=== PATIENT | female | born 1940 | race Caucasian/White ===

== ENCOUNTER 2020-09-24 17:15 | Inpatient (IN) | payer MEDICARE, SELFPAY ==
[2020-09-24] VITALS (13 sets, daily range): BP systolic 106–156; BP diastolic 63–93; PULSE 88–173; RESP 12–25; TEMP 37.2–37.4; O2SAT 94–97; BMI 24.7
--- NOTE | 2020-09-24 | ECG_ITS ---
Test Reason : TACHYCARDIA Blood Pressure : / mmHG Vent. Rate : 161 BPM Atrial Rate : 129 BPM P-R Int : 000 ms QRS Dur : 078 ms QT Int : 292 ms P-R-T Axes : 000 022 -77 degrees QTc Int : 477 ms Atrial fibrillation with rapid ventricular response Marked ST abnormality, possible inferior subendocardial injury Abnormal ECG When compared to the previous EKG of Afib is present Referred By: Leno Mejias Electronically Signed By:Asim Ray
--- NOTE | ~2020-09-24 | CT_ITS ---
EXAMINATION: CT ANGIOGRAM OF THE CHEST WITH AND WITHOUT CONTRAST (CT PULMONARY ANGIOGRAM FOR PE) CLINICAL INFORMATION: Reason for Exam SOB COMPARISON: Chest x-ray 09/30/2020 TECHNIQUE: Prior to contrast administration, noncontrast localization images were obtained. Subsequently, multidetector volumetric imaging was performed from the thoracic inlet to below the diaphragms following the administration of 61 mL Omnipaque 350 intravenous contrast. No contrast reaction reported Sagittal, coronal, and MIP oblique sagittal reformatted images were obtained on the CT workstation, uploaded to PACS, and reviewed. This CT examination was performed using dose optimization techniques as appropriate, variously including the following: *Automated exposure control *Adjustment of mA and/or kV according to patient size (this includes techniques or standardized protocols for targeted exams where dose is matched to indication/reason for exam; i.e. extremities or head) *Use of iterative reconstruction technique Total exam dose-length product 482 mGy-cm FINDINGS: QUALITY OF STUDY/CONTRAST BOLUS: Satisfactory. PULMONARY ARTERIES: There are multiple bilateral pulmonary arteries emboli involving segmental and subsegmental arteries involving all lobes. Most significant emboli in the right lower lobe and left lower lobe. THORACIC AORTA: No aneurysm or dissection. LUNG: No focal consolidation. There are areas of linear scarring at lung bases and posterior left upper lobe. Lung nodules: Right lun. Right upper lobe anterior lung 5 mm smooth bordered nodule axial image 223/516 2. Right lower lobe posterior lateral subpleural lung 4 mm nodule axial image [id number] Left lun. Calcified 2 mm nodule left upper lobe axial image 96/516 PLEURA: No pleural effusion or pneumothorax. MEDIASTINUM: There is straightening of the intraventricular septum . Right ventricle is larger than the left ventricle. Minimal reflux of contrast into the IVC. These changes are consistent with right ventricular heart strain. Heart size is normal. Moderate volume of coronary calcified calcifications. No pericardial effusion. No mediastinal mass or lymphadenopathy. CHEST WALL/AXILLA: No axillary or internal mammary lymphadenopathy. OSSEOUS STRUCTURES: Multilevel degenerative spondylosis of the spine. UPPER ABDOMEN: Unremarkable. No reflux of contrast into the hepatic veins to suggest elevated right heart pressures. CT/CT angio chest PE protocol IMPRESSION: 1. Multiple bilateral pulmonary emboli. Evidence of right ventricular heart strain. 2. There are 2 noncalcified nodules in the right lung measuring 5 mm and 4 mm. Various management parameters for solitary pulmonary nodules are in the literature. According to the UPDATED 2017 Fleischner Society recommendations, the advised follow-up imaging for solid nodules < 6 mm is: LOW RISK PATIENT: No routine follow-up. HIGH RISK PATIENT: Optional CT at 12 months. If stable at 12 months no further follow-up recommended. Reference: Guidelines for Management of Incidental Pulmonary Nodules Detected on CT Images: From the Fleischner Society 2017. VTE: negative This critical result was discussed with Georgia Harley on 09/30/2020, 9:22 PM and it was ascertained that the content and urgency of the report was understood at the time of direct communication.
--- NOTE | ~2020-09-24 | XR_ITS ---
EXAMINATION: XR CHEST CLINICAL INFORMATION: Triple-lumen catheter placement COMPARISON: 09/30/2020 TECHNIQUE: Frontal view of the chest was obtained. FINDINGS: Right internal jugular central venous catheter terminates near the cavoatrial junction. Cardiac leads overlie the chest. The lungs are well expanded. There is no focal consolidation, edema, or effusion. No pneumothorax. The cardiomediastinal silhouette is within normal limits. No acute osseous abnormality. XR/XR chest 1V IMPRESSION: Right internal jugular central venous catheter terminates near the cavoatrial junction. No pneumothorax.
--- NOTE | ~2020-09-24 | US_ITS ---
EXAMINATION: US VENOUS ULTRASOUND WITH DOPPLER LOWER EXTREMITY, BILATERAL CLINICAL INFORMATION: Swelling legs. PE COMPARISON: None TECHNIQUE: Ultrasound of the deep veins is performed from the hip to the calf with compression sonography and color and pulse Doppler assessment. Spectral analysis with color-flow imaging is performed. FINDINGS: RIGHT: There is normal venous compression and respiratory variation and augmented flow. The visualized common femoral vein, superficial femoral vein, profunda femoral vein, popliteal vein, and the trifurcation region shows no evidence of deep venous thrombosis. There is no significant popliteal fossa cyst. LEFT: There is acute appearing thrombus in the left common femoral vein extending into the greater saphenous vein. The thrombus is nonocclusive in the common femoral vein and appears to be occlusive in the greater saphenous vein, which is expanded. No thrombus seen within the left superficial femoral, profunda femoral, or popliteal veins, nor is there thrombus seen in the veins of the calf. No left popliteal fossa cyst. US/US venous duplex LE BI IMPRESSION: No DVT demonstrated in the right lower extremity. There is acute appearing thrombus in the left common femoral vein extending into the greater saphenous vein. This critical result was discussed with Veda AGUILAR by telephone at 10/02/2020 8:31 PM and it was ascertained that the content and urgency of the report was understood at the time of direct communication.
--- NOTE | ~2020-09-24 | XR_ITS ---
EXAMINATION: PORTABLE CHEST 1 VIEW CLINICAL INFORMATION: Shortness of breath . COMPARISON: 06/09/2009. TECHNIQUE: Portable frontal view of the chest was obtained. FINDINGS: The lungs are well expanded. No focal infiltrate, effusion, edema, or pneumothorax. Cardiac and mediastinal silhouettes are within normal limits for technique. No acute bony abnormality seen. XR/XR chest 1V IMPRESSION: No evidence of acute disease.
[2020-09-24 19:51] LABS: Hematocrit 44.5 % (37-47); Hemoglobin 14.7 g/dl (12.0-16.0); Mean Corpuscular Hemoglobin 28.7 pg (27.0-33.0); Mean Corpuscular Volume 86.9 fL (80-98); Mean Platelet Volume 8.9 fL (9.4-12.3); NRBC Pct Auto 0.2 /100WBC (0.0-0.2); Platelet Count 327 X10*3/uL (160-400); Red Blood Count 5.12 X10*6/uL (4.20-5.50); Red Cell Distribution Width 12.3 % (11.0-16.0); White Blood Count 8.6 X10*3/uL (4.8-10.8)
--- NOTE | 2020-09-24 20:04 | ED.GIBLEED ---
HPI - GI Bleed General Chief complaint: GI Bleed Stated complaint: rectal bleed Time Seen by Provider: 09/24/20 20:02 Source: patient Mode of arrival: ambulatory Limitations: no limitations History of Present Illness HPI Narrative: Patient complaining of vaginal bleeding couple of weeks ago which has happened before in the past has followed with associate application developer lately she noticed bleeding per rectally which started 1 week ago according to her when she wipes she noticed bright red blood and some time and she has diarrhea has blood mixed with the stool not melena patient denies dizziness or shortness of breath no palpitation no chest pain when patient arrived to the bed cardiac nurse specialist showed tachycardia with heart rate of 180. Patient unaware of palpitation no chest pain no shortness of breath feels weak for last few days. Patient colonoscopy in the past without any significant lesion Related Data Home Medications Medication Instructions Recorded Confirmed aspirin 81 mg tablet,delayed 81 mg PO DAILY 05/26/20 09/24/20 release Previous Rx's Medication Instructions Recorded bisoprolol 5 1 tab PO DAILY #90 tab 08/14/20 mg-hydrochlorothiazide 6.25 mg tablet Allergies Allergy/AdvReac Type Severity Reaction Status Date / Time No Known Allergies Allergy Verified 09/24/20 22:17 Review of Systems Review of Systems: Constitutional : No Weight loss, No Fever, No Chills ENT/Mouth : No sore throat, No Rhinorrhea Eyes: No Eye Pain, No Swelling Cardiovascular : No Chest Pain, no palpitations Respiratory : No Cough, No Sputum, no shortness of breath Gastrointestinal : no Nausea, No Vomiting, No Diarrhea, No abdominal Pain, no black stools Genitourinary : No Dysuria, No Urinary Frequency Musculoskeletal : No joint pain, No Myalgias, No Joint Swelling Skin : No Skin Lesions, No rash Neuro : No Weakness, No Numbness, No Dizziness, No Headache Psych : No Anxiety/Panic, No Depression Heme/Lymph: No Bruising, No Lymphadenopathy Endocrine : No Polyuria, No Polydipsia All other systems reviewed and are negative [facility] Past Medical History Medical History Hypertension Surgical History History of section History of left knee replacement Family History Family History Father Hypertension Mother No problems noted. Son No problems noted. Son No problems noted. Daughter No problems noted. Social History Social History Alcohol intake: current Alcohol intake frequency: holidays/special occasions only Smoking Status: Never smoker Advance Directives: No Advance Directives Information Provided: No Physical Exam Vital Signs: Vital Signs: Last Vital Signs Temp 99.3 F 09/24/20 20:22 Pulse 130 H 09/25/20 00:41 Resp 24 H 09/25/20 00:41 BP 140/88 H 09/25/20 00:41 Pulse Ox 95 09/25/20 00:41 Body Mass Index 24.7 Appearance: Alert. Oriented X3. No acute distress. Eyes: Pupils equal, round and reactive to light. ENT: Pharynx normal. Neck: Normal inspection. Neck supple. CVS: Tachycardia with heart rate of 180 beats per minute no murmur or gallop Pulses normal. Respiratory: No respiratory distress. Breath sounds normal. Abdomen: Soft and nontender. Bowel sounds are present, no mass palpable, no CVA tenderness rectal exam: Brown stool guaiac positive Skin: Skin warm and dry. Normal skin color. Normal skin turgor. Extremities: No lower extremity edema. No calf tenderness Neuro: Oriented X 3. No motor deficit. No sensory deficit. MDM - GI Bleed MDM Narrative Medical decision making narrative: Patient with minor rectal bleed with stable H&H came to the ER and noticed to have tachycardia EKG showed atrial fibrillation with heart rate of 170s responded to IV Cardizem patient unaware of palpitations. Heart rate improved after Cardizem now around 100 still AFib. With Daryl score of 4 will start on aspirin for now as patient has rectal bleed likely hemorrhoidal H&H is stable Medical Records Attestation: I reviewed the patient's medical records. Lab Data Attestation: I reviewed the patient's lab results. Result diagrams: 09/24/20 19:43 09/24/20 19:43 Labs: Lab Results 09/24/20 09/24/20 09/24/20 Range/Units 19:43 19:43 20:32 WBC 8.6 (4.8-10.8) X10*3/uL RBC 5.12 (4.20-5.50) X10*6/uL Hgb 14.7 (12.0-16.0) g/dl Hct 44.5 (37-47) % MCV 86.9 (80-98) fL MCH 28.7 (27.0-33.0) pg MCHC 33.0 (31.0-35.0) g/dl RDW 12.3 (11.0-16.0) % Plt Count 327 (160-400) X10*3/uL MPV 8.9 L (9.4-12.3) fL Absolute Nucleated RBC 0.020 H (0.0-0.012) X10*3/uL Nucleated RBC % (auto) 0.2 (0.0-0.2) /100WBC PT 14.7 H (10.8-13.0) SEC INR 1.2 H (0.9-1.1) APTT 28.6 (24.1-38.0) SEC Sodium 142 (135-145) mmol/L Potassium 3.2 L (3.3-5.1) mmol/L Chloride 103 (96-108) mmol/L Carbon Dioxide 26 (22-29) mmol/L Anion Gap 16 (12-20) BUN 15 (9-16) mg/dL Creatinine 0.72 (0.5-1.4) mg/dL Estim Creat Clear Calc 59.6 Estimated GFR > 60 Random Glucose 118 H (60-115) mg/dL Calcium 9.0 (8.4-10.2) mg/dL Total Bilirubin 1.0 (0.0-1.0) mg/dL Direct Bilirubin 0.5 (0.0-0.5) mg/dL AST 15 (5-31) U/L ALT 16 (0-31) U/L Alkaline Phosphatase 138 H (39-117) U/L Troponin I High Sens (<3.5-17.0) ng/L Total Protein 7.0 (6.5-8.0) g/dL Albumin 4.0 (3.5-5.0) g/dL Lipase 30 (8-78) U/L Stool Occult Blood (NEGATIVE) COVID-19 (JASON) (Negative) COVID-19 Clin Com 04/15/21 04/15/21 04/15/21 Range/Units 20:32 20:32 21:23 WBC (4.8-10.8) X10*3/uL RBC (4.20-5.50) X10*6/uL Hgb (12.0-16.0) g/dl Hct (37-47) % MCV (80-98) fL MCH (27.0-33.0) pg MCHC (31.0-35.0) g/dl RDW (11.0-16.0) % Plt Count (160-400) X10*3/uL MPV (9.4-12.3) fL Absolute Nucleated RBC (0.0-0.012) X10*3/uL Nucleated RBC % (auto) (0.0-0.2) /100WBC PT (10.8-13.0) SEC INR (0.9-1.1) APTT (24.1-38.0) SEC Sodium (135-145) mmol/L Potassium (3.3-5.1) mmol/L Chloride (96-108) mmol/L Carbon Dioxide (22-29) mmol/L Anion Gap (12-20) BUN (9-16) mg/dL Creatinine (0.5-1.4) mg/dL Estim Creat Clear Calc Estimated GFR Random Glucose (60-115) mg/dL Calcium (8.4-10.2) mg/dL Total Bilirubin (0.0-1.0) mg/dL Direct Bilirubin (0.0-0.5) mg/dL AST (5-31) U/L ALT (0-31) U/L Alkaline Phosphatase (39-117) U/L Troponin I High Sens 8.7 (<3.5-17.0) ng/L Total Protein (6.5-8.0) g/dL Albumin (3.5-5.0) g/dL Lipase (8-78) U/L Stool Occult Blood POSITIVE (NEGATIVE) COVID-19 (JASON) Negative (Negative) COVID-19 Clin Com See Note ECG Data Attestation: I personally reviewed and interpreted this ECG as follows: Interpretation: Atrial fibrillation with heart rate of 161 beats per minute nonspecific ST T wave changes no acute ischemia Discharge Plan Discharge Clinical Impression: Atrial fibrillation with RVR, Bright red rectal bleeding Patient Disposition: Admitted As Inpatient
[2020-09-24 20:21] LABS: Alanine Aminotransferase 16 U/L (0-31); Alkaline Phosphatase 138 U/L (39-117); Anion Gap 16 (12-20); Aspartate Amino Transferase 15 U/L (5-31); Bilirubin Direct 0.5 mg/dL (0.0-0.5); Blood Urea Nitrogen 15 mg/dL (9-16); Carbon Dioxide 26 mmol/L (22-29); Chloride 103 mmol/L (96-108); Creatinine Clr Calc Pharmacy 59.6; Estimated Glomerular Filt Rate > 60; Glucose Random 118 mg/dL (60-115); Lipase 30 U/L (8-78); Potassium 3.2 mmol/L (3.3-5.1); Sodium 142 mmol/L (135-145)
[2020-09-24] MEDS: dilTIAZem HCL 50 MG/10 ML VIAL 20 MG IVPUSH (20:25)
[2020-09-24] MEDS: 0.9 % Sodium Chloride 1,000 ML 999 ML IVCONT (20:26)
[2020-09-24 20:41] LABS: OBS Int Ctl Valid YES; OBS1 POSITIVE (NEGATIVE)
[2020-09-24] MEDS: Metoprolol Tartrate 5 MG/5 ML VIAL IVPUSH (20:42)
[2020-09-24 20:46] LABS: INTERNATIONAL NORM RATIO 1.2 (0.9-1.1); Prothrombin Time 14.7 SEC (10.8-13.0)
[2020-09-24 20:49] LABS: Partial Thromboplastin Time 28.6 SEC (24.1-38.0)
--- NOTE | 2020-09-24 20:49 | PC.NURSE ---
At about 2014 pt placed on cardiac cath rn, found to be tachycardiac around 180bpm. This RN notified Randell Villela to bedside. This RN obtained EKG which showed afib with RVR. Pt aaox1, intermittently disoriented to place and situation, completely disoriented to time. Pt medicated with cardizem per AUG with some effectiveness, remained tachy between 120-160. Randell made aware, ordered 5mg metoprolol. Pt medicated per AUG, tolerating meds. Pt HR now irregular between 70s-90s. Pt maintaining baseline mentation, denies CP/palpitations/SOB/dizziness. Pt remains on cardiac cath rn. VSS
[2020-09-24 21:18] LABS: Troponin-I High Sensitivity 8.7 ng/L (<3.5-17.0)
[2020-09-24] MEDS: dilTIAZem HCL CD 120 MG CAP.ER.DEG PO (21:27)
--- NOTE | 2020-09-24 21:56 | PM.IMHP ---
History of Present Illness Date of Service: 09/24/20 Chief Complaint: Diarrhea 80-year-old female with a past medical history of hypertension presented to the hospital with a chief complaint of diarrhea. Patient mentioned that over the past few days he has been having intermittent episodes of loose stools. Of water in nature. Denies being on any antibiotics her eating outside. Denies any nausea vomiting. Denies any abdominal discomfort. Patient is any chest pain palpitations lightheadedness or dizziness. Today patient noted streaks of blood in the stool/dark stool. Hence decided to come to the ER for further evaluation. Review of all other systems is negative except mentioned above ER course: Per ER team patient rectal exam noted guaiac positive stool. Itchiness stable. But subsequently patient noted to be in new onset AFib with rapid ventricular response. Patient was given oral diltiazem. Admitted to the hospital for further management. [facility] Medical History Hypertension Family History Father Hypertension Mother No problems noted. Son No problems noted. Son No problems noted. Daughter No problems noted. Surgical History History of section History of left knee replacement Social History Household Members: Unknown / Unable to assess Housing: House Alcohol intake: current Alcohol intake frequency: holidays/special occasions only Smoking Status: Never smoker service: No Current occupational status: retired Meds Allergies Allergy/AdvReac Type Severity Reaction Status Date / Time No Known Allergies Allergy Verified 09/24/20 22:17 Active Medications: Current Medications Generic Name Dose Route Start Last Admin Trade Name Freq PRN Reason Stop Dose Admin Acetaminophen 650 mg 09/24/20 21:52 Acetaminophen 325 Mg Tablet PO Q6H PRN Pain, Mild (Pain Scale 1-3) Aspirin 81 mg 09/25/20 09:00 Aspirin 81 Mg Tab.Chew PO DAILY [facility] Diltiazem HCl 60 mg 09/25/20 09:00 Diltiazem Hcl Sr 60 Mg Cap.Er.12h PO BID [facility] Protocol Enoxaparin Sodium 40 mg 09/24/20 22:00 Enoxaparin Sodium 40 Mg/0.4 Ml Syringe SUBCUT Q24H [facility] Dextrose/Sodium Chloride 1,000 mls @ 100 mls/hr 09/24/20 22:00 D51/2ns IVCONT .Q10H NESTOR Sodium Chloride 3 ml 09/25/20 00:00 0.9 % Sodium Chloride Flush 3 Ml Syringe IVFLUSH QSHIFT NESTOR Physical Exam Vital Signs and Narrative: Vital Signs: Last Vital Signs Temp 99.3 F 09/24/20 20:22 Pulse 135 H 09/24/20 21:27 Resp 15 09/24/20 21:26 BP 135/70 09/24/20 21:27 Pulse Ox 96 09/24/20 21:26 Body Mass Index 24.7 Gen: Appears be in no acute distress HEENT: NCAT, Moist mucosa. Pulmonary: Vesicular breath sounds, fair air entry CVS: Normal S1-S2 Abdomen: BS+, Soft, Nontender Extremities: Warm well perfused Neuro: Alert and awake. Results Labs CBC and Chem 7: 10/03/20 05:46 10/03/20 05:46 Labs: Laboratory Results - last 24 hr 09/24/20 09/24/20 09/24/20 19:43 19:43 20:32 MCV 86.9 MCH 28.7 MCHC 33.0 RDW 12.3 Plt Count 327 MPV 8.9 L Absolute Nucleated RBC 0.020 H Nucleated RBC % (auto) 0.2 PT 14.7 H INR 1.2 H APTT 28.6 Anion Gap 16 Estim Creat Clear Calc 59.6 Estimated GFR > 60 Random Glucose 118 H Calcium 9.0 Total Bilirubin 1.0 Direct Bilirubin 0.5 AST 15 ALT 16 Alkaline Phosphatase 138 H Troponin I High Sens Total Protein 7.0 Albumin 4.0 Lipase 30 Stool Occult Blood 09/24/20 09/24/20 20:32 20:32 MCV MCH MCHC RDW Plt Count MPV Absolute Nucleated RBC Nucleated RBC % (auto) PT INR APTT Anion Gap Estim Creat Clear Calc Estimated GFR Random Glucose Calcium Total Bilirubin Direct Bilirubin AST ALT Alkaline Phosphatase Troponin I High Sens 8.7 Total Protein Albumin Lipase Stool Occult Blood POSITIVE Assessment and Plan (1) Rectal bleed: Status: Acute 80-year-old female with a past medical history of hypertension presented to the hospital with a chief complaint of diarrhea/bright red blood per rectum. Exam was benign. Noted to be new onset AFib. Admitted for further management. Bright red blood per rectum: Guaiac-positive stool. H&H stable. Vitals stable. IV ppi. Gastroenterology consult. Gentle IV fluids. Diarrhea: Likely gastroenteritis. Abdominal exam benign. Will obtain stool studies. Supportive care. New onset AFib with RVR: On Diltizem Drip Patient denies any palpitations. Will obtain TSH and echocardiogram. Cardiology consult. Will defer to Cardiology in regards anticoagulation once cleared by Gastroenterology. History of hypertension: Hold home aspirin. Will also hold home bisoprolol/hydrochlorothiazide. DVT prophylaxis: SCD boots Code status: Full code
[2020-09-24 22:09] LABS: COVID-19 Test Negative (Negative)
--- NOTE | 2020-09-24 22:12 | PC.NURSE ---
Hospitalist TT regarding pt's VS. Awaiting reply
[2020-09-24] MEDS: Dextrose 5 % and 0.45 % NaCl 1,000 ML 100 ML IVCONT (22:13)
[2020-09-24] MEDS: dilTIAZem HCL 50 MG/10 ML VIAL 10 MG IVPUSH (22:26)
[2020-09-25] VITALS (14 sets, daily range): BP systolic 79–146; BP diastolic 51–90; PULSE 84–156; RESP 16–24; TEMP 36.2–37.2; O2SAT 94–97
[2020-09-25] MEDS: dilTIAZem HCL 125 MG in 0.9 % Sodium Chloride 100 ML 10 MG IVCONT (00:12)
[2020-09-25] MEDS: 0.9 % Sodium Chloride Flush 3 ML SYRINGE IVFLUSH ×3 (00:19→16:33)
[2020-09-25 00:31] LABS: Troponin-I High Sensitivity 10.3 ng/L (<3.5-17.0)
--- NOTE | 2020-09-25 00:42 | PC.NURSE ---
Pt incontinent of BM, inc care provided.
--- NOTE | 2020-09-25 01:54 | PC.NURSE ---
Pt was maintaining HR between 90-125 at 12.5mg/h then began increasing HR to 130-140. This RN increased dose to 13mg/h, now HR 90-120.
--- NOTE | 2020-09-25 02:30 | PC.NURSE ---
Pt properly rate controlled at 13mg/h however BP dropped as low as 74/48, now 79/51. Pt titrated down to 10mg/h, HR controlled at this time. Provider to order bolus for BP.
[2020-09-25] MEDS: 0.9 % Sodium Chloride 500 ML IV (02:42)
[2020-09-25] MEDS: Pantoprazole Sodium 40 MG/10 ML VIAL IVPUSH (06:03)
[2020-09-25 08:17] LABS: MANUAL DIFF FLAG NO
--- NOTE | 2020-09-25 08:30 | CA_ITS ---
Transthoracic Echocardiogram Patient (Last, First, Middle): Enma Holden A Gender: Female Date of : 1940 Age: 80 Procedure Date: 09/25/2020 Procedure Type: Transthoracic Echocardiogram Location: [facility] [place] Height: 170.18 cm Weight: 80.74 kg BSA: 1.92 m2 Heart Rate: bpm BP: 93 / 60 mmHg Watch Assembly Instructor: Referring MD: Reji Mccord MD Symptoms: afib Study Quality: Fair ECG Rhythm: Atrial Fibrillation Conclusions: - Normal left ventricular size and systolic function. - There is moderately increased left ventricular wall thickness. - The left atrium is severely dilated. Findings Left Ventricle Normal left ventricular size and systolic function. There is moderately increased left ventricular wall thickness. The visually estimated ejection fraction is between 55-60%. There is no evidence of regional wall motion abnormalities. Diastolic function is indeterminate on the basis of available data. Right Ventricle Normal right ventricular cavity size and systolic function. Atria The left atrium is severely dilated. There is no evidence of interatrial shunt by color Doppler. Aortic Valve Normal aortic valve structure and function. There is no aortic valve stenosis. There is no aortic valve regurgitation. Mitral Valve Normal mitral valve structure and function. There is no mitral valve regurgitation. There is no mitral valve stenosis. Pulmonic Valve The pulmonic valve is likely normal. Tricuspid Valve Normal tricuspid valve structure. There is mild to moderate tricuspid valve regurgitation. Normal right atrial pressure. There is no evidence of pulmonary hypertension. Great Vessels The pulmonary artery was not well visualized. There is mild dilatation of the ascending aorta. Venous The inferior vena cava is normal in size and collapses greater than 50% with inspiration. Pericardium/Pleural There is no evidence of pericardial effusion. Prior Study Comparison No prior study available for comparison. Measurements 2D Linear Measurements IVSd: 1.24 0.6-0.9/0.6-1.0 cm LVIDd: 3.63 3.9-5.3/4.2-5.9 cm LVIDd Index: 1.89 2.4-3.2/2.2-3.1 cm/m2 LVIDs: 2.47 2.0-3.6 cm LVPWd: 1.22 0.7-1.1 cm Ao Root: 2.90 2.1-3.5 cm LA Diam: 3.10 2.7-3.8/3.0-4.0 cm LAIDs Index: 1.61 1.5-2.3 cm/m2 LV Mass: 185.16 67-162/88-224 g LV Mass Index: 96.44 43-95/49-115 g/m2 LVOT Diam: 1.90 3.0+(-)1.3 cm 2D Systolic Function EF 4C: 53.20 >55% EF 2C: 56.00 >55% Mitral Valve MV Pk E: 0.83 MV Decel Time: 158.00 E'Lateral: 13.40 E'Medial: 9.57 E/E' Med: 8.60 E/E' Lat: 6.20 PHT: 46.00 MVA PHT: 4.78 Decel Glenn: 5.20 Aortic Valve AoV Pk Esteban: 1.52 AoV Mn Esteban: 0.93 AoV VTI: 0.30 AoV Pk Grad: 9.00 Aov Mn Grad: 4.00 SARAY Cont.VTI: 1.92 LVOT LVOT Pk Esteban: 1.23 LVOT Mn Esteban: 0.75 LVOT VTI: 0.21 LVOT Pk Grad: 6.00 LVOT Mn Grad: 3.00 LVOT Diam: 1.90 LVOT Area: 2.84 Diastolic Function MV Pk E: 0.83 E'Medial: 9.57 E/E' Med: 8.60 E' Laterial: 13.40 E/E' Lat: 6.20 Tricuspid Valve TR Pk Esteban: 2.24 TR Pk Grad: 20.00 RA Press: 3.00 RVSP: 23.00 Great Vessels Aorta Ao Root-2D: 2.90 2.0-3.7 cm Ao Asc: 3.30 2.1-3.4 cm Pulmonary Valve PV Pk Esteban: 1.00 Peak PV Grad: 4.00 Updated in Other Vendor System with Status of Final Asim Ray MD electronically signed on 09/25/2020 6:53:43 PM with status of Final
[2020-09-25 08:42] LABS: Basophils Absolute Auto 0.1 X10*3/uL (0.0-0.2); Eosinophils Absolute Auto 0.3 X10*3/uL (0.0-0.4); Eosinophils Percent Auto 5.3 % (0-4); Hematocrit 40.4 % (37-47); Hemoglobin 13.4 g/dl (12.0-16.0); Imm Gran Abs Auto 0.02 X10*3/uL (0.00-0.03); Imm Gran Pct Auto 0.3 % (0.0-0.4); Lymphocytes Absolute Auto 1.7 X10*3/uL (1.2-4.9); Lymphocytes Percent Auto 28.3 % (20-40); Mean Corpuscular HGB Conc 33.2 g/dl (31.0-35.0); Mean Corpuscular Hemoglobin 28.9 pg (27.0-33.0); Mean Corpuscular Volume 87.1 fL (80-98); Mean Platelet Volume 9.1 fL (9.4-12.3); Monocytes Percent Auto 16.9 % (2-11); Neutrophils Absolute Auto 2.9 X10*3/uL (2.0-8.3); Neutrophils Percent Auto 48.2 % (45-73); Platelet Count 302 X10*3/uL (160-400); Red Blood Count 4.64 X10*6/uL (4.20-5.50); Red Cell Distribution Width 12.3 % (11.0-16.0); White Blood Count 6.1 X10*3/uL (4.8-10.8)
[2020-09-25] MEDS: Dextrose 5 % and 0.45 % NaCl 1,000 ML 100 ML IVCONT ×2 (08:44→18:11)
[2020-09-25] MEDS: dilTIAZem HCL SR 60 MG CAP.ER.12H PO (08:44)
[2020-09-25 08:56] LABS: Blood Urea Nitrogen 8 mg/dL (9-16); Carbon Dioxide 26 mmol/L (22-29); Chloride 107 mmol/L (96-108); Estimated Glomerular Filt Rate > 60; Glucose Random 110 mg/dL (60-115); Sodium 143 mmol/L (135-145)
[2020-09-25 09:02] LABS: Anion Gap 13 (12-20); Potassium 2.8 mmol/L (3.3-5.1)
[2020-09-25 09:16] LABS: Thyroid Stimulating Hormone 1.29 uIU/mL (0.32-4.0)
--- NOTE | 2020-09-25 10:19 | P.PNIM_ITS ---
Subjective Subjective Date of Service: 09/25/20 Interval History: seen and examined this AM pleasantly confused knows shes in the hospital but otherwise disoriented to person and time. is aw are that she is having memory troubles ROS unreliable due to baseline dementia Physical Exam Vital Signs: Vital Signs: Last Vital Signs Temp 98.0 F 09/25/20 08:00 Pulse 98 09/25/20 08:44 Resp 20 09/25/20 08:00 BP 136/81 09/25/20 08:44 Pulse Ox 95 09/25/20 08:00 Body Mass Index 24.7 Const: Other: General - no acute distress, appears comfortable Cardiovascular - IRR Lungs - normal respiratory effort, clear to auscultation bilaterally, no wheezing Abdomen - soft, non-tender, no rebound or guarding Extremities - no edema bilaterally Neuro - awake and alert, no focal deficits; disoriented to person and time Objective Data Current Medications Generic Name Dose Route Start Last Admin Trade Name Freq PRN Reason Stop Dose Admin Acetaminophen 650 mg 09/24/20 21:52 Acetaminophen 325 Mg Tablet PO Q6H PRN Pain, Mild (Pain Scale 1-3) Diltiazem HCl 60 mg 09/25/20 09:00 09/25/20 08:44 Diltiazem Hcl Sr 60 Mg Cap.Er.12h PO 60 mg BID NESTOR Administration Protocol Diltiazem HCl 10 mg 09/24/20 22:18 09/24/20 22:26 Diltiazem Hcl 50 Mg/10 Ml Vial IVPUSH 10 mg Q4H PRN Administration HR>125 Dextrose/Sodium Chloride 1,000 mls @ 100 mls/hr 09/24/20 22:00 09/25/20 08:44 D51/2ns IVCONT 100 mls/hr .Q10H NESTOR Administration Diltiazem HCl 125 mg/ Sodium 125 mls @ 0 mls/hr 09/24/20 23:45 09/25/20 09:07 Chloride IVCONT 5 mg/hr .Q0M NESTOR 5 mls/hr Titration Protocol Per Protocol Pantoprazole Sodium 40 mg 09/25/20 06:30 09/25/20 06:03 Pantoprazole Sodium 40 Mg/10 Ml Vial IVPUSH 40 mg DAILY@0630 [facility] Administration Pharmacy Consult 1 each 09/25/20 08:34 Consult Rx Perform Med Rec MISCELLANE ONCE PRN Consult order Sodium Chloride 3 ml 09/25/20 00:00 09/25/20 08:44 0.9 % Sodium Chloride Flush 3 Ml Syringe IVFLUSH 3 ml QSHIFT NESTOR Administration Labs CBC & Chem 7: 09/25/20 07:40 09/25/20 07:40 Assessment and Plan (1) Rectal bleed: Status: Acute (2) Dementia: Status: Acute Assessment and Plan: This is a 80-year-old female with a past medical history of progressive dementia who presents to the hospital with complaints of self-limited rectal bleeding. Upon arrival to the emergency room she was noted to be in new onset AFib with RVR which did not improve with multiple doses of IV metoprolo/cardizem nor oral cardizem. She was subsequently started on cardizem gtt and admission was requested. 1. New onset A. Fib with RVR On cardizem gtt, rates rebounded as drip was titrated off Testarted on cardizem gtt, placed on oral -- will keep the same for now until evaluated by cardiologyT May need OAC given CHADSVASC of at least 4, but given bleeding history -- to discuss with family (given patients bleeding) 2. GI bleed likely lower and self limited h/h slight drop, but still wnl monitor for now 3. History of HTN on bisoprolol/hctz at home, held to make room for cardizem 4. 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
[2020-09-25] MEDS: Potassium Chloride Packet 20 MEQ PACKET 60 MEQ PO (11:35)
--- NOTE | 2020-09-25 13:13 | PM.CNCAR ---
History of Present Illness History of Present Illness Date of Service: 09/25/20 Requesting physician: Reji Mccord Consult reason: atrial fibrillation Chief complaint: New onset afib Narrative: Enma is an 80 yo female with PMH of HTN who presented with report of loose stool, blood in stool. Had been taking daily aspirin at home which was stopped. Stool Occult blood positive. Hgb 13.4. GI consulted. EKG was done showing atrial fibrillation which is new finding for her. Treated with Diltiazem for heart rate control. Not started on anticoagulation. Today she is observed resting in bed in no acute distress. She reports feeling well without any concerning symptoms. She has no chest pains at rest or activity, no sob, palpitation, PND, orthopnea or edema. No dizziness, presyncope, syncope. Denies any known cardiac history. 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 present. Review of Systems Review of Systems: as above Yes all other systems are reviewed and are negative PMFSH Past Medical History Medical History Hypertension Family History Family History Father Hypertension Mother No problems noted. Son No problems noted. Son No problems noted. Daughter No problems noted. Surgical History Surgical History History of section History of left knee replacement Social History Social History Household Members: Unknown / Unable to assess Housing: House Do you presently have visiting nurse or other home services: No Alcohol intake: current Alcohol intake frequency: holidays/special occasions only Smoking Status: Never smoker Smoked in Last 30 Days: No Use of substances other than those prescribed or required for medical reasons: No Currently Displaying Signs/Symptoms of Drug Intoxication Withdrawal: No Have you been hit, kicked, punched, or otherwise hurt by someone within the past year? If so, by whom?: No Do you feel safe in your current relationship?: No Is there a partner from a previous relationship who is making you feel unsafe now?: No Are you made to feel afraid or neglected: No Advance Directives: No Advance Directives Information Provided: No Do you have thoughts of harming others: None Do you have a plan to hurt others: No Plan service: No Current occupational status: retired Meds Allergies Allergy/AdvReac Type Severity Reaction Status Date / Time No Known Allergies Allergy Verified 09/24/20 22:17 Active Medications: Current Medications Generic Name Dose Route Start Last Admin Trade Name Freq PRN Reason Stop Dose Admin Acetaminophen 650 mg 09/24/20 21:52 Acetaminophen 325 Mg Tablet PO Q6H PRN Pain, Mild (Pain Scale 1-3) Diltiazem HCl 60 mg 09/25/20 09:00 09/25/20 08:44 Diltiazem Hcl Sr 60 Mg Cap.Er.12h PO 60 mg BID NESTOR Administration Protocol Dextrose/Sodium Chloride 1,000 mls @ 100 mls/hr 09/24/20 22:00 09/25/20 08:44 D51/2ns IVCONT 100 mls/hr .Q10H NESTOR Administration Diltiazem HCl 125 mg/ Sodium 125 mls @ 0 mls/hr 09/24/20 23:45 09/25/20 09:07 Chloride IVCONT 5 mg/hr .Q0M NESTOR 5 mls/hr Titration Protocol Per Protocol Pantoprazole Sodium 40 mg 09/25/20 06:30 09/25/20 06:03 Pantoprazole Sodium 40 Mg/10 Ml Vial IVPUSH 40 mg DAILY@0630 [facility] Administration Pharmacy Consult 1 each 09/25/20 08:34 Consult Rx Perform Med Rec MISCELLANE ONCE PRN Consult order Sodium Chloride 3 ml 09/25/20 00:00 09/25/20 08:44 0.9 % Sodium Chloride Flush 3 Ml Syringe IVFLUSH 3 ml QSHIFT NESTOR Administration Home Medications Medication Instructions Recorded Confirmed Last Taken Type aspirin 81 mg tablet,delayed 81 mg PO DAILY 05/26/20 09/24/20 Unknown History release Physical Exam Vital Signs: Vital Signs: Last Vital Signs Temp 97.3 F 09/25/20 12:00 Pulse 84 09/25/20 12:00 Resp 20 09/25/20 12:00 BP 123/86 09/25/20 12:00 Pulse Ox 96 09/25/20 12:00 Body Mass Index 24.7 Const: General: cooperative, no acute distress, alert and awake Orientation/consciousness: patient oriented x3 Neck: Neck: Yes normal visual inspection and Yes no JVD Resp: Effort & Inspection: normal respiratory effort, able to speak in complete sentences and not labored Auscultation: clear to auscultation bilaterally, no crackles, no rales, no rhonchi and no wheezes Cardio: Palpation: normal PMI Rate: regular rate Rhythm: abnormal rhythm (irregularly irregular) Heart sounds: S1 normal heart sound present and S2 normal heart sound present Peripheral pulses: Peripheral pulses 2+ throughout GI: Inspection: Yes normal to inspection Neuro: General: patient oriented x3 Extrem: General: Yes normal to inspection and No edema Results Labs and Meds Result diagrams: 09/25/20 07:40 09/25/20 07:40 Lab results: Laboratory Results - last 24 hr 09/24/20 09/24/20 09/24/20 19:43 19:43 20:32 WBC 8.6 RBC 5.12 Hgb 14.7 Hct 44.5 MCV 86.9 MCH 28.7 MCHC 33.0 RDW 12.3 Plt Count 327 MPV 8.9 L Immature Gran % (Auto) Neut % (Auto) Lymph % (Auto) Imperial % (Auto) Eos % (Auto) Baso % (Auto) Lymph # (Auto) Imperial # (Auto) Eos # (Auto) Baso # (Auto) Abs Immat Gran (auto) Absolute Neuts (auto) Absolute Nucleated RBC 0.020 H Nucleated RBC % (auto) 0.2 PT 14.7 H INR 1.2 H APTT 28.6 Sodium 142 Potassium 3.2 L Chloride 103 Carbon Dioxide 26 Anion Gap 16 BUN 15 Creatinine 0.72 Estim Creat Clear Calc 59.6 Estimated GFR > 60 Random Glucose 118 H Calcium 9.0 Total Bilirubin 1.0 Direct Bilirubin 0.5 AST 15 ALT 16 Alkaline Phosphatase 138 H Troponin I High Sens Total Protein 7.0 Albumin 4.0 Lipase 30 TSH Stool Occult Blood COVID-19 (JSAON) COVID-19 Clin Com 09/24/20 09/24/20 09/24/20 20:32 20:32 21:23 WBC RBC Hgb Hct MCV MCH MCHC RDW Plt Count MPV Immature Gran % (Auto) Neut % (Auto) Lymph % (Auto) Imperial % (Auto) Eos % (Auto) Baso % (Auto) Lymph # (Auto) Imperial # (Auto) Eos # (Auto) Baso # (Auto) Abs Immat Gran (auto) Absolute Neuts (auto) Absolute Nucleated RBC Nucleated RBC % (auto) PT INR APTT Sodium Potassium Chloride Carbon Dioxide Anion Gap BUN Creatinine Estim Creat Clear Calc Estimated GFR Random Glucose Calcium Total Bilirubin Direct Bilirubin AST ALT Alkaline Phosphatase Troponin I High Sens 8.7 Total Protein Albumin Lipase TSH Stool Occult Blood POSITIVE COVID-19 (JASON) Negative COVID-19 Clin Com See Note 09/24/20 09/25/20 09/25/20 23:51 07:40 07:40 WBC 6.1 RBC 4.64 Hgb 13.4 Hct 40.4 MCV 87.1 MCH 28.9 MCHC 33.2 RDW 12.3 Plt Count 302 MPV 9.1 L Immature Gran % (Auto) 0.3 Neut % (Auto) 48.2 Lymph % (Auto) 28.3 Imperial % (Auto) 16.9 H Eos % (Auto) 5.3 H Baso % (Auto) 1.0 Lymph # (Auto) 1.7 Imperial # (Auto) 1.0 Eos # (Auto) 0.3 Baso # (Auto) 0.1 Abs Immat Gran (auto) 0.02 Absolute Neuts (auto) 2.9 Absolute Nucleated RBC 0.000 Nucleated RBC % (auto) 0.0 PT INR APTT Sodium 143 Potassium 2.8 L Chloride 107 Carbon Dioxide 26 Anion Gap 13 BUN 8 L Creatinine 0.58 Estim Creat Clear Calc 74.0 Estimated GFR > 60 Random Glucose 110 Calcium 8.0 L D Total Bilirubin Direct Bilirubin AST ALT Alkaline Phosphatase Troponin I High Sens 10.3 Total Protein Albumin Lipase TSH Stool Occult Blood COVID-19 (JASON) COVID-19 Clin Com 09/25/20 07:40 WBC RBC Hgb Hct MCV MCH MCHC RDW Plt Count MPV Immature Gran % (Auto) Neut % (Auto) Lymph % (Auto) Imperial % (Auto) Eos % (Auto) Baso % (Auto) Lymph # (Auto) Imperial # (Auto) Eos # (Auto) Baso # (Auto) Abs Immat Gran (auto) Absolute Neuts (auto) Absolute Nucleated RBC Nucleated RBC % (auto) PT INR APTT Sodium Potassium Chloride Carbon Dioxide Anion Gap BUN Creatinine Estim Creat Clear Calc Estimated GFR Random Glucose Calcium Total Bilirubin Direct Bilirubin AST ALT Alkaline Phosphatase Troponin I High Sens Total Protein Albumin Lipase TSH 1.29 Stool Occult Blood COVID-19 (JASON) COVID-19 Clin Com Assessment and Plan (1) Atrial fibrillation: Status: Acute New finding of atrial fibrillation this admit. Tolerates well without reported symptoms. Unknown how long she has been in afib. Rates initially elevated with EKG in ED showing afib RVR, 161. She has been treated with Diltiazem drip for rate control. Tele shows afib 80-110. Noted to have rate elevation with ambulation. Will Start Diltiazem CD 120mg daily. can give additional dose of Diltiazem 30mg po q 6 hr if needed for heart rates running > 100. Then ambulate to assess heart rate control. Echocardiogram is pending. If EF is low, will need to stop diltiazem and change to BB. CHADSVAsc score of 4 ( HTN, age, female). Anticoagulation indicated however not started yet due to GIB on admit. GI consult is pending. Plan will be to start on NOAC when clear by GI to do so. We will follow and plan to see as outpt after discharge. (2) Rectal bleed: Status: Acute Report of blood in stool prompting ED eval. H/H good. GI to evaluate (3) Hypertension: Status: Acute Hx HTN. On Bisoprolol/ HCTZ at home. This was stopped on admit and she was started on Diltiazem as above. BP continues to stay well controlled at present.
--- NOTE | 2020-09-25 13:56 | MHC.CM.PN ---
Addendum entered by Bertha Davidson 09/25/20 13:58: 09/25/20 IMM provided verbally to the Pt and her spouse. Understanding of medicare rights was verbalized. Original Note: Female 80 dx AFIB. She lives with her . She is independent with ADLs and ambulation. She is forgetful, pleasantly confused. DP is to home no services Family transport. CM will follow.
--- NOTE | 2020-09-25 14:31 | PC.NURSE ---
Pt first contact in chart daughter Judy also involved and pt gave permission to share info her # is [phone]
--- NOTE | 2020-09-25 14:42 | PC.NURSE ---
per cardio cardizem drip off at 1440. will closely monitor HR and assess pt for any cardiac symptoms
[2020-09-25] MEDS: dilTIAZem HCL CD 120 MG CAP.ER.DEG PO (16:31)
--- NOTE | 2020-09-25 19:14 | PM.EVENT ---
Event Note Date of Service: 09/25/20 Event Note: GI Consult-Full note dictated--Hx via patient's , RN , and the EMR. Imp: Self-limited lower GI bleed in relation to some diarrhea over the past few days. Presently stable with a benign abdominal exam. She had a negative colonoscopy in 2009. She has also been found to have Afib. Diff dx: Gastroenteritis with bleeding from a perianal source; other sources of bleeding could be ischemic colitis, colon polyp/neoplasm, or diverticulosis. Rec: Given possible need for anticoagulation in regard to her new atrial fibrillation, I would recommend a colonoscopy with MAC on Monday, 09/29(Monday, 09/28, is a holiday) with me or Dr. Smith. Full consent has been obtained from her for this, including risks of bleeding and perforation. F/U Hgb. Full liquids for now and I will put in orders for diet change and colon prep later over the weekend. Send stool for Cdiff and culture if she has more diarrhea. If she has significant active lower GI bleeding I would recommend a STAT nuclear medicine bleeding scan. D/W patient's in detail and he is comfortable with this plan. Thanks
[2020-09-25] MEDS: dilTIAZem HCL 30 MG TABLET PO (20:04)
[2020-09-26] VITALS (9 sets, daily range): BP systolic 96–147; BP diastolic 60–78; PULSE 78–119; RESP 18–20; TEMP 36.3–36.8; O2SAT 93–96
[2020-09-26] MEDS: dilTIAZem HCL 30 MG TABLET PO (02:19)
[2020-09-26] MEDS: Dextrose 5 % and 0.45 % NaCl 1,000 ML 100 ML IVCONT (03:24)
--- NOTE | 2020-09-26 04:11 | PC.NURSE ---
Patient here with new onset afib. Was on Cardizem drip, paused since 1400 yesterday. Cardiology started patient on Cardizem CD 120mg daily, and PRN Cardizem 30mg QID for a HR>100. Gave PRN Cardizem at 2003 yesterday and 218 today. Patient still in afib, heart rate between 100-130s at rest, increases to 160s with ambulation. Patient is asymptomatic, denies any chest pain, dizziness or SOB. All other vitals are stable. Dr Mccord made aware, no new orders at this time.
[2020-09-26 06:34] LABS: CDIFF Ag Negative (Negative); CDIFF Internal ctrl Dots and bkg OK (V); CDiff Toxin Negative (Negative)
[2020-09-26 07:13] LABS: Hematocrit 41.9 % (37-47); Hemoglobin 13.8 g/dl (12.0-16.0); Mean Corpuscular HGB Conc 32.9 g/dl (31.0-35.0); Mean Corpuscular Hemoglobin 28.7 pg (27.0-33.0); Mean Corpuscular Volume 87.1 fL (80-98); Platelet Count 309 X10*3/uL (160-400); Red Blood Count 4.81 X10*6/uL (4.20-5.50); Red Cell Distribution Width 12.3 % (11.0-16.0); White Blood Count 7.7 X10*3/uL (4.8-10.8)
[2020-09-26 07:38] LABS: Anion Gap 14 (12-20); Blood Urea Nitrogen 6 mg/dL (9-16); Calcium 8.2 mg/dL (8.4-10.2); Carbon Dioxide 24 mmol/L (22-29); Chloride 107 mmol/L (96-108); Estimated Glomerular Filt Rate > 60; Glucose Random 119 mg/dL (60-115); Potassium 3.3 mmol/L (3.3-5.1); Sodium 142 mmol/L (135-145)
[2020-09-26] MEDS: dilTIAZem HCL CD 120 MG CAP.ER.DEG PO (08:08)
--- NOTE | 2020-09-26 09:47 | PM.PNCARD ---
Subjective Subjective Date of Service: 09/26/20 Interval history: Continues to have AFib with RVR. Asymptomatic. Still having some blood in stool. Physical Exam Vital Signs: Last Vital Signs Temp 97.3 F 09/26/20 07:31 Pulse 110 H 09/26/20 07:31 Resp 20 09/26/20 07:31 BP 142/78 H 09/26/20 07:31 Pulse Ox 94 09/26/20 07:31 Body Mass Index 24.7 GENERAL APPEARANCE: in no acute distress, well developed, well nourished. HEENT: unremarkable. HEAD: normocephalic, atraumatic. NECK/THYROID: no carotid bruit, no jugular venous distention. SKIN: no suspicious lesions, warm and dry. HEART: no murmurs, irregular rate and rhythm, tachycardic. LUNGS: clear to auscultation bilaterally. ABDOMEN: normal, bowel sounds present, soft, nontender, nondistended. EXTREMITIES: no clubbing, cyanosis, or edema. PERIPHERAL PULSES: equal. Results Labs and Meds Result diagrams: 09/26/20 06:28 09/26/20 06:28 Lab results: Laboratory Results - last 24 hr 09/26/20 09/26/20 09/26/20 03:34 06:28 06:28 WBC 7.7 RBC 4.81 Hgb 13.8 Hct 41.9 MCV 87.1 MCH 28.7 MCHC 32.9 RDW 12.3 Plt Count 309 MPV 9.0 L Absolute Nucleated RBC 0.000 Nucleated RBC % (auto) 0.0 Sodium 142 Potassium 3.3 Chloride 107 Carbon Dioxide 24 Anion Gap 14 BUN 6 L Creatinine 0.64 Estim Creat Clear Calc 67.0 Estimated GFR > 60 Random Glucose 119 H Calcium 8.2 L C. difficile Toxin A&B Negative C. difficile Antigen Negative C. difficile Interpret SEE NOTE Progress Note: A&P Assessment and plan (1) Atrial fibrillation: Status: Acute Assessment and Plan: 80-year-old female with new onset atrial fibrillation rapid ventricular response. Blood pressure control is somewhat better. Heart rate control is still suboptimal. She was started on Cardizem CD 120 mg. Stopping the p.r.n. Cardizem. She was on bisoprolol at home and I think there is some beta-francesco withdrawal 2. I think we should give her metoprolol 25 mg twice a day in addition to the Cardizem. Will see how she responds to this. Depending on how much p.r.n. doses she requires we will increase her long-acting dose. She is asymptomatic and not in heart failure. Anticoagulation will be decided based on GI evaluation. Thank you for allowing me to participate in the care of your patient. Please feel free to contact me if you have any questions. Fall Risk Details Current Medications: Current Medications Generic Name Dose Route Start Last Admin Trade Name Freq PRN Reason Stop Dose Admin Acetaminophen 650 mg 09/24/20 21:52 Acetaminophen 325 Mg Tablet PO Q6H PRN Pain, Mild (Pain Scale 1-3) Diltiazem HCl 120 mg 09/25/20 15:00 09/26/20 08:08 Diltiazem Hcl Cd 120 Mg Cap.Er.Deg PO 120 mg DAILY NESTOR Administration Protocol Diltiazem HCl 30 mg 09/25/20 14:48 09/26/20 02:19 Diltiazem Hcl 30 Mg Tablet PO 30 mg QID PRN Administration Heart rates > 100 Protocol Dextrose/Sodium Chloride 1,000 mls @ 100 mls/hr 09/24/20 22:00 09/26/20 03:24 D51/2ns IVCONT 100 mls/hr .Q10H NESTOR Administration Diltiazem HCl 125 mg/ Sodium 125 mls @ 0 mls/hr 09/24/20 23:45 09/25/20 14:50 Chloride IVCONT 0 mg/hr .Q0M NESTOR 0 mls/hr Titration Protocol Per Protocol Pharmacy Consult 1 each 09/25/20 08:34 Consult Rx Perform Med Rec MISCELLANE ONCE PRN Consult order Sodium Chloride 3 ml 09/25/20 00:00 09/26/20 08:08 0.9 % Sodium Chloride Flush 3 Ml Syringe IVFLUSH Not Given QSHIFT NESTOR Time Spent With Patient Time: Total time spent is greater than 50% in coordination of care (as documented) at patient's floor/unit and/or counseling patient: Time with patient: less than 15 minutes
[2020-09-26] MEDS: Metoprolol Tartrate 25 MG TABLET PO ×2 (10:14→21:39)
--- NOTE | 2020-09-26 11:17 | HO.PM.IMPN ---
Subjective Subjective Date of Service: 09/26/20 Interval History: Patient remains pleasantly confused offers no acute complaints of chest pain, denies palpitation. ROS Unable to obtain review of system due to baseline dementia. Physical Exam Vital Signs: Vital Signs: Last Vital Signs Temp 97.6 F 09/26/20 11:04 Pulse 79 09/26/20 11:04 Resp 20 09/26/20 11:04 BP 96/61 09/26/20 11:04 Pulse Ox 94 09/26/20 11:04 Body Mass Index 24.7 General no acute distress. Neck supple no JVD. CVS irregular rate rhythm, Respiratory lungs clear to auscultation, no respiratory distress Gastrointestinal abdomen soft, nontender, bowel sounds audible, no guarding , no rigidity. Extremities no edema. Neuro speech clear, no focal deficit, disoriented to time and person. Skin no rash Objective Data Current Medications Generic Name Dose Route Start Last Admin Trade Name Freq PRN Reason Stop Dose Admin Acetaminophen 650 mg 09/24/20 21:52 Acetaminophen 325 Mg Tablet PO Q6H PRN Pain, Mild (Pain Scale 1-3) Diltiazem HCl 120 mg 09/25/20 15:00 09/26/20 08:08 Diltiazem Hcl Cd 120 Mg Cap.Er.Deg PO 120 mg DAILY NESTOR Administration Protocol Dextrose/Sodium Chloride 1,000 mls @ 100 mls/hr 09/24/20 22:00 09/26/20 03:24 D51/2ns IVCONT 100 mls/hr .Q10H NESTOR Administration Metoprolol Tartrate 25 mg 09/26/20 10:00 09/26/20 10:14 Metoprolol Tartrate 25 Mg Tablet PO 25 mg BID NESTOR Administration Protocol Pharmacy Consult 1 each 09/25/20 08:34 Consult Rx Perform Med Rec MISCELLANE ONCE PRN Consult order Sodium Chloride 3 ml 09/25/20 00:00 09/26/20 08:08 0.9 % Sodium Chloride Flush 3 Ml Syringe IVFLUSH Not Given QSHIFT [facility] Labs CBC & Chem 7: 09/26/20 06:28 09/26/20 06:28 Assessment and Plan (1) Atrial fibrillation: Status: Acute (2) Rectal bleed: Status: Acute (3) Hypertension: Status: Acute (4) Dementia: Status: Acute Assessment and Plan: 80-year-old female with a past medical history of progressive dementia who presents to the hospital with complaints of self-limited rectal bleeding. Upon arrival to the emergency room she was noted to be in new onset AFib with RVR which did not improve with multiple doses of IV metoprolo/cardizem nor oral cardizem. She was subsequently started on cardizem gtt and admission was requested. 1. New onset A. Fib with RVR Patient remains in AFib ventricular rate better controlled on by mouth Cardizem and Lopressor May need OAC given CHADSVASC of at least 4, but given bleeding history will hold for now, will DC IV fluid, TSH stable, potassium improved but remains low normal will give potassium with goal above 4. 2. GI bleed likely lower and self limited, no further bout of active bleeding, patient seen by Dr. Marion he recommend colonoscopy on Monday since patient will need anticoagulation, stool for C diff negative Will add Imodium for diarrhea, likely had gastroenteritis, h/h dropped slightly but repeat hematocrit remains stable, follow clinical course 3. History of HTN Home medication bisoprolol/hctz held since patient placed on Cardizem and metoprolol , BP stable 4. 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
[2020-09-26] MEDS: Potassium Chloride ER 20 MEQ TAB.ER.PRT 40 MEQ PO (11:36)
[2020-09-26] MEDS: Loperamide HCl 2 MG CAPSULE PO ×2 (11:36→21:40)
[2020-09-26] MEDS: 0.9 % Sodium Chloride Flush 3 ML SYRINGE IVFLUSH (17:57)
[2020-09-26] MEDS: Acetaminophen 325 MG TABLET 650 MG PO (21:39)
[2020-09-27] VITALS (9 sets, daily range): BP systolic 111–145; BP diastolic 69–91; PULSE 96–125; RESP 17–20; TEMP 36.6–36.8; O2SAT 92–97
[2020-09-27] MEDS: 0.9 % Sodium Chloride Flush 3 ML SYRINGE IVFLUSH ×4 (00:30→20:07)
[2020-09-27] MEDS: dilTIAZem HCL CD 180 MG CAP.ER.24H PO (08:17)
[2020-09-27] MEDS: Metoprolol Tartrate 25 MG TABLET PO (08:17)
[2020-09-27] MEDS: Loperamide HCl 2 MG CAPSULE PO ×2 (10:29→16:02)
--- NOTE | 2020-09-27 10:31 | PC.NURSE ---
pt has made numerous attempts to exit the bed without assistance, she is impulsive and does not call for help. Alarm has alerted staff and she has been ambulated to bathroom for several episodes of loose stool. Pt given PRN med as ordered for loose stools. Pt ambulates with very steady gait.
--- NOTE | 2020-09-27 10:39 | PC.NURSE ---
pt ambulatory to bathroom with steady gait.
--- NOTE | 2020-09-27 12:42 | P.PNIM_ITS ---
Subjective Subjective Date of Service: 09/27/20 Interval History: Patient remains pleasantly confused noted to walk to the bathroom several times this morning but did not have bowel movements, tele monitor shows AFib with RVR heart rate in 120-130 range worse with activity. Unable to obtain review of system due to baseline dementia. Physical Exam Vital Signs: Vital Signs: Last Vital Signs Temp 98.2 F 09/27/20 11:07 Pulse 96 09/27/20 11:07 Resp 18 09/27/20 11:07 BP 140/69 H 09/27/20 11:07 Pulse Ox 93 09/27/20 11:07 Body Mass Index 24.7 General no acute distress. Neck supple no JVD. CVS irregular rate rhythm, Respiratory lungs clear to auscultation, no respiratory distress Gastrointestinal abdomen soft, nontender, bowel sounds audible, no guarding , no rigidity. Extremities no edema. Neuro speech clear, no focal deficit, disoriented to time and person. Skin no rash Objective Data Current Medications Generic Name Dose Route Start Last Admin Trade Name [place]q PRN Reason Stop Dose Admin Acetaminophen 650 mg 09/24/20 21:52 09/26/20 21:39 Acetaminophen 325 Mg Tablet PO 650 mg Q6H PRN Administration Pain, Mild (Pain Scale 1-3) Diltiazem HCl 180 mg 09/27/20 09:00 09/27/20 08:17 Diltiazem Hcl Cd 180 Mg Cap.Er.24h PO 180 mg DAILY [facility] Administration Protocol Loperamide HCl 2 mg 09/26/20 11:18 09/27/20 10:29 Loperamide Hcl 2 Mg Capsule PO 2 mg Q6H PRN Administration diarrhea Metoprolol Tartrate 25 mg 09/26/20 10:00 09/27/20 08:17 Metoprolol Tartrate 25 Mg Tablet PO 25 mg BID [facility] Administration Protocol Pharmacy Consult 1 each 09/25/20 08:34 Consult Rx Perform Med Rec MISCELLANE ONCE PRN Consult order Sodium Chloride 3 ml 09/25/20 00:00 09/27/20 08:16 0.9 % Sodium Chloride Flush 3 Ml Syringe IVFLUSH 3 ml QSHIFT [facility] Administration Labs CBC & Chem 7: 09/26/20 06:28 09/26/20 06:28 Microbiology Microbiology Results: Microbiology 09/26/20 03:34 Stool Stool Culture - Preliminary Normal so far. Assessment and Plan (1) Atrial fibrillation: Status: Acute (2) Rectal bleed: Status: Acute (3) Hypertension: Status: Acute (4) Dementia: Status: Acute Assessment and Plan: 80-year-old female with a past medical history of progressive dementia who presents to the hospital with complaints of self-limited rectal bleeding. Upon arrival to the emergency room she was noted to be in new onset AFib with RVR which did not improve with multiple doses of IV metoprolo/cardizem nor oral cardizem. She was subsequently started on cardizem gtt and admission was requested. 1. New onset A. Fib with RVR Patient remains in AFib ventricular rate fluctuating worse with activity on by mouth Cardizem 120 mg and Lopressor 25 mg b.i.d. will increase dose of Cardizem to 180 and Lopressor to 50 b.i.d. May need OAC given CHADSVASC of at least 4, but given bleeding history will hold for now, TSH stable 2. GI bleed likely lower and self limited, no further bout of active bleeding, patient seen by Dr. Marion he recommend colonoscopy on Monday since patient will need anticoagulation, stool for C diff negative, patient having frequent urge to move bowels but not having diarrhea, continue as needed Imodium h/h dropped slightly but repeat hematocrit remains stable, follow clinical course. Will consider CT abdomen if develops abdominal discomfort or with persistent urge to move bowel. 3. History of HTN Home medication bisoprolol/hctz held since patient placed on Cardizem and metoprolol , BP stable 4. Demetnia without behavioral disturbances Full Code DVT pptx, mechanical due to bleed.
[2020-09-27] MEDS: Acetaminophen 325 MG TABLET 650 MG PO (16:02)
--- NOTE | 2020-09-27 16:04 | PC.NURSE ---
pt tearful and angry intermittently with laughing. She has been ambulatory to bathroom with staff contact guard, medicated with tylenol for pain. Will continue to monitor
--- NOTE | 2020-09-27 18:18 | PC.NURSE ---
pt had episode of afib RVR rate 162 lasting 5 minutes. MD aware. No new orders. Will continue to monitor
[2020-09-27] MEDS: Metoprolol Tartrate 25 MG TABLET 50 MG PO (20:07)
[2020-09-28] VITALS (10 sets, daily range): BP systolic 103–145; BP diastolic 64–96; PULSE 93–155; RESP 18–20; TEMP 36.5–37.1; O2SAT 94–95
[2020-09-28 04:34] LABS: MANUAL DIFF FLAG NO
[2020-09-28 04:44] LABS: Basophils Absolute Auto 0.1 X10*3/uL (0.0-0.2); Basophils Percent Auto 0.8 % (0-2); Eosinophils Absolute Auto 0.3 X10*3/uL (0.0-0.4); Eosinophils Percent Auto 4.2 % (0-4); Hematocrit 38.8 % (37-47); Hemoglobin 12.9 g/dl (12.0-16.0); Imm Gran Abs Auto 0.03 X10*3/uL (0.00-0.03); Imm Gran Pct Auto 0.5 % (0.0-0.4); Lymphocytes Absolute Auto 1.1 X10*3/uL (1.2-4.9); Lymphocytes Percent Auto 19.1 % (20-40); Mean Corpuscular HGB Conc 33.2 g/dl (31.0-35.0); Mean Corpuscular Volume 87.2 fL (80-98); Mean Platelet Volume 8.8 fL (9.4-12.3); Monocytes Absolute Auto 1.1 X10*3/uL (0.1-1.2); Monocytes Percent Auto 17.8 % (2-11); Neutrophils Absolute Auto 3.4 X10*3/uL (2.0-8.3); Neutrophils Percent Auto 57.6 % (45-73); Platelet Count 239 X10*3/uL (160-400); Red Blood Count 4.45 X10*6/uL (4.20-5.50); Red Cell Distribution Width 12.3 % (11.0-16.0); White Blood Count 5.9 X10*3/uL (4.8-10.8)
[2020-09-28 05:12] LABS: Anion Gap 11 (12-20); Blood Urea Nitrogen 11 mg/dL (9-16); Calcium 7.9 mg/dL (8.4-10.2); Carbon Dioxide 27 mmol/L (22-29); Chloride 105 mmol/L (96-108); Creatinine Clr Calc Pharmacy 71.5; Estimated Glomerular Filt Rate > 60; Glucose Random 101 mg/dL (60-115); Potassium 3.3 mmol/L (3.3-5.1); Sodium 140 mmol/L (135-145)
[2020-09-28] MEDS: dilTIAZem HCL CD 180 MG CAP.ER.24H PO (07:58)
[2020-09-28] MEDS: Metoprolol Tartrate 25 MG TABLET 50 MG PO ×2 (07:59→23:20)
[2020-09-28] MEDS: 0.9 % Sodium Chloride Flush 3 ML SYRINGE IVFLUSH ×2 (08:00→15:37)
--- NOTE | 2020-09-28 08:04 | PC.NURSE ---
HR 150's-160's with ambulation to Br and sitting up ion chair. C/o mild nausea. Assisted BTB. Po meds given. will moniotr
--- NOTE | 2020-09-28 10:42 | P.PNIM_ITS ---
Subjective Subjective Date of Service: 09/28/20 Interval History: Patient resting in bed comfortably remains pleasantly confused, unable to express her needs tele monitor showed atrial fib with ventricular rate in 150s Unable to obtain review of system due to dementia. Physical Exam Vital Signs: Vital Signs: Last Vital Signs Temp 98.2 F 09/28/20 07:23 Pulse 155 H 09/28/20 07:59 Resp 20 09/28/20 07:23 BP 107/75 09/28/20 07:59 Pulse Ox 94 09/28/20 07:23 Body Mass Index 24.7 General lying in bed, no acute distress. Neck supple no JVD. CVS irregular rate rhythm, Respiratory lungs clear to auscultation, no respiratory distress Gastrointestinal abdomen soft, obese, nontender, bowel sounds audible, no guarding , no rigidity. Extremities no edema. Neuro speech clear, no focal deficit, disoriented to time and person. Skin no rash Objective Data Current Medications Generic Name Dose Route Start Last Admin Trade Name Freq PRN Reason Stop Dose Admin Acetaminophen 650 mg 09/24/20 21:52 09/27/20 16:02 Acetaminophen 325 Mg Tablet PO 650 mg Q6H PRN Administration Pain, Mild (Pain Scale 1-3) Bisacodyl 10 mg 09/28/20 18:58 Bisacodyl 5 Mg Tablet.Dr PO 09/28/20 18:59 ONCE ONE Digoxin 0.25 mg 09/28/20 10:45 Digoxin 0.5 Mg/2 Ml Ampul IVPUSH 09/28/20 16:46 Q6H [facility] Diltiazem HCl 180 mg 09/27/20 09:00 09/28/20 07:58 Diltiazem Hcl Cd 180 Mg Cap.Er.24h PO 180 mg DAILY [facility] Administration Protocol Loperamide HCl 2 mg 09/26/20 11:18 09/27/20 16:02 Loperamide Hcl 2 Mg Capsule PO 2 mg Q6H PRN Administration diarrhea Metoprolol Tartrate 50 mg 09/27/20 21:00 09/28/20 07:59 Metoprolol Tartrate 25 Mg Tablet PO 50 mg BID [facility] Administration Protocol Pharmacy Consult 1 each 09/25/20 08:34 Consult Rx Perform Med Rec MISCELLANE ONCE PRN Consult order Polyethylene Glycol/Electrolytes 4,000 ml 09/28/20 15:00 Peg 3350/Na Sulf,Bicarb,Cl/Kcl 4,000 Ml Soln.Recon PO 09/28/20 15:01 ONCE ONE Sodium Chloride 3 ml 09/25/20 00:00 09/28/20 08:00 0.9 % Sodium Chloride Flush 3 Ml Syringe IVFLUSH 3 ml QSHIFT [facility] Administration Labs CBC & Chem 7: 09/28/20 04:22 09/28/20 04:22 Microbiology Microbiology Results: Microbiology 09/26/20 03:34 Stool Stool Culture - Preliminary Normal so far. Assessment and Plan (1) Atrial fibrillation: Status: Acute (2) Rectal bleed: Status: Acute (3) Hypertension: Status: Acute (4) Dementia: Status: Acute Assessment and Plan: 80-year-old female with a past medical history of progressive dementia who presents to the hospital with complaints of self-limited rectal bleeding. Upon arrival to the emergency room she was noted to be in new onset AFib with RVR which did not improve with multiple doses of IV metoprolo/cardizem nor oral cardizem. She was subsequently started on cardizem gtt and admission was requested. 1. New onset A. Fib with RVR Patient remains in AFib with rvr , ventricular rate in 150s on by mouth Cardizem 180 mg and Lopressor 50 mg b.i.d. Will give digoxin 0.25 mg x2 due to soft blood pressure, case discussed with Dr. Ray, continue tele monitoring. May need OAC given CHADSVASC of at least 4, but given bleeding history will hold for now, TSH stable 2. GI bleed likely lower and self limited, no further bout of active bleeding, patient seen by Dr. Marion he recommend colonoscopy on Monday, since patient will need anticoagulation, stool for C diff negative, patient having frequent urge to move bowels but not having diarrhea, continue as needed Imodium h/h dropped slightly but repeat hematocrit remains stable, follow clinical cours e. Will consider CT abdomen if develops abdominal discomfort or with persistent urge to move bowel. 3. History of HTN Home medication bisoprolol/hctz held since patient placed on Cardizem and metopr olol , BP soft 4. Hypokalemia due to GI loss remains borderline low will replace and follow labs 5. Demetnia without behavioral disturbances Full Code DVT pptx, mechanical due to bleed.
[2020-09-28] MEDS: Potassium Chloride ER 20 MEQ TAB.ER.PRT 40 MEQ PO (11:28)
[2020-09-28] MEDS: Digoxin 0.5 MG/2 ML AMPUL 0.25 MG IVPUSH ×2 (11:32→17:10)
--- NOTE | 2020-09-28 12:27 | P.PNCA_ITS ---
Subjective Subjective Date of Service: 09/28/20 Interval history: Continues to have runs of AFib with RVR. Review of Systems Review of Systems Blood in stool Yes all other systems are reviewed and are negative Physical Exam Vital Signs: Last Vital Signs Temp 98.2 F 09/28/20 07:23 Pulse 94 09/28/20 11:32 Resp 20 09/28/20 07:23 BP 107/75 09/28/20 07:59 Pulse Ox 94 09/28/20 07:23 Body Mass Index 24.7 GENERAL APPEARANCE: in no acute distress, well developed, well nourished. HEENT: unremarkable. HEAD: normocephalic, atraumatic. NECK/THYROID: no carotid bruit, no jugular venous distention. SKIN: no suspicious lesions, warm and dry. HEART: no murmurs, irregular rate and rhythm, tachycardic. LUNGS: clear to auscultation bilaterally. ABDOMEN: normal, bowel sounds present, soft, nontender, nondistended. EXTREMITIES: no clubbing, cyanosis, or edema. PERIPHERAL PULSES: equal. Results Labs and Meds Result diagrams: 09/28/20 04:22 09/28/20 04:22 Lab results: Laboratory Results - last 24 hr 09/28/20 09/28/20 04:22 04:22 WBC 5.9 RBC 4.45 Hgb 12.9 Hct 38.8 MCV 87.2 MCH 29.0 MCHC 33.2 RDW 12.3 Plt Count 239 MPV 8.8 L Immature Gran % (Auto) 0.5 H Neut % (Auto) 57.6 Lymph % (Auto) 19.1 L [place] % (Auto) 17.8 H Eos % (Auto) 4.2 H Baso % (Auto) 0.8 Lymph # (Auto) 1.1 L [place] # (Auto) 1.1 Eos # (Auto) 0.3 Baso # (Auto) 0.1 Abs Immat Gran (auto) 0.03 Absolute Neuts (auto) 3.4 Absolute Nucleated RBC 0.000 Nucleated RBC % (auto) 0.0 Sodium 140 Potassium 3.3 Chloride 105 Carbon Dioxide 27 Anion Gap 11 L BUN 11 D Creatinine 0.60 Estim Creat Clear Calc 71.5 Estimated GFR > 60 Random Glucose 101 Calcium 7.9 L Progress Note: A&P Assessment and plan (1) Atrial fibrillation: Status: Acute (2) Rectal bleed: Status: Acute Assessment and Plan: 80-year-old female with AFib with RVR. She is on Cardizem and metoprolol. She still has runs of atrial fibrillation. I think she should be loaded with digoxin. Please give her 250 mcg IV x2. No maintenance dose currently. She is due to get endoscopy tomorrow. Based on that we can decide whether anticoagulation can be started. Thank you for allowing me to participate in the care of your patient. Please feel free to contact me if you have any questions. Fall Risk Details Current Medications: Current Medications Generic Name Dose Route Start Last Admin Trade Name Freq PRN Reason Stop Dose Admin Acetaminophen 650 mg 09/24/20 21:52 09/27/20 16:02 Acetaminophen 325 Mg Tablet PO 650 mg Q6H PRN Administration Pain, Mild (Pain Scale 1-3) Bisacodyl 10 mg 09/28/20 18:58 Bisacodyl 5 Mg Tablet. PO 09/28/20 18:59 ONCE ONE Digoxin 0.25 mg 09/28/20 10:45 09/28/20 11:32 Digoxin 0.5 Mg/2 Ml Ampul IVPUSH 09/28/20 16:46 0.25 mg Q6H [facility] Administration Diltiazem HCl 180 mg 09/27/20 09:00 09/28/20 07:58 Diltiazem Hcl Cd 180 Mg Cap.Er.24h PO 180 mg DAILY [facility] Administration Protocol Loperamide HCl 2 mg 09/26/20 11:18 09/27/20 16:02 Loperamide Hcl 2 Mg Capsule PO 2 mg Q6H PRN Administration diarrhea Metoprolol Tartrate 50 mg 09/27/20 21:00 09/28/20 07:59 Metoprolol Tartrate 25 Mg Tablet PO 50 mg BID [facility] Administration Protocol Pharmacy Consult 1 each 09/25/20 08:34 Consult Rx Perform Med Rec MISCELLANE ONCE PRN Consult order Polyethylene Glycol/Electrolytes 4,000 ml 09/28/20 15:00 Peg 3350/Na Sulf,Bicarb,Cl/Kcl 4,000 Ml Soln.Recon PO 09/28/20 15:01 ONCE ONE Sodium Chloride 3 ml 09/25/20 00:00 09/28/20 08:00 0.9 % Sodium Chloride Flush 3 Ml Syringe IVFLUSH 3 ml QSHIFT [facility] Administration Time Spent With Patient Time: Total time spent is greater than 50% in coordination of care (as documented) at patient's floor/unit and/or counseling patient: Time with patient: 15 - 24 minutes
[2020-09-28] MEDS: PEG 3350/Na Sulf,Bicarb,Cl/KCL 4,000 ML SOLN.RECON 4000 ML PO (15:35)
[2020-09-28] MEDS: bisacodyL 5 MG TABLET.DR 10 MG PO (18:26)
--- NOTE | 2020-09-28 19:35 | PC.NURSE ---
Pt tolerated 6 cups of golytley so far. Has had 4-5 scant bm on commode. [place] noted on toilet paper, no kriss red blood noted. Denies pain. Pleasantly confused
--- NOTE | 2020-09-28 23:12 | CONS_ITS ---
DATE OF SERVICE: 09/25/2020 REASON FOR CONSULTATION: Lower GI bleeding. HISTORY OF PRESENT ILLNESS: This has been obtained from the patient who is not a very good historian, as well as from her , her nurse, and the medical record. The patient is an 80-year-old female with some underlying dementia who presents with some diarrhea for the past few days with some hematochezia that is described as bright red blood. She had a negative colonoscopy with ar in 2009. However, she was noted to have some diverticulosis. From a GI standpoint, the patient had been doing well at home. She was not having any difficulties with eating, swallowing, nausea, nor vomiting. There is no report of abdominal pain, jaundice, nor weight loss. Prior to the past few days, her bowel movements had been regular and without any hematochezia nor melena. There has been no reported recent antibiotic use, NSAIDs, tobacco, nor alcohol. There is no known family history of colorectal cancer. Since admission here she has had a tiny bit of bright red blood per rectum, but nothing significant. She has been hemodynamically stable. She was found to have atrial fibrillation which was new at the time of her admission as well. MEDICATIONS: At home included aspirin 81 mg, bisoprolol with hydrochlorothiazide. PAST MEDICAL HISTORY: Hypertension. Dementia. Negative colonoscopy in 2009. C-sections. There is no reported history of CA, diabetes, nor stroke. She does have new onset atrial fibrillation. Knee replacement in 2002. SOCIAL HISTORY: She is . She does not smoke or use any significant amounts of alcohol. FAMILY HISTORY: Noncontributory. REVIEW OF SYSTEMS: As per the , she was doing well at home up until the past few days. SKIN: No reported rash. CARDIAC: No reported chest pain. PULMONARY: No reported coughing or hemoptysis. GI: As above. PHYSICAL EXAMINATION: GENERAL: The patient is a pleasant alert female. She answers questions, but not very accurately. SKIN: Warm and dry. Nonjaundiced. HEENT: Anicteric sclerae. NECK: Supple. CHEST: Clear. CARDIAC: Normal S1 and S2. ABDOMEN: Soft, nondistended, nontender. LABORATORY DATA: White blood cell count 8.6, hemoglobin 14.7 with a repeat of 13.4, platelets 248,000. PT 14.7 with INR 1.2. Sodium 142, potassium 3.2, chloride 103, CO2 of 26, BUN 15, creatinine 0.7. Normal LFTs except for an alkaline phosphatase of 138, lipase 30. IMPRESSION: Given the patient's clinical history, I suspect she most likely had a self-limited gastroenteritis with associated diarrhea and some bleeding probably from a perianal source. However, given her age, 10 years since her last colonoscopy, and the potential need to go on anticoagulation in regard to the recent onset of atrial fibrillation, I would recommend a colonoscopy for definitive evaluation to rule out any significant source of gastrointestinal bleeding prior to the initiation of anticoagulation. Other possibilities in regard to the cause of the bleeding could be ischemic colitis, colon polyp or neoplasm, or diverticulosis. The procedure will be done with monitored anesthesia care by myself or Dr. Smith. Full consent obtained has been obtained from the patient's for this, including risks of bleeding and perforation. I would order stool specimens for C diff and culture if her diarrhea persists. If she has significant active lower GI bleeding, I would recommend a stat nuclear medicine bleeding scan for further evaluation as well. This has been discussed with the patient's in detail, and he is comfortable with this plan. Thank you for this consultation. MD MARILIN Partida/EDUARDO / [id number] MTDD
[2020-09-29] VITALS (9 sets, daily range): BP systolic 108–137; BP diastolic 61–77; PULSE 78–115; RESP 16–18; TEMP 36–36.6; O2SAT 95–99
[2020-09-29] MEDS: 0.9 % Sodium Chloride Flush 3 ML SYRINGE IVFLUSH ×4 (00:31→21:03)
--- NOTE | 2020-09-29 06:08 | PC.NURSE ---
Patient requiring frequent re-direction regarding her colonoscopy prep and often needing encouragement to drink. Patient did have several BM for this RN overnight but it does not appear clear but rather loose like/diarrhea. SSS RN Nancy informed of the situation and Dr. Mccollum informed as well- tentative plan to resume bowel prep and reschedule colonoscopy. Per Dr. Mccollum- day team will decide best route.
[2020-09-29 06:10] LABS: MANUAL DIFF FLAG NO
[2020-09-29 06:21] LABS: Basophils Percent Auto 0.5 % (0-2); Eosinophils Absolute Auto 0.2 X10*3/uL (0.0-0.4); Eosinophils Percent Auto 2.7 % (0-4); Hematocrit 39.8 % (37-47); Hemoglobin 13.1 g/dl (12.0-16.0); Imm Gran Abs Auto 0.03 X10*3/uL (0.00-0.03); Imm Gran Pct Auto 0.5 % (0.0-0.4); Lymphocytes Absolute Auto 1.4 X10*3/uL (1.2-4.9); Lymphocytes Percent Auto 22.3 % (20-40); Mean Corpuscular HGB Conc 32.9 g/dl (31.0-35.0); Mean Corpuscular Hemoglobin 28.5 pg (27.0-33.0); Mean Corpuscular Volume 86.5 fL (80-98); Mean Platelet Volume 9.2 fL (9.4-12.3); Monocytes Absolute Auto 1.2 X10*3/uL (0.1-1.2); Monocytes Percent Auto 19.2 % (2-11); Neutrophils Absolute Auto 3.4 X10*3/uL (2.0-8.3); Neutrophils Percent Auto 54.8 % (45-73); Platelet Count 263 X10*3/uL (160-400); Red Cell Distribution Width 12.4 % (11.0-16.0); White Blood Count 6.2 X10*3/uL (4.8-10.8)
[2020-09-29 06:40] LABS: Anion Gap 15 (12-20); Blood Urea Nitrogen 15 mg/dL (9-16); Calcium 7.8 mg/dL (8.4-10.2); Carbon Dioxide 26 mmol/L (22-29); Chloride 105 mmol/L (96-108); Creatinine Clr Calc Pharmacy 68.1; Estimated Glomerular Filt Rate > 60; Glucose Fasting 103 mg/dL (60-99); Potassium 3.6 mmol/L (3.3-5.1); Sodium 142 mmol/L (135-145)
[2020-09-29] MEDS: dilTIAZem HCL CD 180 MG CAP.ER.24H PO (07:56)
[2020-09-29] MEDS: Metoprolol Tartrate 25 MG TABLET 50 MG PO ×3 (07:56→21:02)
--- NOTE | 2020-09-29 08:26 | MHC.CM.PN ---
dc plan is home no svcs at this time. cm to cont. to follow.
[2020-09-29 12:34] LABS: Leukocytes Stool Qualitative MOD: 3-9/OIF (NEGATIVE)
--- NOTE | 2020-09-29 12:46 | P.PNCA_ITS ---
Subjective Subjective Date of Service: 09/29/20 Interval history: No symptoms. For potential endoscopy tomorrow. Review of Systems Review of Systems asymptomatic Yes all other systems are reviewed and are negative Physical Exam Vital Signs: Last Vital Signs Temp 97.2 F 09/29/20 11:16 Pulse 89 09/29/20 11:16 Resp 18 09/29/20 11:16 BP 110/66 09/29/20 11:16 Pulse Ox 95 09/29/20 11:16 Body Mass Index 24.7 GENERAL APPEARANCE: in no acute distress, well developed, well nourished. HEENT: unremarkable. HEAD: normocephalic, atraumatic. NECK/THYROID: no carotid bruit, no jugular venous distention. SKIN: no suspicious lesions, warm and dry. HEART: no murmurs, irregular rate and rhythm, tachycardic. LUNGS: clear to auscultation bilaterally. ABDOMEN: normal, bowel sounds present, soft, nontender, nondistended. EXTREMITIES: no clubbing, cyanosis, or edema. PERIPHERAL PULSES: equal. Results Labs and Meds Result diagrams: 09/29/20 05:25 09/29/20 05:25 Lab results: Laboratory Results - last 24 hr 09/29/20 09/29/20 09/29/20 05:25 05:25 10:58 WBC 6.2 RBC 4.60 Hgb 13.1 Hct 39.8 MCV 86.5 MCH 28.5 MCHC 32.9 RDW 12.4 Plt Count 263 MPV 9.2 L Immature Gran % (Auto) 0.5 H Neut % (Auto) 54.8 Lymph % (Auto) 22.3 [place] % (Auto) 19.2 H Eos % (Auto) 2.7 Baso % (Auto) 0.5 Lymph # (Auto) 1.4 [place] # (Auto) 1.2 Eos # (Auto) 0.2 Baso # (Auto) 0.0 Abs Immat Gran (auto) 0.03 Absolute Neuts (auto) 3.4 Absolute Nucleated RBC 0.000 Nucleated RBC % (auto) 0.0 Sodium 142 Potassium 3.6 Chloride 105 Carbon Dioxide 26 Anion Gap 15 BUN 15 Creatinine 0.63 Estim Creat Clear Calc 68.1 Estimated GFR > 60 Fasting Glucose 103 H Calcium 7.8 L Stool Leukocytes, Qual MOD: 3-9/OIF Progress Note: A&P Assessment and plan (1) Atrial fibrillation: Status: Acute (2) Hypertension: Status: Acute Assessment and Plan: 80-year-old female with AFib with RVR. She is on Cardizem and metoprolol. She was given her digoxin load of 250 micro g IV x2 yesterday. Her heart rate is at most time well controlled. She is due to get endoscopy tomorrow. Based on that we can decide whether anticoagulation can be started. Increasing the metoprolol to 50 mg 3 times a day. Continue Cardizem at 180 mg daily. Thank you for allowing me to participate in the care of your patient. Please feel free to contact me if you have any questions. Fall Risk Details Current Medications: Current Medications Generic Name Dose Route Start Last Admin Trade Name Freq PRN Reason Stop Dose Admin Acetaminophen 650 mg 09/24/20 21:52 09/27/20 16:02 Acetaminophen 325 Mg Tablet PO 650 mg Q6H PRN Administration Pain, Mild (Pain Scale 1-3) Diltiazem HCl 180 mg 09/27/20 09:00 09/29/20 07:56 Diltiazem Hcl Cd 180 Mg Cap.Er.24h PO 180 mg DAILY [facility] Administration Protocol Loperamide HCl 2 mg 09/26/20 11:18 09/27/20 16:02 Loperamide Hcl 2 Mg Capsule PO 2 mg Q6H PRN Administration diarrhea Metoprolol Tartrate 50 mg 09/27/20 21:00 09/29/20 07:56 Metoprolol Tartrate 25 Mg Tablet PO 50 mg BID [facility] Administration Protocol Pharmacy Consult 1 each 09/25/20 08:34 Consult Rx Perform Med Rec MISCELLANE ONCE PRN Consult order Sodium Chloride 3 ml 09/25/20 00:00 09/29/20 07:57 0.9 % Sodium Chloride Flush 3 Ml Syringe IVFLUSH 3 ml QSHIFT [facility] Administration Time Spent With Patient Time: Total time spent is greater than 50% in coordination of care (as trudy santiago) at patient's floor/unit and/or counseling patient: Time with patient: 15 - 24 minutes
--- NOTE | 2020-09-29 12:55 | HO.CARDIVERS ---
Cardioversion Procedure Note Cardioversion Date of Procedure: 09/29/20 Ordering Provider: Asim Ray MD Performing Provider: Asim Ray MD Indication for Procedure: Afib with RVR Pre-Op Diagnosis: Afib with RVR Post-Op Diagnosis: Afib with RVR Performed with Transesophageal Echo: No History: 80 year-old fe Consent: Verbal and Written consent was obtained from the patient before starting. The patient was made aware of the risk of [] Procedure: After consent obtained, defib pads were attached and the patient was sedated by the anesthesia team. Once adequate sedation achieved, []
--- NOTE | 2020-09-29 16:32 | P.PNIM_ITS ---
Subjective Subjective Date of Service: 09/29/20 Interval History: f/u afib, gib, HR better. Colonoscopy postpone until tomorrow d/t suboptimal prep Unable to obtain review of system due to dementia. Physical Exam Vital Signs: Vital Signs: Last Vital Signs Temp 97.9 F 09/29/20 15:47 Pulse 115 H 09/29/20 15:47 Resp 18 09/29/20 15:47 BP 108/77 09/29/20 15:47 Pulse Ox 99 09/29/20 15:47 Body Mass Index 24.7 Const: Other: General - no acute distress, appears comfortable Cardiovascular - IRRregular Lungs - normal respiratory effort, clear to auscultation bilaterally, no wheezing Abdomen - soft, non-tender, no rebound or guarding Extremities - no edema bilaterally Neuro - awake and alert, no focal deficits; disoriented to person and time Objective Data Current Medications Generic Name Dose Route Start Last Admin Trade Name Freq PRN Reason Stop Dose Admin Acetaminophen 650 mg 09/24/20 21:52 09/27/20 16:02 Acetaminophen 325 Mg Tablet PO 650 mg Q6H PRN Administration Pain, Mild (Pain Scale 1-3) Diltiazem HCl 180 mg 09/27/20 09:00 09/29/20 07:56 Diltiazem Hcl Cd 180 Mg Cap.Er.24h PO 180 mg DAILY [facility] Administration Protocol Loperamide HCl 2 mg 09/26/20 11:18 09/27/20 16:02 Loperamide Hcl 2 Mg Capsule PO 2 mg Q6H PRN Administration diarrhea Metoprolol Tartrate 50 mg 09/29/20 15:00 09/29/20 15:36 Metoprolol Tartrate 25 Mg Tablet PO 50 mg TID [facility] Administration Protocol Pharmacy Consult 1 each 09/25/20 08:34 Consult Rx Perform Med Rec MISCELLANE ONCE PRN Consult order Sodium Chloride 3 ml 09/25/20 00:00 09/29/20 15:43 0.9 % Sodium Chloride Flush 3 Ml Syringe IVFLUSH 3 ml QSHIFT [facility] Administration Labs CBC & Chem 7: 09/29/20 05:25 09/29/20 05:25 Microbiology Microbiology Results: Microbiology 09/26/20 03:34 Stool Stool Culture - Final Assessment and Plan (1) Atrial fibrillation: Status: Acute (2) Rectal bleed: Status: Acute (3) Hypertension: Status: Acute (4) Dementia: Status: Acute Assessment and Plan: 80-year-old female with a past medical history of progressive dementia who presents to the hospital with complaints of self-limited rectal bleeding. Upon arrival to the emergency room she was noted to be in new onset AFib with RVR which did not improve with multiple doses of IV metoprolo/cardizem nor oral cardizem. She was subsequently started on cardizem gtt and admission was requested. 1. New onset A. Fib with RVR--HR mostly controlled, with periods of RVR -dig loaded, Metoprolol increased to 50 tid, cardiazem 180 -CHADSVASC of at least 4, anticoagulation will be based on colonoscopy finding 2. GI bleed likely lower and self limited, no further bout of active bleeding, planned for colonoscopy tomorrow HTN Home medication bisoprolol/hctz held since patient placed on Cardizem and metoprolol , BP soft 4. Hypokalemia due to GI loss remains borderline low will replace and follow labs 5. Demetnia--without behavioral disturbances Full Code DVT pptx, mechanical due to bleed.
--- NOTE | 2020-09-29 18:32 | PC.NURSE ---
Colonoscopy rescheduled for tomorrow. Patient needed much encouragement to drink colonoscopy prep; patient having frequent liquid stools, still brown. Family updated at bedside.
[2020-09-29 19:26] LABS: Hematocrit 41.5 % (37-47); Hemoglobin 13.8 g/dl (12.0-16.0); Mean Corpuscular HGB Conc 33.3 g/dl (31.0-35.0); Mean Corpuscular Volume 87.2 fL (80-98); Platelet Count 309 X10*3/uL (160-400); Red Blood Count 4.76 X10*6/uL (4.20-5.50); Red Cell Distribution Width 12.3 % (11.0-16.0); White Blood Count 6.1 X10*3/uL (4.8-10.8)
[2020-09-30] VITALS (16 sets, daily range): BP systolic 72–142; BP diastolic 35–79; PULSE 66–118; RESP 16–29; TEMP 36.1–37.5; O2SAT 85–97
--- NOTE | 2020-09-30 08:23 | ECG_ITS ---
Test Reason : TROPONIN ELEVATION Blood Pressure : / mmHG Vent. Rate : 120 BPM Atrial Rate : 133 BPM P-R Int : 000 ms QRS Dur : 136 ms QT Int : 348 ms P-R-T Axes : 000 048 -58 degrees QTc Int : 491 ms Atrial fibrillation with rapid ventricular response with premature ventricular or aberrantly conducted complexes Right bundle branch block T wave abnormality, consider inferolateral ischemia Abnormal ECG When compared to the previous EKG of Right bundle branch block Present Referred By: Eric Kaiser Electronically Signed By:Asim Ray
[2020-09-30] MEDS: Metoprolol Tartrate 25 MG TABLET 50 MG PO (08:51)
[2020-09-30] MEDS: dilTIAZem HCL CD 180 MG CAP.ER.24H PO (08:51)
[2020-09-30] MEDS: 0.9 % Sodium Chloride Flush 3 ML SYRINGE IVFLUSH ×3 (08:52→21:19)
--- NOTE | 2020-09-30 09:22 | PM.PNCARD ---
Subjective Subjective Date of Service: 09/30/20 Principal diagnosis: Afib, GIB Interval history: Cardiology follow up for afib. Seen at 0850. Today she reports feeling well. No concerning symptoms. Denies chest pains, sob, palpitation, dizziness, edema. Plan for endoscopy today. Has dementia - accuracy of her responses unclear. She tells me she would like me to call her parents and give them an update on her condition. Review of Systems Review of Systems as above Yes all other systems are reviewed and are negative Physical Exam Vital Signs: Last Vital Signs Temp 97.3 F 09/30/20 07:30 Pulse 83 09/30/20 08:51 Resp 19 09/30/20 07:30 BP 118/60 09/30/20 08:51 Pulse Ox 97 09/30/20 07:30 Body Mass Index 24.7 Const Other: oriented x2. General: cooperative, no acute distress, alert and awake Neck Neck: Yes normal visual inspection and Yes no JVD Carotids: carotid upstroke abnormal Resp Effort & Inspection: normal respiratory effort, able to speak in complete sentences and not labored Auscultation: clear to auscultation bilaterally, no crackles, no rales, no rhonchi and no wheezes Cardio Other: heart tones rapid and irregularly irregular Palpation: normal PMI Heart sounds: S1 normal heart sound present and S2 normal heart sound present Peripheral pulses: Peripheral pulses 2+ throughout GI Inspection: Yes normal to inspection Skin General skin exam: no rashes or lesions noted Extrem General: Yes normal to inspection and No edema Results Labs and Meds Result diagrams: 09/29/20 19:09 09/29/20 05:25 Lab results: Laboratory Results - last 24 hr 09/29/20 09/29/20 10:58 19:09 WBC 6.1 RBC 4.76 Hgb 13.8 Hct 41.5 MCV 87.2 MCH 29.0 MCHC 33.3 RDW 12.3 Plt Count 309 MPV 9.0 L Absolute Nucleated RBC 0.000 Nucleated RBC % (auto) 0.0 Stool Leukocytes, Qual MOD: 3-9/OIF Progress Note: A&P Assessment and plan (1) Atrial fibrillation: Status: Acute Assessment and Plan: New finding of atrial fibrillation this admit. Presented with report of rectal bleeding. Being evaluated by GI. Echo shows EF 55-60%, mod increase in LV wall thickness, LA severely dilated. Has been treated with heart rate control. Now on Metoprolol, Diltiazem, and she did recieve a loading dose of Digoxin. Tele shows controlled heart rates 80-90s when asleep and rates up to 130 when awake and moving. Discussed with Dr Ray. At present will contnue current Metoprolol and Diltiazem without dose changes. No report of CP or palpitations. She is clinically not in heart failure. CHADSVASc of 4. Anticoagulation is indicated however she is being eval for her GIB. Plan for endoscopy today. Plan to start on NOAC when clear by GI to do so. (2) Rectal bleed: Status: Acute Assessment and Plan: H/H stable, HCT today 41.5. GI following (3) Hypertension: Status: Acute Assessment and Plan: Well controlled. Off usual home Bisporolol/ HCTZ and now on Diltiazem and Metoprolol. Fall Risk Details Current Medications: Current Medications Generic Name Dose Route Start Last Admin Trade Name Freq PRN Reason Stop Dose Admin Acetaminophen 650 mg 09/24/20 21:52 09/27/20 16:02 Acetaminophen 325 Mg Tablet PO 650 mg Q6H PRN Administration Pain, Mild (Pain Scale 1-3) Diltiazem HCl 180 mg 09/27/20 09:00 09/30/20 08:51 Diltiazem Hcl Cd 180 Mg Cap.Er.24h PO 180 mg DAILY NESTOR Administration Protocol Loperamide HCl 2 mg 09/26/20 11:18 09/27/20 16:02 Loperamide Hcl 2 Mg Capsule PO 2 mg Q6H PRN Administration diarrhea Metoprolol Tartrate 50 mg 09/29/20 15:00 09/30/20 08:51 Metoprolol Tartrate 25 Mg Tablet PO 50 mg TID NESTOR Administration Protocol Pharmacy Consult 1 each 09/25/20 08:34 Consult Rx Perform Med Rec MISCELLANE ONCE PRN Consult order Sodium Chloride 3 ml 09/25/20 00:00 09/30/20 08:52 0.9 % Sodium Chloride Flush 3 Ml Syringe IVFLUSH 3 ml QSHIFT NESTOR Administration Time Spent With Patient Time: Total time spent is greater than 50% in coordination of care (as documented) at patient's floor/unit and/or counseling patient: 20 Time with patient: 15 - 24 minutes
--- NOTE | 2020-09-30 11:27 | PC.NURSE ---
Patient came down to [facility] from floor with two rings on (one plain gold, one gold with en). Both rings taken off and given to Matthew.
[2020-09-30] MEDS: Lactated Ringers 1,000 ML 20 ML IVCONT (11:35)
--- NOTE | 2020-09-30 11:56 | P.CONAN_ITS ---
[facility] Active Problems Active Problems: All Active Problems (Updated 09/25/20 @ 13:22 by Sridevi gay, [employer]) Atrial fibrillation (Acute) Rectal bleed (Acute) Hypertension (Acute) Dementia (Acute) Past Medical History Medical History Hypertension Family History Family History Father Hypertension Mother No problems noted. Son No problems noted. Son No problems noted. Daughter No problems noted. Family history of problems with anesthesia: No Surgical History Surgical History History of section History of left knee replacement History of Problems with Anesthesia: No Social History Social History Household Members: Unknown / Unable to assess Housing: House Do you presently have visiting nurse or other home services: No Alcohol intake: current Alcohol intake frequency: holidays/special occasions only Smoking Status: Never smoker Smoked in Last 30 Days: No Use of substances other than those prescribed or required for medical reasons: No Currently Displaying Signs/Symptoms of Drug Intoxication Withdrawal: No Have you been hit, kicked, punched, or otherwise hurt by someone within the past year? If so, by whom?: No Do you feel safe in your current relationship?: No Is there a partner from a previous relationship who is making you feel unsafe now?: No Are you made to feel afraid or neglected: No Advance Directives: No Advance Directives Information Provided: No Do you have thoughts of harming others: None Do you have a plan to hurt others: No Plan Recently lost weight without trying: No service: No Current occupational status: retired [employer] Allergies Allergy/AdvReac Type Severity Reaction Status Date / Time No Known Allergies Allergy Verified 09/24/20 22:17 Active Medications: Current Medications Generic Name Dose Route Start Last Admin Trade Name Freq PRN Reason Stop Dose Admin Acetaminophen 650 mg 09/24/20 21:52 09/27/20 16:02 Acetaminophen 325 Mg Tablet PO 650 mg Q6H PRN Administration Pain, Mild (Pain Scale 1-3) Diltiazem HCl 180 mg 09/27/20 09:00 09/30/20 08:51 Diltiazem Hcl Cd 180 Mg Cap.Er.24h PO 180 mg DAILY NESTOR Administration Protocol Loperamide HCl 2 mg 09/26/20 11:18 09/27/20 16:02 Loperamide Hcl 2 Mg Capsule PO 2 mg Q6H PRN Administration diarrhea Metoprolol Tartrate 50 mg 09/29/20 15:00 09/30/20 08:51 Metoprolol Tartrate 25 Mg Tablet PO 50 mg TID [facility] Administration Protocol Pharmacy Consult 1 each 09/25/20 08:34 Consult Rx Perform Med Rec MISCELLANE ONCE PRN Consult order Sodium Chloride 3 ml 09/25/20 00:00 09/30/20 08:52 0.9 % Sodium Chloride Flush 3 Ml Syringe IVFLUSH 3 ml QSHIFT [facility] Administration Home Medications Medication Instructions Recorded Confirmed Last Taken Type aspirin 81 mg tablet,delayed 81 mg PO DAILY 05/26/20 09/24/20 Unknown History release Exam Exam Date and Time: September 30, 2020 1156 Height,Weight and Vital Signs: Height 5 ft 7 in Weight 71.668 kg Last Vital Signs Temp 97.9 F 09/30/20 11:33 Pulse 94 09/30/20 11:33 Resp 16 09/30/20 11:33 BP 114/67 09/30/20 11:33 Pulse Ox 93 09/30/20 11:33 Pertinent Lab Results Pertinent Lab Results: Laboratory Tests 09/24/20 09/24/20 09/24/20 19:43 19:43 20:32 WBC 8.6 RBC 5.12 Hgb 14.7 Hct 44.5 MCV 86.9 MCH 28.7 MCHC 33.0 RDW 12.3 Plt Count 327 MPV 8.9 L Immature Gran % (Auto) Neut % (Auto) Lymph % (Auto) [place] % (Auto) Eos % (Auto) Baso % (Auto) Lymph # (Auto) [place] # (Auto) Eos # (Auto) Baso # (Auto) Abs Immat Gran (auto) Absolute Neuts (auto) Absolute Nucleated RBC 0.020 H Nucleated RBC % (auto) 0.2 PT 14.7 H INR 1.2 H APTT 28.6 Sodium 142 Potassium 3.2 L Chloride 103 Carbon Dioxide 26 Anion Gap 16 BUN 15 Creatinine 0.72 Estim Creat Clear Calc 59.6 Estimated GFR > 60 Random Glucose 118 H Fasting Glucose Calcium 9.0 Total Bilirubin 1.0 Direct Bilirubin 0.5 AST 15 ALT 16 Alkaline Phosphatase 138 H Troponin I High Sens Total Protein 7.0 Albumin 4.0 Lipase 30 TSH Stool Occult Blood Stool Leukocytes, Qual C. difficile Toxin A&B C. difficile Antigen C. difficile Interpret COVID-19 (JASON) COVID-19 Clin Com 09/24/20 09/24/20 09/24/20 20:32 20:32 21:23 WBC RBC Hgb Hct MCV MCH MCHC RDW Plt Count MPV Immature Gran % (Auto) Neut % (Auto) Lymph % (Auto) [place] % (Auto) Eos % (Auto) Baso % (Auto) Lymph # (Auto) [place] # (Auto) Eos # (Auto) Baso # (Auto) Abs Immat Gran (auto) Absolute Neuts (auto) Absolute Nucleated RBC Nucleated RBC % (auto) PT INR APTT Sodium Potassium Chloride Carbon Dioxide Anion Gap BUN Creatinine Estim Creat Clear Calc Estimated GFR Random Glucose Fasting Glucose Calcium Total Bilirubin Direct Bilirubin AST ALT Alkaline Phosphatase Troponin I High Sens 8.7 Total Protein Albumin Lipase TSH Stool Occult Blood POSITIVE Stool Leukocytes, Qual C. difficile Toxin A&B C. difficile Antigen C. difficile Interpret COVID-19 (JASON) Negative COVID-19 Clin Com See Note 09/24/20 09/25/20 09/25/20 23:51 07:40 07:40 WBC 6.1 RBC 4.64 Hgb 13.4 Hct 40.4 MCV 87.1 MCH 28.9 MCHC 33.2 RDW 12.3 Plt Count 302 MPV 9.1 L Immature Gran % (Auto) 0.3 Neut % (Auto) 48.2 Lymph % (Auto) 28.3 [place] % (Auto) 16.9 H Eos % (Auto) 5.3 H Baso % (Auto) 1.0 Lymph # (Auto) 1.7 [place] # (Auto) 1.0 Eos # (Auto) 0.3 Baso # (Auto) 0.1 Abs Immat Gran (auto) 0.02 Absolute Neuts (auto) 2.9 Absolute Nucleated RBC 0.000 Nucleated RBC % (auto) 0.0 PT INR APTT Sodium 143 Potassium 2.8 L Chloride 107 Carbon Dioxide 26 Anion Gap 13 BUN 8 L Creatinine 0.58 Estim Creat Clear Calc 74.0 Estimated GFR > 60 Random Glucose 110 Fasting Glucose Calcium 8.0 L D Total Bilirubin Direct Bilirubin AST ALT Alkaline Phosphatase Troponin I High Sens 10.3 Total Protein Albumin Lipase TSH Stool Occult Blood Stool Leukocytes, Qual C. difficile Toxin A&B C. difficile Antigen C. difficile Interpret COVID-19 (JASON) COVID-19 Clin Com 09/25/20 09/26/20 09/26/20 07:40 03:34 06:28 WBC 7.7 RBC 4.81 Hgb 13.8 Hct 41.9 MCV 87.1 MCH 28.7 MCHC 32.9 RDW 12.3 Plt Count 309 MPV 9.0 L Immature Gran % (Auto) Neut % (Auto) Lymph % (Auto) [place] % (Auto) Eos % (Auto) Baso % (Auto) Lymph # (Auto) [place] # (Auto) Eos # (Auto) Baso # (Auto) Abs Immat Gran (auto) Absolute Neuts (auto) Absolute Nucleated RBC 0.000 Nucleated RBC % (auto) 0.0 PT INR APTT Sodium Potassium Chloride Carbon Dioxide Anion Gap BUN Creatinine Estim Creat Clear Calc Estimated GFR Random Glucose Fasting Glucose Calcium Total Bilirubin Direct Bilirubin AST ALT Alkaline Phosphatase Troponin I High Sens Total Protein Albumin Lipase TSH 1.29 Stool Occult Blood Stool Leukocytes, Qual C. difficile Toxin A&B Negative C. difficile Antigen Negative C. difficile Interpret SEE NOTE COVID-19 (JASON) COVID-19 Clin Com 09/26/20 09/28/20 09/28/20 06:28 04:22 04:22 WBC 5.9 RBC 4.45 Hgb 12.9 Hct 38.8 MCV 87.2 MCH 29.0 MCHC 33.2 RDW 12.3 Plt Count 239 MPV 8.8 L Immature Gran % (Auto) 0.5 H Neut % (Auto) 57.6 Lymph % (Auto) 19.1 L [place] % (Auto) 17.8 H Eos % (Auto) 4.2 H Baso % (Auto) 0.8 Lymph # (Auto) 1.1 L [place] # (Auto) 1.1 Eos # (Auto) 0.3 Baso # (Auto) 0.1 Abs Immat Gran (auto) 0.03 Absolute Neuts (auto) 3.4 Absolute Nucleated RBC 0.000 Nucleated RBC % (auto) 0.0 PT INR APTT Sodium 142 140 Potassium 3.3 3.3 Chloride 107 105 Carbon Dioxide 24 27 Anion Gap 14 11 L BUN 6 L 11 D Creatinine 0.64 0.60 Estim Creat Clear Calc 67.0 71.5 Estimated GFR > 60 > 60 Random Glucose 119 H 101 Fasting Glucose Calcium 8.2 L 7.9 L Total Bilirubin Direct Bilirubin AST ALT Alkaline Phosphatase Troponin I High Sens Total Protein Albumin Lipase TSH Stool Occult Blood Stool Leukocytes, Qual C. difficile Toxin A&B C. difficile Antigen C. difficile Interpret COVID-19 (JASON) COVID-19 Clin Com 09/29/20 09/29/20 09/29/20 05:25 05:25 10:58 WBC 6.2 RBC 4.60 Hgb 13.1 Hct 39.8 MCV 86.5 MCH 28.5 MCHC 32.9 RDW 12.4 Plt Count 263 MPV 9.2 L Immature Gran % (Auto) 0.5 H Neut % (Auto) 54.8 Lymph % (Auto) 22.3 [place] % (Auto) 19.2 H Eos % (Auto) 2.7 Baso % (Auto) 0.5 Lymph # (Auto) 1.4 [place] # (Auto) 1.2 Eos # (Auto) 0.2 Baso # (Auto) 0.0 Abs Immat Gran (auto) 0.03 Absolute Neuts (auto) 3.4 Absolute Nucleated RBC 0.000 Nucleated RBC % (auto) 0.0 PT INR APTT Sodium 142 Potassium 3.6 Chloride 105 Carbon Dioxide 26 Anion Gap 15 BUN 15 Creatinine 0.63 Estim Creat Clear Calc 68.1 Estimated GFR > 60 Random Glucose Fasting Glucose 103 H Calcium 7.8 L Total Bilirubin Direct Bilirubin AST ALT Alkaline Phosphatase Troponin I High Sens Total Protein Albumin Lipase TSH Stool Occult Blood Stool Leukocytes, Qual MOD: 3-9/OIF C. difficile Toxin A&B C. difficile Antigen C. difficile Interpret COVID-19 (JASON) COVID-19 Clin Com 09/29/20 19:09 WBC 6.1 RBC 4.76 Hgb 13.8 Hct 41.5 MCV 87.2 MCH 29.0 MCHC 33.3 RDW 12.3 Plt Count 309 MPV 9.0 L Immature Gran % (Auto) Neut % (Auto) Lymph % (Auto) [place] % (Auto) Eos % (Auto) Baso % (Auto) Lymph # (Auto) [place] # (Auto) Eos # (Auto) Baso # (Auto) Abs Immat Gran (auto) Absolute Neuts (auto) Absolute Nucleated RBC 0.000 Nucleated RBC % (auto) 0.0 PT INR APTT Sodium Potassium Chloride Carbon Dioxide Anion Gap BUN Creatinine Estim Creat Clear Calc Estimated GFR Random Glucose Fasting Glucose Calcium Total Bilirubin Direct Bilirubin AST ALT Alkaline Phosphatase Troponin I High Sens Total Protein Albumin Lipase TSH Stool Occult Blood Stool Leukocytes, Qual C. difficile Toxin A&B C. difficile Antigen C. difficile Interpret COVID-19 (JASON) COVID-19 Clin Com Airway Mallampati Class: I TM Dist: >3cm Neck ROM: Full Partial: Upper Heart: afib Lungs: ok Assessment and Plan Assessment Anesthesia Assessment: Anesthesia Plan Discussed and Chart Reviewed Final Anesthetic Review NPO: Yes ASA Class: IV Final Preanesthetic Review: No Changes in Pt Med Stat, Meds/Allgs Chart Reviewed, Consent Obtained/Reviewed and Anes Risks/Benef Reviewed Patient Risk: Intermediate Procedure Risk: Low Anesthetic Plan Anesthetic Plan: MAC: and Agree w/ Assess. and Plan Disposition: Standard PACU
--- NOTE | 2020-09-30 12:06 | HO.PM.IMPN ---
Subjective Subjective Date of Service: 09/30/20 Interval History: Patient resting in bed, scheduled for colonoscopy at 13:00 complaining of dry mouth otherwise offers no acute complaints tele monitor shows ventricular rate around 100 Review of system due to dementia. Physical Exam Vital Signs: Vital Signs: Last Vital Signs Temp 97.9 F 09/30/20 11:33 Pulse 94 09/30/20 11:33 Resp 16 09/30/20 11:33 BP 114/67 09/30/20 11:33 Pulse Ox 93 09/30/20 11:33 Body Mass Index 24.7 General lying in bed, no acute distress. Neck supple no JVD. CVS irregular rate rhythm, Respiratory lungs clear to auscultation, no respiratory distress Gastrointestinal abdomen soft, obese, non tender, bowel sounds audible, no guarding , no rigidity. Extremities no edema. Neuro speech clear, no focal deficit, disoriented to time and person. Skin no rash Objective Data Current Medications Generic Name Dose Route Start Last Admin Trade Name Freq PRN Reason Stop Dose Admin Acetaminophen 650 mg 09/24/20 21:52 09/27/20 16:02 Acetaminophen 325 Mg Tablet PO 650 mg Q6H PRN Administration Pain, Mild (Pain Scale 1-3) Diltiazem HCl 180 mg 09/27/20 09:00 09/30/20 08:51 Diltiazem Hcl Cd 180 Mg Cap.Er.24h PO 180 mg DAILY NESTOR Administration Protocol Lactated Ringer's 1,000 mls @ 20 mls/hr 09/30/20 13:00 Lr IVCONT .Q24H NESTOR Loperamide HCl 2 mg 09/26/20 11:18 09/27/20 16:02 Loperamide Hcl 2 Mg Capsule PO 2 mg Q6H PRN Administration diarrhea Metoprolol Tartrate 50 mg 09/29/20 15:00 09/30/20 08:51 Metoprolol Tartrate 25 Mg Tablet PO 50 mg TID NESTOR Administration Protocol Ondansetron HCl 4 mg 09/30/20 12:03 Ondansetron Hcl 4 Mg/2 Ml Vial IVPUSH ONCE PRN Nausea and Vomiting Pharmacy Consult 1 each 09/25/20 08:34 Consult Rx Perform Med Rec MISCELLANE ONCE PRN Consult order Sodium Chloride 3 ml 09/25/20 00:00 09/30/20 08:52 0.9 % Sodium Chloride Flush 3 Ml Syringe IVFLUSH 3 ml QSHIFT NESTOR Administration Labs CBC & Chem 7: 09/29/20 19:09 09/29/20 05:25 Microbiology Microbiology Results: Microbiology 09/26/20 03:34 Stool Stool Culture - Final Assessment and Plan (1) Atrial fibrillation: Status: Acute (2) Rectal bleed: Status: Acute (3) Hypertension: Status: Acute (4) Dementia: Status: Acute Assessment and Plan: 80-year-old female with a past medical history of progressive dementia who presents to the hospital with complaints of self-limited rectal bleeding. Upon arrival to the emergency room she was noted to be in new onset AFib with RVR which did not improve with multiple doses of IV metoprolo/cardizem nor oral cardizem. She was subsequently started on cardizem gtt and admission was requested. 1. New onset A. Fib with RVR Patient remains in AFib ventricular rate is improved currently around 100, patient remains asymptomatic Will continue Cardizem 180 mg and Lopressor 50 mg t.i.d.,s/p digoxin 0.25 mg x2 case discussed with Dr. Ray, he recommend to continue current treatment CHADSVASC of at least 4, anticoagulation will be based on colonoscopy finding 2. GI bleed likely lower and self limited, no further bout of active bleeding, colonoscopy planned for today Stool for C diff negative 3. History of HTN Home medication bisoprolol/hctz held since patient placed on Cardizem and metoprolol , BP stable 4. Hypokalemia due to GI loss repleted and improved 5. Dementia without behavioral disturbances Full Code DVT pptx, mechanical due to bleed.
--- NOTE | 2020-09-30 12:29 | MHC.CM.PN ---
Patient will have a colonoscopy today to check for GIB. Also new on eliquis for Afib. Discharge plan is home no services. Dtr will provide transportation on discharge. CM will continue to follow patient for discharge needs.
--- NOTE | 2020-09-30 12:48 | PM.EVENT ---
Event Note Date of Service: 09/30/20 Event Note: GI-Colonoscopy to the cecum and TI with biopsies-Full note dictated Findings: 1. Very active colitis extending from the distal rectum to the transverse colon--biopsies taken in rectum and between 30-40cm. 2. Normal ascending colon colon, cecum, and very distal TI. Imp: Probable ulcerative colitis. Rec; Start mesalamine 1600mg TID, try low residue diet, F/U labs in AM, and observe. If she has increasing diarrhea she will need a trial of steroids-could try prednisone 40mg QD or IV steroids if symptoms are refractory(stool specs have been negative for infection).Check path. D/W . Thanks.
[2020-09-30] MEDS: Mesalamine 400 MG CAP.DRTAB. 1600 MG PO ×2 (15:50→21:19)
[2020-09-30] MEDS: Metoprolol Succinate ER 50 MG TAB.ER.24H 150 MG PO (15:50)
--- NOTE | 2020-09-30 17:15 | CONS_ITS ---
DATE OF SERVICE: 09/25/2020 REASON FOR CONSULTATION: Rectal bleeding. HISTORY OF PRESENT ILLNESS: This has been obtained from the patient's nurse, the medical record, and her due to her dementia. The patient is an 80-year-old female who came to the ER for evaluation of 2 or 3 days of rectal bleeding and some loose bowel movements. In reviewing the record, I did perform a colonoscopy on her in 2009, which was negative. She apparently was in her usual state of health up until 3 days ago when she began having some loose bowel movements with bright red blood mixed with them. Prior to that, her reports that she was doing well from a GI standpoint. She does have some underlying dementia, but is otherwise healthy, according to his report. She typically enjoys good appetite without any significant problems such as nausea, vomiting, nor any apparent dysphagia. Her bowel movements have been regular without any signs of bleeding up until 3 days ago. Since that time, she has had some loose stools, which were brown and mixed with bright red blood. There is no reported abdominal pain, fevers, nor jaundice. She had not been on any recent antibiotics nor NSAIDs. She apparently is on 1 low-dose aspirin daily. MEDICATIONS: At home included bisoprolol with hydrochlorothiazide and aspirin 81 mg. Her medications here in the hospital include Cardizem and Protonix. PAST MEDICAL HISTORY: Dementia. sections. New onset of atrial fibrillation, hypertension. There is no reported history of [place], stroke, diabetes, nor lung disease. She has had no other significant surgeries. SOCIAL HISTORY: She is . She does not smoke nor use any significant amounts of alcohol. FAMILY HISTORY: Noncontributory. REVIEW OF SYSTEMS: CONSTITUTIONAL: She apparently has been doing well at home up until the past few days. SKIN: No reported rash. CARDIAC: No reported chest pain. PULMONARY: No reported hemoptysis. GI: As above. PHYSICAL EXAMINATION: GENERAL: The patient is a pleasant, alert, comfortable-appearing female, in no distress. She is confused, but does speak and answers some questions, although the history is quite poor. CHEST: Clear. CARDIAC: Normal S1 and S2. ABDOMEN: Soft, nondistended, nontender without mass. EXTREMITIES: Without edema. LABORATORY DATA: White blood cell count 8.6, hemoglobin 14.7 yesterday and 13.4 today. Platelets 227,000. PT is 14.7, INR 1.2. Normal chemistries. BUN 15, creatinine 0.7. Normal LFTs except for alkaline phosphatase 138, lipase 30. Rectal exam in the ER revealed brown heme-positive stool. IMPRESSION: Given the patient's clinical history, her bleeding seems to be relatively minimal. She was having some diarrhea, which could imply some gastroenteritis, but I doubt this represents any type of inflammatory bowel disease. Other entities such as neoplasm seem to be less likely given the acute onset and short-lived symptoms as she has not really had any further bleeding here in the hospital. Bleeding most likely was from some perianal disease given the associated diarrhea. At this point, although she appears stable, I would recommend colonoscopy given her last exam being over 10 years ago, her good clinical condition despite her dementia, and the fact that she may very well need anticoagulation in regard to the recent onset of atrial fibrillation. Full consent has been obtained from the patient's for the colonoscopy, including risks of bleeding and perforation. This will be scheduled for September 29, with either myself or Dr. Smith and monitored anesthesia care. The patient's is comfortable with this plan. In the meantime, I think she can be advanced to a full liquid diet, and then we will exchange mechanic to clear liquids and order the preparation for the day before the colonoscopy. Of note, if she begins having more diarrhea in the hospital, we can order stool specimens for C difficile and other pathogens. This has all been discussed with the patient's in detail, and he is comfortable with this plan. Thank you for this consultation. MD MARILIN Partida/EDUARDO / [phone] STEFAN
--- NOTE | 2020-09-30 18:17 | PC.NURSE ---
Patient underwent colonoscopy this afternoon, patient tolerated well per TIE FASTENER. Patient's diet advanced to regular, no issues with new diet.
[2020-09-30] MEDS: Morphine Sulfate 2 MG/ML CARTRIDGE IVPUSH (19:35)
--- NOTE | 2020-09-30 19:45 | PM.OP ---
Brief Operative Note Date of Service: 09/30/20 Pre-op diagnosis: Rectal bleeding, diarrhea Post-op diagnosis: other (Ulcerative colitis) Procedure: Colonoscopy to the cecum and TI with biopsies Surgeon: Stoney Marion Anesthesia: MAC Estimated blood loss (mL): 4.0 Pathology: other (A. Colon 30-40 cm B. Rectum) Condition: stable Disposition: PACU
[2020-09-30 19:56] LABS: MANUAL DIFF FLAG NO
[2020-09-30 19:58] LABS: Basophils Absolute Auto 0.1 X10*3/uL (0.0-0.2); Basophils Percent Auto 0.7 % (0-2); Eosinophils Absolute Auto 0.2 X10*3/uL (0.0-0.4); Eosinophils Percent Auto 2.4 % (0-4); Hematocrit 41.2 % (37-47); Imm Gran Abs Auto 0.08 X10*3/uL (0.00-0.03); Imm Gran Pct Auto 1.1 % (0.0-0.4); Lymphocytes Absolute Auto 1.6 X10*3/uL (1.2-4.9); Lymphocytes Percent Auto 22.5 % (20-40); Mean Corpuscular Hemoglobin 29.3 pg (27.0-33.0); Mean Corpuscular Volume 86.2 fL (80-98); Monocytes Absolute Auto 1.2 X10*3/uL (0.1-1.2); Monocytes Percent Auto 17.5 % (2-11); Neutrophils Absolute Auto 3.9 X10*3/uL (2.0-8.3); Neutrophils Percent Auto 55.8 % (45-73); Platelet Count 227 X10*3/uL (160-400); Red Blood Count 4.78 X10*6/uL (4.20-5.50); Red Cell Distribution Width 12.5 % (11.0-16.0)
[2020-09-30] MEDS: 0.9 % Sodium Chloride 1,000 ML 999 ML IVCONT (20:00)
[2020-09-30 20:05] LABS: ABG Base Excess 3.2 mmol/L; ABG HCO3 26 mmol/L (22-26); ABG pCO2 33 mmHg (32-45); ABG pCO2 TC 33 mmHg (32-45); ABG pH 7.49 (7.35-7.45); ABG pO2 59 mmHg (83-108); ABG pO2 TC 57 (83-108)
[2020-09-30 20:09] LABS: ABG Refer to POC result
[2020-09-30] MEDS: iohexoL 350 MG/ML 100 ML INFUS..BTL IV (20:55)
[2020-09-30 20:57] LABS: B Type Natriuretic Peptide 337 pg/mL (<100); Lactic Acid 2.3 mmol/L (0.5-2.0); Troponin-I High Sensitivity 71.1 ng/L (<3.5-17.0)
[2020-09-30 21:52] LABS: Reflex Lactate? Lactic Acid Added
[2020-09-30 21:58] LABS: COVID-19 Test Negative (Negative)
[2020-09-30] MEDS: Lactated Ringers 500 ML 999 ML IV (21:58)
--- NOTE | 2020-09-30 22:06 | PC.NURSE ---
At 19:44, nurse tech reported to me that patient was saying it was hard to breathe. Vitals were taken BP was 74/40, HR 109, O2 74% RA, Respiratory call in, patient placed on non rebreather O2 came up to 83%, Dr. Mccollum called in to room. Pt was placed on 100% high flow and 15L non-rebreather O2 slowly came up to 93%, labs were drawn and CT angio of chest was ordered. Multiple bilateral PE's were seen on scan, Pt. being transferred to ICU at 22:30. Pt. is stable at this time. A 1L bolus of NS was given at 20:00 and a 1 bolus of LR was started at 22:15.
--- NOTE | 2020-09-30 22:09 | P.EN_ITS ---
Event Note Date of Service: 09/30/20 Event Note: This is an 80-year-old female who is currently being managed for r ectal bleed most likely secondary to ulcerative colitis after undergoing colonoscopy this a.m.. Around 8:00 p.m. patient developed significant dyspnea and found to be hypoxic in the high 70s. She also developed tachycardia in the 30s as well as tachypnea and blood pressure 70s over 30s. She underwent multiple studies including chest x-ray that was negative for any pneumothorax, pneumonia or pulmonary congestion, her labs are significant for an elevated BNP in the 300s, troponin the 70s, lactic acid of 2.2, ABG showed pH of 7.5 with a CO2 of 33 and a PaO2 of 57. CT angiogram done showed multiple bilateral PEs with right heart strain. Spoke to traveling sales representative, recommended transfer to outside hospital for possible catheter directed tPA given her GI bleed, spoke to [facility] traveling sales representative they den y the patient, spoke to [facility]ilda, they also deny the patient given the full capacity. Patient received 2 L of fluid for the hypotension. Received morphine for increased work of breathing Patient was placed on non-rebreather 9 L with improvement in her O2 to the mid 90s Spoke to Dr. Marion who recommended starting patient on hydrocortisone 60 mg q.8 hours as well as IV PPI b.i.d. and starting her on heparin if needed. Patient will be transferred to the ICU started on heparin GGT, steroid as well as PPI. notified.
[2020-09-30 23:02] LABS: ~Lactic Acid-LAB USE ONLY 2.3 mmol/L (0.5-2.0)
--- NOTE | 2020-09-30 23:12 | P.CONCC_ITS ---
History of Present Illness Data of Consult Service Date: 09/30/20 Requesting physician: Georgia Mccollum Primary Care Provider: Salinas Irby MD HPI Reason for consult: Hypoxic/hypotensive This is a 80-year-old female with a past medical history of progressive dementia, and hypertension who was admitted into hospital medicine on 09/24/2020 for rectal bleeding as well as new onset AFib. Earlier today she underwent colonoscopy, found to have active colitis extending from the distal rectum to the transverse colon. At around 8:00 p.m. patient had acute shortness of breath, became hypoxic to high 70s, hypotensive to SBP in the 70s, tachycardic and tachypneic. Bedside chest x-ray, with no acute findings. ABGs 7.5/ 33/ 57/ 26. BNP from 337, troponin 71.[address] angiogram, showing multiple bilateral PEs with right heart strain. Hospitalist attempted to reach [facility] as well of [facility] for transfer for possible catheter directed tPA given her GI bleed, but was declined. She also contacted GI, Dr. Marion who recommended starting patient on hydrocortisone 60 mg q.8 hours as well as IV PPI b.i.d. and starting her on heparin if needed. Patient is being transfer to the ICU, for management of bilateral PEs, and severe hypotension. Review of Systems Constitutional: Constitutional: Reports as per HPI Cardiovascular: Cardiovascular: Denies chest pain, Reports irregular heart rhythm and Reports dyspnea Respiratory: Respiratory: Reports dyspnea Gastrointestinal: Gastrointestinal: Reports diarrhea, Denies nausea and Denies vomiting Musculoskeletal: Musculoskeletal: Denies numbness Neurologic: Denies numbness [facility] Past Medical History Medical History Hypertension Family History Family History Father Hypertension Mother No problems noted. Son No problems noted. Son No problems noted. Daughter No problems noted. Surgical History Surgical History History of section History of left knee replacement Social History Social History Household Members: Unknown / Unable to assess Housing: House Do you presently have visiting nurse or other home services: No Alcohol intake: current Alcohol intake frequency: holidays/special occasions only Smoking Status: Never smoker Smoked in Last 30 Days: No Use of substances other than those prescribed or required for medical reasons: No Currently Displaying Signs/Symptoms of Drug Intoxication Withdrawal: No Have you been hit, kicked, punched, or otherwise hurt by someone within the past year? If so, by whom?: No Do you feel safe in your current relationship?: No Is there a partner from a previous relationship who is making you feel unsafe now?: No Are you made to feel afraid or neglected: No Advance Directives: No Advance Directives Information Provided: No Do you have thoughts of harming others: None Do you have a plan to hurt others: No Plan Recently lost weight without trying: No service: No Current occupational status: retired [employer] Allergies Allergy/AdvReac Type Severity Reaction Status Date / Time No Known Allergies Allergy Verified 09/24/20 22:17 Active Medications: Current Medications Generic Name Dose Route Start Last Admin Trade Name Freq PRN Reason Stop Dose Admin Acetaminophen 650 mg 09/24/20 21:52 09/27/20 16:02 Acetaminophen 325 Mg Tablet PO 650 mg Q6H PRN Administration Pain, Mild (Pain Scale 1-3) Diltiazem HCl 180 mg 09/27/20 09:00 09/30/20 08:51 Diltiazem Hcl Cd 180 Mg Cap.Er.24h PO 180 mg DAILY NESTOR Administration Protocol Heparin Sodium (Porcine) 5,700 unit 09/30/20 23:08 Heparin Sodium,Porcine 5,000 Unit/Ml Vial 80 unit/kg (5700 unit) 09/30/20 23:09 IVPUSH ONCE ONE Heparin Sodium (Porcine) 2,900 unit 09/30/20 23:08 Heparin Sodium,Porcine 5,000 Unit/Ml Vial 40 unit/kg (2900 unit) IVPUSH BOLUS PRN 40 unit/kg - Heparin Protocol Heparin Sodium (Porcine) 5,700 unit 09/30/20 23:08 Heparin Sodium,Porcine 5,000 Unit/Ml Vial 80 unit/kg (5700 unit) IVPUSH BOLUS PRN 80 unit/kg - Heparin Protocol Lactated Ringer's 1,000 mls @ 20 mls/hr 09/30/20 13:00 09/30/20 11:35 Lr IVCONT 20 mls/hr .Q24H NESTOR Administration Hydrocortisone Sodium 50 mls @ 100 mls/hr 09/30/20 22:15 Succinate 60 mg/ Sodium IV Chloride Q8H [facility] Heparin Sodium/Sodium Chloride 25,000 unit in 250 mls @ 0 mls/hr 09/30/20 23:15 IVCONT .Q0M [facility] Protocol Per Protocol Loperamide HCl 2 mg 09/26/20 11:18 09/27/20 16:02 Loperamide Hcl 2 Mg Capsule PO 2 mg Q6H PRN Administration diarrhea Mesalamine 1,600 mg 09/30/20 15:00 09/30/20 21:19 Mesalamine 400 Mg Cap.Drtab. PO 1,600 mg TID [facility] Administration Metoprolol Succinate 150 mg 09/30/20 15:35 09/30/20 15:50 Metoprolol Succinate Er 50 Mg Tab.Er.24h PO 150 mg DAILY [facility] Administration Protocol Ondansetron HCl 4 mg 09/30/20 12:03 Ondansetron Hcl 4 Mg/2 Ml Vial IVPUSH ONCE PRN Nausea and Vomiting Pantoprazole Sodium 40 mg 09/30/20 22:10 Pantoprazole Sodium 40 Mg/10 Ml Vial IVPUSH BID@0630,1630 [facility] Pharmacy Consult 1 each 09/25/20 08:34 Consult Rx Perform Med Rec MISCELLANE ONCE PRN Consult order Sodium Chloride 3 ml 09/25/20 00:00 09/30/20 21:19 0.9 % Sodium Chloride Flush 3 Ml Syringe IVFLUSH 3 ml QSHIFT [facility] Administration Home Medications Medication Instructions Recorded Confirmed Last Taken Type aspirin 81 mg tablet,delayed 81 mg PO DAILY 05/26/20 09/24/20 Unknown History release Physical Exam Vital Signs: Vital Signs: Last Vital Signs Temp 97.9 F 09/30/20 20:00 Pulse 118 H 09/30/20 21:48 Resp 28 H 09/30/20 21:48 BP 84/50 L 09/30/20 21:48 Pulse Ox 94 09/30/20 21:48 Body Mass Index 24.7 General: Alert x self and place. Forgetful. Skin: Warm, dry, pink. Eye: Extraocular movements are intact, normal conjunctiva. Neck: Supple, no JVD. Cardiovascular: AFIB, S1, S2. Normal peripheral perfusion, No edema. Respiratory: Lungs are clear to auscultation, on non-rebreather, adding 88-91%. respirations slightly labored. Gastrointestinal: Soft, Nontender, Non distended, Normal bowel sounds. Back: Nontender, Normal range of motion, Normal alignment. Musculoskeletal: Normal ROM, normal strength, no tenderness, no swelling, no deformity. Neurological: No focal neurological deficit observed. Lymphatics: No lymphadenopathy. Psychiatric: Cooperative, appropriate mood & affect, normal judgment. Results Labs CBC & Chem 7: 09/30/20 19:50 09/29/20 05:25 Labs: Short CBC 09/30/20 Range/Units 19:50 WBC 7.0 (4.8-10.8) X10*3/uL Hgb 14.0 (12.0-16.0) g/dl Hct 41.2 (37-47) % Plt Count 227 D (160-400) X10*3/uL Microbiology Microbiology Results: Microbiology 09/26/20 03:34 Stool Stool Culture - Final Assessment and Plan (1) Pulmonary embolism: Status: Acute Plan: Neuro: No acute issues Cardiac: Hypotension: likely from submassive PE. slightly improving after 2 L bolus. Elevated lactic acid: this is also likely to PE, no evidence of severe sepsis. Pulmonary: Acute hypoxic respiratory distress: in the setting of some sub massive PE. try to titrate off non-rebreather as tolerated. Sub massive PE: CT angio showing multiple bilateral PEs with right heart strain. Unable to be transferred for possible catheter directed tPA given her GI bleed. Dr. Marion okay to start heparin drip. Monitor for acute signs of bleeding Renal: No acute issues Endo: No acute issues GI: Acute colitis: Dr Marion recommends starting hydrocortisone 60 mg q.8 hours as well as IV PPI b.i.d. ID: No acute issues Heme/Onc: No acute issues. Psych: No acute issues. Miscellaneous: No acute issues. Prophylaxis: IV Heparin, PPI CODE: full code Critical care time: X 60 minutes of critical care time (2) Atrial fibrillation: Status: Acute (3) Rectal bleed: Status: Acute (4) Hypertension: Status: Acute
--- NOTE | 2020-09-30 23:26 | OP_ITS ---
SURGEON: Stoney Marion MD INDICATIONS: The patient presents for evaluation of diarrhea and rectal bleeding. Full consent was obtained from the patient's , including risks of bleeding and perforation. PREOPERATIVE DIAGNOSIS: POSTOPERATIVE DIAGNOSIS: PROCEDURE PERFORMED: Colonoscopy to cecum and terminal ileum with biopsies. ESTIMATED BLOOD LOSS: COMPLICATIONS: ANESTHESIA: Monitored anesthesia care. ASSISTANTS: SPECIMENS: PREOPERATIVE DIAGNOSES: 1. Diarrhea. 2. Rectal bleeding. POSTOPERATIVE DIAGNOSES: 1. Diarrhea. 2. Rectal bleeding. 3. Ulcerative colitis. 4. Internal hemorrhoids. DESCRIPTION OF PROCEDURE: The patient was placed in the left lateral decubitus position. The digital rectal exam revealed no abnormalities. The Olympus video pediatric colonoscope was entered into the rectum and advanced easily to the cecum. Once in the cecum, I did identify normal-appearing cecal pouch with appendiceal orifice and a normal-appearing ileocecal valve. The terminal ileum was briefly cannulated and appeared grossly normal, although I could not really get into the terminal ileum for better inspection. Again, the cecal mucosa appeared normal. The scope was then slowly withdrawn assessing all mucosal surfaces carefully. For the most part, preparation was very good, although there was some fair amount of liquid stool, which was suctioned and irrigated away as best as possible. The ascending colon appeared normal. The mid and distal transverse colon, and extending all the way to the rectum, were notable for an active colitis with very significant changes noted more distally. There was a great deal of friability, granularity, edema, and ulceration. There were no skip lesions. There were no polyps nor masses. I did obtain biopsies between 30 and 40 cm and in the rectum. In the rectum, scope was retroflexed, visualizing some internal hemorrhoids. The inflammatory changes extended all the way down to the very distal rectum. The scope was straightened and withdrawn from the patient. She tolerated the procedure well and was returned to the recovery area in stable condition. IMPRESSION: 1. Apparent ulcerative colitis, status post biopsy. 2. Internal hemorrhoids. PLAN: The results of the biopsies will be checked. Given these findings and her previously negative stool specimens, I shall start her on mesalamine 1600 mg t.i.d. to treat presumed underlying ulcerative colitis. At this point, she has had a benign abdomen, and the extent of her diarrhea does not appear to be clear at this time. Therefore, I will hold off on steroids given her age and dementia. I will try her on a low residue diet and follow up laboratories in the morning including a CBC, sedimentation rate, and C-reactive protein. If things are stable and she is tolerating her diet without significant diarrhea, we can simply continue the mesalamine. However, if things deteriorate, I would then recommend a trial of steroids, either oral prednisone or IV hydrocortisone. We will need to determine the safety of anticoagulation in regard to the atrial fibrillation depending upon her clinical course in the near future. This has all been discussed with her today in detail. MD MARILIN Partida/EDUARDO / [id number]
[2020-09-30 23:49] LABS: Hematocrit 38.3 % (37-47); Hemoglobin 12.8 g/dl (12.0-16.0); Red Blood Count 4.41 X10*6/uL (4.20-5.50); White Blood Count 7.5 X10*3/uL (4.8-10.8)
--- NOTE | 2020-09-30 23:49 | W.PM.CCHP ---
Procedures Central Line Placement Right IJ: Central Line Comments: Right internal jugular triple lumen central venous catheter placed in usual sterile conditions under ultrasound guidance for appropriate vascular access without immediate complications. Central line position verified with Chest XRAY. Time out performed: Yes Sterile Technique Used: Yes Patient placed on monitor/pulse ox: Yes MD prep: mask, gown and gloves Central line prep: Chlorhexidine scrub Local anesthesia used: lidocaine 1% Ultrasound used for placement: Yes Central line lumen inserted: triple Post procedure: sutured in place, good blood return, all ports aspirated, flushed, capped and sterile dressing applied Post procedure x-ray: tip of catheter in good position and no pneumothorax seen Patient tolerated procedure: well and no complications Complications: none
[2020-09-30 23:50] LABS: Mean Corpuscular HGB Conc 33.4 g/dl (31.0-35.0); Mean Corpuscular Volume 86.8 fL (80-98); Mean Platelet Volume 9.3 fL (9.4-12.3); Platelet Count 217 X10*3/uL (160-400); Red Cell Distribution Width 12.5 % (11.0-16.0)
[2020-09-30 23:57] LABS: INTERNATIONAL NORM RATIO 1.6 (0.9-1.1); Prothrombin Time 18.6 SEC (10.8-13.0)
[2020-09-30 23:59] LABS: PTT Heparin Drip 31.9 SEC (53-77.9)
[2020-10-01] VITALS (21 sets, daily range): BP systolic 90–118; BP diastolic 42–71; PULSE 24–124; RESP 18–32; TEMP 36.1–37.5; O2SAT 86–100; BMI 36.6
--- NOTE | 2020-10-01 | ECG_ITS ---
Test Reason : elevated trop Blood Pressure : / mmHG Vent. Rate : 103 BPM Atrial Rate : 163 BPM P-R Int : 000 ms QRS Dur : 088 ms QT Int : 370 ms P-R-T Axes : 000 013 019 degrees QTc Int : 484 ms Atrial fibrillation with rapid ventricular response Low voltage QRS Cannot rule out Anterior infarct , age undetermined Abnormal ECG When compared with ECG of 24-SEP-2020 20:20, Vent. rate has decreased BY [address] no longer depressed in Inferior leads ST no longer depressed in Anterolateral leads Right bundle branch block not present Referred By: Melly Florian Electronically Signed By:Asim Ray
[2020-10-01] MEDS: Pantoprazole Sodium 40 MG/10 ML VIAL IVPUSH ×3 (00:15→16:47)
[2020-10-01 00:20] LABS: Reflex Lactate? 2 Y
[2020-10-01] MEDS: Hydrocortisone Sod Succ/PF 100 MG VIAL 60 MG IVPUSH ×3 (00:22→16:45)
[2020-10-01] MEDS: Heparin Sodium,Porcine/1/2NS 25,000 UNIT/250 ML IV.SOLN 14.84 UNIT IVCONT (00:40)
[2020-10-01 01:01] LABS: ~Lactic Acid-LAB USE ONLY 1.6 mmol/L (0.5-2.0)
[2020-10-01] MEDS: Heparin Sodium,Porcine 5,000 UNIT/ML VIAL 8500 UNIT IVPUSH (01:05)
[2020-10-01] MEDS: QUEtiapine Fumarate 25 MG TABLET PO (02:01)
[2020-10-01 04:45] LABS: Troponin-I High Sensitivity 1610.1 ng/L (<3.5-17.0)
--- NOTE | 2020-10-01 06:20 | PC.NURSE ---
Addendum entered by Taurus Felix RN 10/01/20 06:39: TLC RIJ inserted upon arrival to unit. Intact - placement verified by CXR. Original Note: Received patient as transfer from [facility] @ 2230 for SOB, +PE's, On NRB 100%, Not tolerating mask well, attempted high flow nasal cannula, did not tolerate. Put back on NRB, needing frequent redirection. Combative at times. Medicated w/ one time seroquel 25mg @ 0201 with little effect. Patient eventually rested, 02sat improved to low 90's on nonrebreather. 16f Coy inserted. Telesitter used for patient safety. High fall risk precautions in place. GI consulted after GI bleed /colonoscopy yesterday, plan to start heparin drip w/ bolus - started @ 0040 @ 14 unit/kg/unit after baseline PTTHD drawn. No s/s of bleeding noted through night. Elevated repeat trop 1610.1 @ 0412 - Carleny DAYCARE WORKER made aware. No CP. EKG done, ASA ordered and given. No bleeding noted at this time. BP soft - low 90's systolic. HR AFIB 100-120's.
[2020-10-01] MEDS: Aspirin 81 MG TAB.CHEW 324 MG PO (06:22)
[2020-10-01 07:11] LABS: MANUAL DIFF FLAG NO
[2020-10-01 07:17] LABS: VBG Base Excess 3.4 mmol/L; VBG HCO3 26 mmol/L (22-26); VBG pCO2 33 mmHg; VBG pH 7.49 (7.32-7.43); VBG pO2 125 mmHg
[2020-10-01 07:28] LABS: Basophils Percent Auto 0.5 % (0-2); Eosinophils Percent Auto 0.5 % (0-4); Hemoglobin 12.3 g/dl (12.0-16.0); Imm Gran Abs Auto 0.07 X10*3/uL (0.00-0.03); Imm Gran Pct Auto 1.2 % (0.0-0.4); Lymphocytes Absolute Auto 1.4 X10*3/uL (1.2-4.9); Mean Corpuscular HGB Conc 33.2 g/dl (31.0-35.0); Mean Corpuscular Hemoglobin 28.8 pg (27.0-33.0); Mean Corpuscular Volume 86.7 fL (80-98); Mean Platelet Volume 9.3 fL (9.4-12.3); Monocytes Percent Auto 16.6 % (2-11); Neutrophils Absolute Auto 3.4 X10*3/uL (2.0-8.3); Neutrophils Percent Auto 58.2 % (45-73); Platelet Count 185 X10*3/uL (160-400); Red Blood Count 4.27 X10*6/uL (4.20-5.50); Red Cell Distribution Width 12.7 % (11.0-16.0); White Blood Count 5.9 X10*3/uL (4.8-10.8)
[2020-10-01 07:29] LABS: INTERNATIONAL NORM RATIO 1.6 (0.9-1.1); Prothrombin Time 18.7 SEC (10.8-13.0)
--- NOTE | 2020-10-01 07:36 | P.CDIC_ITS ---
CDI Concurrent Query Service Date: 10/01/20 Documentation Clarification: Please clarify if you are treating a proba ble/suspected/likely or confirmed: Acute hypoxic respiratory failure Please specify if known Provider Response: Other Other Diagnosis: Acute hypoxic respiratory failure seconary to acute pulmonary embolism PLEASE DO NOT DELETE/MODIFY EXISTING CONTENT Additional information is needed in order to code to the highest accuracy and appropriate Severity of Illness (SOI). Please clarify the information noted below in your progress notes and discharge summary. Risk Factors/Clinical Indicators/Treatments PN: 09/30 - Acute hypoxic respiratory distress in setting of sub massive PE hypoxic high in 70's tachycardia in 30's tachypnea pulse ox 87 L non breather 9 liters improvement in her O2 to m id 90's CDS: Maggy Buchanan CCS, CDIS Contact Number: [phone] Please Review the information above and exercise your independent professional judgment in responding to the query. If you concur, pleas document in the PROGRESS NOTES and DISCHARGE SUMMARY. If you do not agree with the query, please document in the query above. THIS QUERY IS PART OF THE PERMANENT MEDICAL RECORD
[2020-10-01 07:48] LABS: PTT Heparin Drip 167.6 SEC (53-77.9)
--- NOTE | 2020-10-01 08:00 | CA_ITS ---
Transthoracic Echocardiogram Patient (Last, First, Middle): Enma Holden A Gender: Female Date of : 1940 Age: 80 Procedure Date: 10/01/2020 Procedure Type: Transthoracic Echocardiogram Location: ICU Height: 170.18 cm Weight: 105.69 kg BSA: 2.16 m2 Heart Rate: bpm BP: 104 / 66 mmHg Metallurgist Helper: WILLIE Referring MD: Eric Kaiser MD Symptoms: PE with right heart strain Study Quality: Fair Conclusions: - Normal left ventricular size and systolic function. - There is a flattened septum in systole and diastole consistent with right ventricular pressure and volume overload. - Severely increased right ventricular cavity size. There is moderate to severely decreased right ventricular systolic function. Bronson's sign is present consistent with known acute massive PE. - There is moderate tricuspid valve regurgitation. Significantly elevated right atrial pressure. Moderate pulmonary hypertension is present. Findings Left Ventricle Normal left ventricular size and systolic function. There is mildly increased left ventricular wall thickness. The visually estimated ejection fraction is between 55-60%. There is no evidence of regional wall motion abnormalities. There is a flattened septum in systole and diastole consistent with right ventricular pressure and volume overload. Diastolic function is indeterminate on the basis of available data. Right Ventricle Severely increased right ventricular cavity size. There is moderate to severely decreased right ventricular systolic function. Bronson's sign is present consistent with known acute massive PE. Atria The left atrium was not well visualized. The right atrium is likely dilated. Aortic Valve There is a normal trileaflet aortic valve. There is no aortic valve stenosis. There is no aortic valve regurgitation. Mitral Valve Normal mitral valve structure and function. There is no mitral valve regurgitation. There is no mitral valve stenosis. Pulmonic Valve The pulmonic valve is likely normal. There is trace pulmonic valve regurgitation. Tricuspid Valve There is moderate tricuspid valve regurgitation. Significantly elevated right atrial pressure. Moderate pulmonary hypertension is present. Great Vessels There is mild dilatation of the ascending aorta. The visualized portions of the pulmonary artery and branches are normal. Venous The inferior vena cava is dilated and does not collapse with inspiration. Pericardium/Pleural There is no evidence of pericardial effusion. Prior Study Comparison Significant changes compared to prior study dated: 09/25/2020. RV severely dilated and reduced function due to recent PE. Measurements 2D Linear Measurements IVSd: 0.94 0.6-0.9/0.6-1.0 cm LVIDd: 3.50 3.9-5.3/4.2-5.9 cm LVIDd Index: 1.62 2.4-3.2/2.2-3.1 cm/m2 LVIDs: 2.57 2.0-3.6 cm LVPWd: 1.05 0.7-1.1 cm Ao Root: 3.30 2.1-3.5 cm LA Diam: 3.00 2.7-3.8/3.0-4.0 cm LAIDs Index: 1.39 1.5-2.3 cm/m2 LV Mass: 127.59 67-162/88-224 g LV Mass Index: 59.07 43-95/49-115 g/m2 LVOT Diam: 2.00 3.0+(-)1.3 cm Aortic Valve AoV Pk Esteban: 1.59 AoV Mn Esteban: 1.01 AoV VTI: 0.24 AoV Pk Grad: 10.00 Aov Mn Grad: 5.00 SARAY Cont.VTI: 1.75 LVOT LVOT Pk Esteban: 0.81 LVOT Mn Esteban: 0.54 LVOT VTI: 0.13 LVOT Pk Grad: 3.00 LVOT Mn Grad: 1.00 LVOT Diam: 2.00 LVOT Area: 3.14 Tricuspid Valve TR Pk Esteban: 3.06 TR Pk Grad: 37.00 RA Press: 15.00 RVSP: 52.00 Great Vessels Aorta Ao Root-2D: 3.30 2.0-3.7 cm Ao Asc: 3.20 2.1-3.4 cm Ao Arch: 2.70 Updated in Other Vendor System with Status of Final Asim Ray MD electronically signed on 10/01/2020 12:28:01 PM with status of Final
[2020-10-01 08:32] LABS: Anion Gap 13 (12-20); Blood Urea Nitrogen 17 mg/dL (9-16); C Reactive Protein 13.48 mg/dL (< or = 0.50); Calcium 7.7 mg/dL (8.4-10.2); Carbon Dioxide 25 mmol/L (22-29); Chloride 105 mmol/L (96-108); Creatinine Clr Calc Pharmacy 87.7; Estimated Glomerular Filt Rate > 60; Glucose Fasting 139 mg/dL (60-99); Potassium 3.4 mmol/L (3.3-5.1); Sodium 140 mmol/L (135-145)
[2020-10-01 08:33] LABS: Erythrocyte Sedimentation Rate 2 MM/HR (0-20)
[2020-10-01 09:12] LABS: PTT Heparin Drip 72.2 SEC (53-77.9)
[2020-10-01 09:23] LABS: Venous Blood Gas Refer to POC result
[2020-10-01 09:45] LABS: B Type Natriuretic Peptide 375 pg/mL (<100)
[2020-10-01] MEDS: 0.9 % Sodium Chloride Flush 3 ML SYRINGE IVFLUSH ×2 (09:58→16:46)
[2020-10-01] MEDS: Mesalamine 400 MG CAP.DRTAB. 1600 MG PO ×3 (10:01→20:20)
--- NOTE | 2020-10-01 11:02 | HO.POSTANES ---
Post Anesthesia Evaluation Post Anesthesia Evaluation Vital Signs: Vital Signs Temp Pulse Resp BP Pulse Ox 10/01/20 10:59 99.3 F 104 H 21 H 90/52 L 91 L 10/01/20 10:02 105 H 92/60 10/01/20 10:00 99.5 F 105 H 21 H 92/60 93 10/01/20 09:00 99.5 F 95 23 H 91/46 L 89 L 10/01/20 06:00 99.1 F 110 H 28 H 104/66 92 10/01/20 05:00 99.3 F 101 H 24 H 104/43 L 96 10/01/20 04:00 99.3 F 115 H 24 H 100/61 94 10/01/20 03:08 99.5 F 101 H 26 H 100/42 L 96 10/01/20 02:00 99.3 F 99 26 H 95/71 86 L 10/01/20 01:02 110 H 26 H 99/54 L 87 L 10/01/20 00:40 26 H 10/01/20 00:00 106 H 24 H 94/64 87 L Anesthesia: Monitored Pain Control: Satisfactory Nausea/Vomiting: None Hydration: Adequate Anesthesia-Related Issues: No Anes. Related Issues
--- NOTE | 2020-10-01 12:33 | PM.PNCARD ---
Subjective Subjective Date of Service: 10/01/20 <EDUARD Cox - Last Filed: 10/01/20 13:24> 10/01/20 <Asim Ray MD - Last Filed: 10/01/20 21:41> Principal diagnosis: Afib, GIB, PE <EDUARD Cox - Last Filed: 10/01/20 13:24> Interval history: Cardiology follow up for the above. Seen at 0830. Events of last evening reviewed. Today she is observed sitting up in bed, no acute distress. Wearing O2 with nasal cannula. Breathing unlabored. She reports that she is feeling fine. She denies pain in chest, palpitations or dizziness. Sitter at bedside. <EDUARD Cox - Last Filed: 10/01/20 13:24> Review of Systems Review of Systems as above - accuracy unclear due to pts dementia <EDUARD Cox - Last Filed: 10/01/20 13:24> Yes Unobtainable due to mental condition <EDUARD Cox - Last Filed: 10/01/20 13:24> Physical Exam Vital Signs: Last Vital Signs Temp 99.5 F 10/01/20 12:00 Pulse 99 10/01/20 12:00 Resp 27 H 10/01/20 12:00 BP 97/67 10/01/20 12:00 Pulse Ox 95 10/01/20 12:00 Body Mass Index 36.6 <EDUARD Cox - Last Filed: 10/01/20 13:24> Const General: cooperative, no acute distress, alert and awake <EDUARD Cox - Last Filed: 10/01/20 13:24> Orientation/consciousness: patient oriented x3 <EDUARD Cox - Last Filed: 10/01/20 13:24> Neck Neck: Yes normal visual inspection and Yes no JVD <EDUARD Cox - Last Filed: 10/01/20 13:24> Carotids: carotid upstroke abnormal <EDUARD Cox - Last Filed: 10/01/20 13:24> Resp Effort & Inspection: normal respiratory effort, able to speak in complete sentences and not labored <Sridevi Brown NP-C - Last Filed: 10/01/20 13:24> Auscultation: clear to auscultation bilaterally, no crackles, no rales, no rhonchi and no wheezes <Sridevi Brown NP-C - Last Filed: 10/01/20 13:24> Cardio Other: Heart rate elevated, irregularly irregular - no noted JVD <Sridevi Brown NP-C - Last Filed: 10/01/20 13:24> Jugular venous distension: JVD present <Sridevi Brown TAKE OFF WORKER-C - Last Filed: 10/01/20 13:24> Palpation: normal PMI <Sridevi Brown TAKE OFF WORKER-C - Last Filed: 10/01/20 13:24> Heart sounds: S1 normal heart sound present and S2 normal heart sound present <Sridevi Brown, TAKE OFF WORKER-C - Last Filed: 10/01/20 13:24> Peripheral pulses: Peripheral pulses 2+ throughout <Sridevi Brown TAKE OFF WORKER-C - Last Filed: 10/01/20 13:24> GI Inspection: Yes normal to inspection <Sridevi Brown TAKE OFF WORKER-C - Last Filed: 10/01/20 13:24> Neuro General: patient oriented x3 <Sridevi Brown NP-C - Last Filed: 10/01/20 13:24> Extrem General: Yes normal to inspection and No edema <Sridevi Brown TAKE OFF WORKER-C - Last Filed: 10/01/20 13:24> Results Labs and Meds Result diagrams: : 10/01/20 07:06 10/01/20 07:06 <Sridevi Brown TAKE OFF WORKER-C - Last Filed: 10/01/20 13:24> Lab results: Laboratory Results - last 24 hr 09/30/20 09/30/20 09/30/20 19:49 19:49 19:50 WBC 7.0 RBC 4.78 Hgb 14.0 Hct 41.2 MCV 86.2 MCH 29.3 MCHC 34.0 RDW 12.5 Plt Count 227 D MPV 9.0 L Immature Gran % (Auto) 1.1 H Neut % (Auto) 55.8 Lymph % (Auto) 22.5 Hendricks % (Auto) 17.5 H Eos % (Auto) 2.4 Baso % (Auto) 0.7 Lymph # (Auto) 1.6 Hendricks # (Auto) 1.2 Eos # (Auto) 0.2 Baso # (Auto) 0.1 Abs Immat Gran (auto) 0.08 H Absolute Neuts (auto) 3.9 Absolute Nucleated RBC 0.000 Nucleated RBC % (auto) 0.0 ESR PT INR PTT (Heparin Protocol) O2 Saturation ABG pH at Pt Temp ABG pH (Temp Correct) ABG pCO2 at Pt Temp ABG pCO2 (Temp Corrct ABG pO2 at Pt Temp ABG pO2 (Temp Correct ABG HCO3 ABG Base Excess (Actual) VBG pH VBG pCO2 VBG pO2 VBG HCO3 VBG O2 Saturation VBG Base Excess Sodium Potassium Chloride Carbon Dioxide Anion Gap BUN Creatinine Estim Creat Clear Calc Estimated GFR Fasting Glucose Lactic Acid 2.3 H* Lactic Acid Fup @ 2Hr Lactic Acid Fup @ 4Hr Calcium Troponin I High Sens 71.1 H D C-Reactive Protein B-Natriuretic Peptide 337 H COVID-19 (JASON) COVID-19 Clin Com 09/30/20 09/30/20 09/30/20 19:58 21:35 22:15 WBC RBC Hgb Hct MCV MCH MCHC RDW Plt Count MPV Immature Gran % (Auto) Neut % (Auto) Lymph % (Auto) Hendricks % (Auto) Eos % (Auto) Baso % (Auto) Lymph # (Auto) Hendricks # (Auto) Eos # (Auto) Baso # (Auto) Abs Immat Gran (auto) Absolute Neuts (auto) Absolute Nucleated RBC Nucleated RBC % (auto) ESR PT INR PTT (Heparin Protocol) O2 Saturation 90.0 ABG pH at Pt Temp 7.49 H ABG pH (Temp Correct) 7.50 H ABG pCO2 at Pt Temp 33 ABG pCO2 (Temp Corrct 33 ABG pO2 at Pt Temp 59 L ABG pO2 (Temp Correct 57 L ABG HCO3 26 ABG Base Excess (Actual) 3.2 VBG pH VBG pCO2 VBG pO2 VBG HCO3 VBG O2 Saturation VBG Base Excess Sodium Potassium Chloride Carbon Dioxide Anion Gap BUN Creatinine Estim Creat Clear Calc Estimated GFR Fasting Glucose Lactic Acid Lactic Acid Fup @ 2Hr 2.3 H* Lactic Acid Fup @ 4Hr Calcium Troponin I High Sens C-Reactive Protein B-Natriuretic Peptide COVID-19 (JASON) Negative COVID-19 [facility] See Note 09/30/20 09/30/20 10/01/20 23:29 23:29 00:35 WBC 7.5 RBC 4.41 Hgb 12.8 Hct 38.3 MCV 86.8 MCH 29.0 MCHC 33.4 RDW 12.5 Plt Count 217 MPV 9.3 L Immature Gran % (Auto) Neut % (Auto) Lymph % (Auto) Hendricks % (Auto) Eos % (Auto) Baso % (Auto) Lymph # (Auto) Hendricks # (Auto) Eos # (Auto) Baso # (Auto) Abs Immat Gran (auto) Absolute Neuts (auto) Absolute Nucleated RBC 0.000 Nucleated RBC % (auto) 0.0 ESR PT 18.6 H D INR 1.6 H PTT (Heparin Protocol) 31.9 L O2 Saturation ABG pH at Pt Temp ABG pH (Temp Correct) ABG pCO2 at Pt Temp ABG pCO2 (Temp Corrct ABG pO2 at Pt Temp ABG pO2 (Temp Correct ABG HCO3 ABG Base Excess (Actual) VBG pH VBG pCO2 VBG pO2 VBG HCO3 VBG O2 Saturation VBG Base Excess Sodium Potassium Chloride Carbon Dioxide Anion Gap BUN Creatinine Estim Creat Clear Calc Estimated GFR Fasting Glucose Lactic Acid Lactic Acid Fup @ 2Hr Lactic Acid Fup @ 4Hr 1.6 Calcium Troponin I High Sens C-Reactive Protein B-Natriuretic Peptide COVID-19 (JASON) COVID-19 [facility] 10/01/20 10/01/20 10/01/20 04:12 07:06 07:06 WBC Cancelled RBC Cancelled Hgb Cancelled Hct Cancelled MCV Cancelled MCH Cancelled MCHC Cancelled RDW Cancelled Plt Count Cancelled MPV Cancelled Immature Gran % (Auto) Neut % (Auto) Lymph % (Auto) Hendricks % (Auto) Eos % (Auto) Baso % (Auto) Lymph # (Auto) Hendricks # (Auto) Eos # (Auto) Baso # (Auto) Abs Immat Gran (auto) Absolute Neuts (auto) Absolute Nucleated RBC Cancelled Nucleated RBC % (auto) Cancelled ESR PT Cancelled INR Cancelled PTT (Heparin Protocol) O2 Saturation ABG pH at Pt Temp ABG pH (Temp Correct) ABG pCO2 at Pt Temp ABG pCO2 (Temp Corrct ABG pO2 at Pt Temp ABG pO2 (Temp Correct ABG HCO3 ABG Base Excess (Actual) VBG pH VBG pCO2 VBG pO2 VBG HCO3 VBG O2 Saturation VBG Base Excess Sodium Potassium Chloride Carbon Dioxide Anion Gap BUN Creatinine Estim Creat Clear Calc Estimated GFR Fasting Glucose Lactic Acid Lactic Acid Fup @ 2Hr Lactic Acid Fup @ 4Hr Calcium Troponin I High Sens 1610.1 H D C-Reactive Protein B-Natriuretic Peptide COVID-19 (JASON) COVID-19 [facility] 10/01/20 10/01/20 10/01/20 07:06 07:06 07:06 WBC 5.9 RBC 4.27 Hgb 12.3 Hct 37.0 MCV 86.7 MCH 28.8 MCHC 33.2 RDW 12.7 Plt Count 185 MPV 9.3 L Immature Gran % (Auto) 1.2 H Neut % (Auto) 58.2 Lymph % (Auto) 23.0 Hendricks % (Auto) 16.6 H Eos % (Auto) 0.5 Baso % (Auto) 0.5 Lymph # (Auto) 1.4 Hendricks # (Auto) 1.0 Eos # (Auto) 0.0 Baso # (Auto) 0.0 Abs Immat Gran (auto) 0.07 H Absolute Neuts (auto) 3.4 Absolute Nucleated RBC 0.000 Nucleated RBC % (auto) 0.0 ESR 2 PT INR PTT (Heparin Protocol) O2 Saturation ABG pH at Pt Temp ABG pH (Temp Correct) ABG pCO2 at Pt Temp ABG pCO2 (Temp Corrct ABG pO2 at Pt Temp ABG pO2 (Temp Correct ABG HCO3 ABG Base Excess (Actual) VBG pH VBG pCO2 VBG pO2 VBG HCO3 VBG O2 Saturation VBG Base Excess Sodium 140 Potassium 3.4 Chloride 105 Carbon Dioxide 25 Anion Gap 13 BUN 17 H Creatinine 0.63 Estim Creat Clear Calc 87.7 Estimated GFR > 60 Fasting Glucose 139 H Lactic Acid Lactic Acid Fup @ 2Hr Lactic Acid Fup @ 4Hr Calcium 7.7 L Troponin I High Sens C-Reactive Protein 13.48 H B-Natriuretic Peptide COVID-19 (JASON) COVID-19 [facility] 10/01/20 10/01/20 10/01/20 07:06 07:08 08:47 WBC RBC Hgb Hct MCV MCH MCHC RDW Plt Count MPV Immature Gran % (Auto) Neut % (Auto) Lymph % (Auto) Hendricks % (Auto) Eos % (Auto) Baso % (Auto) Lymph # (Auto) Hendricks # (Auto) Eos # (Auto) Baso # (Auto) Abs Immat Gran (auto) Absolute Neuts (auto) Absolute Nucleated RBC Nucleated RBC % (auto) ESR PT 18.7 H INR 1.6 H PTT (Heparin Protocol) 167.6 H* D O2 Saturation ABG pH at Pt Temp ABG pH (Temp Correct) ABG pCO2 at Pt Temp ABG pCO2 (Temp Corrct ABG pO2 at Pt Temp ABG pO2 (Temp Correct ABG HCO3 ABG Base Excess (Actual) VBG pH 7.49 H VBG pCO2 33 VBG pO2 125 VBG HCO3 26 VBG O2 Saturation 99.0 VBG Base Excess 3.4 Sodium Potassium Chloride Carbon Dioxide Anion Gap BUN Creatinine Estim Creat Clear Calc Estimated GFR Fasting Glucose Lactic Acid Lactic Acid Fup @ 2Hr Lactic Acid Fup @ 4Hr Calcium Troponin I High Sens 1308.6 H C-Reactive Protein B-Natriuretic Peptide 375 H COVID-19 (JASON) COVID-19 [facility] 10/01/20 08:47 WBC RBC Hgb Hct MCV MCH MCHC RDW Plt Count MPV Immature Gran % (Auto) Neut % (Auto) Lymph % (Auto) Hendricks % (Auto) Eos % (Auto) Baso % (Auto) Lymph # (Auto) Hendricks # (Auto) Eos # (Auto) Baso # (Auto) Abs Immat Gran (auto) Absolute Neuts (auto) Absolute Nucleated RBC Nucleated RBC % (auto) ESR PT INR PTT (Heparin Protocol) 72.2 D O2 Saturation ABG pH at Pt Temp ABG pH (Temp Correct) ABG pCO2 at Pt Temp ABG pCO2 (Temp Corrct ABG pO2 at Pt Temp ABG pO2 (Temp Correct ABG HCO3 ABG Base Excess (Actual) VBG pH VBG pCO2 VBG pO2 VBG HCO3 VBG O2 Saturation VBG Base Excess Sodium Potassium Chloride Carbon Dioxide Anion Gap BUN Creatinine Estim Creat Clear Calc Estimated GFR Fasting Glucose Lactic Acid Lactic Acid Fup @ 2Hr Lactic Acid Fup @ 4Hr Calcium Troponin I High Sens C-Reactive Protein B-Natriuretic Peptide COVID-19 (JASON) COVID-19 Clin Com <EDUARD Cox - Last Filed: 10/01/20 13:24> Imaging Radiologist's impression: Impressions Chest X-Ray 09/30/20 19:23 IMPRESSION: No evidence of acute disease. Chest CTA 09/30/20 20:55 IMPRESSION: 1. Multiple bilateral pulmonary emboli. Evidence of right ventricular heart strain. 2. There are 2 noncalcified nodules in the right lung measuring 5 mm and 4 mm. Various management parameters for solitary pulmonary nodules are in the literature. According to the UPDATED 2017 Fleischner Society recommendations, the advised follow-up imaging for solid nodules < 6 mm is: LOW RISK PATIENT: No routine follow-up. HIGH RISK PATIENT: Optional CT at 12 months. If stable at 12 months no further follow-up recommended. Reference: Guidelines for Management of Incidental Pulmonary Nodules Detected on CT Images: From the Fleischner Society 2017. VTE: negative This critical result was discussed with Gerogia Harley on 09/30/2020, 9:22 PM and it was ascertained that the content and urgency of the report was understood at the time of direct communication. Chest X-Ray 09/30/20 23:20 IMPRESSION: Right internal jugular central venous catheter terminates near the cavoatrial junction. No pneumothorax. <EDUARD Cox - Last Filed: 10/01/20 13:24> Progress Note: A&P Assessment and plan (1) Pulmonary embolism: Status: Acute <EDUARD Cox - Last Filed: 10/01/20 13:24> Assessment and Plan: Acute onset of sob last evening with hypoxia, hypotension, tachycardia. CTA of chest shows multiple bilateral PEs and Right heart strain. Events/ Notes reviewed. She was transferred to ICU and care managed by drill setup operator. On IV Heparin per protocol. Breathing comfortable this am but still has some tachypnia. Sat 95% with O2 8 Liters. BP on low side. Diltiazem and Metoprolol on hold. On exam she does not appear to have acute HF. Continue current tx. Echo is pending. <EDUARD Cox - Last Filed: 10/01/20 13:24> (2) Atrial fibrillation: Status: Acute <EDUARD Cox - Last Filed: 10/01/20 13:24> Assessment and Plan: New finding of atrial fibrillation this admit - unknown how long she has been in it. Echo 09/25/20 shows EF 55-60%, mod increase in LV wall thickness, LA severely dilated. Has been treated with heart rate control. Had been on Metoprolol, Diltiazem, and she did recieve a loading dose of Digoxin. Tele still showed elevated rates with activity. Now with PE as above. Diltiazem and Metoprolol being held. Tele this am with afib, rates 100-120s. No reports of palpitations or CP. She did report rectal bleeding on admit. GI eval and she had colonoscopy yesterday showing active colitis. She is now on steroids and PPM. CHADSVASc of 4. Anticoagulation is indicated for her afib. Now on Heparin dripfor the PE and afib. Watch for increased GIB. Plan to start on NOAC when clinically appropriate and clear by GI to do so. Ongoing tele monitoring. Post echo will discuss options for her rate slowing medications. Reviewed with Dr Ray. <EDUARD Cox - Last Filed: 10/01/20 13:24> (3) Hypertension: Status: Acute <EDUARD Cox - Last Filed: 10/01/20 13:24> Assessment and Plan: Soft - related to PE. Off antihypertensives. Echo pending <EDUARD Cox - Last Filed: 10/01/20 13:24> (4) Rectal bleed: Status: Acute <EDUARD Cox - Last Filed: 10/01/20 13:24> Assessment and Plan: Active colitis. Being followed by GI <EDUARD Cox - Last Filed: 10/01/20 13:24> (5) Dementia: Status: Acute <EDUARD Cox - Last Filed: 10/01/20 13:24> Fall Risk Details Current Medications: Current Medications Generic Name Dose Route Start Last Admin Trade Name Freq PRN Reason Stop Dose Admin Acetaminophen 650 mg 09/24/20 21:52 09/27/20 16:02 Acetaminophen 325 Mg Tablet PO 650 mg Q6H PRN Administration Pain, Mild (Pain Scale 1-3) Heparin Sodium (Porcine) 4,200 unit 10/01/20 00:56 Heparin Sodium,Porcine 5,000 Unit/Ml Vial 40 unit/kg (4200 unit) IVPUSH BOLUS PRN 40 unit/kg - Heparin Protocol Heparin Sodium (Porcine) 8,500 unit 10/01/20 00:56 Heparin Sodium,Porcine 5,000 Unit/Ml Vial 80 unit/kg (8500 unit) IVPUSH BOLUS PRN 80 unit/kg - Heparin Protocol Hydrocortisone Sodium Succinate 60 mg 10/01/20 00:30 10/01/20 09:59 Hydrocortisone Sod Succ/Pf 100 Mg Vial IVPUSH 60 mg Q8H NESTOR Administration Lactated Ringer's 1,000 mls @ 20 mls/hr 09/30/20 13:00 09/30/20 11:35 Lr IVCONT 20 mls/hr .Q24H NESTOR Administration Heparin Sodium/Sodium Chloride 25,000 unit in 250 mls @ 0 mls/hr 10/01/20 01:00 10/01/20 09:47 IVCONT 10 units/kg/hr .Q0M NESTOR 10.6 mls/hr Titration Protocol Per Protocol Loperamide HCl 2 mg 09/26/20 11:18 09/27/20 16:02 Loperamide Hcl 2 Mg Capsule PO 2 mg Q6H PRN Administration diarrhea Mesalamine 1,600 mg 09/30/20 15:00 10/01/20 10:01 Mesalamine 400 Mg Cap.Drtab. PO 1,600 mg TID NESTOR Administration Metoprolol Succinate 150 mg 09/30/20 15:35 10/01/20 10:02 Metoprolol Succinate Er 50 Mg Tab.Er.24h PO Not Given DAILY [facility] Protocol Ondansetron HCl 4 mg 09/30/20 12:03 Ondansetron Hcl 4 Mg/2 Ml Vial IVPUSH ONCE PRN Nausea and Vomiting Pantoprazole Sodium 40 mg 09/30/20 22:10 10/01/20 06:21 Pantoprazole Sodium 40 Mg/10 Ml Vial IVPUSH 40 mg BID@0630,1630 [facility] Administration Pharmacy Consult 1 each 09/25/20 08:34 Consult Rx Perform Med Rec MISCELLANE ONCE PRN Consult order Sodium Chloride 3 ml 09/25/20 00:00 10/01/20 09:58 0.9 % Sodium Chloride Flush 3 Ml Syringe IVFLUSH 3 ml QSHIFT NESTOR Administration <EDUARD Cox - Last Filed: 10/01/20 13:24> Time Spent With Patient Time: Total time spent is greater than 50% in coordination of care (as documented) at patient's floor/unit and/or counseling patient: 24 <EDUARD Cox - Last Filed: 10/01/20 13:24> Time with patient: 15 - 24 minutes <EDUARD Cox - Last Filed: 10/01/20 13:24>
[2020-10-01] MEDS: dilTIAZem HCL CD 180 MG CAP.ER.24H PO (13:30)
[2020-10-01 14:26] LABS: PTT Heparin Drip 44.5 SEC (53-77.9)
[2020-10-01] MEDS: Heparin Sodium,Porcine 5,000 UNIT/ML VIAL 4200 UNIT IVPUSH (15:03)
--- NOTE | 2020-10-01 15:15 | PM.CCPN ---
Subjective Subjective Date of Service: 10/01/20 Interval History: 80-year-old lady with underlying history of dementia, hypertension admitted on 09/24/2020 with rectal bleeding and new onset of AFib. Patient had colonoscopy on 09/30/2020 that was consistent with ulcerative colitis. In the evening of 09/29/2020 patient developed sudden hypoxemia and hypotension. Her CT angio chest was positive for bilateral pulmonary emboli with a right ventricular strain. Patient required initially high-flow nasal cannula to maintain normoxemia and 2 L of IV fluid to improve systolic blood pressure. Patient was not accepted for catheter directed tPA either at [facility], or [facility]. She was transferred to intensive care unit for close monitoring. Central venous access was placed for possible pressor initiation. Discussion with Gastroenterology was held and patient was started on heparin drip. Overnight her blood pressure and oxygenation improved and she was titrated off high-flow nasal cannula to regular nasal cannula. Physical Exam Vital Signs: Vital Signs: Last Vital Signs Temp 99.5 F 10/01/20 13:00 Pulse 121 H 10/01/20 13:30 Resp 25 H 10/01/20 13:00 BP 96/54 L 10/01/20 13:30 Pulse Ox 93 10/01/20 13:00 Body Mass Index 36.6 Const: General: no acute distress, alert and awake Eyes: Sclerae: sclerae normal EOM: EOMs intact bilaterally Neck: Neck: Yes no lymphadenopathy, Yes trachea midline and Yes supple Resp: Effort & Inspection: normal respiratory effort and no respiratory distress Auscultation: clear to auscultation bilaterally Cardio: Rate: regular rate and tachycardic Rhythm: regular rhythm Heart sounds: no gallops, no murmurs and no rubs GI: Palpation (GI): Soft to palpation and Other GI palpation findings present ( Nontender) Auscultation: normal bowel sounds Extrem: General: No clubbing, No cyanosis and Yes pedal edema (Trace bilateral) Objective Data Labs CBC & Chem 7: 10/01/20 07:06 10/01/20 07:06 Labs: Laboratory Results - last 24 hr 09/30/20 09/30/20 09/30/20 19:49 19:49 19:50 WBC 7.0 RBC 4.78 Hgb 14.0 Hct 41.2 MCV 86.2 MCH 29.3 MCHC 34.0 RDW 12.5 Plt Count 227 D MPV 9.0 L Immature Gran % (Auto) 1.1 H Neut % (Auto) 55.8 Lymph % (Auto) 22.5 [place] % (Auto) 17.5 H Eos % (Auto) 2.4 Baso % (Auto) 0.7 Lymph # (Auto) 1.6 [place] # (Auto) 1.2 Eos # (Auto) 0.2 Baso # (Auto) 0.1 Abs Immat Gran (auto) 0.08 H Absolute Neuts (auto) 3.9 Absolute Nucleated RBC 0.000 Nucleated RBC % (auto) 0.0 ESR PT INR PTT (Heparin Protocol) O2 Saturation ABG pH at Pt Temp ABG pH (Temp Correct) ABG pCO2 at Pt Temp ABG pCO2 (Temp Corrct ABG pO2 at Pt Temp ABG pO2 (Temp Correct ABG HCO3 ABG Base Excess (Actual) VBG pH VBG pCO2 VBG pO2 VBG HCO3 VBG O2 Saturation VBG Base Excess Sodium Potassium Chloride Carbon Dioxide Anion Gap BUN Creatinine Estim Creat Clear Calc Estimated GFR Fasting Glucose Lactic Acid 2.3 H* Lactic Acid Fup @ 2Hr Lactic Acid Fup @ 4Hr Calcium Troponin I High Sens 71.1 H D C-Reactive Protein B-Natriuretic Peptide 337 H COVID-19 (JASON) COVID-19 Clin Com 09/30/20 09/30/20 09/30/20 19:58 21:35 22:15 WBC RBC Hgb Hct MCV MCH MCHC RDW Plt Count MPV Immature Gran % (Auto) Neut % (Auto) Lymph % (Auto) [place] % (Auto) Eos % (Auto) Baso % (Auto) Lymph # (Auto) [place] # (Auto) Eos # (Auto) Baso # (Auto) Abs Immat Gran (auto) Absolute Neuts (auto) Absolute Nucleated RBC Nucleated RBC % (auto) ESR PT INR PTT (Heparin Protocol) O2 Saturation 90.0 ABG pH at Pt Temp 7.49 H ABG pH (Temp Correct) 7.50 H ABG pCO2 at Pt Temp 33 ABG pCO2 (Temp Corrct 33 ABG pO2 at Pt Temp 59 L ABG pO2 (Temp Correct 57 L ABG HCO3 26 ABG Base Excess (Actual) 3.2 VBG pH VBG pCO2 VBG pO2 VBG HCO3 VBG O2 Saturation VBG Base Excess Sodium Potassium Chloride Carbon Dioxide Anion Gap BUN Creatinine Estim Creat Clear Calc Estimated GFR Fasting Glucose Lactic Acid Lactic Acid Fup @ 2Hr 2.3 H* Lactic Acid Fup @ 4Hr Calcium Troponin I High Sens C-Reactive Protein B-Natriuretic Peptide COVID-19 (JASON) Negative COVID-19 Clin Com See Note 09/30/20 09/30/20 10/01/20 23:29 23:29 00:35 WBC 7.5 RBC 4.41 Hgb 12.8 Hct 38.3 MCV 86.8 MCH 29.0 MCHC 33.4 RDW 12.5 Plt Count 217 MPV 9.3 L Immature Gran % (Auto) Neut % (Auto) Lymph % (Auto) [place] % (Auto) Eos % (Auto) Baso % (Auto) Lymph # (Auto) [place] # (Auto) Eos # (Auto) Baso # (Auto) Abs Immat Gran (auto) Absolute Neuts (auto) Absolute Nucleated RBC 0.000 Nucleated RBC % (auto) 0.0 ESR PT 18.6 H D INR 1.6 H PTT (Heparin Protocol) 31.9 L O2 Saturation ABG pH at Pt Temp ABG pH (Temp Correct) ABG pCO2 at Pt Temp ABG pCO2 (Temp Corrct ABG pO2 at Pt Temp ABG pO2 (Temp Correct ABG HCO3 ABG Base Excess (Actual) VBG pH VBG pCO2 VBG pO2 VBG HCO3 VBG O2 Saturation VBG Base Excess Sodium Potassium Chloride Carbon Dioxide Anion Gap BUN Creatinine Estim Creat Clear Calc Estimated GFR Fasting Glucose Lactic Acid Lactic Acid Fup @ 2Hr Lactic Acid Fup @ 4Hr 1.6 Calcium Troponin I High Sens C-Reactive Protein B-Natriuretic Peptide COVID-19 (JASON) COVID-19 [employer] Com 10/01/20 10/01/20 10/01/20 04:12 07:06 07:06 WBC Cancelled RBC Cancelled Hgb Cancelled Hct Cancelled MCV Cancelled MCH Cancelled MCHC Cancelled RDW Cancelled Plt Count Cancelled MPV Cancelled Immature Gran % (Auto) Neut % (Auto) Lymph % (Auto) [place] % (Auto) Eos % (Auto) Baso % (Auto) Lymph # (Auto) [place] # (Auto) Eos # (Auto) Baso # (Auto) Abs Immat Gran (auto) Absolute Neuts (auto) Absolute Nucleated RBC Cancelled Nucleated RBC % (auto) Cancelled ESR PT Cancelled INR Cancelled PTT (Heparin Protocol) O2 Saturation ABG pH at Pt Temp ABG pH (Temp Correct) ABG pCO2 at Pt Temp ABG pCO2 (Temp Corrct ABG pO2 at Pt Temp ABG pO2 (Temp Correct ABG HCO3 ABG Base Excess (Actual) VBG pH VBG pCO2 VBG pO2 VBG HCO3 VBG O2 Saturation VBG Base Excess Sodium Potassium Chloride Carbon Dioxide Anion Gap BUN Creatinine Estim Creat Clear Calc Estimated GFR Fasting Glucose Lactic Acid Lactic Acid Fup @ 2Hr Lactic Acid Fup @ 4Hr Calcium Troponin I High Sens 1610.1 H D C-Reactive Protein B-Natriuretic Peptide COVID-19 (JASON) COVID-19 Clin Com 10/01/20 10/01/20 10/01/20 07:06 07:06 07:06 WBC 5.9 RBC 4.27 Hgb 12.3 Hct 37.0 MCV 86.7 MCH 28.8 MCHC 33.2 RDW 12.7 Plt Count 185 MPV 9.3 L Immature Gran % (Auto) 1.2 H Neut % (Auto) 58.2 Lymph % (Auto) 23.0 [place] % (Auto) 16.6 H Eos % (Auto) 0.5 Baso % (Auto) 0.5 Lymph # (Auto) 1.4 [place] # (Auto) 1.0 Eos # (Auto) 0.0 Baso # (Auto) 0.0 Abs Immat Gran (auto) 0.07 H Absolute Neuts (auto) 3.4 Absolute Nucleated RBC 0.000 Nucleated RBC % (auto) 0.0 ESR 2 PT INR PTT (Heparin Protocol) O2 Saturation ABG pH at Pt Temp ABG pH (Temp Correct) ABG pCO2 at Pt Temp ABG pCO2 (Temp Corrct ABG pO2 at Pt Temp ABG pO2 (Temp Correct ABG HCO3 ABG Base Excess (Actual) VBG pH VBG pCO2 VBG pO2 VBG HCO3 VBG O2 Saturation VBG Base Excess Sodium 140 Potassium 3.4 Chloride 105 Carbon Dioxide 25 Anion Gap 13 BUN 17 H Creatinine 0.63 Estim Creat Clear Calc 87.7 Estimated GFR > 60 Fasting Glucose 139 H Lactic Acid Lactic Acid Fup @ 2Hr Lactic Acid Fup @ 4Hr Calcium 7.7 L Troponin I High Sens C-Reactive Protein 13.48 H B-Natriuretic Peptide COVID-19 (JASON) COVID-19 [employer] 10/01/20 10/01/20 10/01/20 07:06 07:08 08:47 WBC RBC Hgb Hct MCV MCH MCHC RDW Plt Count MPV Immature Gran % (Auto) Neut % (Auto) Lymph % (Auto) [place] % (Auto) Eos % (Auto) Baso % (Auto) Lymph # (Auto) [place] # (Auto) Eos # (Auto) Baso # (Auto) Abs Immat Gran (auto) Absolute Neuts (auto) Absolute Nucleated RBC Nucleated RBC % (auto) ESR PT 18.7 H INR 1.6 H PTT (Heparin Protocol) 167.6 H* D O2 Saturation ABG pH at Pt Temp ABG pH (Temp Correct) ABG pCO2 at Pt Temp ABG pCO2 (Temp Corrct ABG pO2 at Pt Temp ABG pO2 (Temp Correct ABG HCO3 ABG Base Excess (Actual) VBG pH 7.49 H VBG pCO2 33 VBG pO2 125 VBG HCO3 26 VBG O2 Saturation 99.0 VBG Base Excess 3.4 Sodium Potassium Chloride Carbon Dioxide Anion Gap BUN Creatinine Estim Creat Clear Calc Estimated GFR Fasting Glucose Lactic Acid Lactic Acid Fup @ 2Hr Lactic Acid Fup @ 4Hr Calcium Troponin I High Sens 1308.6 H C-Reactive Protein B-Natriuretic Peptide 375 H COVID-19 (JASON) COVID-19 [employer] 10/01/20 10/01/20 08:47 13:56 WBC RBC Hgb Hct MCV MCH MCHC RDW Plt Count MPV Immature Gran % (Auto) Neut % (Auto) Lymph % (Auto) [place] % (Auto) Eos % (Auto) Baso % (Auto) Lymph # (Auto) [place] # (Auto) Eos # (Auto) Baso # (Auto) Abs Immat Gran (auto) Absolute Neuts (auto) Absolute Nucleated RBC Nucleated RBC % (auto) ESR PT INR PTT (Heparin Protocol) 72.2 D 44.5 L D O2 Saturation ABG pH at Pt Temp ABG pH (Temp Correct) ABG pCO2 at Pt Temp ABG pCO2 (Temp Corrct ABG pO2 at Pt Temp ABG pO2 (Temp Correct ABG HCO3 ABG Base Excess (Actual) VBG pH VBG pCO2 VBG pO2 VBG HCO3 VBG O2 Saturation VBG Base Excess Sodium Potassium Chloride Carbon Dioxide Anion Gap BUN Creatinine Estim Creat Clear Calc Estimated GFR Fasting Glucose Lactic Acid Lactic Acid Fup @ 2Hr Lactic Acid Fup @ 4Hr Calcium Troponin I High Sens C-Reactive Protein B-Natriuretic Peptide COVID-19 (JASON) COVID-19 Clin Com Microbiology Microbiology Results: Microbiology 09/26/20 03:34 Stool Stool Culture - Final Progress Note: A&P Assessment and plan (1) Subacute massive pulmonary embolism: Status: Acute Assessment and Plan: Assessment: Plan: Neuro: No acute issues. Cardiac: No acute issues. Pulmonary: No acute issues. Renal: No acute issues. Endo: No acute issues. GI: No acute issues. ID: No acute issues Heme/Onc: No acute issues. Psych: No acute issues. Miscellaneous: No acute issues. Prophylaxis: Diet: Critical care time spent: (2) Atrial fibrillation: Status: Acute Assessment and Plan: Assessment: Plan: Neuro: No acute issues. Cardiac: Hypotension secondary to submassive pulmonary embolism with right heart strain. Now heparin drip. Improved with IV fluids overnight. 2D echocardiogram is pending. Troponin is down trending. Underlying AFib, metoprolol held for today. Pulmonary: Acute hypoxic respiratory failure secondary to bilateral submassive pulmonary embolism. Improving. Titrated down to nasal cannula. Renal: No acute issues. Endo: No acute issues. GI: New diagnosis of ulcerative colitis. Gastroenterology service care appreciated. Continue with systemic glucocorticoids, mesalamine, and PPI. ID: No acute issues Heme/Onc: No acute issues. Psych: No acute issues. Miscellaneous: No acute issues. Prophylaxis: Heparin drip Diet: Regular Critical care time spent: 60 minutes (3) Rectal bleed: Status: Acute (4) Hypertension: Status: Acute (5) Dementia: Status: Acute Critical Care Time Critical Care Time (minutes): 60
--- NOTE | 2020-10-01 16:28 | P.PNGI_ITS ---
Subjective Subjective Date of Service: 10/01/20 Interval History: Hx via ICU staff and EMR. Overnight course noted re:pulmonary emboli. I had D/W the hospitalist last evening and opted to start IV steroids to maximally treat the colitis and decrease risk of bleeding while anticoagulated. She has had no signs of active bleeding nor significant diarrhea thus far. She denies abdominal pain. Physical Exam Vital Signs: Vital Signs: Last Vital Signs Temp 99.5 F 10/01/20 16:00 Pulse 124 H 10/01/20 16:00 Resp 24 H 10/01/20 16:00 BP 105/64 10/01/20 16:00 Pulse Ox 95 10/01/20 16:00 Body Mass Index 36.6 Const: General: comfortable, no acute distress and alert GI: Inspection: Yes normal to inspection and Yes other (NT, Nondistended,Soft) Objective Data Labs CBC & Chem 7: 10/01/20 07:06 10/01/20 07:06 Labs: Laboratory Results - last 24 hr 09/30/20 09/30/20 09/30/20 19:49 19:49 19:50 WBC 7.0 RBC 4.78 Hgb 14.0 Hct 41.2 MCV 86.2 MCH 29.3 MCHC 34.0 RDW 12.5 Plt Count 227 D MPV 9.0 L Immature Gran % (Auto) 1.1 H Neut % (Auto) 55.8 Lymph % (Auto) 22.5 [place] % (Auto) 17.5 H Eos % (Auto) 2.4 Baso % (Auto) 0.7 Lymph # (Auto) 1.6 [place] # (Auto) 1.2 Eos # (Auto) 0.2 Baso # (Auto) 0.1 Abs Immat Gran (auto) 0.08 H Absolute Neuts (auto) 3.9 Absolute Nucleated RBC 0.000 Nucleated RBC % (auto) 0.0 ESR PT INR PTT (Heparin Protocol) O2 Saturation ABG pH at Pt Temp ABG pH (Temp Correct) ABG pCO2 at Pt Temp ABG pCO2 (Temp Corrct ABG pO2 at Pt Temp ABG pO2 (Temp Correct ABG HCO3 ABG Base Excess (Actual) VBG pH VBG pCO2 VBG pO2 VBG HCO3 VBG O2 Saturation VBG Base Excess Sodium Potassium Chloride Carbon Dioxide Anion Gap BUN Creatinine Estim Creat Clear Calc Estimated GFR Fasting Glucose Lactic Acid 2.3 H* Lactic Acid Fup @ 2Hr Lactic Acid Fup @ 4Hr Calcium Troponin I High Sens 71.1 H D C-Reactive Protein B-Natriuretic Peptide 337 H COVID-19 (JASON) COVID-19 [facility] 09/30/20 09/30/20 09/30/20 19:58 21:35 22:15 WBC RBC Hgb Hct MCV MCH MCHC RDW Plt Count MPV Immature Gran % (Auto) Neut % (Auto) Lymph % (Auto) [place] % (Auto) Eos % (Auto) Baso % (Auto) Lymph # (Auto) [place] # (Auto) Eos # (Auto) Baso # (Auto) Abs Immat Gran (auto) Absolute Neuts (auto) Absolute Nucleated RBC Nucleated RBC % (auto) ESR PT INR PTT (Heparin Protocol) O2 Saturation 90.0 ABG pH at Pt Temp 7.49 H ABG pH (Temp Correct) 7.50 H ABG pCO2 at Pt Temp 33 ABG pCO2 (Temp Corrct 33 ABG pO2 at Pt Temp 59 L ABG pO2 (Temp Correct 57 L ABG HCO3 26 ABG Base Excess (Actual) 3.2 VBG pH VBG pCO2 VBG pO2 VBG HCO3 VBG O2 Saturation VBG Base Excess Sodium Potassium Chloride Carbon Dioxide Anion Gap BUN Creatinine Estim Creat Clear Calc Estimated GFR Fasting Glucose Lactic Acid Lactic Acid Fup @ 2Hr 2.3 H* Lactic Acid Fup @ 4Hr Calcium Troponin I High Sens C-Reactive Protein B-Natriuretic Peptide COVID-19 (JASON) Negative COVID-19 [facility] See Note 09/30/20 09/30/20 10/01/20 23:29 23:29 00:35 WBC 7.5 RBC 4.41 Hgb 12.8 Hct 38.3 MCV 86.8 MCH 29.0 MCHC 33.4 RDW 12.5 Plt Count 217 MPV 9.3 L Immature Gran % (Auto) Neut % (Auto) Lymph % (Auto) [place] % (Auto) Eos % (Auto) Baso % (Auto) Lymph # (Auto) [place] # (Auto) Eos # (Auto) Baso # (Auto) Abs Immat Gran (auto) Absolute Neuts (auto) Absolute Nucleated RBC 0.000 Nucleated RBC % (auto) 0.0 ESR PT 18.6 H D INR 1.6 H PTT (Heparin Protocol) 31.9 L O2 Saturation ABG pH at Pt Temp ABG pH (Temp Correct) ABG pCO2 at Pt Temp ABG pCO2 (Temp Corrct ABG pO2 at Pt Temp ABG pO2 (Temp Correct ABG HCO3 ABG Base Excess (Actual) VBG pH VBG pCO2 VBG pO2 VBG HCO3 VBG O2 Saturation VBG Base Excess Sodium Potassium Chloride Carbon Dioxide Anion Gap BUN Creatinine Estim Creat Clear Calc Estimated GFR Fasting Glucose Lactic Acid Lactic Acid Fup @ 2Hr Lactic Acid Fup @ 4Hr 1.6 Calcium Troponin I High Sens C-Reactive Protein B-Natriuretic Peptide COVID-19 (JASON) [employer] 10/01/20 10/01/20 10/01/20 04:12 07:06 07:06 WBC Cancelled RBC Cancelled Hgb Cancelled Hct Cancelled MCV Cancelled MCH Cancelled MCHC Cancelled RDW Cancelled Plt Count Cancelled MPV Cancelled Immature Gran % (Auto) Neut % (Auto) Lymph % (Auto) [place] % (Auto) Eos % (Auto) Baso % (Auto) Lymph # (Auto) [place] # (Auto) Eos # (Auto) Baso # (Auto) Abs Immat Gran (auto) Absolute Neuts (auto) Absolute Nucleated RBC Cancelled Nucleated RBC % (auto) Cancelled ESR PT Cancelled INR Cancelled PTT (Heparin Protocol) O2 Saturation ABG pH at Pt Temp ABG pH (Temp Correct) ABG pCO2 at Pt Temp ABG pCO2 (Temp Corrct ABG pO2 at Pt Temp ABG pO2 (Temp Correct ABG HCO3 ABG Base Excess (Actual) VBG pH VBG pCO2 VBG pO2 VBG HCO3 VBG O2 Saturation VBG Base Excess Sodium Potassium Chloride Carbon Dioxide Anion Gap BUN Creatinine Estim Creat Clear Calc Estimated GFR Fasting Glucose Lactic Acid Lactic Acid Fup @ 2Hr Lactic Acid Fup @ 4Hr Calcium Troponin I High Sens 1610.1 H D C-Reactive Protein B-Natriuretic Peptide COVID-19 (JASON) [employer] 10/01/20 10/01/20 10/01/20 07:06 07:06 07:06 WBC 5.9 RBC 4.27 Hgb 12.3 Hct 37.0 MCV 86.7 MCH 28.8 MCHC 33.2 RDW 12.7 Plt Count 185 MPV 9.3 L Immature Gran % (Auto) 1.2 H Neut % (Auto) 58.2 Lymph % (Auto) 23.0 [place] % (Auto) 16.6 H Eos % (Auto) 0.5 Baso % (Auto) 0.5 Lymph # (Auto) 1.4 [place] # (Auto) 1.0 Eos # (Auto) 0.0 Baso # (Auto) 0.0 Abs Immat Gran (auto) 0.07 H Absolute Neuts (auto) 3.4 Absolute Nucleated RBC 0.000 Nucleated RBC % (auto) 0.0 ESR 2 PT INR PTT (Heparin Protocol) O2 Saturation ABG pH at Pt Temp ABG pH (Temp Correct) ABG pCO2 at Pt Temp ABG pCO2 (Temp Corrct ABG pO2 at Pt Temp ABG pO2 (Temp Correct ABG HCO3 ABG Base Excess (Actual) VBG pH VBG pCO2 VBG pO2 VBG HCO3 VBG O2 Saturation VBG Base Excess Sodium 140 Potassium 3.4 Chloride 105 Carbon Dioxide 25 Anion Gap 13 BUN 17 H Creatinine 0.63 Estim Creat Clear Calc 87.7 Estimated GFR > 60 Fasting Glucose 139 H Lactic Acid Lactic Acid Fup @ 2Hr Lactic Acid Fup @ 4Hr Calcium 7.7 L Troponin I High Sens C-Reactive Protein 13.48 H B-Natriuretic Peptide COVID-19 (JASON) COVID-19 Clin Com 10/01/20 10/01/20 10/01/20 07:06 07:08 08:47 WBC RBC Hgb Hct MCV MCH MCHC RDW Plt Count MPV Immature Gran % (Auto) Neut % (Auto) Lymph % (Auto) [place] % (Auto) Eos % (Auto) Baso % (Auto) Lymph # (Auto) [place] # (Auto) Eos # (Auto) Baso # (Auto) Abs Immat Gran (auto) Absolute Neuts (auto) Absolute Nucleated RBC Nucleated RBC % (auto) ESR PT 18.7 H INR 1.6 H PTT (Heparin Protocol) 167.6 H* D O2 Saturation ABG pH at Pt Temp ABG pH (Temp Correct) ABG pCO2 at Pt Temp ABG pCO2 (Temp Corrct ABG pO2 at Pt Temp ABG pO2 (Temp Correct ABG HCO3 ABG Base Excess (Actual) VBG pH 7.49 H VBG pCO2 33 VBG pO2 125 VBG HCO3 26 VBG O2 Saturation 99.0 VBG Base Excess 3.4 Sodium Potassium Chloride Carbon Dioxide Anion Gap BUN Creatinine Estim Creat Clear Calc Estimated GFR Fasting Glucose Lactic Acid Lactic Acid Fup @ 2Hr Lactic Acid Fup @ 4Hr Calcium Troponin I High Sens 1308.6 H C-Reactive Protein B-Natriuretic Peptide 375 H COVID-19 (JASON) COVID-19 [facility] 10/01/20 10/01/20 08:47 13:56 WBC RBC Hgb Hct MCV MCH MCHC RDW Plt Count MPV Immature Gran % (Auto) Neut % (Auto) Lymph % (Auto) [place] % (Auto) Eos % (Auto) Baso % (Auto) Lymph # (Auto) [place] # (Auto) Eos # (Auto) Baso # (Auto) Abs Immat Gran (auto) Absolute Neuts (auto) Absolute Nucleated RBC Nucleated RBC % (auto) ESR PT INR PTT (Heparin Protocol) 72.2 D 44.5 L D O2 Saturation ABG pH at Pt Temp ABG pH (Temp Correct) ABG pCO2 at Pt Temp ABG pCO2 (Temp Corrct ABG pO2 at Pt Temp ABG pO2 (Temp Correct ABG HCO3 ABG Base Excess (Actual) VBG pH VBG pCO2 VBG pO2 VBG HCO3 VBG O2 Saturation VBG Base Excess Sodium Potassium Chloride Carbon Dioxide Anion Gap BUN Creatinine Estim Creat Clear Calc Estimated GFR Fasting Glucose Lactic Acid Lactic Acid Fup @ 2Hr Lactic Acid Fup @ 4Hr Calcium Troponin I High Sens C-Reactive Protein B-Natriuretic Peptide COVID-19 (JASON) COVID-19 [employer] Microbiology Microbiology Results: Microbiology 09/26/20 03:34 Stool Stool Culture - Final Progress Note: A&P Assessment and plan (1) Ulcerative colitis: Problem details: Imp: The colitis seems clinically stable. There has been no active bleeding despite the anticoagulation. Rec: Check path. Continue the mesalamine. Continue IV steroids for another 24 hours, then start prednisone 40mg QD with a 10mg per week taper.Diet as tolerated. Continue PPI. Avoid all NSAIDs and aspirin. Status: Acute Fall Risk Details Current Medications: Current Medications Generic Name Dose Route Start Last Admin Trade Name Freq PRN Reason Stop Dose Admin Acetaminophen 650 mg 09/24/20 21:52 04/18/21 16:02 Acetaminophen 325 Mg Tablet PO 650 mg Q6H PRN Administration Pain, Mild (Pain Scale 1-3) Heparin Sodium (Porcine) 4,200 unit 10/01/20 00:56 10/01/20 15:03 Heparin Sodium,Porcine 5,000 Unit/Ml Vial 40 unit/kg (4200 unit) 4,200 unit IVPUSH Administration BOLUS PRN 40 unit/kg - Heparin Protocol Heparin Sodium (Porcine) 8,500 unit 10/01/20 00:56 Heparin Sodium,Porcine 5,000 Unit/Ml Vial 80 unit/kg (8500 unit) IVPUSH BOLUS PRN 80 unit/kg - Heparin Protocol Hydrocortisone Sodium Succinate 60 mg 10/01/20 00:30 10/01/20 09:59 Hydrocortisone Sod Succ/Pf 100 Mg Vial IVPUSH 60 mg Q8H NESTOR Administration Lactated Ringer's 1,000 mls @ 20 mls/hr 09/30/20 13:00 10/01/20 15:03 Lr IVCONT Not Given .Q24H NESTOR Heparin Sodium/Sodium Chloride 25,000 unit in 250 mls @ 0 mls/hr 10/01/20 01:00 10/01/20 15:00 IVCONT 12 units/kg/hr .Q0M NESTOR 12.72 mls/hr Titration Protocol Per Protocol Loperamide HCl 2 mg 09/26/20 11:18 09/27/20 16:02 Loperamide Hcl 2 Mg Capsule PO 2 mg Q6H PRN Administration diarrhea Mesalamine 1,600 mg 09/30/20 15:00 10/01/20 10:01 Mesalamine 400 Mg Cap.Drtab. PO 1,600 mg TID NESTOR Administration Metoprolol Succinate 150 mg 09/30/20 15:35 10/01/20 10:02 Metoprolol Succinate Er 50 Mg Tab.Er.24h PO Not Given DAILY [facility] Protocol Ondansetron HCl 4 mg 09/30/20 12:03 Ondansetron Hcl 4 Mg/2 Ml Vial IVPUSH ONCE PRN Nausea and Vomiting Pantoprazole Sodium 40 mg 09/30/20 22:10 10/01/20 06:21 Pantoprazole Sodium 40 Mg/10 Ml Vial IVPUSH 40 mg BID@0630,1630 [facility] Administration Pharmacy Consult 1 each 09/25/20 08:34 Consult Rx Perform Med Rec MISCELLANE ONCE PRN Consult order Sodium Chloride 3 ml 09/25/20 00:00 10/01/20 09:58 0.9 % Sodium Chloride Flush 3 Ml Syringe IVFLUSH 3 ml QSHIFT NESTOR Administration Time Spent With Patient Time: Total time spent is greater than 50% in coordination of care (as documented) at patient's floor/unit and/or counseling patient: Time with patient: 15 - 24 minutes
--- NOTE | 2020-10-01 19:47 | PC.NURSE ---
Assumed care at 0700. Patient was alert, oriented only to person, rambling and poorly articulated speech mannerisms. Patient otherwise without focal neurological abnormality: perrla, positive cough and gag, tracks well, follows commands, moves all extremities. Patient was initially on 100% NRB; this was titrated down to 8 lpm oxymyzer pendant, and tolerated well, SpO2 92-93%, slightly tachypneic at times, but mostly with RR in 18-22 range. Patient lung sounds diminished throughout, auscultated more clearly from behind. Patient in A-fib on monitor, rate mostly in the 100-110's range at first. BP soft in the mornin's/40's with MAP >60 (MD set this as MAP goal). MD held metoprolol and diltiazem PO morning doses related to low blood pressure, and by afternoon, HR was 110's-120's maintaining, but would jump to the 120-130's range and would momentarily jump up as high as 150; MD notified and one time PO cardizem was given. This was asymptomatic, patient denied chest pain, denied chest discomfort, denied palpitations. Patient troponins elevated (1308.6), but this recheck trended down from prior value, MD not continuing to trend. Patient with heparin gtt running, titirated per protocol. Initial doserate 14, critically high ptthd was 167.6 at 0706, MD notified, gtt was held 1 hour per protocol, repeat ptthd was 72.2, restarted heparin per protocol at 10. followup ptthd was low (44.5) so doserate was increased by 2 and a 4200 Unit bolus of heparin was given. Urine outputs low: about 25 cc/hour, concentrated michael urine; MD aware. Patient had no BM today. Patient denies nausea or other GI distress. Patient with poor appetite, required much encouragement and cueing to eat. Patient family in to assist with care today and provide encouragement. Patient has a lombardi catheter, ok'd removal, which is not yet removed, patient transferred upstairs to room 444 in company of staff and her . Patient's daughter and son also updated today.
[2020-10-01 20:57] LABS: PTT Heparin Drip 95.8 SEC (53-77.9)
[2020-10-01] MEDS: Heparin Sodium,Porcine/1/2NS 25,000 UNIT/250 ML IV.SOLN 12.72 UNIT IVCONT (22:19)
[2020-10-02] VITALS (7 sets, daily range): BP systolic 110–125; BP diastolic 62–90; PULSE 68–112; RESP 16–18; TEMP 36.1–36.5; O2SAT 92–99
[2020-10-02] MEDS: Hydrocortisone Sod Succ/PF 100 MG VIAL 60 MG IVPUSH ×3 (01:45→18:33)
[2020-10-02 04:59] LABS: Hematocrit 35.5 % (37-47); Hemoglobin 11.7 g/dl (12.0-16.0); Mean Corpuscular Hemoglobin 28.7 pg (27.0-33.0); Mean Platelet Volume 9.2 fL (9.4-12.3); Platelet Count 218 X10*3/uL (160-400); Red Blood Count 4.08 X10*6/uL (4.20-5.50); Red Cell Distribution Width 12.5 % (11.0-16.0); White Blood Count 6.9 X10*3/uL (4.8-10.8)
[2020-10-02 05:07] LABS: INTERNATIONAL NORM RATIO 1.2 (0.9-1.1); Prothrombin Time 14.6 SEC (10.8-13.0)
[2020-10-02] MEDS: Heparin Sodium,Porcine 5,000 UNIT/ML VIAL 4200 UNIT IVPUSH (05:32)
[2020-10-02] MEDS: Pantoprazole Sodium 40 MG/10 ML VIAL IVPUSH (05:35)
[2020-10-02 07:49] LABS: Glucose, Whole Blood 139 mg/dL (60-115)
[2020-10-02] MEDS: Mesalamine 400 MG CAP.DRTAB. 1600 MG PO ×3 (08:19→21:27)
[2020-10-02] MEDS: Metoprolol Succinate ER 50 MG TAB.ER.24H 150 MG PO (08:20)
[2020-10-02 11:41] LABS: PTT Heparin Drip 77.9 SEC (53-77.9)
--- NOTE | 2020-10-02 13:05 | PM.PNCARD ---
Subjective Subjective Date of Service: 10/02/20 Principal diagnosis: Afib, GIB, PE Interval history: Cardiology follow up for the above. Seen at 0900. Today she reports feeling fine. She denies having any sob at rest or with movement in bed. Wearing O2 with cannula. No chest pains or pressure. No abdominal discomfort. No reports of bleeding. Heparin drip infusing. Daughter at bedside. Review of Systems Review of Systems as above - has dementia, accuracy of information unclear Yes all other systems are reviewed and are negative Physical Exam Vital Signs: Last Vital Signs Temp 97.2 F 10/02/20 10:53 Pulse 68 10/02/20 10:53 Resp 16 10/02/20 10:53 BP 112/72 10/02/20 10:53 Pulse Ox 99 10/02/20 10:53 Body Mass Index 36.6 Const General: cooperative, no acute distress, alert and awake Orientation/consciousness: patient oriented x3 Neck Neck: Yes normal visual inspection and Yes no JVD Carotids: carotid upstroke abnormal Resp Other: Lungs with fine rales noted right base Effort & Inspection: normal respiratory effort, able to speak in complete sentences and not labored Auscultation: clear to auscultation bilaterally, no crackles, no rhonchi and no wheezes Cardio Other: Heart tones rapid and irregular, no murmur noted Palpation: normal PMI Heart sounds: S1 normal heart sound present and S2 normal heart sound present Peripheral pulses: Peripheral pulses 2+ throughout GI Inspection: Yes normal to inspection Skin General skin exam: no rashes or lesions noted Neuro General: patient oriented x3 Extrem General: Yes normal to inspection and No edema Results Labs and Meds Result diagrams: 10/02/20 04:34 10/01/20 07:06 Lab results: Laboratory Results - last 24 hr 10/01/20 10/01/20 10/02/20 13:56 20:40 04:34 WBC 6.9 RBC 4.08 L Hgb 11.7 L Hct 35.5 L MCV 87.0 MCH 28.7 MCHC 33.0 RDW 12.5 Plt Count 218 MPV 9.2 L Absolute Nucleated RBC 0.000 Nucleated RBC % (auto) 0.0 PT INR PTT (Heparin Protocol) 44.5 L D 95.8 H D POC Glucose 10/02/20 10/02/20 10/02/20 04:34 04:34 07:42 WBC RBC Hgb Hct MCV MCH MCHC RDW Plt Count MPV Absolute Nucleated RBC Nucleated RBC % (auto) PT 14.6 H D INR 1.2 H PTT (Heparin Protocol) 44.0 L D POC Glucose 139 H 10/02/20 11:20 WBC RBC Hgb Hct MCV MCH MCHC RDW Plt Count MPV Absolute Nucleated RBC Nucleated RBC % (auto) PT INR PTT (Heparin Protocol) 77.9 D POC Glucose Progress Note: A&P Assessment and plan (1) Pulmonary embolism: Status: Acute Assessment and Plan: Acute onset of sob evening 09/30 with hypoxia, hypotension, tachycardia. CTA of chest shows multiple bilateral PEs and Right heart strain. Events/ Notes reviewed. She was transferred to ICU and care managed by head neck surgeon. On IV Heparin per protocol. Echo 10/01 shows Severe increased RV size and decrease in RV systolic function, mod TR, increased RA pressure and mod pulm HTN. Metoprolol held and Digoxin stopped. Her condition was stable and she was tx back to [facility] yesterday. This am she reports feeling well. On O2 9L with sat 99%. Continues on Heparin drip per protocol. BP on low side, continue to monitor. Can give IV fluid bolus if needed for hypotension. On exam she does not appeat to have acute HF. Continue to watch for HF symptoms. Ongoing O2 use to keep sat > 90%. Eventual plan to switch anticoagulation to NOAC. We will follow. (2) Atrial fibrillation: Status: Acute Assessment and Plan: New finding of atrial fibrillation this admit - unknown how long she has been in it. Echo 09/25/20 shows EF 55-60%, mod increase in LV wall thickness, LA severely dilated. Had been treated with heart rate control using Metoprolol, Diltiazem, and she did recieve a loading dose of Digoxin days ago. Tele still showed elevated rates with activity. Now with PE as above. Diltiazem stopped and Metoprolol being held. She did get dose of Metoprolol xl this am as it was not ordered as Hold in computer. Tele this am with afib, rates 100-120s. No reports of palpitations or CP. Metoprolol discontinued. Watch BP closely. If further rate slowing meds needed tomorrow, we will consider digoxin or amiodarone. She had rectal bleeding on admit and found to have active colitis. GI is following. Had not been on anticoagulation, then was started on Heparin yesterday. Tolerating at present without signs of active GIB. Continue to follow closely. 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 Now on Heparin drip for the PE and afib. Plan to start on NOAC when clinically appropriate and clear by GI to do so. Ongoing tele monitoring. (3) Hypertension: Status: Acute Assessment and Plan: Watch closely, running on low side. (4) Ulcerative colitis: Status: Acute Assessment and Plan: No active bleeding. Followed by GI (5) Dementia: Status: Acute Assessment and Plan: Pleasantly demented. Spoke with daughter, full update given Fall Risk Details Current Medications: Current Medications Generic Name Dose Route Start Last Admin Trade Name Freq PRN Reason Stop Dose Admin Acetaminophen 650 mg 09/24/20 21:52 09/27/20 16:02 Acetaminophen 325 Mg Tablet PO 650 mg Q6H PRN Administration Pain, Mild (Pain Scale 1-3) Heparin Sodium (Porcine) 4,200 unit 10/01/20 00:56 10/02/20 05:32 Heparin Sodium,Porcine 5,000 Unit/Ml Vial 40 unit/kg (4200 unit) 4,200 unit IVPUSH Administration BOLUS PRN 40 unit/kg - Heparin Protocol Heparin Sodium (Porcine) 8,500 unit 10/01/20 00:56 Heparin Sodium,Porcine 5,000 Unit/Ml Vial 80 unit/kg (8500 unit) IVPUSH BOLUS PRN 80 unit/kg - Heparin Protocol Hydrocortisone Sodium Succinate 60 mg 10/01/20 00:30 10/02/20 08:23 Hydrocortisone Sod Succ/Pf 100 Mg Vial IVPUSH 60 mg Q8H NESTOR Administration Heparin Sodium/Sodium Chloride 25,000 unit in 250 mls @ 0 mls/hr 10/01/20 01:00 10/02/20 05:33 IVCONT 11 units/kg/hr .Q0M NESTOR 11.66 mls/hr Titration Protocol Per Protocol Loperamide HCl 2 mg 09/26/20 11:18 09/27/20 16:02 Loperamide Hcl 2 Mg Capsule PO 2 mg Q6H PRN Administration diarrhea Mesalamine 1,600 mg 09/30/20 15:00 10/02/20 08:19 Mesalamine 400 Mg Cap.Drtab. PO 1,600 mg TID NESTOR Administration Ondansetron HCl 4 mg 09/30/20 12:03 Ondansetron Hcl 4 Mg/2 Ml Vial IVPUSH ONCE PRN Nausea and Vomiting Pantoprazole Sodium 40 mg 09/30/20 22:10 10/02/20 05:35 Pantoprazole Sodium 40 Mg/10 Ml Vial IVPUSH 40 mg BID@[id number],6430 [facility] Administration Pharmacy Consult 1 each 09/25/20 08:34 Consult Rx Perform Med Rec MISCELLANE ONCE PRN Consult order Sodium Chloride 3 ml 09/25/20 00:00 10/02/20 08:29 0.9 % Sodium Chloride Flush 3 Ml Syringe IVFLUSH Not Given QSHIFT [facility] Time Spent With Patient Time: Total time spent is greater than 50% in coordination of care (as documented) at patient's floor/unit and/or counseling patient: 23 Time with patient: 15 - 24 minutes
--- NOTE | 2020-10-02 14:09 | P.PNIM_ITS ---
Subjective Subjective Date of Service: 10/03/20 Interval History: Seen in f/u for PE, GIB, AFIB--She is doing better, still on oxygen at 2 liters and satting 94 Review of Systems Gen: no fever Resp: no sob, no cough CV: no chest, no CORTEZ, no leg edema GI: No n/v, no abd pain Neuro: No confusion Physical Exam Vital Signs: Vital Signs: Last Vital Signs Temp 97.2 F 10/02/20 10:53 Pulse 68 10/02/20 10:53 Resp 16 10/02/20 10:53 BP 112/72 10/02/20 10:53 Pulse Ox 99 10/02/20 10:53 Body Mass Index 36.6 General: Alert, not oriented at all Resp: CTA bilateral CVS: S1,S2,RRR GI: +BS, NT, no distention Skin: No rash extremity: Neuro: motor grossly intact Psych: appropriate affect Objective Data Current Medications Generic Name Dose Route Start Last Admin Trade Name Freq PRN Reason Stop Dose Admin Acetaminophen 650 mg 09/24/20 21:52 09/27/20 16:02 Acetaminophen 325 Mg Tablet PO 650 mg Q6H PRN Administration Pain, Mild (Pain Scale 1-3) Albuterol/Ipratropium 3 ml 10/02/20 16:00 Albuterol/Iprat 2.5/0.5mg 3 Ml Ampul.Neb INHALE RQ4H WHILE AWAKE NESTOR Heparin Sodium (Porcine) 4,200 unit 10/01/20 00:56 10/02/20 05:32 Heparin Sodium,Porcine 5,000 Unit/Ml Vial 40 unit/kg (4200 unit) 4,200 unit IVPUSH Administration BOLUS PRN 40 unit/kg - Heparin Protocol Heparin Sodium (Porcine) 8,500 unit 10/01/20 00:56 Heparin Sodium,Porcine 5,000 Unit/Ml Vial 80 unit/kg (8500 unit) IVPUSH BOLUS PRN 80 unit/kg - Heparin Protocol Hydrocortisone Sodium Succinate 60 mg 10/01/20 00:30 10/02/20 08:23 Hydrocortisone Sod Succ/Pf 100 Mg Vial IVPUSH 60 mg Q8H NESTOR Administration Heparin Sodium/Sodium Chloride 25,000 unit in 250 mls @ 0 mls/hr 10/01/20 01:00 10/02/20 05:33 IVCONT 11 units/kg/hr .Q0M NESTOR 11.66 mls/hr Titration Protocol Per Protocol Loperamide HCl 2 mg 09/26/20 11:18 09/27/20 16:02 Loperamide Hcl 2 Mg Capsule PO 2 mg Q6H PRN Administration diarrhea Mesalamine 1,600 mg 09/30/20 15:00 10/02/20 08:19 Mesalamine 400 Mg Cap.Drtab. PO 1,600 mg TID NESTOR Administration Ondansetron HCl 4 mg 09/30/20 12:03 Ondansetron Hcl 4 Mg/2 Ml Vial IVPUSH ONCE PRN Nausea and Vomiting Pantoprazole Sodium 40 mg 09/30/20 22:10 10/02/20 05:35 Pantoprazole Sodium 40 Mg/10 Ml Vial IVPUSH 40 mg BID@0630,1630 [facility] Administration Pharmacy Consult 1 each 09/25/20 08:34 Consult Rx Perform Med Rec MISCELLANE ONCE PRN Consult order Sodium Chloride 3 ml 09/25/20 00:00 10/02/20 08:29 0.9 % Sodium Chloride Flush 3 Ml Syringe IVFLUSH Not Given QSHIFT [facility] Labs CBC & Chem 7: 10/03/20 05:46 10/03/20 05:46 Microbiology Microbiology Results: Microbiology 09/26/20 03:34 Stool Stool Culture - Final Assessment and Plan (1) Ulcerative colitis: Problem details: Imp: Her ulcerative colitis appears stable and without significant active symptoms. She appears to be tolerating the steroids. Her abdominal exam is be nign. 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 Continue mesalamine at 1600mg TID. Continue diet as tolerated. Observe. Status: Acute (2) Subacute massive pulmonary embolism: Status: Acute (3) Atrial fibrillation: Status: Acute (4) Rectal bleed: Status: Acute (5) Hypertension: Status: Acute (6) Dementia: Status: Acute Assessment and Plan: 80-year-old lady with underlying history of dementia, hypertension admitted on 0 09/24/2020 with rectal bleeding and new onset of AFib. Patient had colonoscopy on 09/30/2020 that was consistent with ulcerative colitis. In the evening of 09/29/2020 patient developed sudden hypoxemia and hypotension. Her CT angio chest was positive for bilateral pulmonary emboli with a right ventricular strain. Patient required initially high-flow nasal cannula to maintain normoxemia and 2 L of IV fluid to improve systolic blood pressure. Patient was not accepted for catheter directed [facility]PA [facility] at [facility], or [facility]. She was transferred to intensive care unit for close monitoring. She was started on hydrocortisone IV to reduce imflamation and bleeding from UC. She was also cautiously started on IV heparin for multiple PE with RV strain and thus far without bleeding complication. 1. Acute Hypoxic resp failure d/t submassive PE complicated by recent 'GIB from UC -Continue Heparin drip through weekend -In the event that she bleeds, she will need IVC filter -Monitor H/H closely 2. UC colitis--recently diagnosed -IV hydrocortisone per GI recommendation -contine Mesalamine -Protonix for GI prophylaxis, especially with steroid use 3. AFIB--rate is controlled. She had been on Metoprolol and Dig but discontinued -Anticoagulation as aove, if not bleeding complication over the weekend, will transitioned to oral anticoagulation with Eliquis or Xarelto, less preference to coumadin 4. Dementia, advanced but without agitation -
--- NOTE | 2020-10-02 14:33 | MHC.CM.PN ---
per rounds pt is on iv heparin and will be here over the weekend
[2020-10-02 17:41] LABS: PTT Heparin Drip 65.1 SEC (53-77.9)
--- NOTE | 2020-10-02 18:00 | P.PNGI_ITS ---
Subjective Subjective Date of Service: 10/02/20 Interval History: Hx via nursing staff, EMR, and patient Patient is comfortable. Eating dinner. Denies any abdominal pain, N/V. There has been no reported significant diarrhea nor bleeding. Physical Exam Vital Signs: Vital Signs: Last Vital Signs Temp 96.9 F 10/02/20 15:26 Pulse 78 10/02/20 15:26 Resp 18 10/02/20 15:26 BP 110/69 10/02/20 15:26 Pulse Ox 94 10/02/20 15:26 Body Mass Index 36.6 Const: Other: Sitting up in a chair and eating dinner General: cooperative, healthy appearing, comfortable, no acute distress, well developed, alert and awake GI: Inspection: Yes normal to inspection Palpation (GI): Soft to palpation and Other GI palpation findings present (Nondistended, NT, no mass) Objective Data Labs CBC & Chem 7: 10/02/20 04:34 10/01/20 07:06 Labs: Laboratory Results - last 24 hr 10/01/20 10/02/20 10/02/20 20:40 04:34 04:34 WBC 6.9 RBC 4.08 L Hgb 11.7 L Hct 35.5 L MCV 87.0 MCH 28.7 MCHC 33.0 RDW 12.5 Plt Count 218 MPV 9.2 L Absolute Nucleated RBC 0.000 Nucleated RBC % (auto) 0.0 PT 14.6 H D INR 1.2 H PTT (Heparin Protocol) 95.8 H D POC Glucose 10/02/20 10/02/20 10/02/20 04:34 07:42 11:20 WBC RBC Hgb Hct MCV MCH MCHC RDW Plt Count MPV Absolute Nucleated RBC Nucleated RBC % (auto) PT INR PTT (Heparin Protocol) 44.0 L D 77.9 D POC Glucose 139 H 10/02/20 17:11 WBC RBC Hgb Hct MCV MCH MCHC RDW Plt Count MPV Absolute Nucleated RBC Nucleated RBC % (auto) PT INR PTT (Heparin Protocol) 65.1 POC Glucose Microbiology Microbiology Results: Microbiology 09/26/20 03:34 Stool Stool Culture - Final Progress Note: A&P Assessment and plan (1) Ulcerative colitis: Problem details: Imp: Her ulcerative colitis appears stable and without significant active symptoms. She appears to be tolerating the steroids. Her abdominal exam is benign. 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 Continue mesalamine at 1600mg TID. Continue diet as tolerated. Observe. Status: Acute Fall Risk Details Current Medications: Current Medications Generic Name Dose Route Start Last Admin Trade Name Freq PRN Reason Stop Dose Admin Acetaminophen 650 mg 09/24/20 21:52 09/27/20 16:02 Acetaminophen 325 Mg Tablet PO 650 mg Q6H PRN Administration Pain, Mild (Pain Scale 1-3) Albuterol/Ipratropium 3 ml 10/02/20 16:00 10/02/20 15:42 Albuterol/Iprat 2.5/0.5mg 3 Ml Ampul.Neb INHALE Not Given RQ4H WHILE AWAKE NESTOR Heparin Sodium (Porcine) 4,200 unit 10/01/20 00:56 10/02/20 05:32 Heparin Sodium,Porcine 5,000 Unit/Ml Vial 40 unit/kg (4200 unit) 4,200 unit IVPUSH Administration BOLUS PRN 40 unit/kg - Heparin Protocol Heparin Sodium (Porcine) 8,500 unit 10/01/20 00:56 Heparin Sodium,Porcine 5,000 Unit/Ml Vial 80 unit/kg (8500 unit) IVPUSH BOLUS PRN 80 unit/kg - Heparin Protocol Hydrocortisone Sodium Succinate 60 mg 10/01/20 00:30 10/02/20 08:23 Hydrocortisone Sod Succ/Pf 100 Mg Vial IVPUSH 10/03/20 01:55 60 mg Q8H NESTOR Administration Heparin Sodium/Sodium Chloride 25,000 unit in 250 mls @ 0 mls/hr 10/01/20 01:00 10/02/20 11:30 IVCONT 11 units/kg/hr .Q0M NESTOR 11.66 mls/hr Titration Protocol Per Protocol Loperamide HCl 2 mg 09/26/20 11:18 09/27/20 16:02 Loperamide Hcl 2 Mg Capsule PO 2 mg Q6H PRN Administration diarrhea Mesalamine 1,600 mg 09/30/20 15:00 10/02/20 14:55 Mesalamine 400 Mg Cap.Drtab. PO 1,600 mg TID NESTOR Administration Ondansetron HCl 4 mg 09/30/20 12:03 Ondansetron Hcl 4 Mg/2 Ml Vial IVPUSH ONCE PRN Nausea and Vomiting Pantoprazole Sodium 40 mg 09/30/20 22:10 10/02/20 05:35 Pantoprazole Sodium 40 Mg/10 Ml Vial IVPUSH 40 mg BID@0630,3990 [facility] Administration Pharmacy Consult 1 each 09/25/20 08:34 Consult Rx Perform Med Rec MISCELLANE ONCE PRN Consult order Prednisone 0 mg 10/03/20 09:00 Prednisone 20 Mg Tablet PO 10/31/20 08:59 DAILY [facility] Taper Sodium Chloride 3 ml 09/25/20 00:00 10/02/20 08:29 0.9 % Sodium Chloride Flush 3 Ml Syringe IVFLUSH Not Given QSHIFT [facility] Time Spent With Patient Time: Total time spent is greater than 50% in coordination of care (as documented) at patient's floor/unit and/or counseling patient: Time with patient: 15 - 24 minutes
[2020-10-02] MEDS: 0.9 % Sodium Chloride Flush 3 ML SYRINGE IVFLUSH (18:34)
--- NOTE | 2020-10-02 18:49 | PC.NURSE ---
PTT HD at 1730 is 65.1 WNL. No change x2. Heparin gtt continue running at 11unit/kg/hr or 11.66 mL/hr. Stat PTTHD redraw scheduled for 0600.
[2020-10-02] MEDS: Heparin Sodium,Porcine/1/2NS 25,000 UNIT/250 ML IV.SOLN 11.66 UNIT IVCONT (21:26)
--- NOTE | 2020-10-02 23:17 | PC.NURSE ---
Pt had bowel movement that had scant amount of blood in it. MD aware, continue heparin gtt
[2020-10-03] MEDS: 0.9 % Sodium Chloride Flush 3 ML SYRINGE IVFLUSH (00:22)
[2020-10-03] MEDS: Hydrocortisone Sod Succ/PF 100 MG VIAL 60 MG IVPUSH (00:22)
[2020-10-03 04:00] VITALS: BP 119/68; PULSE 78; RESP 18; TEMP 36.2; O2SAT 92
[2020-10-03] MEDS: Omeprazole 20 MG CAPSULE.DR PO (06:11)
[2020-10-03 06:25] LABS: MANUAL DIFF FLAG NO
[2020-10-03 06:59] LABS: Basophils Percent Auto 0.3 % (0-2); Eosinophils Percent Auto 0.6 % (0-4); Hematocrit 37.1 % (37-47); Hemoglobin 11.8 g/dl (12.0-16.0); Imm Gran Pct Auto 4.4 % (0.0-0.4); Lymphocytes Absolute Auto 1.4 X10*3/uL (1.2-4.9); Lymphocytes Percent Auto 19.9 % (20-40); Mean Corpuscular HGB Conc 31.8 g/dl (31.0-35.0); Mean Corpuscular Hemoglobin 28.2 pg (27.0-33.0); Mean Corpuscular Volume 88.5 fL (80-98); Mean Platelet Volume 9.6 fL (9.4-12.3); Monocytes Percent Auto 14.6 % (2-11); Neutrophils Absolute Auto 4.1 X10*3/uL (2.0-8.3); Neutrophils Percent Auto 60.2 % (45-73); Platelet Count 228 X10*3/uL (160-400); Red Blood Count 4.19 X10*6/uL (4.20-5.50); Red Cell Distribution Width 12.5 % (11.0-16.0); White Blood Count 6.8 X10*3/uL (4.8-10.8)
[2020-10-03 07:16] VITALS: BP 104/62; PULSE 85; RESP 18; TEMP 36.4; O2SAT 94
[2020-10-03 07:23] LABS: Anion Gap 14 (12-20); Blood Urea Nitrogen 16 mg/dL (9-16); Calcium 8.2 mg/dL (8.4-10.2); Carbon Dioxide 25 mmol/L (22-29); Chloride 105 mmol/L (96-108); Creatinine Clr Calc Pharmacy 87.7; Estimated Glomerular Filt Rate > 60; Glucose Fasting 104 mg/dL (60-99); Potassium 3.4 mmol/L (3.3-5.1); Sodium 141 mmol/L (135-145)
[2020-10-03] MEDS: Heparin Sodium,Porcine 5,000 UNIT/ML VIAL 4200 UNIT IVPUSH (07:32)
[2020-10-03] MEDS: Mesalamine 400 MG CAP.DRTAB. 1600 MG PO (07:37)
[2020-10-03] MEDS: predniSONE 20 MG TABLET 40 MG PO (07:37)
[2020-10-03 11:59] VITALS: BP 127/64; PULSE 95; RESP 20; TEMP 36; O2SAT 97
--- NOTE | 2020-10-03 12:00 | PC.NURSE ---
bm on commode, bright red blood. aware. hold heparin drip
[2020-10-03 12:53] LABS: COVID-19 Test Negative (Negative); IDNOW Serial# 08D9AD1C
--- NOTE | 2020-10-03 13:14 | P.PNCA_ITS ---
Subjective Subjective Date of Service: 10/03/20 Principal diagnosis: Afib, GIB, PE Interval history: Patient developed GI bleed and bright red blood per rectum this morning. Remains in atrial fibrillation with uncontrolled response especially when she was in the bathroom. She is confused and does not offer much cardiac complaints. Does not appear to have any distress. Review of Systems Review of Systems Yes Unobtainable due to mental status Reports confusion Psychiatric: Reports confusion Physical Exam Vital Signs: Last Vital Signs Temp 96.8 F 10/03/20 11:59 Pulse 95 10/03/20 11:59 Resp 20 10/03/20 11:59 BP 127/64 10/03/20 11:59 Pulse Ox 97 10/03/20 11:59 Body Mass Index 36.6 Const General: cooperative, no acute distress, alert, awake and confusion Orientation/consciousness: confusion Neck Neck: Yes trachea midline, Yes supple and Yes no JVD Resp Effort & Inspection: decreased respiratory effort Auscultation: clear to auscultation bilaterally Cardio Rate: tachycardic Rhythm: abnormal rhythm irregularly irregular Heart sounds: S1 normal heart sound present and S2 normal heart sound present GI Auscultation: normal bowel sounds Skin General skin exam: no rashes or lesions noted Neuro General: confusion Extrem General: Yes no clubbing, cyanosis or edema Results Labs and Meds Result diagrams: 10/03/20 05:46 10/03/20 05:46 Lab results: Laboratory Results - last 24 hr 10/02/20 10/03/20 10/03/20 17:11 05:46 05:46 WBC 6.8 RBC 4.19 L Hgb 11.8 L Hct 37.1 MCV 88.5 MCH 28.2 MCHC 31.8 RDW 12.5 Plt Count 228 MPV 9.6 Immature Gran % (Auto) 4.4 H Neut % (Auto) 60.2 Lymph % (Auto) 19.9 L [place] % (Auto) 14.6 H Eos % (Auto) 0.6 Baso % (Auto) 0.3 Lymph # (Auto) 1.4 [place] # (Auto) 1.0 Eos # (Auto) 0.0 Baso # (Auto) 0.0 Abs Immat Gran (auto) 0.30 H Absolute Neuts (auto) 4.1 Absolute Nucleated RBC 0.000 Nucleated RBC % (auto) 0.0 PTT (Heparin Protocol) 65.1 50.0 L D Sodium Potassium Chloride Carbon Dioxide Anion Gap BUN Creatinine Estim Creat Clear Calc Estimated GFR Fasting Glucose Calcium COVID-19 (JASON) COVID-19 Clin Com 10/03/20 10/03/20 05:46 12:14 WBC RBC Hgb Hct MCV MCH MCHC RDW Plt Count MPV Immature Gran % (Auto) Neut % (Auto) Lymph % (Auto) [place] % (Auto) Eos % (Auto) Baso % (Auto) Lymph # (Auto) [place] # (Auto) Eos # (Auto) Baso # (Auto) Abs Immat Gran (auto) Absolute Neuts (auto) Absolute Nucleated RBC Nucleated RBC % (auto) PTT (Heparin Protocol) Sodium 141 Potassium 3.4 Chloride 105 Carbon Dioxide 25 Anion Gap 14 BUN 16 Creatinine 0.63 Estim Creat Clear Calc 87.7 Estimated GFR > 60 Fasting Glucose 104 H Calcium 8.2 L D COVID-19 (JASON) Negative COVID-19 Clin Com See Note Imaging Radiologist's impression: Impressions Venous Duplex 10/02/20 19:22 IMPRESSION: No DVT demonstrated in the right lower extremity. There is acute appearing thrombus in the left common femoral vein extending into the greater saphenous vein. This critical result was discussed with Veda AGUILAR by telephone at 10/02/2020 8:31 PM and it was ascertained that the content and urgency of the report was understood at the time of direct communication. Progress Note: A&P Assessment and plan (1) Atrial fibrillation: Status: Acute Assessment and Plan: Atrial fibrillation rapid ventricular response with borderline blood pressure. Blood pressure today appears to be adequately controlled. Can add low-dose metoprolol therapy 12.5 mg q.6 hours. Also can add digoxin load 0.25 mg q.6 hours x3 doses if blood pressure is on the lower side after additional metoprolol therapy for better rate control. Heart rate seems like atrial fibrillation rate is been driven by her underlying GI bleed in overall medical condition. Continue treat the same. Transfuse as needed and continue to trend hemoglobin hematocrit. Overall her prognosis is guarded. (2) Subacute massive pulmonary embolism: Status: Acute Assessment and Plan: Recent submassive pulmonary embolism with RV dysfunction, started on IV heparin. Given her recent GI bleed and now redeveloped no GI bleed this carries a poor prognosis. Her heparin was stopped this a.m.. Being considered for possible filter placement, however not sure if patient and patient's understand overall gravity of medical situation. Given her significant cognitive impairment decision making is difficult to assess. Overall prognosis is guarded. Will follow with the patient. Fall Risk Details Current Medications: Current Medications Generic Name Dose Route Start Last Admin Trade Name Freq PRN Reason Stop Dose Admin Acetaminophen 650 mg 09/24/20 21:52 09/27/20 16:02 Acetaminophen 325 Mg Tablet PO 650 mg Q6H PRN Administration Pain, Mild (Pain Scale 1-3) Albuterol/Ipratropium 3 ml 10/02/20 19:34 Albuterol/Iprat 2.5/0.5mg 3 Ml Ampul.Neb INHALE RQ4H WHILE AWAKE PRN Shortness of Breath/Wheezing Heparin Sodium (Porcine) 4,200 unit 10/01/20 00:56 10/03/20 07:32 Heparin Sodium,Porcine 5,000 Unit/Ml Vial 40 unit/kg (4200 unit) 4,200 unit IVPUSH Administration BOLUS PRN 40 unit/kg - Heparin Protocol Heparin Sodium (Porcine) 8,500 unit 10/01/20 00:56 Heparin Sodium,Porcine 5,000 Unit/Ml Vial 80 unit/kg (8500 unit) IVPUSH BOLUS PRN 80 unit/kg - Heparin Protocol Heparin Sodium/Sodium Chloride 25,000 unit in 250 mls @ 0 mls/hr 10/01/20 01:00 10/03/20 12:00 IVCONT 0 units/kg/hr .Q0M NESTOR 0 mls/hr Titration Protocol Per Protocol Loperamide HCl 2 mg 09/26/20 11:18 09/27/20 16:02 Loperamide Hcl 2 Mg Capsule PO 2 mg Q6H PRN Administration diarrhea Mesalamine 1,600 mg 09/30/20 15:00 10/03/20 07:37 Mesalamine 400 Mg Cap.Drtab. PO 1,600 mg TID NESTOR Administration Omeprazole 20 mg 10/03/20 06:30 10/03/20 06:11 Omeprazole 20 Mg Capsule.Dr PO 20 mg DAILY@0630 NESTOR Administration Ondansetron HCl 4 mg 09/30/20 12:03 Ondansetron Hcl 4 Mg/2 Ml Vial IVPUSH ONCE PRN Nausea and Vomiting Pharmacy Consult 1 each 09/25/20 08:34 Consult Rx Perform Med Rec MISCELLANE ONCE PRN Consult order Prednisone 40 mg 10/03/20 09:00 10/03/20 07:37 Prednisone 20 Mg Tablet PO 10/31/20 08:59 40 mg DAILY NESTOR Administration Taper Sodium Chloride 3 ml 09/25/20 00:00 10/03/20 07:37 0.9 % Sodium Chloride Flush 3 Ml Syringe IVFLUSH Not Given QSHIFT NESTOR Time Spent With Patient Time: Total time spent is greater than 50% in coordination of care (as documented) at patient's floor/unit and/or counseling patient: Time with patient: 25 - 35 minutes
--- NOTE | 2020-10-03 13:30 | PM.DS ---
DS: Providers Provider Date of Service: 10/13/20 Date of admission: 09/24/20 21:52 Primary care physician: Salinas Irby MD Consults: 09/24/20 21:56 Consult to Cardiology Routine Consulting Provider: Tank Marino Reason for consultation: afib 09/24/20 22:03 Consult to Gastroenterology Routine Consulting Provider: Stoney Marion Reason for consultation: BRBPR DS: Diagnosis Discharge Diagnosis (1) Ulcerative colitis: Status: Acute (2) Subacute massive pulmonary embolism: Status: Acute (3) Atrial fibrillation: Status: Acute (4) Rectal bleed: Status: Acute (5) Hypertension: (6) Dementia: Status: Acute DS: Medications Discharge Medications Home Medications: Home Medications Medication Instructions Recorded Confirmed aspirin 81 mg tablet,delayed 81 mg PO DAILY 05/26/20 09/24/20 release Previous Rx's Medication Instructions Recorded bisoprolol 5 1 tab PO DAILY #90 tab 08/14/20 mg-hydrochlorothiazide 6.25 mg tablet DS: Summary Hospital Course Hospital Course: 80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 She presented to the emergency room at [place] on September 24 with a GI complaint of abdominal discomfort, loose stool associated with blood. She was noted at the time to have atrial fibrillation that is a new diagnosis for her. Her inital diagnosis was possible gastroenteritis and given the finding of AFIB and future need for anticoagulation GI arranged for colonoscopy. On 09/30/20, she Dr. Marion did colonosccopy with findings : 1.Very active colitis extending from the distal rectum to the transverse colon--biopsies taken in rectum and between 30-40cm. 2. Normal ascending colon colon, cecum, and very distal TI. Steroid at that time was avoided in attempt not to exacerbate bleeding. In the evening of 09/30/2020 patient developed acute hypoxemia and hypotension. CT angio chest was positive for bilateral pulmonary emboli with a right ventricular strain pattern consistent with PE. Patient required initially high-flow nasal cannula to maintain normoxemia and 2 L of IV fluid to improve systolic blood pressure. Patient was not accepted for catheter directed tPA either at [facility], or [facility] due to recent GI Bleeding. She was transferred to intensive care unit where she was hemodynamically stabilized. She was started on hydrocortisone IV to reduce inflammation and bleeding from Ulcerative colitis. and she then cautiously started on IV heparin for multiple PE with RV strain and DVT left common femoral vein extending into the greater saphenous vein. On 10/02/20, she was transitioned to oral Prednisone. On the morning of 10/04/23 had a maroon stool, followed by El bright red blood per rectum corresponding with rise in High rate to 130s (Afib) but her Blood pressure so far good at 127/64. Due to complicated nature of active PE and DVT and active bleeding on heparin which has been on hold at this point, we determine that the next best option is to have an IVC filter inserted in the event that going forward with anticoagulation is NOT feasible. Therefore, a request has been made for this patient to be transfered to [facility] for this as we do not have the mean by IR or vascular surgery for this procedure to be performed over the weekend. I discussed this with patient's at the bedside and the are comfortable with this plan. Following insertion of an IVF filter and if remains stable, another attempt may be cautiously made to reattempt Heparin. She is to continue Mesalamine 1600 TID, continue Priolosec. She has been on Prednisone on GI recommendation for ulcerative colitis but due to ongoing active GI bleed, shoulr reasess the need for Prednisone with advise of GI As for atrial fibrilation CHADSVASc of 4. Heart rate has been fairly well controlled, on presentation was treated with cardizem and was loaded with digoxin but was not continued on this. When she became hypotension with PE, Metoprolol was discontinued at that time. Heart rate is mostly controlled now but tend to rise with activity and restarting metoprolol at 25 bid. She will ultimately benefit from anticoagulation once safety is established with resulution of GI bleeding Dementia, advanced but without agitation and there is no formal diagnosis according to Anemia related acute blood loss from ulcerative colitis--She has not required transfusion. Hematocrit was 44.5 on 09/24/20 at time of admission and is now 37 Plan of care discussed with Matthew Holden of [place], phone number [phone] Time Spent with Patient Time attestation: Total time spent providing and/or coordinating discharge services: Discharge coordination time: Greater than 30 minutes Physical Exam Vital Signs: Vital Signs: Last Vital Signs Temp 96.8 F 10/03/20 11:59 Pulse 95 10/03/20 11:59 Resp 20 10/03/20 11:59 BP 127/64 10/03/20 11:59 Pulse Ox 97 10/03/20 11:59 Body Mass Index 36.6 DS: Data Data Completed and Pending Completed studies during hospitalization [Text1]: Pending at discharge 09/30/20 12:38 Surgical [PTH] Routine Labs on day of discharge: Laboratory Results - last 24 hr 10/02/20 10/03/20 10/03/20 17:11 05:46 05:46 WBC 6.8 RBC 4.19 L Hgb 11.8 L Hct 37.1 MCV 88.5 MCH 28.2 MCHC 31.8 RDW 12.5 Plt Count 228 MPV 9.6 Immature Gran % (Auto) 4.4 H Neut % (Auto) 60.2 Lymph % (Auto) 19.9 L Coffey % (Auto) 14.6 H Eos % (Auto) 0.6 Baso % (Auto) 0.3 Lymph # (Auto) 1.4 Coffey # (Auto) 1.0 Eos # (Auto) 0.0 Baso # (Auto) 0.0 Abs Immat Gran (auto) 0.30 H Absolute Neuts (auto) 4.1 Absolute Nucleated RBC 0.000 Nucleated RBC % (auto) 0.0 PTT (Heparin Protocol) 65.1 50.0 L D Sodium Potassium Chloride Carbon Dioxide Anion Gap BUN Creatinine Estim Creat Clear Calc Estimated GFR Fasting Glucose Calcium COVID-19 (JASON) COVID-19 Clin Com 10/03/20 10/03/20 05:46 12:14 WBC RBC Hgb Hct MCV MCH MCHC RDW Plt Count MPV Immature Gran % (Auto) Neut % (Auto) Lymph % (Auto) Coffey % (Auto) Eos % (Auto) Baso % (Auto) Lymph # (Auto) Coffey # (Auto) Eos # (Auto) Baso # (Auto) Abs Immat Gran (auto) Absolute Neuts (auto) Absolute Nucleated RBC Nucleated RBC % (auto) PTT (Heparin Protocol) Sodium 141 Potassium 3.4 Chloride 105 Carbon Dioxide 25 Anion Gap 14 BUN 16 Creatinine 0.63 Estim Creat Clear Calc 87.7 Estimated GFR > 60 Fasting Glucose 104 H Calcium 8.2 L D COVID-19 (JASON) Negative COVID-19 Clin Com See Note Discharge Plan Discharge Anticipated Discharge Date/Time: 10/03/20 13:15 Patient Disposition: er Acute Care Hospital Discharge Diagnosis: GI bleeding, DVT and PE, Ulcerative colitis and new onset of atrial fibrilation Referrals: Salinas Irby MD [Primary Care Provider] - 1 Week Discharge Medications: New ipratropium-albuterol 0.5 mg-3 mg(2.5 mg base)/3 mL Solution For Nebulization 3 ml inhalation RQ4H WHILE AWAKE PRN (Reason: Shortness Of Breath/Wheezing) Qty: 180 RF: 0 acetaminophen 325 mg Tablet 650 mg PO Q6H PRN (Reason: Pain, Mild (Pain Scale 1-3)) Qty: 20 RF: 0 loperamide 2 mg Capsule 2 mg PO Q6H PRN (Reason: diarrhea) Qty: 20 RF: 0 omeprazole 20 mg Capsule,Delayed Release(Dr/Ec) 20 mg PO DAILY@0630 Qty: 30 RF: 0 prednisone 20 mg Tablet 40 mg PO DAILY Qty: 30 RF: 0 mesalamine 800 mg tablet,delayed release (DR/EC) 1,600 mg PO TID Qty: 90 RF: 0 metoprolol tartrate 25 mg tablet 25 mg PO BID Qty: 60 RF: 0 Discontinued bisoprolol-hydrochlorothiazide 5-6.25 mg tablet 1 tab PO DAILY Qty: 90 RF: 0 aspirin 81 mg tablet,delayed release (DR/EC) 81 mg PO DAILY RF: 0 Discharge Orders: Discharge Order (Routine); Ordered 10/03/20 Ordered By: Hima Daley Diet: advance to usual diet and other Activity on Discharge: As tolerated Stand Alone Forms: Patient Portal Discharge page Care Plan Goals: To address bleeding and issues and blood clots Health Concerns: GIB, pulmonary embolism, AFIB, Ulcerative colitis Plan of Treatment: To transfer to [facility] for cardiac catherization Assessment: GIB, Ulcerative colitis, DVT, submassive PE Discharge Date/Time: 10/03/20 14:52
[2020-10-03 13:56] LABS: PTT Heparin Drip 29.2 SEC (53-77.9)
--- NOTE | 2020-10-03 14:43 | MHC.CM.PN ---
PT BEING TRANSFERRED TO [facility]
== END 2020-10-03 14:52 | disposition short-term general hospital (02) | DRG 385 ==
LOC: HO.ED 22:00 → HO.EDOVER 22:12 → HO.IMC 09-25 04:52 → HO.ICU 09-30 22:27 → HO.IMC 10-01 13:23
PROVIDERS: Hospitalist; Internal Medicine; Internal Medicine Pulmonary Disease; Physician Assistant Medical; Registered Nurse Community Health; Admitting Provider Hospitalist; Emergency Provider Internal Medicine; PCP Internal Medicine; Visit Provider Internal Medicine
PROC: 0DJD8ZZ Inspection of Lower Intestinal Tract, Via Natural or Artificial Opening Endoscopic (ICD-10-PCS; CPT 45378; principal; 2020-09-30 14:20)
DX: K51.911 Ulcerative colitis, unspecified with rectal bleeding (principal); I26.99 Other pulmonary embolism without acute cor pulmonale; J96.01 Acute respiratory failure with hypoxia; I10 Essential (primary) hypertension; F03.90 Unspecified dementia, unspecified severity, without behavioral disturbance, psychotic disturbance, mood disturbance, and anxiety; I95.9 Hypotension, unspecified; E87.6 Hypokalemia; I48.91 Unspecified atrial fibrillation; Z20.822 Contact with and (suspected) exposure to COVID-19; Z79.899 Other long term (current) drug therapy
CPT/HCPCS: 36415; 36600; 71045; 71275; 80048; 80053; 80076; 82272; 82947; 83605; 83690; 83880; 84443; 84484; 85025; 85027; 85610; 85652; 85730; 86140; 87045; 87046; 87324; 87449; 87635; 88305; 89055; 93005; 93306; 93970; 96374; 96375; 99285; C1758; J1160; J2270; Q9967

== ENCOUNTER → 2020-12-30 10:51 | Outpatient (BNVA) | payer MEDICARE, SELFPAY | PROVIDERS: PCP Internal Medicine; Referring Provider Internal Medicine; Visit Provider Internal Medicine Cardiovascular Disease | DX: I48.91 Unspecified atrial fibrillation (principal); I26.99 Other pulmonary embolism without acute cor pulmonale; F03.90 Unspecified dementia, unspecified severity, without behavioral disturbance, psychotic disturbance, mood disturbance, and anxiety | CPT/HCPCS: 93005; 99212 ==

== ENCOUNTER → 2020-12-31 09:48 | Outpatient (REF) | payer MEDICARE, SELFPAY ==
--- NOTE | 2020-12-31 15:00 | ECG_ITS ---
Hook-up date: 2020-12-31 10:00:00 Duration: 25:11:00 Test Indications: UNSPEC. AFIB Medications: 81023 QRS complexes 241 Ventricular ectopics which represent <1 % of total QRS comp. * Supraventricular ectopics which represent % of total QRS comp. * Paced QRS complexs which represent % of total QRS comp. VENTRICULAR ECTOPY 239 Isolated 0 Bigeminal Cycles 1 Couplets 0 Runs 0 Beats in Runs * Beats LONGEST at * BPM at :: -- * Beats FASTEST at * BPM at :: -- SUPRAVENTRICULAR ECTOPY * Isolated * Couplets * Runs * Beats in Runs * Beats LONGEST at * BPM at :: -- * Beats FASTEST at * BPM at :: -- HEART RATES 56 MIN at 10:44:53 2020-12-31 93 AVG 158 MAX at 14:43:19 2020-12-31 LONGEST RR 1.6800 secs at 10:44:48 2020-12-31 S-T LEVELS Channel 1 - 128 mm at 10:00:00 2020-12-31 - 128 mm at 10:00:00 2020-12-31 Channel 2 - 128 mm at 10:00:00 2020-12-31 - 128 mm at 10:00:00 2020-12-31 Channel 3 - 128 mm at 02:91:91 -- - 128 mm at 02:91:91 Underlying rhythm is atrial fibrillation; Average ventricular rate 93/min; range 56-158/min; About 30% of the time, rate >100/min; Occasional Premature ventricular complexes ; one couplet ; Patient did not report any symptoms in the diary ; Monitoring time- 10:00- 14:44Hrs only. Referred By: Asim Ray Overread By: DOMINICK WANG
== END ==
LOC: HO.CARD 09:48
PROVIDERS: PCP Internal Medicine; Referring Provider Internal Medicine; Visit Provider Internal Medicine Cardiovascular Disease
DX: I48.91 Unspecified atrial fibrillation (principal)
CPT/HCPCS: 93226

== ENCOUNTER → 2021-02-05 09:25 | Outpatient (REF) | payer MEDICARE, SELFPAY ==
--- NOTE | 2021-02-05 09:29 | CA_ITS ---
Transthoracic Echocardiogram Patient (Last, First, Middle): Enma Holden A Gender: Female Date of : 1940 Age: 80 Procedure Date: 02/05/2021 Procedure Type: Transthoracic Echocardiogram Location: OP Height: 170.18 cm Weight: 68.04 kg BSA: 1.79 m2 Heart Rate: bpm BP: 108 / 60 mmHg Fixed Income Manager: [facility] MD: Asim Ray MD Symptoms: I26.99 - Other pulmonary embolism without acute cor pulmo... Conclusions: - Normal left ventricular size and systolic function. The visually estimated ejection fraction is between 55-60%. - Normal right ventricular cavity size and systolic function. Findings Left Ventricle Normal left ventricular size and systolic function. The visually estimated ejection fraction is between 55-60%. There is no evidence of regional wall motion abnormalities. Diastolic function is indeterminate on the basis of available data. Right Ventricle Normal right ventricular cavity size and systolic function. Tricuspid Valve Normal tricuspid valve structure. There is moderate tricuspid valve regurgitation. Venous The inferior vena cava is normal in size and collapses greater than 50% with inspiration. Pericardium/Pleural There is no evidence of pericardial effusion. Prior Study Comparison Significant changes compared to prior study dated: 10/01/2020. RV function has improved. Measurements Right Ventricle TAPSE (mm): 21.00 TVS' Esteban: 11.20 Tricuspid Valve TR Pk Esteban: 2.50 TR Pk Grad: 25.00 Updated in Other Vendor System with Status of Final Asmi Ray MD electronically signed on 02/05/2021 10:49:04 PM with status of Final
== END ==
LOC: HO.CARD 09:25
PROVIDERS: Visit Provider Internal Medicine Cardiovascular Disease
DX: I26.99 Other pulmonary embolism without acute cor pulmonale (principal)
CPT/HCPCS: 93308

== ENCOUNTER 2021-02-12 20:19 | Emergency (ER) | payer MEDICARE, SELFPAY ==
[2021-02-12 20:31] VITALS: BP 129/72; BP 152/90; PULSE 60; RESP 16; TEMP 36.4; O2SAT 94; O2SAT 98; BMI 25.9
--- NOTE | 2021-02-12 21:51 | ED.AMS ---
HPI - Altered Mental Status General Chief Complaint: Altered Mental Status Stated Complaint: dimension confused Time Seen by Provider: 02/12/21 21:37 Source: patient and EMS Mode of arrival: EMS Limitations: altered mental status History of Present Illness HPI narrative: Patient comes to the emergency room by EMS. Patient has dementia, and is unable to provide any significant history. Patient states that she feels well, states she has not does not know why he is here. According to EMS, the patient call 911 because she thought there was an intruder home although it was her . Patient has called multiple times for 911 for the same issue. Usually, patient is redirectable but this time she was not, the patient asked to be brought to the emergency room. The patient does not remember making this request. Related Data Previous Rx's Medication Instructions Recorded apixaban 5 mg tablet 5 mg PO BID #180 tab 12/01/20 digoxin 125 mcg (0.125 mg) tablet 125 mcg PO .q48 #30 tab 12/30/20 haloperidol 0.5 mg tablet 0.5 mg PO BEDTIME #30 tab 02/11/21 metoprolol tartrate 25 mg tablet 37.5 mg PO BID 90 Days #270 tab 02/11/21 cefuroxime axetil 500 mg tablet 500 mg PO BID #14 tab 02/13/21 Allergies Allergy/AdvReac Type Severity Reaction Status Date / Time epinephrine Allergy Unknown Unknown Verified 12/30/20 11:22 Review of Systems Review of Systems: Constitutional : No Weight loss, No Fever, No Chills, No Night Sweats, No Fatigue, No Malaise ENT/Mouth : No Hearing loss, No Ear Pain, No Nasal Congestion, No Sinus Pain, No Hoarseness, No sore throat, No Rhinorrhea, No Swallowing Difficulty Eyes: No Eye Pain, No Swelling, No Redness, No Foreign Body, No Discharge, No Vision Changes Cardiovascular : No Chest Pain, No SOB, No Dyspnea on Exertion, No Orthopnea, No Edema, No Palpitations Respiratory : No Cough, No Sputum, No Wheezing, No Smoke Exposure, No Dyspnea Gastrointestinal : No Nausea, No Vomiting, No Diarrhea, No Constipation, No abdominal Pain, No Hematochezia, No Melena Genitourinary : no irregular bleeding, No Dysuria, No Urinary Frequency, No Hematuria, No Urinary Incontinence, No Urgency, No Flank Pain, No Urinary Flow Changes, No Hesitancy Musculoskeletal : No joint pain, No Myalgias, No Joint Swelling Skin : No Skin Lesions, No rash Neuro : No Weakness, No Numbness, No Paresthesias, No Loss of Consciousness, No Dizziness, No Headache Psych : No Anxiety/Panic, No Depression, No SI/HI/AH/VH, No Social Issues, Heme/Lymph: No Bruising, No Bleeding,No Lymphadenopathy Endocrine : No Polyuria, No Polydipsia, No Temperature Intolerance [facility] Past Medical History Medical History Atrial fibrillation Dementia Hypertension Post-menopausal Pulmonary embolism Screening for breast cancer Subacute massive pulmonary embolism Ulcerative colitis Surgical History History of section History of colonoscopy History of left knee replacement Family History Family History Father Hypertension Mother No problems noted. Son No problems noted. Son No problems noted. Daughter No problems noted. Social History Social History (Updated 12/30/20 @ 11:23 by ADDI Harrell) Household Members: Unknown / Unable to assess Housing: House Do you presently have visiting nurse or other home services: No Alcohol intake: never Patient Tobacco Use Status: Never used Tobacco Second Hand Smoke Exposure: No Advance Directives: No Advance Directives Information Provided: No service: No Current occupational status: retired Physical Exam Vital Signs: Vital Signs: Last Vital Signs Temp 97.5 F 02/13/21 01:53 Pulse 56 02/13/21 01:53 Resp 16 02/13/21 01:53 BP 104/47 L 02/13/21 01:53 Pulse Ox 97 02/13/21 01:53 Body Mass Index 25.9 Const: Other: Appearance: Alert. Oriented X2 to person and place.No acute distress. Eyes: Pupils equal, round and reactive to light. ENT: Pharynx normal. Neck: Normal inspection. Neck supple. No lymph nodes noted. No crepitus CVS: Normal heart rate and rhythm. Pulses normal. Normal S1 and S2 Respiratory: No respiratory distress. Breath sounds normal. No Wheezing. No rales Abdomen: Soft and nontender. No rigidity. No distention. Skin: Skin warm and dry. Normal skin color. Normal skin turgor. Extremities: No lower extremity edema. No lower extremity edema. No Lacerations. No Rash Neuro: Cranial nerves 2-12 grossly intact No motor deficit. No sensory deficit. Moving all extermities. No slurred speech. Course Course Course Narrative: Patient has a UTI. Patient was given 1 dose of IM ceftriaxone. Per patient's nurse, the cantake care of the patient at home. However, he will be unable to pick her up. MDM - Altered Mental Status Lab Data Labs: Lab Results 02/12/21 Range/Units 23:52 Urine Color BROWN Urine Appearance CLOUDY Urine pH 6.0 (5.0-8.0) Ur Specific [place] 1.025 (1.005-1.025) Urine Protein 2+ H (NEG-TRACE) MG/DL Urine Glucose (UA) NEG (NEG) MG/DL Urine Ketones 5 (NEG) MG/DL Urine Blood TRACE (NEG) Urine Nitrite POS H (NEG) Ur Leukocyte Esterase 2+ H (NEG) Urine RBC 0 (0) /HPF Urine WBC TNTC H (0-4) /HPF Ur Squamous Epith Cells 2+ /LPF Urine Bacteria 4+ /LPF Urine Mucus 3+ /LPF Discharge Plan Discharge Clinical Impression: Acute UTI Patient Disposition: Home, Self-Care Instructions: Urinary Tract Infection in Older Adults (ED) Additional Instructions: Please follow-up with your primary care physician tomorrow. If you have any worsening or new symptoms, please return to the emergency room or call 911 Prescriptions: New cefuroxime axetil 500 mg tablet 500 mg PO BID Qty: 14 RF: 0 No Action haloperidol 0.5 mg tablet 0.5 mg PO BEDTIME Qty: 30 RF: 0 metoprolol tartrate 25 mg tablet 37.5 mg PO BID 90 Days Qty: 270 RF: 1 apixaban 5 mg tablet 5 mg PO BID Qty: 180 RF: 0 digoxin 125 mcg (0.125 mg) tablet 125 mcg PO .q48 Qty: 30 RF: 3
[2021-02-12 23:48] VITALS: BP 111/62; PULSE 87; RESP 16; TEMP 36.4; O2SAT 97
[2021-02-12 23:57] LABS: Glucose Urine UA NEG (NEG); Leukocyte Esterase Urine 2+ (NEG); Nitrite Urine POS (NEG); Specific Gravity - Urine 1.025 (1.005-1.025); UACC Culture Trigger YES; Urine Blood TRACE (NEG); Urine Ketones 5 MG/DL (NEG); Urine Protein 2+ MG/DL (NEG-TRACE)
[2021-02-12 23:58] LABS: Appearance Urine CLOUDY; Color Urine BROWN
[2021-02-13 00:08] LABS: Bacteria Urine 4+ /LPF; Mucus Urine 3+ /LPF; RBC Urine 0 /HPF (0); Squamous Epithelial Cell Urine 2+ /LPF; WBC Urine TNTC /HPF (0-4)
[2021-02-13 01:53] VITALS: BP 104/47; PULSE 56; RESP 16; TEMP 36.4; O2SAT 97
[2021-02-13] MEDS: cefTRIAXone sodium 1 GM, Lidocaine HCl 1 % MPF 2.1 ML IM (02:21)
== END 2021-02-13 03:14 | disposition home or self-care (01) ==
PROVIDERS: Emergency Provider Emergency Medicine
DX: N39.0 Urinary tract infection, site not specified (principal); R41.82 Altered mental status, unspecified; F03.90 Unspecified dementia, unspecified severity, without behavioral disturbance, psychotic disturbance, mood disturbance, and anxiety; Z79.899 Other long term (current) drug therapy
CPT/HCPCS: 81001; 87086; 87088; 87186; 96372; 99284; 99285; J0696

== ENCOUNTER → 2021-02-18 13:56 | Outpatient (BNVA) | payer MEDICARE, SELFPAY | PROVIDERS: PCP Internal Medicine; Referring Provider Internal Medicine; Visit Provider Nurse Practitioner Family | DX: I48.91 Unspecified atrial fibrillation (principal); I26.99 Other pulmonary embolism without acute cor pulmonale | CPT/HCPCS: 93005; 99212 ==

== ENCOUNTER → 2021-03-31 13:00 | Outpatient (BNVA) | payer MEDICARE, SELFPAY | PROVIDERS: PCP Internal Medicine; Referring Provider Internal Medicine; Visit Provider Nurse Practitioner Family | DX: I48.91 Unspecified atrial fibrillation (principal); I26.99 Other pulmonary embolism without acute cor pulmonale; R63.4 Abnormal weight loss | CPT/HCPCS: 99212 ==

== ENCOUNTER 2021-04-12 11:19 | Outpatient (REF) | payer MEDICARE, SELFPAY ==
[2021-04-12 12:51] LABS: MANUAL DIFF FLAG NO
[2021-04-12 13:10] LABS: Basophils Absolute Auto 0.1 X10*3/uL (0.0-0.2); Basophils Percent Auto 0.7 % (0-2); Eosinophils Absolute Auto 0.1 X10*3/uL (0.0-0.4); Eosinophils Percent Auto 1.7 % (0-4); Hematocrit 38.5 % (37.0-47.0); Imm Gran Abs Auto 0.02 X10*3/uL (0.00-0.03); Imm Gran Pct Auto 0.3 % (0.0-0.4); Lymphocytes Absolute Auto 1.7 X10*3/uL (1.2-4.9); Lymphocytes Percent Auto 24.3 % (20-40); Mean Corpuscular HGB Conc 33.8 g/dl (31.0-35.0); Mean Corpuscular Hemoglobin 30.7 pg (27.0-33.0); Mean Platelet Volume 10.2 fL (9.4-12.3); Monocytes Absolute Auto 0.6 X10*3/uL (0.1-1.2); Monocytes Percent Auto 8.8 % (2-11); Neutrophils Absolute Auto 4.57 x10*3/uL (2.0-8.3); Neutrophils Percent Auto 64.2 % (45-73); Platelet Count 271 X10*3/uL (160-400); Red Blood Count 4.23 X10*6/uL (4.20-5.50); Red Cell Distribution Width 13.8 % (11.0-16.0); White Blood Count 7.1 X10*3/uL (4.8-10.8)
[2021-04-12 13:32] LABS: C Reactive Protein 0.34 mg/dL (< or = 0.50); Estimated Glomerular Filt Rate > 60
[2021-04-12 13:48] LABS: Erythrocyte Sedimentation Rate 2 MM/HR (0-20)
== END 2021-04-12 11:20 | disposition home or self-care (01) ==
LOC: HO.LAB 11:19
PROVIDERS: PCP Internal Medicine; Visit Provider Internal Medicine Gastroenterology
DX: K51.90 Ulcerative colitis, unspecified, without complications (principal)
CPT/HCPCS: 36415; 82565; 85025; 85652; 86140; 99202

== ENCOUNTER → 2021-07-05 13:26 | Outpatient (BNVA) | payer MEDICARE, SELFPAY | PROVIDERS: PCP Internal Medicine; Referring Provider Internal Medicine; Visit Provider Internal Medicine Gastroenterology | DX: K51.90 Ulcerative colitis, unspecified, without complications (principal); K62.5 Hemorrhage of anus and rectum; R63.4 Abnormal weight loss | CPT/HCPCS: 99212 ==

== ENCOUNTER → 2021-08-18 13:57 | Outpatient (BNVA) | payer MEDICARE, SELFPAY | PROVIDERS: PCP Internal Medicine; Referring Provider Internal Medicine; Visit Provider Nurse Practitioner Family | DX: I48.91 Unspecified atrial fibrillation (principal); I26.99 Other pulmonary embolism without acute cor pulmonale; Z79.01 Long term (current) use of anticoagulants; Z79.899 Other long term (current) drug therapy | CPT/HCPCS: 99212 ==

== ENCOUNTER → 2021-09-30 11:17 | Outpatient (BNVA) | payer MEDICARE, SELFPAY | PROVIDERS: PCP Internal Medicine; Referring Provider Internal Medicine; Visit Provider Internal Medicine Gastroenterology | DX: K51.90 Ulcerative colitis, unspecified, without complications (principal); K62.5 Hemorrhage of anus and rectum | CPT/HCPCS: 99212 ==

== ENCOUNTER 2021-10-14 15:35 | Outpatient (REF) | payer MEDICARE, SELFPAY ==
[2021-10-14 16:19] LABS: Alanine Aminotransferase 9 U/L (0-31); Albumin Level 4.1 g/dL (3.5-5.0); Alkaline Phosphatase 112 U/L (39-117); Anion Gap 10 (12-20); Aspartate Amino Transferase 16 U/L (5-31); Bilirubin Total 0.5 mg/dL (0.0-1.0); Blood Urea Nitrogen 21 mg/dL (9-16); Calcium 9.7 mg/dL (8.4-10.2); Carbon Dioxide 29 mmol/L (22-29); Chloride 107 mmol/L (96-108); Estimated Glomerular Filt Rate > 60; Glucose Random 75 mg/dL (60-115); Potassium 4.3 mmol/L (3.3-5.1); Sodium 142 mmol/L (135-145); Total Protein 6.9 g/dL (6.5-8.0)
[2021-10-14 16:39] LABS: TSH reflex Free T4 1.92 uIU/mL (0.32-4.0)
== END 2021-10-14 15:36 | disposition home or self-care (01) ==
LOC: HO.LAB 15:35
PROVIDERS: PCP Internal Medicine; Visit Provider Nurse Practitioner Family
DX: Z13.29 Encounter for screening for other suspected endocrine disorder (principal); F03.90 Unspecified dementia, unspecified severity, without behavioral disturbance, psychotic disturbance, mood disturbance, and anxiety
CPT/HCPCS: 36415; 80053; 84443

== ENCOUNTER 2021-12-10 10:53 | Day surgery (SDC) | payer MEDICARE, SELFPAY ==
[2021-12-06 13:40] VITALS: BMI 25.5
--- NOTE | 2021-12-09 10:07 | HO.ANESPROP2 ---
Documented by User: Amber Avila NP 12/09/21 10:08 HPI - Anesthesia Eval Consult details Narrative: 81yo F for Sigmoidoscopy Flexible Eliquis for afib/PE PMFSH Active Problems Active Problems: All Active Problems (Updated 10/18/21 @ 10:37 by JOE Ramos) Thumb pain (Acute) Spider veins (Acute) Screening for hypothyroidism (Acute) Dementia (Acute) Hard of hearing (Acute) Weight loss (Acute) Dementia (Acute) Atrial fibrillation (Acute) Pulmonary embolism (Acute) Subacute massive pulmonary embolism (Acute) Ulcerative colitis (Acute) Adult general medical exam (Acute) Post-menopausal (Acute) Screening for breast cancer (Acute) Past Medical History Medical History Atrial fibrillation Dementia Dementia Hypertension Post-menopausal Pulmonary embolism Rectal bleed Screening for breast cancer Subacute massive pulmonary embolism Ulcerative colitis Family History Family History Father Hypertension Mother No problems noted. Son No problems noted. Son No problems noted. Daughter No problems noted. Other Mental health disorder Family history of problems with anesthesia: No Surgical History Surgical History History of section History of colonoscopy History of left knee replacement History of Problems with Anesthesia: No Social History Social History Household Members: Unknown / Unable to assess Housing: House Do you presently have visiting nurse or other home services: No Alcohol intake: never Patient Tobacco Use Status: Never used Tobacco e-Cigarette/Vaping Use: Never Used Second Hand Smoke Exposure: No Are you DNR?: No Advance Directives: No Advance Directives Information Provided: Yes service: No Current occupational status: retired Cognitive needs: No Hearing needs: Yes (needs hearing aids) Vision needs: Yes Meds Allergies Allergy/AdvReac Type Severity Reaction Status Date / Time epinephrine Allergy Unknown Unknown Verified 10/14/21 15:00 Exam Exam Date and Time: December 09, 2021 1007 Height,Weight and Vital Signs: Height 5 ft 7 in Weight 73.936 kg Pertinent Lab Results Pertinent Lab Results: Laboratory Tests 04/12/21 10/14/21 12:45 15:44 WBC 7.1 Hgb 13.0 Hct 38.5 Plt Count 271 Sodium 142 Potassium 4.3 D Chloride 107 Carbon Dioxide 29 BUN 21 H Creatinine 0.75 Assessment and Plan Assessment Anesthesia Assessment: Chart Reviewed Final Anesthetic Review Family History of Problems with Anesthesia: No History of Problems with Anesthesia: No Documented by User: Radha Andrade MD 12/10/21 15:30 COUNT INCLUDES THE [facility] Past Medical History Medical History Atrial fibrillation Dementia Dementia Hypertension Post-menopausal Pulmonary embolism Rectal bleed Screening for breast cancer Subacute massive pulmonary embolism Ulcerative colitis Family History Family History Father Hypertension Mother No problems noted. Son No problems noted. Son No problems noted. Daughter No problems noted. Other Mental health disorder Surgical History Surgical History History of section History of colonoscopy History of left knee replacement Social History Social History Household Members: Unknown / Unable to assess Housing: House Do you presently have visiting nurse or other home services: No Alcohol intake: never Patient Tobacco Use Status: Never used Tobacco e-Cigarette/Vaping Use: Never Used Second Hand Smoke Exposure: No Are you DNR?: No Advance Directives: No Advance Directives Information Provided: Yes service: No Current occupational status: retired Cognitive needs: No Hearing needs: Yes (needs hearing aids) Vision needs: Yes Meds Allergies Allergy/AdvReac Type Severity Reaction Status Date / Time epinephrine Allergy Unknown Unknown Verified 10/14/21 15:00 Exam Airway Mallampati Class: II TM Dist: >3cm Neck ROM: Full Loose/Missing/Broken Teeth: No Heart: RRR Lungs: CTA Assessment and Plan Final Anesthetic Review NPO: Yes ASA Class: III Final Preanesthetic Review: Meds/Allgs Chart Reviewed, Consent Obtained/Reviewed and Anes Risks/Benef Reviewed Patient Risk: Intermediate Procedure Risk: Low Anesthetic Plan Anesthetic Plan: MAC: Disposition: Standard PACU
[2021-12-10 11:06] VITALS: BP 119/60; PULSE 48; RESP 16; TEMP 36.2; O2SAT 95
[2021-12-10] MEDS: Lactated Ringers 1,000 ML 100 ML IVCONT (12:45)
[2021-12-10] MEDS: Sodium Phosphate,Mono-Dibasic 133 ML ENEMA PR ×2 (13:32→13:44)
--- NOTE | 2021-12-10 13:32 | PC.NURSE ---
first fleets given with form brown stool results
--- NOTE | 2021-12-10 13:44 | PC.NURSE ---
loose brown stool after second fleets pt resting comfortably nad denies pain
--- NOTE | 2021-12-10 14:32 | MHC.SHP ---
Pre-Procedural Eval Section A Date of Service: 12/10/21 The patient is an INPATIENT: No The History & Physical has been completed within 30 days and I have reviewed it.: No Section B Chief Complaint: colitis Details of Present Illness: fu of colitis Relevant Family History (Specify if Yes): No Relevant Social History: None Present Medications: see Short Stay Collaborative assessment Medical History: Significant History (Atrial fibrillation Dementia Dementia Hypertension Post-menopausal Pulmonary embolism Screening for breast cancer Subacute massive pulmonary embolism Ulcerative colitis) History of Previous Operations: Relevant previous surgery/procedure and date(s) (History of section History of colonoscopy History of left knee replacement) Allergies: Allergies Allergy/AdvReac Type Severity Reaction Status Date / Time epinephrine Allergy Unknown Unknown Verified 10/14/21 15:00 Review of Systems Sugical H&P ROS: Negative: Constitution, Cardiovascular, Respiratory and Gastrointestinal Exam Surgical H&P Exam: Normal: Heart, Normal: Lungs and Normal: Extremities Plan Diagnosis/Plan: Unchanged I have reviewed the history and physical and performed a pertinent physical examination on my patient. No changes have occurred unless specified.
--- NOTE | 2021-12-10 14:36 | P.BOP_ITS ---
Brief Operative Note Date of Service: 12/10/21 Pre-op diagnosis: FU of colitis Post-op diagnosis: other (Diverticulosis, hemorrhoids) Procedure: FLEXIBLE SIGMOIDOSCOPY TILL 50 CMS WITH BIOPSIES Consent: Indications for the procedure and potential complications of bleeding, perforation, reaction to medications and missed diagnosis were discussed with the patient and informed consent was obtained. Instrument: Olympus PCF H 190 L variable stiffness pediatric colonoscope Monitoring: Vital signs and clinical assessment, intermittent blood pressure monitoring, continuous EKG monitoring, Pulse oximetry and Carbon Dioxide monitoring were done throughout the procedure. Procedure: The patient was placed in the left lateral decubitis position and pre-procedure medications were administered. After a digital rectal examination of the ano-rectum, the video colonoscope was inserted into the rectum and advanced through the colon to 50 cms into the sigmoid colon. The colonoscope was slowly withdrawn in a retrograde panoramic fashion and the colon mucosa was carefully examined including a retroflexed view of the rectum. Findings and interventions are described below. Procedure Difficulty: Without difficulty Findings: Sigmoid Colon: Normal colon mucosa without friability or ulcerations - random biopsies were obtained. Moderate diverticulosis Rectum: Normal colon mucosa without friability or ulcerations Ano-rectum: Moderate internal hemorrhoids Colon preparation: Good after some irrigation Impression and Post Procedure Diagnosis: Colonoscopy Findings: No polyps were detected. Normal colon mucosa without friability or ulcerations Moderate diverticulosis seen in the sigmoid colon Moderate hemorrhoids on retroflexed exam. Plan: Letter will be sent with pathology results Patient has an appointment on 01/13/22 in the GI Clinic with Desiree Carty M.D. Colon cancer screening can be discontinued given advanced age, dementia and negative colonoscopy a year ago. Diverticulosis handouts were given in the discharge area. Surgeon: Desiree Carty MD Anesthesia: MAC (Dr Andrade) Was an Staining Machine Operator used for this Procedure?: Yes Staining Machine Operator: Gladys Martinez Estimated blood loss (mL): 0 Pathology: other (A: Biopsy sigmondy colon rule out colitis) Condition: stable Disposition: PACU
[2021-12-10 15:00] VITALS: BP 114/55; PULSE 46; RESP 16; TEMP 36.2; O2SAT 99
[2021-12-10 15:15] VITALS: BP 130/67; PULSE 45; RESP 18; TEMP 36.5; O2SAT 100
[2021-12-10 15:30] VITALS: BP 137/74; PULSE 46; RESP 18; TEMP 37.4; O2SAT 97
--- NOTE | 2021-12-13 14:47 | P.OP_ITS ---
Operative Note Operative Note Date of Service: 12/10/21 Narrative: Pre-op diagnosis: FU of colitis Post-op diagnosis:?other (Diverticulosis, hemorrhoids) Procedure: FLEXIBLE SIGMOIDOSCOPY TILL 50 CMS WITH BIOPSIES Consent: Indications for the procedure and potential complications of bleeding, perforation, reaction to medications and missed diagnosis were discussed with the patient and informed consent was obtained. Instrument: Olympus PCF H 190 L variable stiffness pediatric colonoscope Monitoring: Vital signs and clinical assessment, intermittent blood pressure monitoring, continuous EKG monitoring, Pulse oximetry and Carbon Dioxide monitoring were done throughout the procedure. Procedure: The patient was placed in the left lateral decubitis position and pre-procedure medications were administered. After a digital rectal examination of the ano-rectum, the video colonoscope was inserted into the rectum and advanced through the colon to 50 cms into the sigmoid colon. The colonoscope was slowly withdrawn in a retrograde panoramic fashion and the colon mucosa was carefully examined including a retroflexed view of the rectum. Findings and interventions are described below. Procedure Difficulty: Without difficulty Findings: Sigmoid Colon:? Normal colon mucosa without friability or ulcerations - random biopsies were obtained. Moderate diverticulosis Rectum:? Normal colon mucosa without friability or ulcerations Ano-rectum:? Moderate internal hemorrhoids Colon preparation:? Good after some irrigation Impression and Post Procedure Diagnosis: Colonoscopy Findings: No polyps were detected. Normal colon mucosa without friability or ulcerations Moderate diverticulosis seen in the sigmoid colon Moderate hemorrhoids on retroflexed exam. Plan: Letter will be sent with pathology results Patient has an appointment on 01/13/22 in the GI Clinic with Desiree Carty M.D. Colon cancer screening can be discontinued given advanced age, dementia and negative colonoscopy a year ago. Diverticulosis handouts were given in the discharge area. Surgeon: Desiree Carty MD Anesthesia:?MAC (Dr Andrade) Was an Field Technical Specialist used for this Procedure?:?Yes Field Technical Specialist:?Gladys Martinez Estimated blood loss (mL):?0 Pathology:?other (A: Biopsy sigmondy colon ? rule out colitis) Condition:?stable Disposition:?PACU
== END 2021-12-10 16:05 | disposition home or self-care (01) ==
PROVIDERS: PCP Internal Medicine; Visit Provider Internal Medicine Gastroenterology
PROC: 0DJD8ZZ Inspection of Lower Intestinal Tract, Via Natural or Artificial Opening Endoscopic (ICD-10-PCS; CPT 45330; principal; 2021-12-10 12:00)
DX: Z12.11 Encounter for screening for malignant neoplasm of colon (principal); K51.90 Ulcerative colitis, unspecified, without complications; K57.30 Diverticulosis of large intestine without perforation or abscess without bleeding; K64.8 Other hemorrhoids; F03.90 Unspecified dementia, unspecified severity, without behavioral disturbance, psychotic disturbance, mood disturbance, and anxiety; I10 Essential (primary) hypertension; I48.91 Unspecified atrial fibrillation; Z79.01 Long term (current) use of anticoagulants; Z79.899 Other long term (current) drug therapy
CPT/HCPCS: 45331; 88305

== ENCOUNTER → 2022-01-13 11:22 | Outpatient (BNVA) | payer MEDICARE, SELFPAY | PROVIDERS: PCP Internal Medicine; Visit Provider Internal Medicine Gastroenterology | DX: K51.90 Ulcerative colitis, unspecified, without complications (principal); K64.8 Other hemorrhoids; Z98.890 Other specified postprocedural states | CPT/HCPCS: 99212 ==

== ENCOUNTER → 2022-02-23 12:43 | Outpatient (BNVA) | payer MEDICARE, SELFPAY | PROVIDERS: PCP Internal Medicine; Referring Provider Internal Medicine; Visit Provider Nurse Practitioner Family | DX: I48.91 Unspecified atrial fibrillation (principal); I26.99 Other pulmonary embolism without acute cor pulmonale; Z79.01 Long term (current) use of anticoagulants; Z79.899 Other long term (current) drug therapy | CPT/HCPCS: 93005; 99212 ==

== ENCOUNTER 2022-04-01 15:41 | Emergency (ER) | payer MEDICARE, SELFPAY ==
[2022-04-01 16:34] VITALS: BP 105/67; PULSE 78; RESP 18; TEMP 37.2; O2SAT 98; BMI 25.0
[2022-04-01 19:44] LABS: MANUAL DIFF FLAG NO
[2022-04-01 19:46] LABS: Basophils Absolute Auto 0.1 X10*3/uL (0.0-0.2); Eosinophils Absolute Auto 0.5 X10*3/uL (0.0-0.4); Eosinophils Percent Auto 7.8 % (0-4); Hematocrit 41.6 % (37.0-47.0); Hemoglobin 13.9 g/dl (12.0-16.0); Imm Gran Abs Auto 0.02 X10*3/uL (0.00-0.03); Imm Gran Pct Auto 0.3 % (0.0-0.4); Lymphocytes Percent Auto 33.3 % (20-40); Mean Corpuscular HGB Conc 33.4 g/dl (31.0-35.0); Mean Corpuscular Hemoglobin 29.3 pg (27.0-33.0); Mean Corpuscular Volume 87.8 fL (80.0-98.0); Mean Platelet Volume 9.3 fL (9.4-12.3); Monocytes Absolute Auto 0.7 X10*3/uL (0.1-1.2); Monocytes Percent Auto 12.6 % (2-11); Neutrophils Absolute Auto 2.6 x10*3/uL (2.0-8.3); Platelet Count 216 X10*3/uL (160-400); Red Blood Count 4.74 X10*6/uL (4.20-5.50); Red Cell Distribution Width 12.5 % (11.0-16.0); White Blood Count 5.9 X10*3/uL (4.8-10.8)
[2022-04-01 19:52] LABS: INTERNATIONAL NORM RATIO 1.3 (0.9-1.1); Prothrombin Time 14.7 SEC (10.0-13.1)
[2022-04-01 20:08] LABS: Alanine Aminotransferase 8 U/L (0-31); Alkaline Phosphatase 132 U/L (39-117); Anion Gap 15 (12-20); Aspartate Amino Transferase 14 U/L (5-31); Bilirubin Total 0.8 mg/dL (0.0-1.0); Blood Urea Nitrogen 13 mg/dL (9-16); Calcium 9.5 mg/dL (8.4-10.2); Carbon Dioxide 25 mmol/L (22-29); Chloride 105 mmol/L (96-108); Creatinine Clr Calc Pharmacy 59.3; Estimated Glomerular Filt Rate > 60; Glucose Random 96 mg/dL (60-115); Potassium 3.9 mmol/L (3.3-5.1); Sodium 141 mmol/L (135-145); Total Protein 6.5 g/dL (6.5-8.0)
== END 2022-04-01 21:03 | disposition left against medical advice (07) ==
LOC: HO.ED 21:01
PROVIDERS: Emergency Provider Emergency Medicine
DX: N93.9 Abnormal uterine and vaginal bleeding, unspecified (principal); F03.90 Unspecified dementia, unspecified severity, without behavioral disturbance, psychotic disturbance, mood disturbance, and anxiety; I48.91 Unspecified atrial fibrillation; Z79.01 Long term (current) use of anticoagulants
CPT/HCPCS: 36415; 80053; 85025; 85610; 99281; 99283

== ENCOUNTER 2022-04-05 08:28 | Inpatient (IN) | payer MEDICARE, SELFPAY ==
--- NOTE | ~2022-04-05 | CT_ITS ---
EXAMINATION: CT ANGIOGRAM ABDOMEN AND PELVIS CLINICAL INFORMATION: Evaluate for mesenteric ischemia COMPARISON: CT abdomen pelvis 04/05/2022 TECHNIQUE: Multiple axial images were obtained through the abdomen and pelvis following the administration of 80 mL of Omnipaque 350 intravenous contrast. Three-dimensional MIP reformatted imaging was performed and reviewed. This CT examination was performed using dose optimization techniques as appropriate, variously including the following: *Automated exposure control *Adjustment of mA and/or kV according to patient size (this includes techniques or standardized protocols for targeted exams where dose is matched to indication/reason for exam; i.e. extremities or head) *Use of iterative reconstruction technique DLP: 687 mGy-cm FINDINGS: VASCULAR: * The descending thoracic aorta is normal in course and caliber without dissection. * Moderate atherosclerosis of the abdominal aorta and iliac arteries. The abdominal aorta is normal in course and caliber without dissection. Ectatic left common iliac artery measuring 1.5 cm. Bilateral femoral arteries are unremarkable for moderate atherosclerosis and are widely patent. Visualized femoral vessels are normal in course and caliber without dissection. * The celiac artery is patent with conventional hepatic branching. There is mild stenosis of the origin of the superior mesenteric artery which is widely patent. Moderate stenosis of the origin of the inferior mesenteric artery which appears patent distally. * Single bilateral renal arteries which demonstrate mild stenosis of the origin of the right renal artery and moderate stenosis at the origin of the left renal artery and are otherwise widely patent.. NONVASCULAR: LUNG BASES: Group of clustered pulmonary nodules in the lingula measuring up to 5 mm are unchanged from recent prior. ABDOMINAL AND PELVIC WALL: Unremarkable. LIVER AND BILIARY TREE: Unremarkable. GALLBLADDER: Unremarkable. PANCREAS: Unremarkable. SPLEEN: Unremarkable. ADRENAL GLANDS: Unremarkable. KIDNEYS AND URETERS: Unremarkable. GASTROINTESTINAL TRACT: Redemonstration of colonic wall thickening extending from the splenic flexure to the rectum with prominence of the perienteric vessels. Single phase of contrast timing limits evaluation however there is no definite appreciable loss of bowel wall enhancement. LYMPH NODES/PERITONEUM: No lymphadenopathy. FREE FLUID: Small volume of simple attenuation free fluid in the pelvis. BLADDER: Coy catheter decompresses the bladder limiting evaluation. Foci gas within the bladder likely related to Coy catheter. PELVIC VISCERA: Unremarkable. OSSEOUS STRUCTURES: Multilevel grade 1 listhesis of the lumbar spine. Multilevel degenerative disc disease. CT/CT angio abdomen pelvis IMPRESSION: * Redemonstration of colonic wall thickening extending from the splenic flexure to the rectum with prominence of the perienteric vessels. Findings are suggestive of proctocolitis, for which differential considerations could include infectious, inflammatory or ischemic etiology, given distribution. There is moderate stenosis of the origin of the inferior mesenteric artery however it appears patent distally. No kriss loss of bowel wall enhancement to favor ischemia over other etiologies of colitis and clinical correlation is recommended. * Small volume of simple attenuation free fluid in the pelvis which may be reactive in the setting of colitis. * Ectatic left common iliac artery measuring 1.5 cm. * Moderate atherosclerosis of the abdominal aorta with mild to moderate narrowing of origins of multiple major branch vessels as detailed above which remain otherwise patent distally. * Clustered sub-6 mm pulmonary nodules in the lingula are unchanged from recent prior. Assuming patient has no history of malignancy, recommend follow-up per Fleischner Society recommendations. According to the UPDATED 2017 Fleischner Society recommendations, the advised followup imaging for solid nodules < 6 mm is: LOW RISK PATIENT: No routine follow up. HIGH RISK PATIENT: Optional CT at 12 months.
--- NOTE | ~2022-04-05 | US_ITS ---
EXAMINATION: US PELVIS CLINICAL INFORMATION: Vaginal bleeding COMPARISON: Previous CT of the abdomen and pelvis from earlier this month TECHNIQUE: Ultrasound of the pelvis is performed using both transabdominal and transvaginal transducers along with Doppler. Transvaginal imaging is performed due to inadequate visualization transabdominally. FINDINGS: The uterus is retroverted and measures 6.2 x 3.5 x 5.1 cm in dimension. No focal uterine lesion is seen. The endometrium is slightly thickened for a postmenopausal patient measuring 0.8 cm. The endometrium is heterogeneous with small cystic areas. There is some vascularity seen. No focal uterine lesion. The ovaries are not seen. There is no fluid in the pelvis. US/US pelvic and transvaginal IMPRESSION: Slightly thickened heterogeneous endometrium measuring 0.8 cm. [employer] consultation recommended.
--- NOTE | ~2022-04-05 | CT_ITS ---
EXAMINATION: CT ABDOMEN AND PELVIS WITH AND WITHOUT CONTRAST: CT GI BLEEDING STUDY CLINICAL INFORMATION: Rectal bleeding. COMPARISON: CTA chest 09/30/2020. TECHNIQUE: Multidetector volumetric imaging was performed from the lung bases to the pubic symphysis before and after the administration of: Intravenous contrast: 80 mL Omnipaque 350 No contrast reaction reported MIP coronal, sagittal and coronal reformatted images were obtained on the technologist workstation. This CT examination was performed using dose optimization techniques as appropriate, variously including the following: *Automated exposure control *Adjustment of mA and/or kV according to patient size (this includes techniques or standardized protocols for targeted exams where dose is matched to indication/reason for exam; i.e. extremities or head) *Use of iterative reconstruction technique Total exam dose-length product 468 mGy-cm FINDINGS: STOMACH: No abnormal wall thickening or mass. No intraluminal contrast accumulation to suggest hemorrhage. SMALL BOWEL: No abnormal wall thickening or dilation. No intraluminal contrast accumulation to suggest hemorrhage. COLON: There is severe wall thickening of the splenic flexure, descending colon, sigmoid and rectum with hyperenhancement but no accumulation of intraluminal contrast accumulation to suggest active hemorrhage. The right-sided perirectal and periuterine vasculature is engorged and tortuous (images 73 through 77, series 5). No evidence to suspect bowel obstruction. No pneumatosis or drainable intra-abdominal collections. LUNG BASES: A group of nodularities in the lingula (10:63 and 10:56) are new. A group of partially calcified nodularities in the right lung base (10:203) are increased in number when compared to 09/30/2020. Other pulmonary nodules are fairly stable, for instance a 0.4 cm pulmonary nodule in the posterior right lower lobe (10:47). No focal consolidation or pleural effusion. Coronary vascular calcifications are noted. LIVER, GALLBLADDER, AND BILIARY TREE: No focal hepatic lesion or biliary ductal dilatation is present. The gallbladder is unremarkable with no evidence of radiopaque gallstones, gallbladder wall thickening, or obvious pericholecystic inflammatory changes. PANCREAS: Normal; no mass or surrounding fluid. SPLEEN: Normal size. No focal lesion. ADRENAL GLANDS: Normal; no mass. KIDNEYS AND URETERS: The kidneys are normal in size, shape, and attenuation. No hydronephrosis, hydroureter, or calculi. ABDOMINAL WALL: No hernia seen. LYMPHOVASCULAR STRUCTURES: There are prominent mesorectal and mesenteric lymph nodes, nonspecific, possibly reactive. Extensive atherosclerotic disease. The abdominal aorta is of normal diameter. On early postcontrast images, there is significant mixing artifact in the main portal vein and portosplenic confluence with equivocal nonocclusive thrombosis in the superior mesenteric vein (6:99). However, on the two-minute delayed postcontrast images, there is filling of the veins suggesting patency and lack of thrombosis. BLADDER: Decompressed and suboptimally assessed. PELVIC VISCERA: Retroverted uterus. No pelvic mass. OSSEOUS STRUCTURES: There are several nonaggressive appearing sclerotic osseous lesions in the pelvis and femurs, for instance in the left intertrochanteric region, in favor to represent bone islands. No acute osseous fractures. CT/CT gi bleed abd pel wo/w IVcon IMPRESSION: No evidence of active GI bleeding. Severe wall thickening and hyperenhancement of the left hemicolon and rectum suggesting colitis and proctocolitis. Etiology is uncertain, ischemic origin is not excluded given distribution. This examination was not performed as a CTA, limiting evaluation of arterial patency. Incidentally noted multiple new pulmonary nodules, that are possibly infectious or inflammatory in etiology. Recommend a short-term follow-up chest CT to reassess. This critical result was discussed with Sherley Coffman NP at 04/05/2022 5:43 PM and it was ascertained that the content and urgency of the report was understood at the time of direct communication.
--- NOTE | ~2022-04-05 | US_ITS ---
EXAMINATION: ULTRASOUND MESENTERIC ARTERIAL EVALUATION CLINICAL INFORMATION: This is an 81-year-old female with possible colitis. Possible ischemic colitis. Possible vascular arterial disease. COMPARISON: None TECHNIQUE: Color-flow duplex imaging with spectral waveform analysis was performed on the mesenteric arteries. Velocity measurements were obtained. FINDINGS: Aortic velocity proximal to the superior mesenteric artery: 83 cm/s. Aortic velocity distal to the superior mesenteric artery: 54 cm/s. CELIAC ARTERY: Inspiration supine: 97 cm/s. Inspiration erect: 92 cm/s. SUPERIOR MESENTERIC ARTERY: Proximal: 3 to 43 cm/s. Mid: 258 cm/s. Distal: 81 cm/s. INFERIOR MESENTERIC ARTERY: 372 cm/s. SPLENIC ARTERY: 215 cm/s. HEPATIC ARTERY: 163 cm/s. An arrhythmia was noted during the duplex portion of the examination. US/US SMA IMPRESSION: 1. There are elevated velocities in both the superior mesenteric artery and inferior mesenteric artery which are suspicious for hemodynamically significant stenoses. The stenoses could contribute to ischemic colitis. 2. The celiac artery appears patent.
[2022-04-05 08:30] VITALS: BP 122/70; PULSE 91; RESP 20; TEMP 36.5; O2SAT 97; BMI 27.6
[2022-04-05 08:52] LABS: Basophils Absolute Auto 0.1 X10*3/uL (0.0-0.2); Basophils Percent Auto 0.9 % (0-2); Eosinophils Absolute Auto 0.6 X10*3/uL (0.0-0.4); Eosinophils Percent Auto 8.5 % (0-4); Hematocrit 40.7 % (37.0-47.0); Hemoglobin 13.8 g/dl (12.0-16.0); Imm Gran Abs Auto 0.02 X10*3/uL (0.00-0.03); Imm Gran Pct Auto 0.3 % (0.0-0.4); Lymphocytes Absolute Auto 1.4 X10*3/uL (1.2-4.9); Lymphocytes Percent Auto 21.5 % (20-40); MANUAL DIFF FLAG NO; Mean Corpuscular HGB Conc 33.9 g/dl (31.0-35.0); Mean Corpuscular Hemoglobin 29.4 pg (27.0-33.0); Mean Corpuscular Volume 86.6 fL (80.0-98.0); Mean Platelet Volume 9.3 fL (9.4-12.3); Monocytes Percent Auto 15.5 % (2-11); Neutrophils Absolute Auto 3.5 x10*3/uL (2.0-8.3); Neutrophils Percent Auto 53.3 % (45-73); Platelet Count 262 X10*3/uL (160-400); Red Cell Distribution Width 12.5 % (11.0-16.0); White Blood Count 6.5 X10*3/uL (4.8-10.8)
[2022-04-05 09:00] LABS: INTERNATIONAL NORM RATIO 1.4 (0.9-1.1); Prothrombin Time 16.3 SEC (10.0-13.1)
[2022-04-05 09:33] LABS: Alanine Aminotransferase 7 U/L (0-31); Albumin Level 3.7 g/dL (3.5-5.0); Alkaline Phosphatase 109 U/L (39-117); Anion Gap 16 (12-20); Aspartate Amino Transferase 15 U/L (5-31); Bilirubin Direct 0.3 mg/dL (0.0-0.5); Bilirubin Total 0.7 mg/dL (0.0-1.0); Blood Urea Nitrogen 15 mg/dL (9-16); Calcium 8.7 mg/dL (8.4-10.2); Carbon Dioxide 22 mmol/L (22-29); Chloride 106 mmol/L (96-108); Creatinine Clr Calc Pharmacy 66.4; Estimated Glomerular Filt Rate > 60; Glucose Random 146 mg/dL (60-115); Lipase 33 U/L (8-78); Potassium 3.5 mmol/L (3.3-5.1); Sodium 140 mmol/L (135-145); Total Protein 6.2 g/dL (6.5-8.0)
[2022-04-05 12:41] VITALS: BP 108/55; PULSE 78; RESP 18; TEMP 36.3; O2SAT 98
--- OUTSIDE RECORDS SUMMARY | 2022-04-05 14:34 | XMS_ITS | Continuity of Care Document ---
:1940 Author Organization [facility] Address [address] [place] [id number] Care Team Providers Name Role Phone Not on Staff, PCP Primary Care Physician Unavailable Encounter [facility] [place] Date(s): 10/03/20 - 10/22/[address] [address]- Encounter Diagnosis Atrial fibrillation (Final) - 10/03/20 GI - Gastrointestinal bleed (Final) - 10/03/20 PE - Pulmonary embolism (Final) - 10/03/20 Discharge Disposition: Disch/Trans to IP Rehab or unit w/in Hos Attending Physician: Mervin AGUILAR, Abdirahman Admitting Physician: Mary Timmons MD Referring Physician: Mary Timmons MD Allergies, Adverse Reactions, Alerts Substance 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 Start Date: 10/22/20 Status: Orderedmelatonin 3 mg oral tablet, extended release See Instructions, 3 tablet By Mouth Daily at supper, 0 Refills, Maintenance, 10/22/20 15:22:00 EDT, ER Tablet, Partial fill upon patient request if the prescription is for a schedule II opioid drug. Start Date: 10/22/20 Status: Orderedmesalamine 800 mg oral delayed release tablet = 1,600 mg, By Mouth, 3 times a day, 0 Refills, Maintenance, 10/22/20 15:22:00 EDT, EC Tablet, Partial fill upon patient request if the prescription is for a schedule II opioid drug. Start Date: 10/22/20 Status: Orderedmetoprolol 100 mg oral tablet 100 mg, 1, tablet, By Mouth, Every 12 hours, Refills 0, Maintenance, 10/22/20 15:22:00 EDT, Partial fill upon patient request if the prescription is for a schedule II opioid drug. Start Date: 10/22/20 Status: Orderedmetoprolol 100 mg oral tablet 100 mg, Tablet, By Mouth, Hold for: SBP<100, 10/22/20 11:00:00 EDT Start Date: 10/22/20 Stop Date: 10/22/20 Status: CompletedProtonix 40 mg oral delayed release tablet = 40 mg, By Mouth, Daily, 0 Refills, Maintenance, 10/22/20 15:22:00 EDT, EC Tablet Start Date: 10/22/20 Status: OrderedSEROquel 25 mg oral tablet 12.5 mg, 0.5, tablet, By Mouth, 3 times a day, PRN, Refills 0, Maintenance, Agitation, 10/22/20 15:22:00 EDT, Partial fill upon patient request if the prescription is for a schedule II opioid drug. Start Date: 10/22/20 Status: OrderedtraZODone 50 mg oral tablet 50 mg, 1, tablet, By Mouth, Daily at supper, Refills 0, Maintenance, 10/22/20 15:22:00 EDT, Partial fill upon patient request if the prescription is for a schedule II opioid drug. Start Date: 10/22/20 Status: OrderedTylenol 325 mg oral tablet 650 mg, 2, tablet, By Mouth, Every 4 hours, PRN, Refills 0, Maintenance, Pain , Mild, 10/22/20 15:21:00 EDT, Partial fill upon patient request if the prescription is for a schedule II opioid drug. Start Date: 10/22/20 Status: Ordered Problem List Condition Effective Dates Status Health Status Informant HTN (hypertension), benign(Confirmed) Active Dementia(Confirmed) Active Vital Signs Most recent to oldest 1 2 3 [Reference Range]: Height 170 cm 170 cm 170 cm (10/22/20 12:30 PM) (10/22/20 8:09 AM) (10/22/20 8: 08 AM) Weight 100.1 kg 100.1 kg 100.1 kg (10/20/20 2:16 PM) (10/20/20 10:25 AM) (10/07/20 5: 13 PM) Oxygen Saturation [94-100 %] 97 % 96 % 97 % (10/22/20 12:30 PM) (10/22/20 8:09 AM) (10/22/20 3: 19 AM) Pulse Rate [55-90 bpm] 88 bpm 86 bpm 64 bpm (10/22/20 12:30 PM) (10/22/20 10:51 AM) (10/22/20 8 :08 AM) Body Mass Index [18.5-24.99] 34.64 *>HHI* (10/20/20 2:16 PM) Blood Pressure [90-138/55-84 114/65 mm Hg 103/50 mm Hg 114 /88 mm Hg mm Hg] (10/22/20 12:30 PM) (10/22/20 10:51 AM) (10/22/20 8 :08 AM) Respiratory Rate [16-30 20 br/min 20 br/min 20 br/mi n br/min] (10/22/20 12:30 PM) (10/22/20 8:08 AM) (10/22/20 3: 19 AM) Temperature [96.8-100.4 97.8 DegF 97.0 DegF 97.4 Deg F DegF] (10/22/20 12:30 PM) (10/22/20 8:08 AM) (10/22/20 3: 19 AM) Liters per Minute 6 L/min 2 L/min 2 L/min (10/20/20 4:15 PM) (10/07/20 3:00 AM) (10/06/20 10: 00 PM) Mode of Delivery (Oxygen) Room air Room air Room a ir (10/22/20 12:30 PM) (10/22/20 8:08 AM) (10/22/20 3: 19 AM) Blood pressure sites Arm, left Arm, right Arm, left (10/22/20 12:30 PM) (10/22/20 8:08 AM) (10/22/20 3: 19 AM) Temperature Route Oral Oral Oral (10/22/20 12:30 PM) (10/22/20 8:08 AM) (10/22/20 3: 19 AM) Dry Weight 100.1 kg (10/07/20 5:44 PM) Weight Obtained Via Bed scale (10/07/20 5:13 PM)
[2022-04-05 15:45] LABS: MANUAL DIFF FLAG NO
[2022-04-05 15:48] LABS: Basophils Absolute Auto 0.1 X10*3/uL (0.0-0.2); Basophils Percent Auto 1.2 % (0-2); Eosinophils Absolute Auto 0.5 X10*3/uL (0.0-0.4); Eosinophils Percent Auto 8.6 % (0-4); Hematocrit 40.8 % (37.0-47.0); Hemoglobin 13.8 g/dl (12.0-16.0); Imm Gran Abs Auto 0.02 X10*3/uL (0.00-0.03); Imm Gran Pct Auto 0.3 % (0.0-0.4); Lymphocytes Absolute Auto 1.6 X10*3/uL (1.2-4.9); Lymphocytes Percent Auto 27.7 % (20-40); Mean Corpuscular HGB Conc 33.8 g/dl (31.0-35.0); Mean Corpuscular Hemoglobin 30.2 pg (27.0-33.0); Mean Corpuscular Volume 89.3 fL (80.0-98.0); Mean Platelet Volume 9.4 fL (9.4-12.3); Monocytes Absolute Auto 1.1 X10*3/uL (0.1-1.2); Monocytes Percent Auto 17.9 % (2-11); Neutrophils Absolute Auto 2.6 x10*3/uL (2.0-8.3); Neutrophils Percent Auto 44.3 % (45-73); OBS Int Ctl Valid YES; OBS1 POSITIVE (NEGATIVE); Platelet Count 255 X10*3/uL (160-400); Red Blood Count 4.57 X10*6/uL (4.20-5.50); Red Cell Distribution Width 12.7 % (11.0-16.0); White Blood Count 5.9 X10*3/uL (4.8-10.8)
--- NOTE | 2022-04-05 15:50 | ED.GENADULT ---
HPI - General Adult General Chief complaint: Vaginal Bleeding Stated complaint: Vag Bleed Dementia Time Seen by Provider: 04/05/22 15:01 Source: patient and family Mode of arrival: ambulatory Limitations: altered mental status (Dementia) History of Present Illness HPI narrative: Patient is an 81-year-old female who presents to the emergency department with her for evaluation of bleeding. Her this 1st began , 6 days ago. He states that the bleeding has been intermittent and he thought that it may be vaginal bleeding. When asking the patient she states she has been having some blood in her urine, she does however have a history of dementia. He states that last night he had to change her brief twice due to the amount of bright red bleeding that he noticed. Patient is on Eliquis as she has a history of atrial fibrillation and pulmonary embolism. When asked, patient and her denies fevers, chills, chest pain, shortness of breath, nausea, vomiting, abdominal pain, constipation, diarrhea, dysuria, urinary frequency/urgency/hesitancy. Related Data Previous Rx's Medication Instructions Recorded apixaban 5 mg tablet 5 mg PO BID #180 tabs 11/26/21 haloperidol 0.5 mg tablet 0.5 mg PO BEDTIME #90 tabs 11/26/21 metoprolol tartrate 25 mg tablet 25 mg PO BID 90 days #180 tabs 02/23/22 Allergies Allergy/AdvReac Type Severity Reaction Status Date / Time epinephrine Allergy Unknown Unknown Verified 03/02/22 13:46 Review of Systems Review of Systems: Constitutional: No weight loss, fever, chills, weakness or fatigue. Skin: No rash or itching. Cardiovascular: No chest pain Respiratory: No shortness of breath or cough Gastrointestinal: No anorexia, nausea, vomiting or diarrhea. No abdominal pain or bloody/ dark stool. Genitourinary: No burning micturition. No urinary frequency or incontinence. Musculoskeletal: No muscle pain, back pain, joint pain or stiffness. Psychiatric: No depression or anxiety. Yes all other systems are reviewed and are negative PMFSH Past Medical History Attestation statement: The following information was validated with the patient. Source: old records reviewed Medical History Atrial fibrillation Dementia Dementia Hypertension Post-menopausal Pulmonary embolism Rectal bleed Screening for breast cancer Subacute massive pulmonary embolism Ulcerative colitis Surgical History History of section History of colonoscopy History of left knee replacement Hx of sigmoidoscopy Family History Family History Father Hypertension Mother No problems noted. Son No problems noted. Son No problems noted. Daughter No problems noted. Other Mental health disorder Social History Social History (Updated 04/05/22 @ 19:31 by CHARLIE Lira) Household Members: Spouse Housing: House Do you presently have visiting nurse or other home services: No Alcohol intake: never Patient Tobacco Use Status: Never used Tobacco e-Cigarette/Vaping Use: Never Used Second Hand Smoke Exposure: No Advance Directives: No service: No Current occupational status: retired Cognitive needs: No Hearing needs: Yes (needs hearing aids) Vision needs: Yes Physical Exam ED Vital Signs: Vital Signs - 24 hr 04/05/22 08:30 04/05/22 12:41 04/05/22 17:53 Temperature 97.7 F 97.4 F 99.1 F Pulse Rate 91 78 71 Respiratory Rate 20 18 16 Blood Pressure 122/70 108/55 L 108/58 L Pulse Oximetry 97 98 98 Oxygen Delivery Method Room Air Room Air Room Air BMI result Body Mass Index 27.6 Appearance: Alert.?Oriented to person, place and time. No acute distress.?Normal affect. Eyes: Pupils equal, round and reactive to light.? ENT: Pharynx normal.?? Neck: Normal inspection.? Neck supple.?? CVS: Heart sounds normal. Normal heart rate and rhythm.? Pulses normal.?? Respiratory: No respiratory distress.? Lung sounds clear to auscultation bilaterally?? Abdomen: Soft and non-tender. Normoactive bowel sounds. No pulsatile mass.?? Genitourinary/ Rectal: Performed with air liaison and special staff, ED RN. No notable bleeding from urethra or vaginal orifice. Rectal exam without notable fissures. No active bleeding. Upon digital rectal examination presence of dark red blood from rectum Skin: Skin warm and dry.? Normal skin color.? Extremities: No lower extremity edema.? No focal neuro deficits. Ambulates with normal steady gait. Course Course Course Narrative: Patient is an 81-year-old female with a past medical history of atrial fibrillation, pulmonary embolism, on chronic anticoagulation with Eliquis, ulcerative colitis who underwent a flex sigmoidoscopy in December 2021 and had last colonoscopy in 2020 which was unremarkable. Presenting to emergency department for evaluation of bleeding. Concern from patient and her that bleeding is coming from genital region, believed it to be vaginal bleeding patient report indicates hematuria. Patient with a history of dementia, not a great historian. Upon AZALIA, notable dark red blood from rectum then appeared. Abdominal exam is benign. No evidence of bleeding from the vaginal orifice. Had labs obtained in triage approximately 6 hours prior to examination which showed an overall unremarkable CBC and CMP. Will repeat CBC and obtain CT of the abdomen and pelvis with GI bleed protocol Reevaluation(s) Reevaluation #1: Repeat CBC is stable H&H 13.8/40.7 initially, 13.8/40.8 upon repeat. Platelet counts are normal. Occult stool is positive. Received call from radiology. CT of the abdomen shows severe wall thickening of the left hemicolon and rectum suggesting colitis and proctocolitis cannot exclude ischemic colitis. Blood cultures, lactic acid, Levaquin and metronidazole I did order. Contacted GI on-call Dr. Drake who recommends NPO, stopping Eliquis at this time, IV antibiotics and admission to medicine service. Time: 17:46 Reevaluation #2: Consulted with Surgery, Dr. Acevedo. No recommendation for CT angio at this time, given she had IV contrast with CT. Advises IV antibiotics, admission to medicine service, advised patient would not be surgical candidate at this time as she is on Eliquis. Is recommended obtaining lactic acid, which is already pending. Spoke with hospitalist Dr. Daley, who accepts patient for hospital admission to medicine service. Patient and family updated on plan of care and agreeable for admission. Time: 18:30 Medical Decision Making Medical Records Medical records reviewed: Yes I reviewed the patient's medical records. Lab Data Lab results reviewed: Yes I reviewed the patient's lab results. Result diagrams: 04/05/22 15:41 04/05/22 08:43 Labs: Lab Results 04/05/22 04/05/22 04/05/22 Range/Units 08:42 08:43 08:43 WBC 6.5 (4.8-10.8) X10*3/uL RBC 4.70 (4.20-5.50) X10*6/uL Hgb 13.8 (12.0-16.0) g/dl Hct 40.7 (37.0-47.0) % MCV 86.6 (80.0-98.0) fL MCH 29.4 (27.0-33.0) pg MCHC 33.9 (31.0-35.0) g/dl RDW 12.5 (11.0-16.0) % Plt Count 262 (160-400) X10*3/uL MPV 9.3 L (9.4-12.3) fL Immature Gran % (Auto) 0.3 (0.0-0.4) % Neut % (Auto) 53.3 (45-73) % Lymph % (Auto) 21.5 (20-40) % Billings % (Auto) 15.5 H (2-11) % Eos % (Auto) 8.5 H (0-4) % Baso % (Auto) 0.9 (0-2) % Lymph # (Auto) 1.4 (1.2-4.9) X10*3/uL Billings # (Auto) 1.0 (0.1-1.2) X10*3/uL Eos # (Auto) 0.6 H (0.0-0.4) X10*3/uL Baso # (Auto) 0.1 (0.0-0.2) X10*3/uL Abs Immat Gran (auto) 0.02 (0.00-0.03) X10*3/uL Absolute Neuts (auto) 3.5 (2.0-8.3) x10*3/uL Absolute Nucleated RBC 0.000 (0.0-0.012) X10*3/uL Nucleated RBC % (auto) 0.0 (0.0-0.2) /100WBC ESR (0-20) MM/HR PT (10.0-13.1) SEC INR (0.9-1.1) Sodium 140 (135-145) mmol/L Potassium 3.5 (3.3-5.1) mmol/L Chloride 106 (96-108) mmol/L Carbon Dioxide 22 (22-29) mmol/L Anion Gap 16 (12-20) BUN 15 (9-16) mg/dL Creatinine 0.71 (0.5-1.4) mg/dL Estim Creat Clear Calc 66.4 Estimated GFR > 60 Random Glucose 146 H (60-115) mg/dL Lactic Acid (0.5-2.0) mmol/L Calcium 8.7 D (8.4-10.2) mg/dL Total Bilirubin 0.7 (0.0-1.0) mg/dL Direct Bilirubin 0.3 (0.0-0.5) mg/dL AST 15 (5-31) U/L ALT 7 (0-31) U/L Alkaline Phosphatase 109 (39-117) U/L C-Reactive Protein 2.75 H (< or = 0.50) mg/dL Total Protein 6.2 L (6.5-8.0) g/dL Albumin 3.7 (3.5-5.0) g/dL Lipase 33 (8-78) U/L Stool Occult Blood (NEGATIVE) Blood Type B Negative Antibody Screen NEGATIVE 04/05/22 04/05/22 04/05/22 Range/Units 08:43 15:41 15:41 WBC 5.9 (4.8-10.8) X10*3/uL RBC 4.57 (4.20-5.50) X10*6/uL Hgb 13.8 (12.0-16.0) g/dl Hct 40.8 (37.0-47.0) % MCV 89.3 (80.0-98.0) fL MCH 30.2 (27.0-33.0) pg MCHC 33.8 (31.0-35.0) g/dl RDW 12.7 (11.0-16.0) % Plt Count 255 (160-400) X10*3/uL MPV 9.4 (9.4-12.3) fL Immature Gran % (Auto) 0.3 (0.0-0.4) % Neut % (Auto) 44.3 L (45-73) % Lymph % (Auto) 27.7 (20-40) % Billings % (Auto) 17.9 H (2-11) % Eos % (Auto) 8.6 H (0-4) % Baso % (Auto) 1.2 (0-2) % Lymph # (Auto) 1.6 (1.2-4.9) X10*3/uL Billings # (Auto) 1.1 (0.1-1.2) X10*3/uL Eos # (Auto) 0.5 H (0.0-0.4) X10*3/uL Baso # (Auto) 0.1 (0.0-0.2) X10*3/uL Abs Immat Gran (auto) 0.02 (0.00-0.03) X10*3/uL Absolute Neuts (auto) 2.6 (2.0-8.3) x10*3/uL Absolute Nucleated RBC 0.000 (0.0-0.012) X10*3/uL Nucleated RBC % (auto) 0.0 (0.0-0.2) /100WBC ESR (0-20) MM/HR PT 16.3 H (10.0-13.1) SEC INR 1.4 H (0.9-1.1) Sodium (135-145) mmol/L Potassium (3.3-5.1) mmol/L Chloride (96-108) mmol/L Carbon Dioxide (22-29) mmol/L Anion Gap (12-20) BUN (9-16) mg/dL Creatinine (0.5-1.4) mg/dL Estim Creat Clear Calc Estimated GFR Random Glucose (60-115) mg/dL Lactic Acid (0.5-2.0) mmol/L Calcium (8.4-10.2) mg/dL Total Bilirubin (0.0-1.0) mg/dL Direct Bilirubin (0.0-0.5) mg/dL AST (5-31) U/L ALT (0-31) U/L Alkaline Phosphatase (39-117) U/L C-Reactive Protein (< or = 0.50) mg/dL Total Protein (6.5-8.0) g/dL Albumin (3.5-5.0) g/dL Lipase (8-78) U/L Stool Occult Blood POSITIVE (NEGATIVE) Blood Type Antibody Screen 04/05/22 04/05/22 Range/Units 15:41 18:14 WBC (4.8-10.8) X10*3/uL RBC (4.20-5.50) X10*6/uL Hgb (12.0-16.0) g/dl Hct (37.0-47.0) % MCV (80.0-98.0) fL MCH (27.0-33.0) pg MCHC (31.0-35.0) g/dl RDW (11.0-16.0) % Plt Count (160-400) X10*3/uL MPV (9.4-12.3) fL Immature Gran % (Auto) (0.0-0.4) % Neut % (Auto) (45-73) % Lymph % (Auto) (20-40) % Billings % (Auto) (2-11) % Eos % (Auto) (0-4) % Baso % (Auto) (0-2) % Lymph # (Auto) (1.2-4.9) X10*3/uL Billings # (Auto) (0.1-1.2) X10*3/uL Eos # (Auto) (0.0-0.4) X10*3/uL Baso # (Auto) (0.0-0.2) X10*3/uL Abs Immat Gran (auto) (0.00-0.03) X10*3/uL Absolute Neuts (auto) (2.0-8.3) x10*3/uL Absolute Nucleated RBC (0.0-0.012) X10*3/uL Nucleated RBC % (auto) (0.0-0.2) /100WBC ESR 6 (0-20) MM/HR PT (10.0-13.1) SEC INR (0.9-1.1) Sodium (135-145) mmol/L Potassium (3.3-5.1) mmol/L Chloride (96-108) mmol/L Carbon Dioxide (22-29) mmol/L Anion Gap (12-20) BUN (9-16) mg/dL Creatinine (0.5-1.4) mg/dL Estim Creat Clear Calc Estimated GFR Random Glucose (60-115) mg/dL Lactic Acid 0.9 (0.5-2.0) mmol/L Calcium (8.4-10.2) mg/dL Total Bilirubin (0.0-1.0) mg/dL Direct Bilirubin (0.0-0.5) mg/dL AST (5-31) U/L ALT (0-31) U/L Alkaline Phosphatase (39-117) U/L C-Reactive Protein (< or = 0.50) mg/dL Total Protein (6.5-8.0) g/dL Albumin (3.5-5.0) g/dL Lipase (8-78) U/L Stool Occult Blood (NEGATIVE) Blood Type Antibody Screen Discharge Plan Discharge Clinical Impression: Colitis, BRBPR (bright red blood per rectum), Proctocolitis Patient Disposition: Admitted As Inpatient
[2022-04-05] MEDS: iohexoL 350 MG/ML 100 ML INFUS..BTL IV (16:55)
[2022-04-05 17:53] VITALS: BP 108/58; PULSE 71; RESP 16; TEMP 37.3; O2SAT 98
[2022-04-05 18:36] LABS: Lactic Acid 0.9 mmol/L (0.5-2.0)
--- NOTE | 2022-04-05 18:54 | PM.CNGS ---
History of Present Illness Consult details Consult date: 04/06/22 Narrative: The patient is an 81-year-old woman with a known history of ulcerative colitis being treated by [facility], Dr. Carty, who is also on Eliquis and presented to the emergency department with rectal bleeding. Patient underwent CT of the abdomen and pelvis with IV contrast because concern regarding etiology and the CT did not exclude intestinal ischemia, consequently I was asked to render an opinion. The patient is anticoagulated because of a history of a massive PE. She is last seen in January, by Dr. Tarango in GI for her U/C. This morning the patient is pleasantly confused but denies any abdominal pain. Dementia precludes meaningful information from the patient. History is obtained from the EMR and outpatient records. Review of Systems Review of Systems: Yes all other systems are reviewed and are negative Constitutional: Constitutional: Reports as per [facility] [place] Past Medical History Medical History Atrial fibrillation Dementia Dementia Hypertension Post-menopausal Pulmonary embolism Rectal bleed Screening for breast cancer Subacute massive pulmonary embolism Ulcerative colitis Family History Family History Father Hypertension Mother No problems noted. Son No problems noted. Son No problems noted. Daughter No problems noted. Other Mental health disorder Surgical History Surgical History History of section History of colonoscopy History of left knee replacement Hx of sigmoidoscopy Social History Social History (Updated 04/05/22 @ 19:31 by CHARLIE Lira) Household Members: Spouse Housing: House Do you presently have visiting nurse or other home services: No Alcohol intake: never Patient Tobacco Use Status: Never used Tobacco e-Cigarette/Vaping Use: Never Used Second Hand Smoke Exposure: No Advance Directives: No service: No Current occupational status: retired Cognitive needs: No Hearing needs: Yes (needs hearing aids) Vision needs: Yes Meds Allergies Allergy/AdvReac Type Severity Reaction Status Date / Time epinephrine Allergy Unknown Unknown Verified 03/02/22 13:46 Active Medications: Current Medications Levofloxacin (Levaquin) 750 mg in 150 mls @ 100 mls/hr IV ONCE ONE Stop: 04/05/22 19:30 Metronidazole (Flagyl) 500 mg in 100 mls @ 100 mls/hr IV ONCE ONE Stop: 04/05/22 19:00 Pharmacy Consult (Consult Rx Perform Med Rec) 1 each MISCELLANE ONCE PRN PRN Reason: Consult order Physical Exam Vital Signs: Vital Signs: Last Vital Signs Temp 99.1 F 04/05/22 17:53 Pulse 71 04/05/22 17:53 Resp 16 04/05/22 17:53 BP 108/58 L 04/05/22 17:53 Pulse Ox 98 04/05/22 17:53 O2 Del Method 04/05/22 17:53 BMI result Body Mass Index 27.6 The patient is non-toxic & in good spirits NC/AT, PERRLA, EOMI The patient is pleasantly confused and provides non meaningful answers/tangential answers to questions Sclera anicteric conjunctiva pink and moist Oropharynx is clear with no aphthous ulcers, Mallampati class 2, mucous membranes moist Neck is supple with no masses, adenopathy or bruits Thyroid is nontender and free of dominant masses Heart is regular, normal S1-S2 no rubs or murmurs Lungs are clear and equal anteriorly with no audible wheezing, rubs or dullness to percussion Abdomen is overweight with no demonstrable hernias. Her belly is soft with no localizable discomfort or tenderness No HSM, rebound, rigidity, guarding, masses or bruits are present. Rectal exam is deferred as it was done by the ER provider last night and reported as maroon blood Skin has good turgor and is free of rashes Extremities free of cyanosis clubbing edema Results Labs Result diagrams: 04/06/22 06:24 04/05/22 08:43 Labs: Abnormal lab results 04/05/22 04/05/22 04/05/22 Range/Units 08:43 08:43 08:43 MPV 9.3 L (9.4-12.3) fL Neut % (Auto) (45-73) % Cross % (Auto) 15.5 H (2-11) % Eos % (Auto) 8.5 H (0-4) % Eos # (Auto) 0.6 H (0.0-0.4) X10*3/uL PT 16.3 H (10.0-13.1) SEC INR 1.4 H (0.9-1.1) Random Glucose 146 H (60-115) mg/dL Total Protein 6.2 L (6.5-8.0) g/dL 04/05/22 Range/Units 15:41 MPV (9.4-12.3) fL Neut % (Auto) 44.3 L (45-73) % Cross % (Auto) 17.9 H (2-11) % Eos % (Auto) 8.6 H (0-4) % Eos # (Auto) 0.5 H (0.0-0.4) X10*3/uL PT (10.0-13.1) SEC INR (0.9-1.1) Random Glucose (60-115) mg/dL Total Protein (6.5-8.0) g/dL Short CBC 04/05/22 04/05/22 Range/Units 08:43 15:41 WBC 6.5 5.9 (4.8-10.8) X10*3/uL Hgb 13.8 13.8 (12.0-16.0) g/dl Hct 40.7 40.8 (37.0-47.0) % Plt Count 262 255 (160-400) X10*3/uL BMP 04/05/22 08:43 Sodium 140 Potassium 3.5 Chloride 106 Carbon Dioxide 22 BUN 15 Creatinine 0.71 Calcium 8.7 D Liver Function 04/05/22 Range/Units 08:43 Total Bilirubin 0.7 (0.0-1.0) mg/dL Direct Bilirubin 0.3 (0.0-0.5) mg/dL AST 15 (5-31) U/L ALT 7 (0-31) U/L Alkaline Phosphatase 109 (39-117) U/L Albumin 3.7 (3.5-5.0) g/dL All other labs normal. Imaging Abdomen CT scan report/results: report reviewed and image reviewed CT scan - pelvis: report reviewed and image reviewed Assessment and Plan (1) Colitis: Status: Acute (2) BRBPR (bright red blood per rectum): Status: Acute (3) Proctocolitis: Status: Acute (4) Dementia: Qualifiers: Dementia type: unspecified type Dementia behavioral disturbance: without behavioral disturbance Qualified Code(s): F03.90 - Unspecified dementia without behavioral disturbance Status: Acute (5) Atrial fibrillation: Status: Acute (6) Pulmonary embolism: Status: Acute (7) Subacute massive pulmonary embolism: Status: Acute (8) Anticoagulated: Status: Acute Plan Ulcerative colitis would be the most likely etiology given the patient's history. Cessation of anticoagulation is recommended given her bleeding but deferred to the primary service. Colonic ischemia is typically results in mucosal sloughing rather than transmural ischemia. Given the patient's benign abdomen, there is no role for surgical intervention at this time. Which trend labs/hemoglobin, maintain good IV access and provide supportive management until the bleeding stops. Consider vascular consultation if there is ongoing bleeding and possible need to embolize the bleeding source, however this is not apparent at this time. Will follow. Thank you for asking me to participate in her care. Procedures Date of Service Date of Service: 04/06/22
[2022-04-05 19:12] LABS: C Reactive Protein 2.75 mg/dL (< or = 0.50)
--- NOTE | 2022-04-05 19:22 | PM.IMHP ---
History of Present Illness Date of Service: 04/05/22 Attending physician on admission: Constance Obando Chief Complaint: BRBPR 81-year-old female with history of dementia with behavioral disturbance, atrial fibrillation anticoagulated with Eliquis, history of pulmonary embolism, ulcerative colitis presented to the ED earlier this morning for evaluation of bleeding that began 6 days ago. Her daughter who is healthcare proxy showered the patient noting blood initially thought to be vaginal. However then the patient states she felt she was having hematuria however, history is vague given her AMS secondary to dementia. Her states she has been unable to walk from the bed to the bathroom without dripping blood onto the floor. She denies any fevers, chills, nausea, vomiting, abdominal pain, pain with defecation, diarrhea, constipation, shortness of breath, palpitations, lightheadedness, or chest pain. Reports her last bowel movement was yesterday and was normal. On arrival, VSS. Hematology studies unremarkable, no anemia with H/H 13.8/40.7 % and 13.8/40.8 when rechecked several hours later. Renal function and electrolyte levels are normal. Lactic acid 0.9. CRP elevated at 2.75. UA pending. CT abdomen/pelvis showing severe wall thickening and hyperenhancement of the left hemicolon and rectum suggesting colitis and proctocolitis with unclear etiology, ischemic colitis cannot be excluded based on distribution. There is no evidence of active GI bleeding on scan. There was noted to be bright red blood from the rectum following AZALIA. ED discussed case with both General surgery and Gastroenterology who are recommending admission with IV antibiotics, no indication for emergent surgery. Review of Systems Review of Systems: General: No fevers, malaise, unintentional weight loss Cardiovascular: No chest pain, palpitations, or leg edema Respiratory: No shortness of breath, wheezing, cough GI: +brbpr. No abdominal pain, nausea, vomiting, diarrhea, constipation, melena Gu: No dysuria, hematuria, increased urinary frequency Neuro: No headaches, weakness, paresthesias Skin: No rashes or lesions [facility] Medical History Atrial fibrillation Dementia Dementia Hypertension Post-menopausal Pulmonary embolism Rectal bleed Screening for breast cancer Subacute massive pulmonary embolism Ulcerative colitis Family History Father Hypertension Mother No problems noted. Son No problems noted. Son No problems noted. Daughter No problems noted. Other Mental health disorder Surgical History History of section History of colonoscopy History of left knee replacement Hx of sigmoidoscopy Social History (Updated 04/05/22 @ 19:31 by CHARLIE Lira) Household Members: Spouse Housing: House Do you presently have visiting nurse or other home services: No Alcohol intake: never Patient Tobacco Use Status: Never used Tobacco e-Cigarette/Vaping Use: Never Used Second Hand Smoke Exposure: No Advance Directives: No service: No Current occupational status: retired Cognitive needs: No Hearing needs: Yes (needs hearing aids) Vision needs: Yes Meds Allergies Allergy/AdvReac Type Severity Reaction Status Date / Time epinephrine Allergy Unknown Unknown Verified 03/02/22 13:46 Active Medications: Current Medications Levofloxacin (Levaquin) 750 mg in 150 mls @ 100 mls/hr IV ONCE ONE Stop: 04/05/22 19:30 Pharmacy Consult (Consult Rx Perform Med Rec) 1 each MISCELLANE ONCE STA Stop: 04/05/22 19:08 Physical Exam Vital Signs and Narrative: Vital Signs: Last Vital Signs Temp 99.1 F 04/05/22 17:53 Pulse 71 04/05/22 17:53 Resp 16 04/05/22 17:53 BP 108/58 L 04/05/22 17:53 Pulse Ox 98 04/05/22 17:53 O2 Del Method 04/05/22 17:53 BMI result Body Mass Index 27.6 Constitutional - Awake and Alert, No apparent distress Eyes - PERRLA, EOMI Cardiovascular - S1S2, RRR, No edema Respiratory - Normal lung expansion, Normal respiratory effort, No respiratory distress, CTA bilaterally Gastrointestinal - NT / ND; +BS; No rebound or guarding Extremities - no calf tenderness bilaterally, no swelling Musculoskeletal - Normal inspection, normal ROM Skin - Warm/Dry Neurological - Alert & oriented to self only. CN II-XII in tact, 5/5 strength BUE and BLE Results Labs CBC and Chem 7: 04/05/22 15:41 04/05/22 08:43 Labs: Laboratory Results - last 24 hr 04/05/22 04/05/22 04/05/22 08:42 08:43 08:43 MCV 86.6 MCH 29.4 MCHC 33.9 RDW 12.5 Plt Count 262 MPV 9.3 L Immature Gran % (Auto) 0.3 Neut % (Auto) 53.3 Lymph % (Auto) 21.5 Levy % (Auto) 15.5 H Eos % (Auto) 8.5 H Baso % (Auto) 0.9 Lymph # (Auto) 1.4 Levy # (Auto) 1.0 Eos # (Auto) 0.6 H Baso # (Auto) 0.1 Abs Immat Gran (auto) 0.02 Absolute Neuts (auto) 3.5 Absolute Nucleated RBC 0.000 Nucleated RBC % (auto) 0.0 PT INR Anion Gap 16 Estim Creat Clear Calc 66.4 Estimated GFR > 60 Random Glucose 146 H Lactic Acid Calcium 8.7 D Total Bilirubin 0.7 Direct Bilirubin 0.3 AST 15 ALT 7 Alkaline Phosphatase 109 C-Reactive Protein 2.75 H Total Protein 6.2 L Albumin 3.7 Lipase 33 Stool Occult Blood Blood Type B Negative Antibody Screen NEGATIVE 04/05/22 04/05/22 04/05/22 08:43 15:41 15:41 MCV 89.3 MCH 30.2 MCHC 33.8 RDW 12.7 Plt Count 255 MPV 9.4 Immature Gran % (Auto) 0.3 Neut % (Auto) 44.3 L Lymph % (Auto) 27.7 Levy % (Auto) 17.9 H Eos % (Auto) 8.6 H Baso % (Auto) 1.2 Lymph # (Auto) 1.6 Levy # (Auto) 1.1 Eos # (Auto) 0.5 H Baso # (Auto) 0.1 Abs Immat Gran (auto) 0.02 Absolute Neuts (auto) 2.6 Absolute Nucleated RBC 0.000 Nucleated RBC % (auto) 0.0 PT 16.3 H INR 1.4 H Anion Gap Estim Creat Clear Calc Estimated GFR Random Glucose Lactic Acid Calcium Total Bilirubin Direct Bilirubin AST ALT Alkaline Phosphatase C-Reactive Protein Total Protein Albumin Lipase Stool Occult Blood POSITIVE Blood Type Antibody Screen 04/05/22 18:14 MCV MCH MCHC RDW Plt Count MPV Immature Gran % (Auto) Neut % (Auto) Lymph % (Auto) Levy % (Auto) Eos % (Auto) Baso % (Auto) Lymph # (Auto) Levy # (Auto) Eos # (Auto) Baso # (Auto) Abs Immat Gran (auto) Absolute Neuts (auto) Absolute Nucleated RBC Nucleated RBC % (auto) PT INR Anion Gap Estim Creat Clear Calc Estimated GFR Random Glucose Lactic Acid 0.9 Calcium Total Bilirubin Direct Bilirubin AST ALT Alkaline Phosphatase C-Reactive Protein Total Protein Albumin Lipase Stool Occult Blood Blood Type Antibody Screen Imaging Radiologist's Impressions: Impressions Abdomen/Pelvis CT 04/05/22 17:04 IMPRESSION: No evidence of active GI bleeding. Severe wall thickening and hyperenhancement of the left hemicolon and rectum suggesting colitis and proctocolitis. Etiology is uncertain, ischemic origin is not excluded given distribution. This examination was not performed as a CTA, limiting evaluation of arterial patency. Incidentally noted multiple new pulmonary nodules, that are possibly infectious or inflammatory in etiology. Recommend a short-term follow-up chest CT to reassess. This critical result was discussed with Sherley Coffman NP at 04/05/2022 5:43 PM and it was ascertained that the content and urgency of the report was understood at the time of direct communication. Assessment and Plan (1) Colitis: Status: Acute (2) BRBPR (bright red blood per rectum): Status: Acute Plan 81-year-old female with history of dementia with behavioral disturbance, atrial fibrillation anticoagulated with Eliquis, history of pulmonary embolism, ulcerative colitis admitted for acute proctocolitis. #Acute proctocolitis -CT abdomen/pelvis showing severe wall thickening and hyperenhancement of the left hemicolon and rectum suggesting colitis and proctocolitis with unclear etiology, cannot exclude ischemic colitis given distribution -No leukocytosis, lactic acid normal, VSS. No severe sepsis -Abd exam benign -Gastroenterology and general surgery consulted -Per gen surgery, no indication for emergent surgery -Per gen surgery, continue metronidazole and Levaquin -keep NPO per surgery -follow CBC due to bleeding. No evidence of anemia on CBC x2 -admit to telemetry # paroxysmal atrial fibrillation-rate controlled -hold Eliquis due to GI bleeding -continue metoprolol # history of PE -hold Eliquis as above # dementia with behavioral disturbance-baseline -continue Haldol at bedtime DVT prophylaxis-hold anticoagulation due to GI bleeding. Mechanical/ambulation Full code Patient requires inpatient stay of at least 2 midnights due to acute proctocolitis question of ischemia requiring IV antibiotics and further expert consultation and monitoring for acute blood loss. Quality Stroke Does the patient have a stroke diagnosis?: No VTE Prior VTE?: No VTE Risk Level:: Medical - moderate - high VTE Device Contraindication: N/A - Device Ordered VTE Drug Contraindication: Treatment Not Indicated
[2022-04-05] MEDS: metroNIDAZOLE/NS 500 MG/100 ML PIGGYBACK 100 MG IV (19:35)
--- NOTE | 2022-04-05 19:38 | PHA.MEDREC ---
Pharmacy Consult ? Medication Reconciliation Pharmacy has completed the medication reconciliation.
[2022-04-05 19:52] LABS: Erythrocyte Sedimentation Rate 6 MM/HR (0-20)
[2022-04-05] MEDS: levoFLOXacin/D5W 750 MG/150 ML PIGGYBACK 100 MG IV (20:02)
[2022-04-05] MEDS: HaloperidoL 0.5 MG TABLET PO (20:41)
[2022-04-05] MEDS: Lactated Ringers 1,000 ML 100 ML IVCONT (21:23)
[2022-04-05] MEDS: OLANZapine 10 MG VIAL 5 MG IM (22:06)
[2022-04-06] VITALS (9 sets, daily range): BP systolic 106–136; BP diastolic 59–79; PULSE 66–155; RESP 16–18; TEMP 36.1–37.5; O2SAT 94–99; BMI 27.8
[2022-04-06] MEDS: 0.9 % Sodium Chloride Flush 3 ML SYRINGE IVFLUSH ×2 (01:37→09:02)
[2022-04-06] MEDS: metroNIDAZOLE/NS 500 MG/100 ML PIGGYBACK 100 MG IV ×3 (03:40→19:31)
[2022-04-06] MEDS: Lactated Ringers 1,000 ML 100 ML IVCONT (06:04)
[2022-04-06 06:28] LABS: MANUAL DIFF FLAG NO
[2022-04-06 06:30] LABS: Basophils Absolute Auto 0.1 X10*3/uL (0.0-0.2); Basophils Percent Auto 1.2 % (0-2); Eosinophils Absolute Auto 0.5 X10*3/uL (0.0-0.4); Eosinophils Percent Auto 8.6 % (0-4); Hematocrit 39.6 % (37.0-47.0); Hemoglobin 13.5 g/dl (12.0-16.0); Imm Gran Abs Auto 0.02 X10*3/uL (0.00-0.03); Imm Gran Pct Auto 0.3 % (0.0-0.4); Lymphocytes Absolute Auto 1.2 X10*3/uL (1.2-4.9); Lymphocytes Percent Auto 20.4 % (20-40); Mean Corpuscular HGB Conc 34.1 g/dl (31.0-35.0); Mean Corpuscular Hemoglobin 30.4 pg (27.0-33.0); Mean Corpuscular Volume 89.2 fL (80.0-98.0); Mean Platelet Volume 9.1 fL (9.4-12.3); Monocytes Absolute Auto 1.1 X10*3/uL (0.1-1.2); Monocytes Percent Auto 19.2 % (2-11); Neutrophils Absolute Auto 2.9 x10*3/uL (2.0-8.3); Neutrophils Percent Auto 50.3 % (45-73); Platelet Count 216 X10*3/uL (160-400); Red Blood Count 4.44 X10*6/uL (4.20-5.50); Red Cell Distribution Width 12.6 % (11.0-16.0); White Blood Count 5.8 X10*3/uL (4.8-10.8)
--- NOTE | 2022-04-06 08:50 | PC.NURSE ---
patient at baseline . alert to self . has history of dementia . looking for has to go downstairs to make dinner . Patient currently NPO . pearrla . lungs clear . heart rate regular at 78 beats per minute . skin pink warm and dry . abdomen soft . rebound tenderness noted in abdomen . cant tell me pain level just I it hurts when I poke it . Patient transferred into a hospital bed for more comfort . patient made aware of plan of care .
[2022-04-06 10:57] LABS: COVID-19 Test Negative (Negative); IDNOW Serial# 9DB6401D
--- NOTE | 2022-04-06 10:58 | PC.NURSE ---
Dr Tracee Larose at bedside for admission assessment . patient aware of plan of care .
--- NOTE | 2022-04-06 12:03 | P.CNGI_ITS ---
History of Present Illness Data of Consult Service Date: 04/06/22 Primary Care Provider: Salinas Irby MD HPI This is an 81-year-old female with past medical history of dementia, atrial fibrillation on Eliquis, hypertension, pulmonary embolism and recent DVT, with recent diagnosis of ? ulcerative colitis who presented to the emergency room for lower GI bleeding. History was obtained from the chart as well as the at bedside. Reportedly patient was noted to have blood in her briefs for the past 6 days. This was without any abdominal pain, nausea, vomiting or changes in appetite. Last Eliquis dose was Monday morning. Patient herself appears in no distress. Does not have any abdominal complaints. Bedside commode has dark maroon liquid blood, no clots noted. In terms of the diagnosis of ulcerative colitis, she was seen in September 2020 for hematochezia and diarrhea. Colonoscopy was completed as inpatient as she was also found to have atrial fibrillation at that time and needed anticoagulation. However, it appears that while patient did receive IV steroids inpatient she was not able to continue any therapy after discharge. Repeat exam (see below) was not consistent with IBD. Recent endoscopy: 09/2020: Mid and distal transverse colon extending all the way to the rectum notable for active colitis with significant changes noted more distally. There was friability, granularity, edema and ulceration. No skip lesions. No polyps. Path: Chronic severely active colitis no granulomas or dysplasia. 12/2021: Normal mucosa without any friability or ulceration. Random biopsies were obtained from sigmoid colon. Path: Colon mucosa with minor crypt distortion and increased lamina propria eosinophils, focal extend into the muscularis mucosa. No active inflammation and basal lymphoplasmacytic infiltrate. No organism vasculitis or granulomas are identified. Appearance does not suggest chronic inflammatory bowel disease at this time. Findings may be due to drug-induced colitis, hypereosinophilia or idiopathic colitis. Review of Systems Review of Systems: Yes Unobtainable due to mental condition PMFSH Past Medical History Medical History Atrial fibrillation Dementia Dementia Hypertension Post-menopausal Pulmonary embolism Rectal bleed Screening for breast cancer Subacute massive pulmonary embolism Ulcerative colitis Family History Family History Father Hypertension Mother No problems noted. Son No problems noted. Son No problems noted. Daughter No problems noted. Other Mental health disorder Surgical History Surgical History History of section History of colonoscopy History of left knee replacement Hx of sigmoidoscopy Social History Social History Household Members: Spouse Housing: House Do you presently have visiting nurse or other home services: No Alcohol intake: never Patient Tobacco Use Status: Never used Tobacco e-Cigarette/Vaping Use: Never Used Second Hand Smoke Exposure: No Use of substances other than those prescribed or required for medical reasons: No Are you DNR?: No Advance Directives: Yes Advance Directives Information Provided: Yes Advance Directives on File: Yes Advance Directives Date on File: 04/06/22 service: No Current occupational status: retired Cognitive needs: No Hearing needs: Yes (needs hearing aids) Vision needs: Yes Meds Allergies Allergy/AdvReac Type Severity Reaction Status Date / Time epinephrine Allergy Unknown Unknown Verified 03/02/22 13:46 Active Medications: Current Medications Acetaminophen (Acetaminophen 325 Mg Tablet) 650 mg PO Q6H PRN PRN Reason: Pain, Mild, fever Docusate Sodium (Docusate Sodium 100 Mg Capsule) 100 mg PO DAILY PRN PRN Reason: Constipation Haloperidol (Haloperidol 0.5 Mg Tablet) 0.5 mg PO BEDTIME [facility] Last Admin: 04/05/22 20:41 Dose: 0.5 mg Lactated Ringer's (Lr) 1,000 mls @ 100 mls/hr IVCONT .Q10H NESTOR Last Admin: 04/06/22 06:04 Dose: 100 mls/hr Levofloxacin (Levaquin) 750 mg in 150 mls @ 100 mls/hr IV Q24H NESTOR Metronidazole (Flagyl) 500 mg in 100 mls @ 100 mls/hr IV Q8H NESTOR Last Admin: 04/06/22 10:53 Dose: 100 mls/hr Ondansetron HCl (Ondansetron Hcl 4 Mg/2 Ml Vial) 4 mg IVPUSH Q8H PRN PRN Reason: Nausea and Vomiting Sodium Biphosphate/Sodium Phosphate (Sodium Phosphate,[place]-Dibasic 133 Ml Enema) 133 ml GA ONCE ONE Stop: 04/06/22 12:00 Sodium Chloride (0.9 % Sodium Chloride Flush 3 Ml Syringe) 3 ml IVFLUSH QSHIFT NESTOR Last Admin: 04/06/22 09:02 Dose: 3 ml Physical Exam Vital Signs: Vital Signs: Last Vital Signs Temp 97.9 F 04/06/22 05:59 Pulse 83 04/06/22 11:34 Resp 18 04/06/22 11:34 BP 120/77 04/06/22 11:34 Pulse Ox 98 04/06/22 11:34 O2 Del Method 04/06/22 11:34 BMI result Body Mass Index 27.6 Gen appear: No acute distress, well nourished HEENT: no icterus, Chest: No overt resp distress CVS: S1/S2, irregular Abd: soft, nontender, nondistended Rectal: deferred as bedside commode with maroon liquidy BM. Psych: Stable affect, holds a communication well but unable to recall events leading to her hospitalisation or recent endoscopy 3 months ago. Ext: no peripheral edema Results Labs CBC & Chem 7: 04/06/22 06:24 04/05/22 08:43 Labs: Short CBC 04/05/22 04/06/22 Range/Units 15:41 06:24 WBC 5.9 5.8 (4.8-10.8) X10*3/uL Hgb 13.8 13.5 (12.0-16.0) g/dl Hct 40.8 39.6 (37.0-47.0) % Plt Count 255 216 (160-400) X10*3/uL Imaging CT scan - abdomen: My impression: Significant wall thickening in rectum, sigmoid and descending colon. Fecal loading. Assessment and Plan (1) Hematochezia: Status: Acute (2) Anticoagulated: Status: Acute (3) Dementia: Qualifiers: Dementia behavioral disturbance: without behavioral disturbance Dementia type: unspecified type Qualified Code(s): F03.90 - Unspecified dementia without behavioral disturbance Status: Acute (4) Atrial fibrillation: Status: Acute (5) Pulmonary embolism: Status: Acute Plan Differentials include colon ischemia, stercoral colitis, inflammation or infection. As patient is high risk for thrombotic events, would expedite endoscopic evaluation to minimize interruption of anticoagulation. Last Eliquis dose was >48h ago. Recommendations: - Check GI panel and C Diff - Serial abd exams - Please keep NPO for flexible sigmoidoscopy today. Matthew was updated, and he also provided consent for the procedure Procedures Date of Service Date of Service: 04/06/22
[2022-04-06] MEDS: Sodium Phosphate,Mono-Dibasic 133 ML ENEMA PR (12:28)
--- NOTE | 2022-04-06 12:46 | MHC.CM.PN ---
Patient has a diagnosis of Dementia with Behavioral Disturbances; CM spoke with /HCP/Matthew @ [phone]. Patient lives in a house with her and required no DME nor services SPRING FORMER. Home no services is the goal and CM has initiated and will follow for dc planning. Patient has received Covid vax X4 and the PCP is Dr. Irby.
--- NOTE | 2022-04-06 12:55 | PC.NURSE ---
patient received enema as ordered the results where large amount of half blood and loose stool . patient tolerated well . at bedside . patient transported to short stay for procedure . at bedside followed . family and patient aware of plan of care .
--- NOTE | 2022-04-06 13:05 | P.CONAN_ITS ---
[facility] Active Problems Active Problems: All Active Problems (Updated 04/06/22 @ 07:45 by Marco Acevedo MD) Anticoagulated (Acute) Colitis (Acute) BRBPR (bright red blood per rectum) (Acute) Proctocolitis (Acute) Thumb pain (Acute) Spider veins (Acute) Screening for hypothyroidism (Acute) Dementia (Acute) Hard of hearing (Acute) Weight loss (Acute) Dementia (Acute) Atrial fibrillation (Acute) Pulmonary embolism (Acute) Subacute massive pulmonary embolism (Acute) Ulcerative colitis (Acute) Adult general medical exam (Acute) Post-menopausal (Acute) Screening for breast cancer (Acute) Past Medical History Medical History Atrial fibrillation Dementia Dementia Hypertension Post-menopausal Pulmonary embolism Rectal bleed Screening for breast cancer Subacute massive pulmonary embolism Ulcerative colitis Family History Family History Father Hypertension Mother No problems noted. Son No problems noted. Son No problems noted. Daughter No problems noted. Other Mental health disorder Family history of problems with anesthesia: No Surgical History Surgical History History of section History of colonoscopy History of left knee replacement Hx of sigmoidoscopy History of Problems with Anesthesia: No Social History Social History (Updated 04/05/22 @ 19:31 by CHARLIE Lira) Household Members: Spouse Housing: House Do you presently have visiting nurse or other home services: No Alcohol intake: never Patient Tobacco Use Status: Never used Tobacco e-Cigarette/Vaping Use: Never Used Second Hand Smoke Exposure: No Use of substances other than those prescribed or required for medical reasons: No Are you DNR?: No Advance Directives: Yes Advance Directives Information Provided: Yes Advance Directives on File: Yes Advance Directives Date on File: 04/06/22 service: No Current occupational status: retired Cognitive needs: No Hearing needs: Yes (needs hearing aids) Vision needs: Yes Meds Allergies Allergy/AdvReac Type Severity Reaction Status Date / Time epinephrine Allergy Unknown Unknown Verified 03/02/22 13:46 Active Medications: Current Medications Acetaminophen (Acetaminophen 325 Mg Tablet) 650 mg PO Q6H PRN PRN Reason: Pain, Mild, fever Docusate Sodium (Docusate Sodium 100 Mg Capsule) 100 mg PO DAILY PRN PRN Reason: Constipation Haloperidol (Haloperidol 0.5 Mg Tablet) 0.5 mg PO BEDTIME [facility] Last Admin: 04/05/22 20:41 Dose: 0.5 mg Lactated Ringer's (Lr) 1,000 mls @ 100 mls/hr IVCONT .Q10H [facility] Last Admin: 04/06/22 06:04 Dose: 100 mls/hr Levofloxacin (Levaquin) 750 mg in 150 mls @ 100 mls/hr IV Q24H NESTOR Metronidazole (Flagyl) 500 mg in 100 mls @ 100 mls/hr IV Q8H [facility] Last Infusion: 04/06/22 12:03 Dose: Infused Ondansetron HCl (Ondansetron Hcl 4 Mg/2 Ml Vial) 4 mg IVPUSH Q8H PRN PRN Reason: Nausea and Vomiting Sodium Chloride (0.9 % Sodium Chloride Flush 3 Ml Syringe) 3 ml IVFLUSH QSHIFT [facility] Last Admin: 04/06/22 09:02 Dose: 3 ml Exam Exam Date and Time: April 06, 2022 1305 Height,Weight and Vital Signs: Height 5 ft 7 in Weight 79.9 kg Last Vital Signs Temp 99.5 F 04/06/22 12:56 Pulse 75 04/06/22 12:56 Resp 18 04/06/22 12:56 BP 134/75 04/06/22 12:56 Pulse Ox 96 04/06/22 12:56 O2 Del Method 04/06/22 12:56 Pertinent Lab Results Pertinent Lab Results: Laboratory Tests 04/05/22 04/05/22 04/05/22 08:42 08:43 08:43 WBC 6.5 RBC 4.70 Hgb 13.8 Hct 40.7 MCV 86.6 MCH 29.4 MCHC 33.9 RDW 12.5 Plt Count 262 MPV 9.3 L Immature Gran % (Auto) 0.3 Neut % (Auto) 53.3 Lymph % (Auto) 21.5 [place] % (Auto) 15.5 H Eos % (Auto) 8.5 H Baso % (Auto) 0.9 Lymph # (Auto) 1.4 [place] # (Auto) 1.0 Eos # (Auto) 0.6 H Baso # (Auto) 0.1 Abs Immat Gran (auto) 0.02 Absolute Neuts (auto) 3.5 Absolute Nucleated RBC 0.000 Nucleated RBC % (auto) 0.0 ESR PT INR Sodium 140 Potassium 3.5 Chloride 106 Carbon Dioxide 22 Anion Gap 16 BUN 15 Creatinine 0.71 Estim Creat Clear Calc 66.4 Estimated GFR > 60 Random Glucose 146 H Lactic Acid Calcium 8.7 D Total Bilirubin 0.7 Direct Bilirubin 0.3 AST 15 ALT 7 Alkaline Phosphatase 109 C-Reactive Protein 2.75 H Total Protein 6.2 L Albumin 3.7 Lipase 33 Stool Occult Blood COVID-19 (JASON) COVID-19 Clin Com Blood Type B Negative Antibody Screen NEGATIVE 04/05/22 04/05/22 04/05/22 08:43 15:41 15:41 WBC 5.9 RBC 4.57 Hgb 13.8 Hct 40.8 MCV 89.3 MCH 30.2 MCHC 33.8 RDW 12.7 Plt Count 255 MPV 9.4 Immature Gran % (Auto) 0.3 Neut % (Auto) 44.3 L Lymph % (Auto) 27.7 [place] % (Auto) 17.9 H Eos % (Auto) 8.6 H Baso % (Auto) 1.2 Lymph # (Auto) 1.6 [place] # (Auto) 1.1 Eos # (Auto) 0.5 H Baso # (Auto) 0.1 Abs Immat Gran (auto) 0.02 Absolute Neuts (auto) 2.6 Absolute Nucleated RBC 0.000 Nucleated RBC % (auto) 0.0 ESR PT 16.3 H INR 1.4 H Sodium Potassium Chloride Carbon Dioxide Anion Gap BUN Creatinine Estim Creat Clear Calc Estimated GFR Random Glucose Lactic Acid Calcium Total Bilirubin Direct Bilirubin AST ALT Alkaline Phosphatase C-Reactive Protein Total Protein Albumin Lipase Stool Occult Blood POSITIVE COVID-19 (JASON) COVID-19 Clin Com Blood Type Antibody Screen 04/05/22 04/05/22 04/06/22 15:41 18:14 06:24 WBC 5.8 RBC 4.44 Hgb 13.5 Hct 39.6 MCV 89.2 MCH 30.4 MCHC 34.1 RDW 12.6 Plt Count 216 MPV 9.1 L Immature Gran % (Auto) 0.3 Neut % (Auto) 50.3 Lymph % (Auto) 20.4 [place] % (Auto) 19.2 H Eos % (Auto) 8.6 H Baso % (Auto) 1.2 Lymph # (Auto) 1.2 [place] # (Auto) 1.1 Eos # (Auto) 0.5 H Baso # (Auto) 0.1 Abs Immat Gran (auto) 0.02 Absolute Neuts (auto) 2.9 Absolute Nucleated RBC 0.000 Nucleated RBC % (auto) 0.0 ESR 6 PT INR Sodium Potassium Chloride Carbon Dioxide Anion Gap BUN Creatinine Estim Creat Clear Calc Estimated GFR Random Glucose Lactic Acid 0.9 Calcium Total Bilirubin Direct Bilirubin AST ALT Alkaline Phosphatase C-Reactive Protein Total Protein Albumin Lipase Stool Occult Blood COVID-19 (JASON) COVID-19 Clin Com Blood Type Antibody Screen 04/06/22 10:30 WBC RBC Hgb Hct MCV MCH MCHC RDW Plt Count MPV Immature Gran % (Auto) Neut % (Auto) Lymph % (Auto) [place] % (Auto) Eos % (Auto) Baso % (Auto) Lymph # (Auto) [place] # (Auto) Eos # (Auto) Baso # (Auto) Abs Immat Gran (auto) Absolute Neuts (auto) Absolute Nucleated RBC Nucleated RBC % (auto) ESR PT INR Sodium Potassium Chloride Carbon Dioxide Anion Gap BUN Creatinine Estim Creat Clear Calc Estimated GFR Random Glucose Lactic Acid Calcium Total Bilirubin Direct Bilirubin AST ALT Alkaline Phosphatase C-Reactive Protein Total Protein Albumin Lipase Stool Occult Blood COVID-19 (JASON) Negative COVID-19 Clin Com See Note Blood Type Antibody Screen Airway Mallampati Class: II TM Dist: >3cm Neck ROM: Full Partial: Upper Heart: rrr Lungs: clear Assessment and Plan Final Anesthetic Review Family History of Problems with Anesthesia: No History of Problems with Anesthesia: No NPO: Yes ASA Class: III Final Preanesthetic Review: No Changes in Pt Med Stat, Meds/Allgs Chart Reviewed, Consent Obtained/Reviewed and Anes Risks/Benef Reviewed Patient Risk: Intermediate Procedure Risk: Low Anesthetic Plan Anesthetic Plan: MAC: Disposition: Standard PACU
--- NOTE | 2022-04-06 13:54 | P.OP_ITS ---
Operative Note Operative Note Date of Service: 04/06/22 Narrative: Procedure: Flexible sigmoidoscopy Indication: Lower GI bleeding Endoscopist: Ligia Drake MD Anesthesia Provider: Dr Curiel Anesthesia type: MAC Instrument: Olympus [id number] Consent: Indication, risks vs benefits, and alternatives were discussed with the patient's and healthcare proxy who gave written informed consent to proceed. EKG, pulse, pulse oximetry and blood pressure were monitored throughout the procedure. Please see anesthesia flowsheet. Procedure: The patient was brought to the procedure room and placed in the left lateral decubitus position. IV medications were administered by the anesthesia provider in attendance. A digital rectal exam was performed which was normal. The gastroscope was then inserted through the anus and advanced through the colon to the transverse colon at 70 cm. Mucosa was carefully examined under high definition white light as the instrument was slowly withdrawn in a retrograde panoramic fashion. Retroflexion was performed in rectum. The procedure was not difficult. There were no immediate obvious complications. Limitations: No limitations. Findings: Mucosa: Petechial hemorrhage, erosions with interspersed pale areas of mucosa were noted start in the rectum all the way up to splenic flexure. The mucosa was friable and spontaneously oozing, worst in sigmoid colon and rectum. Proximal to splenic flexure at 70 cm the mucosa appeared completely normal. Cold forceps biopsies were taken for histology. Protruding lesions: * Medium internal hemorrhoids stigmata of recent bleeding. Impression: 1. Abnormal mucosa, suspicious for colon ischemia (biopsy) 2. Internal hemorrhoids Recommendations: - Follow path results. Although appearance quite suspicious for ischemic colitis. This was reviewed with Dr Acevedo as well. - Resume anticoagulation, preferably with IV heparin. - Vascular surgery consultation - Continue ABx
--- NOTE | 2022-04-06 15:03 | P.PNIM_ITS ---
Subjective Subjective Date of Service: 04/06/22 Interval History: cc: hematochezia interval history:still with some bleeding Cardiovascular Cardiovascular: Reports no additional cardiovascular complaints Respiratory Respiratory: Reports no additional respiratory complaints Physical Exam Vital Signs: Vital Signs: Last Vital Signs Temp 97.0 F 04/06/22 14:11 Pulse 75 04/06/22 14:11 Resp 16 04/06/22 14:11 BP 113/79 04/06/22 14:11 Pulse Ox 99 04/06/22 14:11 O2 Del Method 04/06/22 14:11 BMI result Body Mass Index 27.6 General: AO X 2, no acute distress Resp: CTA bilateral, no accessory muscles used CVS: S1,S2,RRR GI: soft, non tender, non distended Neuro: motor grossly intact, alert Psych: appropriate affect, questionable insight Objective Data Active Medications Acetaminophen (Acetaminophen 325 Mg Tablet) 650 mg PO Q6H PRN PRN Reason: Pain, Mild, fever Docusate Sodium (Docusate Sodium 100 Mg Capsule) 100 mg PO DAILY PRN PRN Reason: Constipation Haloperidol (Haloperidol 0.5 Mg Tablet) 0.5 mg PO BEDTIME [facility] Last Admin: 04/05/22 20:41 Dose: 0.5 mg Documented By: MORGAN Heparin Sodium (Porcine) (Heparin Sodium,Porcine 5,000 Unit/Ml Vial) 3,200 unit 40 unit/kg (3200 unit) IVPUSH PROTOCOL BOLUS PRN; Protocol PRN Reason: 40 unit/kg - Heparin Protocol Heparin Sodium (Porcine) (Heparin Sodium,Porcine 5,000 Unit/Ml Vial) 6,400 unit 80 unit/kg (6400 unit) IVPUSH PROTOCOL BOLUS PRN; Protocol PRN Reason: 80 unit/kg - Heparin Protocol Lactated Ringer's (Lr) 1,000 mls @ 100 mls/hr IVCONT .Q10H [facility] Last Admin: 04/06/22 06:04 Dose: 100 mls/hr Documented By: ALB[place] Levofloxacin (Levaquin) 750 mg in 150 mls @ 100 mls/hr IV Q24H [facility] Metronidazole (Flagyl) 500 mg in 100 mls @ 100 mls/hr IV Q8H [facility] Last Infusion: 04/06/22 12:03 Dose: 0 mls/hr Documented By: HO.PAULINE Heparin Sodium/Sodium Chloride (Heparin Sodium,Porcine/1/2ns) 25,000 unit in 250 mls @ 0 mls/hr IVCONT .Q0M [facility]; Protocol Ondansetron HCl (Ondansetron Hcl 4 Mg/2 Ml Vial) 4 mg IVPUSH Q8H PRN PRN Reason: Nausea and Vomiting Sodium Chloride (0.9 % Sodium Chloride Flush 3 Ml Syringe) 3 ml IVFLUSH QSHIFT [facility] Last Admin: 04/06/22 09:02 Dose: 3 ml Documented By: RUSS Labs CBC & Chem 7: 04/06/22 06:24 04/05/22 08:43 Labs: Laboratory Results - last 24 hr 04/05/22 04/05/22 04/05/22 08:43 15:41 15:41 MCV 89.3 MCH 30.2 MCHC 33.8 RDW 12.7 Plt Count 255 MPV 9.4 Immature Gran % (Auto) 0.3 Neut % (Auto) 44.3 L Lymph % (Auto) 27.7 [place] % (Auto) 17.9 H Eos % (Auto) 8.6 H Baso % (Auto) 1.2 Lymph # (Auto) 1.6 [place] # (Auto) 1.1 Eos # (Auto) 0.5 H Baso # (Auto) 0.1 Abs Immat Gran (auto) 0.02 Absolute Neuts (auto) 2.6 Absolute Nucleated RBC 0.000 Nucleated RBC % (auto) 0.0 ESR Lactic Acid C-Reactive Protein 2.75 H Stool Occult Blood POSITIVE COVID-19 (JASON) COVID-19 Clin Com 04/05/22 04/05/22 04/06/22 15:41 18:14 06:24 MCV 89.2 MCH 30.4 MCHC 34.1 RDW 12.6 Plt Count 216 MPV 9.1 L Immature Gran % (Auto) 0.3 Neut % (Auto) 50.3 Lymph % (Auto) 20.4 [place] % (Auto) 19.2 H Eos % (Auto) 8.6 H Baso % (Auto) 1.2 Lymph # (Auto) 1.2 [place] # (Auto) 1.1 Eos # (Auto) 0.5 H Baso # (Auto) 0.1 Abs Immat Gran (auto) 0.02 Absolute Neuts (auto) 2.9 Absolute Nucleated RBC 0.000 Nucleated RBC % (auto) 0.0 ESR 6 Lactic Acid 0.9 C-Reactive Protein Stool Occult Blood COVID-19 (JASON) COVID-19 Clin Com 04/06/22 10:30 MCV MCH MCHC RDW Plt Count MPV Immature Gran % (Auto) Neut % (Auto) Lymph % (Auto) [place] % (Auto) Eos % (Auto) Baso % (Auto) Lymph # (Auto) [place] # (Auto) Eos # (Auto) Baso # (Auto) Abs Immat Gran (auto) Absolute Neuts (auto) Absolute Nucleated RBC Nucleated RBC % (auto) ESR Lactic Acid C-Reactive Protein Stool Occult Blood COVID-19 (JASON) Negative COVID-19 Clin Com See Note Assessment and Plan (1) Hematochezia: Status: Acute Plan 81-year-old female with a past medical history of dementia, paroxysmal atrial fibrillation, pulmonary embolism, ulcerative colitis presented with hematochezia Hematochezia Likely due to ischemic colitis Hemoglobin stable, continue to monitor Colonoscopy was suspicious for ischemic colitis, biopsies taken, also showed internal hemorrhoids Recommendations were to continue IV antibiotics, rechallenge with IV heparin, consult vascular surgery Paroxysmal atrial fibrillation Metoprolol Rechallenging with anticoagulation with IV heparin, normally on Eliquis History of pulmonary embolism IV heparin for now Dementia with behavioral disturbance 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
--- NOTE | 2022-04-06 15:05 | PC.NURSE ---
dr. haynes and dr. espinoza in pacu both evaluated spoke with patient. plan is heparin gtt ok per m.d. call to lab to order stat ptt-hd
--- NOTE | 2022-04-06 15:18 | PC.NURSE ---
Nurse to nurse given to Arpita RN patient transferring from PACU to floor after procedure . patient and family aware .
[2022-04-06 15:50] LABS: Hematocrit 39.5 % (37.0-47.0); Hemoglobin 13.1 g/dl (12.0-16.0); Mean Corpuscular HGB Conc 33.2 g/dl (31.0-35.0); Mean Corpuscular Hemoglobin 28.9 pg (27.0-33.0); Mean Corpuscular Volume 87.2 fL (80.0-98.0); Mean Platelet Volume 9.2 fL (9.4-12.3); Platelet Count 242 X10*3/uL (160-400); Red Blood Count 4.53 X10*6/uL (4.20-5.50); Red Cell Distribution Width 12.5 % (11.0-16.0); White Blood Count 5.2 X10*3/uL (4.8-10.8)
[2022-04-06 15:55] LABS: INTERNATIONAL NORM RATIO 1.4 (0.9-1.1); Prothrombin Time 16.3 SEC (10.0-13.1)
[2022-04-06] MEDS: Heparin Sodium,Porcine/1/2NS 25,000 UNIT/250 ML IV.SOLN 11.27 UNIT IVCONT (15:56)
[2022-04-06 15:58] LABS: PTT Heparin Drip 30.4 SEC (53-77.9)
--- NOTE | 2022-04-06 17:46 | PC.NURSE ---
Report recieved from ED rn and [employer]. Pt up to floor by stretcher accompanied by surveillance supervisor. Pt oriented to room, at bedside. Pt confused at baseline, A+O to name. 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 HR increased to 150s, pt sitting on bedside. Assissted pt to lay down, HR sustaining above 130s, afib/aflutter on monitor. MD notified, no new orders at this time. Call tan within reach, camera in room, bed alarm on, hourly rounding, safety precautions taken.
[2022-04-06] MEDS: HaloperidoL 0.5 MG TABLET PO (19:41)
--- NOTE | 2022-04-06 20:06 | PC.NURSE ---
pt hep drip stopped at 1999, due to active bleeding from rectum, pool of blood noted on bed and on the floor. MD notified, noted to stopped hep drip.
[2022-04-06 20:43] LABS: Hematocrit 41.8 % (37.0-47.0)
[2022-04-06 22:29] LABS: PTT Heparin Drip 27.1 SEC (53-77.9)
[2022-04-07] VITALS (10 sets, daily range): BP systolic 78–132; BP diastolic 51–84; PULSE 71–116; RESP 16–20; TEMP 36.3–37.3; O2SAT 95–99
[2022-04-07] MEDS: Lactated Ringers 1,000 ML 100 ML IVCONT ×2 (00:41→10:26)
[2022-04-07] MEDS: 0.9 % Sodium Chloride Flush 3 ML SYRINGE IVFLUSH (00:43)
--- NOTE | 2022-04-07 02:33 | PC.NURSE ---
After receiving change of shift report from previous RN and assessing the pt. This RN notified MD that the heparin drip was still on hold and there was no active bleeding and pt was sleeping. MD stated to continue to hold heparin drip and reassess in the morning. SBRN
--- NOTE | 2022-04-07 02:43 | PC.NURSE ---
Pt up to use bathroom, this RN observed hematuria with small blood clots visible. Heparin drip still on hold and MD aware. SBRN
[2022-04-07] MEDS: metroNIDAZOLE/NS 500 MG/100 ML PIGGYBACK 100 MG IV ×2 (03:45→10:25)
--- NOTE | 2022-04-07 04:35 | PC.NURSE ---
Upon assessment, blanchable redness noticed to buttocks along with possible start of a small DTI to left upper buttock/coccyx area. Patient refusing pictures taken. Patient also refusing barrier cream at this time. Patient repositioned with 2 assist.
--- NOTE | 2022-04-07 07:45 | P.CONGS_ITS ---
History of Present Illness Consult details Consult date: 04/07/22 Reason for consult: other (GI bleed) Narrative: Very pleasant 81-year-old female presents for vascular evaluation regarding mesenteric ischemia. She original request was placed by General surgery re garding concerns of mesenteric ischemia. She has a history of ulcerative colitis. Is reported that she has a history a PE which was seen on CT scan from 09/30/2020. In addition she has been maintained on Eliquis for AFib. She was reported to have bright red blood per rectum. There was concern of mesenteric ischemia after colonoscopy. Upon discussion with the patient she denies any food fear or weight loss. She reports that her abdomen feels much better this morning. She now presents to us for follow-up. Review of Systems Review of Systems: Yes all other systems are reviewed and are negative Constitutional: Constitutional: Reports no additional constitutional complaints ENT: Reports Normal hearing present Cardiovascular: Cardiovascular: Denies chest pain, Denies chest pain at rest, Denies chest pain with activity and Denies pedal edema Respiratory: Respiratory: Denies cough Gastrointestinal: Gastrointestinal: Denies abdominal pain Musculoskeletal: Musculoskeletal: Denies abnormal gait, Denies muscle cramps and Denies radiating pain into limb Integumentary/Breasts: Skin/Breast: Denies skin ulcer and Denies wounds Neurologic: Reports Normal hearing present and Denies abnormal gait Psychiatric: Psychiatric: Reports no additional psychiatric complaints PMFSH Past Medical History Medical History Atrial fibrillation Dementia Dementia Hypertension Post-menopausal Pulmonary embolism Rectal bleed Screening for breast cancer Subacute massive pulmonary embolism Ulcerative colitis Family History Family History Father Hypertension Mother No problems noted. Son No problems noted. Son No problems noted. Daughter No problems noted. Other Mental health disorder Surgical History Surgical History History of section History of colonoscopy History of left knee replacement Hx of sigmoidoscopy Social History Social History Household Members: Spouse Housing: House Do you presently have visiting nurse or other home services: No Alcohol intake: never Patient Tobacco Use Status: Never used Tobacco e-Cigarette/Vaping Use: Never Used Second Hand Smoke Exposure: No Advance Directives Date on File: 04/06/22 service: No Current occupational status: retired Cognitive needs: No Hearing needs: Yes (needs hearing aids) Vision needs: Yes Meds Allergies Allergy/AdvReac Type Severity Reaction Status Date / Time epinephrine Allergy Unknown Unknown Verified 03/02/22 13:46 Active Medications: Current Medications Acetaminophen (Acetaminophen 325 Mg Tablet) 650 mg PO Q6H PRN PRN Reason: Pain, Mild, fever Docusate Sodium (Docusate Sodium 100 Mg Capsule) 100 mg PO DAILY PRN PRN Reason: Constipation Haloperidol (Haloperidol 0.5 Mg Tablet) 0.5 mg PO BEDTIME [facility] Last Admin: 04/06/22 19:41 Dose: 0.5 mg Heparin Sodium (Porcine) (Heparin Sodium,Porcine 5,000 Unit/Ml Vial) 3,200 unit 40 unit/kg (3200 unit) IVPUSH PROTOCOL BOLUS PRN; Protocol PRN Reason: 40 unit/kg - Heparin Protocol Heparin Sodium (Porcine) (Heparin Sodium,Porcine 5,000 Unit/Ml Vial) 6,400 unit 80 unit/kg (6400 unit) IVPUSH PROTOCOL BOLUS PRN; Protocol PRN Reason: 80 unit/kg - Heparin Protocol Lactated Ringer's (Lr) 1,000 mls @ 100 mls/hr IVCONT .Q10H [facility] Last Admin: 04/07/22 00:41 Dose: 100 mls/hr Levofloxacin (Levaquin) 750 mg in 150 mls @ 100 mls/hr IV Q24H [facility] Last Admin: 04/06/22 19:24 Dose: Not Given Metronidazole (Flagyl) 500 mg in 100 mls @ 100 mls/hr IV Q8H [facility] Last Infusion: 04/07/22 04:56 Dose: Infused Heparin Sodium/Sodium Chloride (Heparin Sodium,Porcine/1/2ns) 25,000 unit in 250 mls @ 0 mls/hr IVCONT .Q0M [facility]; Protocol Last Titration: 04/06/22 20:08 Dose: Infused Ondansetron HCl (Ondansetron Hcl 4 Mg/2 Ml Vial) 4 mg IVPUSH Q8H PRN PRN Reason: Nausea and Vomiting Sodium Chloride (0.9 % Sodium Chloride Flush 3 Ml Syringe) 3 ml IVFLUSH QSHIFT [facility] Last Admin: 04/07/22 00:43 Dose: 3 ml Physical Exam Vital Signs: Vital Signs: Last Vital Signs Temp 98.7 F 04/07/22 04:00 Pulse 116 H 04/07/22 04:00 Resp 16 04/07/22 04:00 BP 132/81 04/07/22 04:00 Pulse Ox 99 04/07/22 04:00 O2 Del Method 04/07/22 04:00 BMI result Body Mass Index 27.8 Const: General: cooperative, healthy appearing and comfortable Jacoby entation/consciousness: oriented to person, oriented to place and oriented to time HEENT: Head: Yes normal to inspection Neck: Neck: Yes normal visual inspection Carotids: no bruits Chest: Chest palpation & inspection: normal inspection of the chest Resp: Effort & Inspection: normal respiratory effort and able to speak in complete sentences Auscultation: clear to auscultation bilaterally, no crackles, no rales, no rhonchi and no wheezes Cardio: Rate: regular rate Rhythm: regular rhythm Heart sounds: S1 no rmal heart sound present and S2 normal heart sound present Bruits: no carotid bruits Peripheral pulses: Peripheral pulses 2+ throughout GI: Inspection: Yes normal to inspection Skin: Wounds: no wounds Hair: normal Neuro: General: oriented to person, oriented to place and oriented to time Cranial nerves: Yes CN's II-XII intact bilaterally and Yes Normal hearing present Cognition (Neuro): normal cognition Motor exam (neuro): 5/5 motor strength present throughout Extrem: Other: venous exam: No significant superficial varicosities or spider telangiectasias, minimal edema General: No clubbing, No cyanosis and No edema Psych: Appearance: grossly normal Mental Status: mental status grossly normal Speech and movement: Normal speech and movement present Results Labs Result diagrams: 04/06/22 20:36 04/05/22 08:43 Labs: Abnormal lab results 04/06/22 04/06/22 04/06/22 Range/Units 15:43 15:43 22:12 MPV 9.2 L (9.4-12.3) fL PT 16.3 H (10.0-13.1) SEC INR 1.4 H (0.9-1.1) aPTT Heparin Protocol 30.4 L 27.1 L (53-77.9) SEC Short CBC 10/26/22 10/26/22 Range/Units 15:43 20:36 WBC 5.2 (4.8-10.8) X10*3/uL Hgb 13.1 14.0 (12.0-16.0) g/dl Hct 39.5 41.8 (37.0-47.0) % Plt Count 242 (160-400) X10*3/uL All other labs normal. Assessment and Plan (1) Mesenteric ischemia: Status: Acute Plan Unclear if patient has mesenteric ischemia. CT scan results were reviewed and unfortunately this was done without IV contrast. Cannot visualize mesenteric vessels well. The question is is there an element of acute mesenteric ischemia. Her history although she does have dementia it does not appear to be chronic mesenteric ischemia. Have taken the liberty of ordering mesenteric ultrasound to better elucidate the flow on all 3 accesses. At the current time continued medical management. We will monitor her status with you. Thank you for the courtesy of this consultation. Procedures Date of Service Date of Service: 04/07/22
[2022-04-07 08:21] LABS: Hematocrit 40.7 % (37.0-47.0); Hemoglobin 13.7 g/dl (12.0-16.0); Mean Corpuscular HGB Conc 33.7 g/dl (31.0-35.0); Mean Corpuscular Hemoglobin 28.8 pg (27.0-33.0); Mean Corpuscular Volume 85.5 fL (80.0-98.0); Mean Platelet Volume 9.9 fL (9.4-12.3); Platelet Count 239 X10*3/uL (160-400); Red Blood Count 4.76 X10*6/uL (4.20-5.50); Red Cell Distribution Width 12.5 % (11.0-16.0); White Blood Count 4.9 X10*3/uL (4.8-10.8)
[2022-04-07 08:37] LABS: INTERNATIONAL NORM RATIO 1.4 (0.9-1.1); Prothrombin Time 16.8 SEC (10.0-13.1)
[2022-04-07] MEDS: Metoprolol Tartrate 25 MG TABLET PO (08:57)
--- NOTE | 2022-04-07 10:09 | PC.NURSE ---
Addendum entered by Arpita Ochoa RN 04/07/22 17:10: pt with 3 second pause on tele at 1624, notified. Addendum entered by Arpita Ochoa RN 04/07/22 12:52: BP remains low after 500mL bolus, notified. New order for another 500mL bolus of LR. Pt arousable to name but remains somnolent. Legs elevated. Safety precautions remain in place. Addendum entered by Arpita Ochoa RN 04/07/22 11:54: pt BP low, notified. New orders for 500mL bolus of LR and to stop CBI. county administrator per AUG. Original Note: report received from overnight RN, pt with an episode of incont stool, tarry and bright red blood noted, Dr haynes notified. Pt cleaned and barrier cream applied. CBI in place, lombardi draining clear yellow urine. Call tan within reach, camera in room, bed alarm on, hourly rounding, safety precautions in place.
--- NOTE | 2022-04-07 11:28 | HO.PM.IMPN ---
Subjective Subjective Date of Service: 04/07/22 Interval History: cc: hematochezia interval history:still with bleeding, heparin stopped ENT Ears, Nose, Mouth, and Throat: Reports Normal hearing present Cardiovascular Cardiovascular: Reports no additional cardiovascular complaints Respiratory Respiratory: Reports no additional respiratory complaints Neurologic Neurologic: Reports Normal hearing present Physical Exam Vital Signs: Vital Signs: Last Vital Signs Temp 97.3 F 04/07/22 11:09 Pulse 100 04/07/22 11:19 Resp 20 04/07/22 11:09 BP 92/54 L 04/07/22 11:19 Pulse Ox 95 04/07/22 11:09 O2 Del Method 04/07/22 11:09 BMI result Body Mass Index 27.8 Const: General: cooperative, healthy appearing and comfortable Orientation/consciousness: oriented to person, oriented to place and oriented to time HEENT: Head: Yes normal to inspection Neck: Neck: Yes normal visual inspection Carotids: no bruits Chest: Chest palpation & inspection: normal inspection of the chest Resp: Effort & Inspection: normal respiratory effort and able to speak in complete sentences Auscultation: clear to auscultation bilaterally, no crackles, no rales, no rhonchi and no wheezes Cardio: Rate: regular rate Rhythm: regular rhythm Heart sounds: S1 normal heart sound present and S2 normal heart sound present Bruits: no carotid bruits Peripheral pulses: Peripheral pulses 2+ throughout GI: Inspection: Yes normal to inspection Skin: Wounds: no wounds Hair: normal Neuro: General: oriented to person, oriented to place and oriented to time Cranial nerves: Yes CN's II-XII intact bilaterally and Yes Normal hearing present Cognition (Neuro): normal cognition Motor exam (neuro): 5/5 motor strength present throughout Extrem: Other: venous exam: No significant superficial varicosities or spider telangiectasias, minimal edema General: No clubbing, No cyanosis and No edema Psych: Appearance: grossly normal Mental Status: mental status grossly normal Speech and movement: Normal speech and movement present Objective Data Active Medications Acetaminophen (Acetaminophen 325 Mg Tablet) 650 mg PO Q6H PRN PRN Reason: Pain, Mild, fever Docusate Sodium (Docusate Sodium 100 Mg Capsule) 100 mg PO DAILY PRN PRN Reason: Constipation Haloperidol (Haloperidol 0.5 Mg Tablet) 0.5 mg PO BEDTIME [facility] Last Admin: 04/06/22 19:41 Dose: 0.5 mg Documented By: TURNER Heparin Sodium (Porcine) (Heparin Sodium,Porcine 5,000 Unit/Ml Vial) 3,200 unit 40 unit/kg (3200 unit) IVPUSH PROTOCOL BOLUS PRN; Protocol PRN Reason: 40 unit/kg - Heparin Protocol Heparin Sodium (Porcine) (Heparin Sodium,Porcine 5,000 Unit/Ml Vial) 6,400 unit 80 unit/kg (6400 unit) IVPUSH PROTOCOL BOLUS PRN; Protocol PRN Reason: 80 unit/kg - Heparin Protocol Lactated Ringer's (Lr) 1,000 mls @ 100 mls/hr IVCONT .Q10H [facility] Last Admin: 04/07/22 10:26 Dose: 100 mls/hr Documented By: ALEXANDRIA Levofloxacin (Levaquin) 750 mg in 150 mls @ 100 mls/hr IV Q24H [facility] Last Admin: 04/06/22 19:24 Dose: Not Given Documented By: ALEXANDRIA Non-Admin Reason: No Access Metronidazole (Flagyl) 500 mg in 100 mls @ 100 mls/hr IV Q8H [facility] Last Admin: 04/07/22 10:25 Dose: 100 mls/hr Documented By: [place] Heparin Sodium/Sodium Chloride (Heparin Sodium,Porcine/1/2ns) 25,000 unit in 250 mls @ 0 mls/hr IVCONT .Q0M [facility]; Protocol Last Titration: 04/06/22 20:08 Dose: 0 units/kg/hr, 0 mls/hr Documented By: TURNER Co-signed By: MALU Metoprolol Tartrate (Metoprolol Tartrate 25 Mg Tablet) 25 mg PO BID [facility]; Protocol Last Admin: 04/07/22 08:57 Dose: 25 mg Documented By: ALEXANDRIA Ondansetron HCl (Ondansetron Hcl 4 Mg/2 Ml Vial) 4 mg IVPUSH Q8H PRN PRN Reason: Nausea and Vomiting Sodium Chloride (0.9 % Sodium Chloride Flush 3 Ml Syringe) 3 ml IVFLUSH QSHIFT [facility] Last Admin: 04/07/22 09:02 Dose: Not Given Documented By: ALEXANDRIA Non-Admin Reason: IV Running Labs CBC & Chem 7: 04/07/22 07:43 04/05/22 08:43 Labs: Laboratory Results - last 24 hr 04/06/22 04/06/22 04/06/22 15:43 15:43 22:12 MCV 87.2 MCH 28.9 MCHC 33.2 RDW 12.5 Plt Count 242 MPV 9.2 L Absolute Nucleated RBC 0.000 Nucleated RBC % (auto) 0.0 PT 16.3 H INR 1.4 H aPTT Heparin Protocol 30.4 L 27.1 L 04/07/22 04/07/22 07:43 07:43 MCV 85.5 MCH 28.8 MCHC 33.7 RDW 12.5 Plt Count 239 MPV 9.9 Absolute Nucleated RBC 0.000 Nucleated RBC % (auto) 0.0 PT 16.8 H INR 1.4 H aPTT Heparin Protocol Microbiology Microbiology Results: Microbiology 04/05/22 18:20 Blood Culture - Preliminary Blood - Venous No growth after 24 hours. 04/05/22 18:14 Blood Culture - Preliminary Blood - Venous No growth after 24 hours. Assessment and Plan (1) Hematochezia: Status: Acute Plan 81-year-old female with a past medical history of dementia, paroxysmal atrial fibrillation, pulmonary embolism, ulcerative colitis presented with hematochezia Hematochezia Likely due to ischemic colitis Hemoglobin stable, continue to monitor Colonoscopy was suspicious for ischemic colitis, biopsies taken, also showed internal hemorrhoids continue IV antibiotics, rechallenged with IV heparin on 04/06/22 - stopped for rebleed vascular surgery appreciated - follow up doppler avoid hyoptension Paroxysmal atrial fibrillation Metoprolol Rechallenging with anticoagulation with IV heparin, normally on Eliquis History of pulmonary embolism ac on hold Dementia 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
[2022-04-07] MEDS: Lactated Ringers 500 ML 999 ML IV ×2 (11:49→12:41)
--- NOTE | 2022-04-07 11:52 | P.PNGS_ITS ---
Subjective Subjective Date of Service: 04/07/22 Patient reports: no new complaints Interval history: The patient appears to be at her baseline of confusion. She denies any abdominal pain or trouble breathing, but does not recall my name or being in the hospital this morning. She is unsure of rectal bleeding nursing reports that she had a dark stool with some scattered red blood earlier today that was incontinent. Physical Exam Vital Signs: Vital Signs: Last Vital Signs Temp 97.3 F 04/07/22 11:09 Pulse 100 04/07/22 11:19 Resp 20 04/07/22 11:09 BP 92/54 L 04/07/22 11:19 Pulse Ox 95 04/07/22 11:09 O2 Del Method 04/07/22 11:09 BMI result Body Mass Index 27.8 On exam, she is nontoxic Abdomen remains soft with no peritoneal sign. There is no tenderness/discomfort and certainly no peritoneal sign is present Objective Data Active Medications Acetaminophen (Acetaminophen 325 Mg Tablet) 650 mg PO Q6H PRN PRN Reason: Pain, Mild, fever Docusate Sodium (Docusate Sodium 100 Mg Capsule) 100 mg PO DAILY PRN PRN Reason: Constipation Haloperidol (Haloperidol 0.5 Mg Tablet) 0.5 mg PO BEDTIME [facility] Last Admin: 04/06/22 19:41 Dose: 0.5 mg Documented By: TURNER Heparin Sodium (Porcine) (Heparin Sodium,Porcine 5,000 Unit/Ml Vial) 3,200 unit 40 unit/kg (3200 unit) IVPUSH PROTOCOL BOLUS PRN; Protocol PRN Reason: 40 unit/kg - Heparin Protocol Heparin Sodium (Porcine) (Heparin Sodium,Porcine 5,000 Unit/Ml Vial) 6,400 unit 80 unit/kg (6400 unit) IVPUSH PROTOCOL BOLUS PRN; Protocol PRN Reason: 80 unit/kg - Heparin Protocol Lactated Ringer's (Lr) 1,000 mls @ 100 mls/hr IVCONT .Q10H [facility] Last Admin: 04/07/22 10:26 Dose: 100 mls/hr Documented By: ALEXANDRIA Levofloxacin (Levaquin) 750 mg in 150 mls @ 100 mls/hr IV Q24H [facility] Last Admin: 04/06/22 19:24 Dose: Not Given Documented By: ALEXANDRIA Non-Admin Reason: No Access Metronidazole (Flagyl) 500 mg in 100 mls @ 100 mls/hr IV Q8H [facility] Last Infusion: 04/07/22 11:36 Dose: 0 mls/hr Documented By: ALEXANDRIA Heparin Sodium/Sodium Chloride (Heparin Sodium,Porcine/1/2ns) 25,000 unit in 250 mls @ 0 mls/hr IVCONT .Q0M [facility]; Protocol Last Titration: 04/06/22 20:08 Dose: 0 units/kg/hr, 0 mls/hr Documented By: TURNER Co-signed By: MALU Lactated Ringer's (Lr) 500 mls @ 999 mls/hr IV .Q31M [facility] Stop: 04/07/22 12:00 Metoprolol Tartrate (Metoprolol Tartrate 25 Mg Tablet) 25 mg PO BID [facility]; Protocol Last Admin: 04/07/22 08:57 Dose: 25 mg Documented By: ALEXANDRIA Ondansetron HCl (Ondansetron Hcl 4 Mg/2 Ml Vial) 4 mg IVPUSH Q8H PRN PRN Reason: Nausea and Vomiting Sodium Chloride (0.9 % Sodium Chloride Flush 3 Ml Syringe) 3 ml IVFLUSH QSHIFT [facility] Last Admin: 04/07/22 09:02 Dose: Not Given Documented By: ALEXANDRIA Non-Admin Reason: IV Running Labs CBC & Chem 7: 04/07/22 07:43 04/05/22 08:43 Labs: Laboratory Results - last 24 hr 04/06/22 04/06/22 04/06/22 15:43 15:43 22:12 MCV 87.2 MCH 28.9 MCHC 33.2 RDW 12.5 Plt Count 242 MPV 9.2 L Absolute Nucleated RBC 0.000 Nucleated RBC % (auto) 0.0 PT 16.3 H INR 1.4 H aPTT Heparin Protocol 30.4 L 27.1 L 04/07/22 04/07/22 07:43 07:43 MCV 85.5 MCH 28.8 MCHC 33.7 RDW 12.5 Plt Count 239 MPV 9.9 Absolute Nucleated RBC 0.000 Nucleated RBC % (auto) 0.0 PT 16.8 H INR 1.4 H aPTT Heparin Protocol Microbiology Microbiology Results: Microbiology 04/05/22 18:20 Blood Culture - Preliminary Blood - Venous No growth after 24 hours. 04/05/22 18:14 Blood Culture - Preliminary Blood - Venous No growth after 24 hours. Procedures Date of Service Date of Service: 04/07/22 Progress Note: A&P Assessment and plan (1) Mesenteric ischemia: Status: Acute (2) Hematochezia: Status: Acute (3) Anticoagulated: Status: Acute (4) Colitis: Status: Acute (5) BRBPR (bright red blood per rectum): Status: Acute (6) Pulmonary embolism: Status: Acute (7) Subacute massive pulmonary embolism: Status: Acute (8) Atrial fibrillation: Status: Acute Plan Patient's hemoglobin remained stable and her abdominal exam remains benign suggesting that this was mucosal sloughing and is self limited. The patient do es not have an acute, transmural ischemia that requires operative intervention. Vascular input appreciated. Mesenteric U/S study is done but official interpretation is currently pending. Would continue antibiotics and anticoagulation. Given the lack of bright red blood per rectum in large volume, the patient will likely need a BE down the road as an outpatient to rule out a stricture. Can advance diet per comorbidities/limitations re: dementia. Time Spent With Patient Time: Total time spent is greater than 50% in coordination of care (as documented) at patient's floor/unit and/or counseling patient: Quality Stroke Does the patient have a stroke diagnosis?: No VTE Prior VTE?: No VTE Risk Level:: Medical - moderate - high VTE Device Contraindication: N/A - Device Ordered VTE Drug Contraindication: Treatment Not Indicated
[2022-04-07] MEDS: levoFLOXacin/D5W 750 MG/150 ML PIGGYBACK 100 MG IV (17:51)
[2022-04-07 18:04] LABS: Hematocrit 42.9 % (37.0-47.0); Hemoglobin 14.3 g/dl (12.0-16.0)
[2022-04-07] MEDS: iohexoL 350 MG/ML 100 ML INFUS..BTL IV (18:51)
[2022-04-08] VITALS (8 sets, daily range): BP systolic 105–129; BP diastolic 52–79; PULSE 65–123; RESP 16–36; TEMP 36.3–37.3; O2SAT 87–98
[2022-04-08] MEDS: metroNIDAZOLE/NS 500 MG/100 ML PIGGYBACK 100 MG IV ×3 (03:05→20:34)
[2022-04-08 03:31] LABS: Appearance Urine Hazy; Color Urine Yellow; Glucose Urine UA Negative (Negative); Leukocyte Esterase Urine Negative (Negative); Nitrite Urine Negative (Negative); PH 6.5 (5.0-9.0); UMIC TRIGGER UACC YES; Urine Blood Moderate (2+) (Negative); Urine Ketones Negative (Negative); Urine Protein Trace mg/dL (Neg-Trace)
[2022-04-08 03:48] LABS: Squamous Epithelial Cell Urine 0-2 /HPF (0-2); UACC Culture Trigger YES
[2022-04-08 03:49] LABS: Bacteria Urine None Seen (None Seen); Hyaline Casts Urine 0-2 /LPF (0-2)
[2022-04-08 06:43] LABS: Hematocrit 39.7 % (37.0-47.0); Hemoglobin 13.4 g/dl (12.0-16.0); Mean Corpuscular HGB Conc 33.8 g/dl (31.0-35.0); Mean Corpuscular Hemoglobin 29.3 pg (27.0-33.0); Mean Corpuscular Volume 86.9 fL (80.0-98.0); Mean Platelet Volume 9.9 fL (9.4-12.3); Platelet Count 226 X10*3/uL (160-400); Red Blood Count 4.57 X10*6/uL (4.20-5.50); Red Cell Distribution Width 12.5 % (11.0-16.0); White Blood Count 6.7 X10*3/uL (4.8-10.8)
[2022-04-08 07:05] LABS: Anion Gap 13 (12-20); Blood Urea Nitrogen 7 mg/dL (9-16); Calcium 8.3 mg/dL (8.4-10.2); Carbon Dioxide 27 mmol/L (22-29); Chloride 104 mmol/L (96-108); Creatinine Clr Calc Pharmacy 76.3; Estimated Glomerular Filt Rate > 60; Glucose Fasting 94 mg/dL (60-99); Potassium 3.3 mmol/L (3.3-5.1); Sodium 141 mmol/L (135-145)
--- NOTE | 2022-04-08 07:55 | PM.PNGS ---
Subjective Subjective Date of Service: 04/08/22 Patient reports: no new complaints Interval history: Patient seems to be at her baseline regarding dementia. She continues to deny any abdominal pain, chest pain or shortness of breath. She is pleasantly seeming to engage in conversation about holidays. Physical Exam Vital Signs: Vital Signs: Last Vital Signs Temp 98.5 F 04/08/22 07:29 Pulse 20 L 04/08/22 07:29 Resp 20 04/08/22 07:29 BP 126/58 L 04/08/22 07:29 Pulse Ox 95 04/08/22 07:29 O2 Del Method 04/08/22 07:29 BMI result Body Mass Index 27.8 She is nontoxic and smiling She is in no acute distress Abdominal exam is unchanged. There is no tenderness, rebound, rigidity, guarding Conversation with the night nurse stated that there were no bowel movements/bloody rectal discharge or bleeding overnight Objective Data Active Medications Acetaminophen (Acetaminophen 325 Mg Tablet) 650 mg PO Q6H PRN PRN Reason: Pain, Mild, fever Docusate Sodium (Docusate Sodium 100 Mg Capsule) 100 mg PO DAILY PRN PRN Reason: Constipation Haloperidol (Haloperidol 0.5 Mg Tablet) 0.5 mg PO BEDTIME [facility] Last Admin: 04/07/22 21:49 Dose: Not Given Documented By: SADE Non-Admin Reason: Patient Refused Heparin Sodium (Porcine) (Heparin Sodium,Porcine 5,000 Unit/Ml Vial) 3,200 unit 40 unit/kg (3200 unit) IVPUSH PROTOCOL BOLUS PRN; Protocol PRN Reason: 40 unit/kg - Heparin Protocol Heparin Sodium (Porcine) (Heparin Sodium,Porcine 5,000 Unit/Ml Vial) 6,400 unit 80 unit/kg (6400 unit) IVPUSH PROTOCOL BOLUS PRN; Protocol PRN Reason: 80 unit/kg - Heparin Protocol Levofloxacin (Levaquin) 750 mg in 150 mls @ 100 mls/hr IV Q24H [facility] Last Infusion: 04/07/22 23:26 Dose: 100 mls/hr Documented By: SADE Metronidazole (Flagyl) 500 mg in 100 mls @ 100 mls/hr IV Q8H [facility] Last Infusion: 04/08/22 04:26 Dose: 100 mls/hr Documented By: SADE Heparin Sodium/Sodium Chloride (Heparin Sodium,Porcine/1/2ns) 25,000 unit in 250 mls @ 0 mls/hr IVCONT .Q0M [facility]; Protocol Last Titration: 04/06/22 20:08 Dose: 0 units/kg/hr, 0 mls/hr Documented By: TURNER Co-signed By: MALU Metoprolol Tartrate (Metoprolol Tartrate 25 Mg Tablet) 25 mg PO BID [facility]; Protocol Last Admin: 04/07/22 21:49 Dose: Not Given Documented By: SADE Non-Admin Reason: Patient Refused Ondansetron HCl (Ondansetron Hcl 4 Mg/2 Ml Vial) 4 mg IVPUSH Q8H PRN PRN Reason: Nausea and Vomiting Sodium Chloride (0.9 % Sodium Chloride Flush 3 Ml Syringe) 3 ml IVFLUSH QSHIFT [facility] Last Admin: 04/07/22 21:49 Dose: Not Given Documented By: SADE Non-Admin Reason: Patient Refused Labs CBC & Chem 7: 04/08/22 06:06 04/08/22 06:06 Labs: Laboratory Results - last 24 hr 04/07/22 04/07/22 04/08/22 07:43 07:43 03:10 MCV 85.5 MCH 28.8 MCHC 33.7 RDW 12.5 Plt Count 239 MPV 9.9 Absolute Nucleated RBC 0.000 Nucleated RBC % (auto) 0.0 PT 16.8 H INR 1.4 H Anion Gap Estim Creat Clear Calc Estimated GFR Fasting Glucose Calcium Urine Color Yellow Urine Appearance Hazy Urine pH 6.5 Ur Specific [place] 1.010 Urine Protein Trace Urine Glucose (UA) Negative Urine Ketones Negative Urine Blood Moderate (2+) H Urine Nitrite Negative Ur Leukocyte Esterase Negative Urine RBC 6-10 H Urine WBC 6-10 H Ur Squamous Epith Cells 0-2 Urine Bacteria None Seen Hyaline Casts 0-2 04/08/22 04/08/22 06:06 06:06 MCV 86.9 MCH 29.3 MCHC 33.8 RDW 12.5 Plt Count 226 MPV 9.9 Absolute Nucleated RBC 0.000 Nucleated RBC % (auto) 0.0 PT INR Anion Gap 13 Estim Creat Clear Calc 76.3 Estimated GFR > 60 Fasting Glucose 94 Calcium 8.3 L Urine Color Urine Appearance Urine pH Ur Specific [place] Urine Protein Urine Glucose (UA) Urine Ketones Urine Blood Urine Nitrite Ur Leukocyte Esterase Urine RBC Urine WBC Ur Squamous Epith Cells Urine Bacteria Hyaline Casts Microbiology Microbiology Results: Microbiology 04/05/22 18:20 Blood Culture - Preliminary Blood - Venous No growth after 48 hours. 04/05/22 18:14 Blood Culture - Preliminary Blood - Venous No growth after 48 hours. Procedures Date of Service Date of Service: 04/08/22 Progress Note: A&P Assessment and plan (1) Mesenteric ischemia: Status: Acute (2) Hematochezia: Status: Acute (3) Anticoagulated: Status: Acute (4) Colitis: Status: Acute (5) Dementia: Status: Acute (6) Dementia: Status: Acute Plan Hemoglobin remains stable and abdomen remains benign. Await vascular input regarding studies from yesterday. Time Spent With Patient Time: Total time spent is greater than 50% in coordination of care (as documented) at patient's floor/unit and/or counseling patient: Quality Stroke Does the patient have a stroke diagnosis?: No VTE Prior VTE?: No VTE Risk Level:: Medical - moderate - high VTE Device Contraindication: N/A - Device Ordered VTE Drug Contraindication: Treatment Not Indicated
[2022-04-08] MEDS: Metoprolol Tartrate 25 MG TABLET PO ×2 (09:59→20:33)
[2022-04-08] MEDS: 0.9 % Sodium Chloride Flush 3 ML SYRINGE IVFLUSH ×3 (10:00→21:00)
--- NOTE | 2022-04-08 10:31 | HO.PM.IMPN ---
Subjective Subjective Date of Service: 04/08/22 Interval History: cc: hematochezia interval history:still with bleeding, no pain ENT Ears, Nose, Mouth, and Throat: Reports Normal hearing present Cardiovascular Cardiovascular: Reports no additional cardiovascular complaints Respiratory Respiratory: Reports no additional respiratory complaints Neurologic Neurologic: Reports Normal hearing present Physical Exam Vital Signs: Vital Signs: Last Vital Signs Temp 98.5 F 04/08/22 07:29 Pulse 110 H 04/08/22 07:29 Resp 20 04/08/22 07:29 BP 126/58 L 04/08/22 07:29 Pulse Ox 95 04/08/22 07:29 O2 Del Method 04/08/22 07:29 BMI result Body Mass Index 27.8 Const: General: cooperative, healthy appearing and comfortable Orientation/consciousness: oriented to person, oriented to place and oriented to time HEENT: Head: Yes normal to inspection Neck: Neck: Yes normal visual inspection Carotids: no bruits Chest: Chest palpation & inspection: normal inspection of the chest Resp: Effort & Inspection: normal respiratory effort and able to speak in complete sentences Auscultation: clear to auscultation bilaterally, no crackles, no rales, no rhonchi and no wheezes Cardio: Rate: regular rate Rhythm: regular rhythm Heart sounds: S1 normal heart sound present and S2 normal heart sound present Bruits: no carotid bruits Peripheral pulses: Peripheral pulses 2+ throughout GI: Inspection: Yes normal to inspection Skin: Wounds: no wounds Hair: normal Neuro: General: oriented to person, oriented to place and oriented to time Cranial nerves: Yes Normal hearing present Cognition (Neuro): normal cognition Motor exam (neuro): 5/5 motor strength present throughout Extrem: Other: venous exam: No significant superficial varicosities or spider telangiectasias, minimal edema General: No clubbing, No cyanosis and No edema Psych: Appearance: grossly normal Mental Status: mental status grossly normal Speech and movement: Normal speech and movement present Objective Data Active Medications Acetaminophen (Acetaminophen 325 Mg Tablet) 650 mg PO Q6H PRN PRN Reason: Pain, Mild, fever Docusate Sodium (Docusate Sodium 100 Mg Capsule) 100 mg PO DAILY PRN PRN Reason: Constipation Haloperidol (Haloperidol 0.5 Mg Tablet) 0.5 mg PO BEDTIME [facility] Last Admin: 04/07/22 21:49 Dose: Not Given Documented By: HO.FOSTEKR Non-Admin Reason: Patient Refused Heparin Sodium (Porcine) (Heparin Sodium,Porcine 5,000 Unit/Ml Vial) 3,200 unit 40 unit/kg (3200 unit) IVPUSH PROTOCOL BOLUS PRN; Protocol PRN Reason: 40 unit/kg - Heparin Protocol Heparin Sodium (Porcine) (Heparin Sodium,Porcine 5,000 Unit/Ml Vial) 6,400 unit 80 unit/kg (6400 unit) IVPUSH PROTOCOL BOLUS PRN; Protocol PRN Reason: 80 unit/kg - Heparin Protocol Levofloxacin (Levaquin) 750 mg in 150 mls @ 100 mls/hr IV Q24H [facility] Last Infusion: 04/07/22 23:26 Dose: 100 mls/hr Documented By: SADE Metronidazole (Flagyl) 500 mg in 100 mls @ 100 mls/hr IV Q8H [facility] Last Admin: 04/08/22 10:00 Dose: 100 mls/hr Documented By: COURT Heparin Sodium/Sodium Chloride (Heparin Sodium,Porcine/1/2ns) 25,000 unit in 250 mls @ 0 mls/hr IVCONT .Q0M [facility]; Protocol Last Titration: 04/06/22 20:08 Dose: 0 units/kg/hr, 0 mls/hr Documented By: TURNER Co-signed By: MALU Metoprolol Tartrate (Metoprolol Tartrate 25 Mg Tablet) 25 mg PO BID [facility]; Protocol Last Admin: 04/08/22 09:59 Dose: 25 mg Documented By: COURT Ondansetron HCl (Ondansetron Hcl 4 Mg/2 Ml Vial) 4 mg IVPUSH Q8H PRN PRN Reason: Nausea and Vomiting Sodium Chloride (0.9 % Sodium Chloride Flush 3 Ml Syringe) 3 ml IVFLUSH QSHIFT [facility] Last Admin: 04/08/22 10:00 Dose: 3 ml Documented By: COURT Labs CBC & Chem 7: 04/08/22 06:06 04/08/22 06:06 Labs: Laboratory Results - last 24 hr 04/08/22 04/08/22 04/08/22 03:10 06:06 06:06 MCV 86.9 MCH 29.3 MCHC 33.8 RDW 12.5 Plt Count 226 MPV 9.9 Absolute Nucleated RBC 0.000 Nucleated RBC % (auto) 0.0 Anion Gap 13 Estim Creat Clear Calc 76.3 Estimated GFR > 60 Fasting Glucose 94 Calcium 8.3 L Urine Color Yellow Urine Appearance Hazy Urine pH 6.5 Ur Specific [place] 1.010 Urine Protein Trace Urine Glucose (UA) Negative Urine Ketones Negative Urine Blood Moderate (2+) H Urine Nitrite Negative Ur Leukocyte Esterase Negative Urine RBC 6-10 H Urine WBC 6-10 H Ur Squamous Epith Cells 0-2 Urine Bacteria None Seen Hyaline Casts 0-2 Microbiology Microbiology Results: Microbiology 04/05/22 18:20 Blood Culture - Preliminary Blood - Venous No growth after 48 hours. 04/05/22 18:14 Blood Culture - Preliminary Blood - Venous No growth after 48 hours. Assessment and Plan (1) Hematochezia: Status: Acute Plan 81-year-old female with a past medical history of dementia, paroxysmal atrial fibrillation, pulmonary embolism, ulcerative colitis presented with hematochezia Hematochezia Likely due to ischemic colitis Hemoglobin stable, continue to monitor Colonoscopy was suspicious for ischemic colitis, biopsies taken, also showed internal hemorrhoids continue IV antibiotics, rechallenged with IV heparin on 04/06/22 - stopped for rebleed, continues to have bleeding without drop in h and h cta with atherosclerotic disease with patent distal vessels, likely ischemia due to microvascular disease avoid hyoptension check stool pcr Paroxysmal atrial fibrillation Metoprolol Rechallenging with anticoagulation with IV heparin, normally on Eliquis History of pulmonary embolism ac on hold Dementia 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
--- NOTE | 2022-04-08 12:06 | MHC.CM.PN ---
Per Rounds discussion, Patient is not yet medically cleared for dc (IV HEPARIN, IV LEVAQUIN, IV FLAGYL);Home is the goal and CM will continue to follow.
--- NOTE | 2022-04-08 12:50 | HO.VASCPN ---
Subjective Subjective Date of Service: 04/08/22 Patient reports: no new complaints Interval history: Patient seen examined. No events overnight. Reports some red stool her bowel movements. This is from nursing notes. In general she reports no complaints. Unclear if this is a true history are just her dementia. Physical Exam Vital Signs: Vital Signs: Last Vital Signs Temp 97.6 F 04/08/22 11:00 Pulse 115 H 04/08/22 11:00 Resp 20 04/08/22 11:00 BP 129/79 04/08/22 11:00 Pulse Ox 96 04/08/22 11:00 O2 Del Method 04/08/22 11:00 BMI result Body Mass Index 27.8 Const: General: cooperative, healthy appearing and no acute distress Orientation/consciousness: oriented to person, oriented to place and oriented to time HEENT: Head: Yes normal to inspection Neck: Carotids: no bruits Chest: Chest palpation & inspection: normal inspection of the chest Resp: Effort & Inspection: normal respiratory effort and able to speak in complete sentences Auscultation: clear to auscultation bilaterally Cardio: Rate: regular rate Heart sounds: S1 normal heart sound present and S2 normal heart sound present GI: Inspection: Yes normal to inspection Skin: General skin exam: no rashes or lesions noted Wounds: no wounds Neuro: General: oriented to person, oriented to place, oriented to time and CN's II-XI intact bilaterally Extrem: General: Yes normal to inspection, Yes full ROM and Yes no clubbing, cyanosis or edema Psych: Appearance: grossly normal and well kempt Speech and movement: Normal speech and movement present Affect: normal affect Progress Note: A&P Assessment and plan (1) Mesenteric ischemia: Status: Acute Assessment and Plan: He in short patient has a GI bleed. I did review Doppler studies and subsequently ordered a CT angiogram. CT angiogram demonstrates celiac and SMA access are clearly patent. JHONNY does have some disease but immediately reconstitutes. I do not believe that this is major vessel disease. I do believe she has general mesenteric ischemia. In general would recommend maintaining an elevating blood pressure. Ensuring perfusion to the colon is appropriate. At the current time he H&H is stable. Continue supportive care. Further care per General surgery. No vascular intervention required. Time Spent With Patient Time: Total time spent is greater than 50% in coordination of care (as documented) at patient's floor/unit and/or counseling patient: Procedures Date of Service Date of Service: 04/08/22 Quality Stroke Does the patient have a stroke diagnosis?: No VTE Prior VTE?: No VTE Risk Level:: Medical - moderate - high VTE Device Contraindication: N/A - Device Ordered VTE Drug Contraindication: Treatment Not Indicated
[2022-04-08] MEDS: methylPREDNISolone Sod Succ 40 MG/ML VIAL IVPUSH (16:09)
--- NOTE | 2022-04-08 17:46 | P.PNGI_ITS ---
Subjective Subjective Date of Service: 04/08/22 Interval History: Does not report any abdominal cramping. Endorses urgency. Unable to tell me if has blood in her stool. Daughter at bedside reports bleeding noted multiple times today. Path: A.? Colon, 60-65 cm, biopsy:? Chronic, moderately active, colitis. B.? Colon, 50-55 cm, biopsy:? Chronic, moderately active, colitis. C.? Colon, 40-45 cm, biopsy:? Chronic, moderately active, colitis. D.? Colon, 30-35 cm, biopsy:? Chronic, severely active, colitis. E.? Colon, 20-25 cm, biopsy:? Chronic, moderately active, colitis. F.? Colon, 10-15 cm, biopsy:? Chronic, moderately active, colitis. COMMENT: No dysplasia or granulomata are seen. Critical Care Time (minutes): 0 Physical Exam Vital Signs: Vital Signs: Last Vital Signs Temp 99.1 F 04/08/22 15:44 Pulse 123 H 04/08/22 15:44 Resp 16 04/08/22 15:44 BP 125/59 L 04/08/22 15:44 Pulse Ox 87 L 04/08/22 15:44 O2 Del Method 04/08/22 15:44 BMI result Body Mass Index 27.8 General appearance: Elderly female, in no acute distress Abdomen: Soft, nontender, nondistended Objective Data Labs CBC & Chem 7: 04/08/22 06:06 04/08/22 06:06 Labs: Laboratory Results - last 24 hr 04/07/22 04/08/22 04/08/22 17:32 03:10 06:06 WBC 6.7 RBC 4.57 Hgb 14.3 13.4 Hct 42.9 39.7 MCV 86.9 MCH 29.3 MCHC 33.8 RDW 12.5 Plt Count 226 MPV 9.9 Absolute Nucleated RBC 0.000 Nucleated RBC % (auto) 0.0 Sodium Potassium Chloride Carbon Dioxide Anion Gap BUN Creatinine Estim Creat Clear Calc Estimated GFR Fasting Glucose Calcium Urine Color Yellow Urine Appearance Hazy Urine pH 6.5 Ur Specific [place] 1.010 Urine Protein Trace Urine Glucose (UA) Negative Urine Ketones Negative Urine Blood Moderate (2+) H Urine Nitrite Negative Ur Leukocyte Esterase Negative Urine RBC 6-10 H Urine WBC 6-10 H Ur Squamous Epith Cells 0-2 Urine Bacteria None Seen Hyaline Casts 0-2 04/08/22 06:06 WBC RBC Hgb Hct MCV MCH MCHC RDW Plt Count MPV Absolute Nucleated RBC Nucleated RBC % (auto) Sodium 141 Potassium 3.3 Chloride 104 Carbon Dioxide 27 Anion Gap 13 BUN 7 L D Creatinine 0.62 Estim Creat Clear Calc 76.3 Estimated GFR > 60 Fasting Glucose 94 Calcium 8.3 L Urine Color Urine Appearance Urine pH Ur Specific [place] Urine Protein Urine Glucose (UA) Urine Ketones Urine Blood Urine Nitrite Ur Leukocyte Esterase Urine RBC Urine WBC Ur Squamous Epith Cells Urine Bacteria Hyaline Casts Imaging CT scan - abdomen: Radiologist's impression: Continues to show colon wall thickening from splenic flexure to rectum. 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 Venous US: Radiologist's impression: elevated velocities the SMA and JHONNY. Microbiology Microbiology Results: Microbiology 04/05/22 18:20 Blood - Venous Blood Culture - Preliminary No growth after 48 hours. 04/05/22 18:14 Blood - Venous Blood Culture - Preliminary No growth after 48 hours. Procedures Date of Service Date of Service: 04/08/22 Progress Note: A&P Assessment and plan (1) Proctocolitis: Status: Acute Assessment and Plan: Path consistent with left sided UC. Flex sig from 12/[address] she had disease remission. Although interesting to note, pt was not on any therapy at that time. Recommendations: - Start Methylpred 40mg IV once daily - Monitor blood sugars on steroid therapy - Daily CRP and albumin - Start liquid diet - DVT prophylaxis - this should be continued despite LGIB as pts with IBD are in prothrombotic state and prone to VTE. - If patient improves with systemic steroids subjectively and objectively over the next 48-72 hours, can be switched to prednisone 40mg PO once daily. This will tapered fairly rapidly given age. - For outpatient maintenance, will switch to Apriso capsules as they may be easier to swallow than mesalamine tabs; + mesalamine enemas 1g/day alongside po therapy. Time Spent With Patient Time: Total time spent is greater than 50% in coordination of care (as documented) at patient's floor/unit and/or counseling patient: Quality Stroke Does the patient have a stroke diagnosis?: No VTE Prior VTE?: No VTE Risk Level:: Medical - moderate - high VTE Device Contraindication: N/A - Device Ordered VTE Drug Contraindication: Treatment Not Indicated
[2022-04-08] MEDS: levoFLOXacin/D5W 750 MG/150 ML PIGGYBACK 100 MG IV (18:05)
[2022-04-08] MEDS: HaloperidoL 0.5 MG TABLET PO (20:33)
[2022-04-09] VITALS (9 sets, daily range): BP systolic 86–110; BP diastolic 53–75; PULSE 68–107; RESP 16–18; TEMP 36.4–36.9; O2SAT 93–99
[2022-04-09] MEDS: metroNIDAZOLE/NS 500 MG/100 ML PIGGYBACK 100 MG IV ×3 (02:08→20:42)
[2022-04-09 07:31] LABS: Hematocrit 39.4 % (37.0-47.0); Hemoglobin 13.3 g/dl (12.0-16.0); Mean Corpuscular HGB Conc 33.8 g/dl (31.0-35.0); Mean Corpuscular Hemoglobin 29.3 pg (27.0-33.0); Mean Corpuscular Volume 86.8 fL (80.0-98.0); Mean Platelet Volume 9.8 fL (9.4-12.3); Platelet Count 261 X10*3/uL (160-400); Red Blood Count 4.54 X10*6/uL (4.20-5.50); Red Cell Distribution Width 12.5 % (11.0-16.0); White Blood Count 6.9 X10*3/uL (4.8-10.8)
[2022-04-09 07:53] LABS: Alanine Aminotransferase < 6 U/L (0-31); Alkaline Phosphatase 78 U/L (39-117); Anion Gap 16 (12-20); Aspartate Amino Transferase 10 U/L (5-31); Bilirubin Direct 0.4 mg/dL (0.0-0.5); Bilirubin Total 0.5 mg/dL (0.0-1.0); Blood Urea Nitrogen 18 mg/dL (9-16); C Reactive Protein 15.19 mg/dL (< or = 0.50); Calcium 8.4 mg/dL (8.4-10.2); Carbon Dioxide 24 mmol/L (22-29); Chloride 105 mmol/L (96-108); Creatinine Clr Calc Pharmacy 58.4; Estimated Glomerular Filt Rate > 60; Glucose Fasting 126 mg/dL (60-99); Potassium 3.3 mmol/L (3.3-5.1); Sodium 142 mmol/L (135-145); Total Protein 5.1 g/dL (6.5-8.0)
--- NOTE | 2022-04-09 08:03 | PC.NURSE ---
Patient alert to self. Camera in room with 1-1 sitter, due to several attempts on removing IV and Tele monitoring equipment. Pt is very combative and impulsive. Coy in place with dark michael urine. Tolerated all scheduled Antibiotics well.
--- NOTE | 2022-04-09 09:21 | P.PNIM_ITS ---
Subjective Subjective Date of Service: 04/09/22 Interval History: cc: hematochezia interval history:still with bleeding though less, no pain ENT Ears, Nose, Mouth, and Throat: Reports Normal hearing present Cardiovascular Cardiovascular: Reports no additional cardiovascular complaints Respiratory Respiratory: Reports no additional respiratory complaints Neurologic Neurologic: Reports Normal hearing present Physical Exam Vital Signs: Vital Signs: Last Vital Signs Temp 97.6 F 04/09/22 08:00 Pulse 87 04/09/22 08:00 Resp 18 04/09/22 08:00 BP 106/67 04/09/22 08:00 Pulse Ox 94 04/09/22 08:00 O2 Del Method 04/09/22 08:00 BMI result Body Mass Index 27.8 Const: General: cooperative, healthy appearing and comfortable Orientation/consciousness: oriented to person, oriented to place and oriented to time HEENT: Head: Yes normal to inspection Neck: Neck: Yes normal visual inspection Carotids: no bruits Chest: Chest palpation & inspection: normal inspection of the chest Resp: Effort & Inspection: normal respiratory effort and able to speak in complete sentences Auscultation: clear to auscultation bilaterally, no crackles, no rales, no rhonchi and no wheezes Cardio: Rate: regular rate Rhythm: regular rhythm Heart sounds: S1 normal heart sound present and S2 normal heart sound present Bruits: no carotid bruits Peripheral pulses: Peripheral pulses 2+ throughout GI: Inspection: Yes normal to inspection Skin: Wounds: no wounds Hair: normal Neuro: General: oriented to person, oriented to place and oriented to time Cranial nerves: Yes Normal hearing present Cognition (Neuro): normal cognition Motor exam (neuro): 5/5 motor strength present throughout Extrem: Other: venous exam: No significant superficial varicosities or spider te langiectasias, minimal edema General: No clubbing, No cyanosis and No edema Psych: Appearance: grossly normal Mental Status: mental status grossly normal Speech and movement: Normal speech and movement present Objective Data Active Medications Acetaminophen (Acetaminophen 325 Mg Tablet) 650 mg PO Q6H PRN PRN Reason: Pain, Mild, fever Docusate Sodium (Docusate Sodium 100 Mg Capsule) 100 mg PO DAILY PRN PRN Reason: Constipation Haloperidol (Haloperidol 0.5 Mg Tablet) 0.5 mg PO BEDTIME NESTOR Last Admin: 04/08/22 20:33 Dose: 0.5 mg Documented By: SIENA Heparin Sodium (Porcine) (Heparin Sodium,Porcine 5,000 Unit/Ml Vial) 3,200 unit 40 unit/kg (3200 unit) IVPUSH PROTOCOL BOLUS PRN; Protocol PRN Reason: 40 unit/kg - Heparin Protocol Heparin Sodium (Porcine) (Heparin Sodium,Porcine 5,000 Unit/Ml Vial) 6,400 unit 80 unit/kg (6400 unit) IVPUSH PROTOCOL BOLUS PRN; Protocol PRN Reason: 80 unit/kg - Heparin Protocol Levofloxacin (Levaquin) 750 mg in 150 mls @ 100 mls/hr IV Q24H [facility] Last Infusion: 04/08/22 20:59 Dose: 0 mls/hr Documented By: SIENA Metronidazole (Flagyl) 500 mg in 100 mls @ 100 mls/hr IV Q8H [facility] Last Infusion: 04/09/22 03:05 Dose: 0 mls/hr Documented By: SIENA Heparin Sodium/Sodium Chloride (Heparin Sodium,Porcine/1/2ns) 25,000 unit in 250 mls @ 0 mls/hr IVCONT .Q0M [facility]; Protocol Last Titration: 04/06/22 20:08 Dose: 0 units/kg/hr, 0 mls/hr Documented By: TURNER Co-signed By: MALU Methylprednisolone Sodium Succinate (Methylprednisolone Sod Succ 40 Mg/Ml Vial) 40 mg IVPUSH Q24H [facility] Last Admin: 04/08/22 16:09 Dose: 40 mg Documented By: FATUMA Metoprolol Tartrate (Metoprolol Tartrate 25 Mg Tablet) 25 mg PO BID [facility]; Protocol Last Admin: 04/08/22 20:33 Dose: 25 mg Documented By: SIENA Ondansetron HCl (Ondansetron Hcl 4 Mg/2 Ml Vial) 4 mg IVPUSH Q8H PRN PRN Reason: Nausea and Vomiting Sodium Chloride (0.9 % Sodium Chloride Flush 3 Ml Syringe) 3 ml IVFLUSH QSHIFT [facility] Last Admin: 04/08/22 21:00 Dose: 3 ml Documented By: SIENA Labs CBC & Chem 7: 04/09/22 06:50 04/09/22 06:50 Labs: Laboratory Results - last 24 hr 04/09/22 04/09/22 06:50 06:50 MCV 86.8 MCH 29.3 MCHC 33.8 RDW 12.5 Plt Count 261 MPV 9.8 Absolute Nucleated RBC 0.000 Nucleated RBC % (auto) 0.0 Anion Gap 16 Estim Creat Clear Calc 58.4 Estimated GFR > 60 Fasting Glucose 126 H Calcium 8.4 Total Bilirubin 0.5 Direct Bilirubin 0.4 AST 10 ALT < 6 Alkaline Phosphatase 78 D C-Reactive Protein 15.19 H Total Protein 5.1 L Albumin 3.0 L Assessment and Plan (1) Hematochezia: Status: Acute Plan 81-year-old female with a past medical history of dementia, paroxysmal atrial fibrillation, pulmonary embolism, ulcerative colitis presented with hematochezia Hematochezia ddx includes ischemic colitis vs infectious vs UC Hemoglobin stable, continue to monitor Colonoscopy was suspicious for ischemic colitis, biopsies taken -suspicous for U C, also showed internal hemorrhoids continue levaquin, flagyl, rechallenged with IV heparin on 04/06/22 - stopped for rebleed, continues to have bleeding without drop in h and h started IV solumedrol avoid hyoptension check stool pcr Paroxysmal atrial fibrillation Metoprolol normally on Eliquis History of pulmonary embolism ac on hold Dementia 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
[2022-04-09] MEDS: Metoprolol Tartrate 25 MG TABLET PO ×2 (10:00→19:49)
[2022-04-09] MEDS: 0.9 % Sodium Chloride Flush 3 ML SYRINGE IVFLUSH ×2 (10:00→16:11)
--- NOTE | 2022-04-09 12:30 | PM.GIPN ---
Subjective Subjective Date of Service: 04/09/22 Interval History: at bedside reports pt is sleeping more than usual today. Pt herself awakens easily to verbal cues. Reports feeling fine and does not c/o abd discomfort. Per RN pt had one episode of small rectal bleeding. Critical Care Time (minutes): 0 Physical Exam Vital Signs: Vital Signs: Last Vital Signs Temp 98.0 F 04/09/22 11:27 Pulse 93 04/09/22 11:27 Resp 16 04/09/22 11:27 BP 110/75 04/09/22 11:27 Pulse Ox 94 04/09/22 11:27 O2 Del Method 04/09/22 11:27 BMI result Body Mass Index 27.8 Gen appear: elderly female HEENT: flushed face Abd: soft, nontender, nondistended Objective Data Labs CBC & Chem 7: 04/09/22 06:50 04/09/22 06:50 Labs: Laboratory Results - last 24 hr 04/09/22 04/09/22 06:50 06:50 WBC 6.9 RBC 4.54 Hgb 13.3 Hct 39.4 MCV 86.8 MCH 29.3 MCHC 33.8 RDW 12.5 Plt Count 261 MPV 9.8 Absolute Nucleated RBC 0.000 Nucleated RBC % (auto) 0.0 Sodium 142 Potassium 3.3 Chloride 105 Carbon Dioxide 24 Anion Gap 16 BUN 18 H D Creatinine 0.81 Estim Creat Clear Calc 58.4 Estimated GFR > 60 Fasting Glucose 126 H Calcium 8.4 Total Bilirubin 0.5 Direct Bilirubin 0.4 AST 10 ALT < 6 Alkaline Phosphatase 78 D C-Reactive Protein 15.19 H Total Protein 5.1 L Albumin 3.0 L Microbiology Microbiology Results: Microbiology 04/08/22 00:00 Urine Catheterized - Coy Catheter Urine Culture - Final No growth. 04/05/22 18:20 Blood - Venous Blood Culture - Preliminary No growth after 48 hours. 04/05/22 18:14 Blood - Venous Blood Culture - Preliminary No growth after 48 hours. Procedures Date of Service Date of Service: 04/09/22 Progress Note: A&P Assessment and plan (1) Proctocolitis: Status: Acute Assessment and Plan: Path consistent with left sided UC. Day 2 of methylpred today. CRP of 15 noted. Recommendations: - Cont Methylpred 40mg IV once daily - Monitor blood sugars on steroid therapy - Daily CRP and albumin - Hep serologies and TSPOT ordered although anticipate CRP to trend down within 3-5d of IVCS therapy. - In that case, can be switched to prednisone 40mg PO once daily. This will tapered fairly rapidly given age. - DVT prophylaxis - this should be continued despite LGIB as pts with IBD are in prothrombotic state and prone to VTE. - For outpatient maintenance, will switch to Apriso capsules as they may be easier to swallow than mesalamine tabs; + mesalamine enemas 1g/day alongside po therapy. Time Spent With Patient Time: Total time spent is greater than 50% in coordination of care (as documented) at patient's floor/unit and/or counseling patient: Quality Stroke Does the patient have a stroke diagnosis?: No VTE Prior VTE?: No VTE Risk Level:: Medical - moderate - high VTE Device Contraindication: N/A - Device Ordered VTE Drug Contraindication: Treatment Not Indicated
[2022-04-09] MEDS: methylPREDNISolone Sod Succ 40 MG/ML VIAL IVPUSH (16:10)
[2022-04-09] MEDS: levoFLOXacin/D5W 750 MG/150 ML PIGGYBACK 100 MG IV (18:28)
[2022-04-09] MEDS: HaloperidoL 0.5 MG TABLET PO (19:48)
[2022-04-10] VITALS (8 sets, daily range): BP systolic 101–162; BP diastolic 62–108; PULSE 74–98; RESP 16–20; TEMP 35.8–36.9; O2SAT 94–97
[2022-04-10] MEDS: metroNIDAZOLE/NS 500 MG/100 ML PIGGYBACK 100 MG IV ×3 (02:08→21:49)
[2022-04-10 07:10] LABS: Hematocrit 39.7 % (37.0-47.0); Hemoglobin 13.4 g/dl (12.0-16.0); Mean Corpuscular HGB Conc 33.8 g/dl (31.0-35.0); Mean Corpuscular Hemoglobin 29.2 pg (27.0-33.0); Mean Corpuscular Volume 86.5 fL (80.0-98.0); Mean Platelet Volume 9.3 fL (9.4-12.3); Platelet Count 268 X10*3/uL (160-400); Red Blood Count 4.59 X10*6/uL (4.20-5.50); Red Cell Distribution Width 12.5 % (11.0-16.0); White Blood Count 6.1 X10*3/uL (4.8-10.8)
[2022-04-10 07:26] LABS: Alanine Aminotransferase 8 U/L (0-31); Albumin Level 2.9 g/dL (3.5-5.0); Alkaline Phosphatase 74 U/L (39-117); Anion Gap 13 (12-20); Aspartate Amino Transferase 9 U/L (5-31); Bilirubin Direct 0.3 mg/dL (0.0-0.5); Bilirubin Total 0.3 mg/dL (0.0-1.0); Blood Urea Nitrogen 19 mg/dL (9-16); C Reactive Protein 9.43 mg/dL (< or = 0.50); Calcium 8.5 mg/dL (8.4-10.2); Carbon Dioxide 26 mmol/L (22-29); Chloride 106 mmol/L (96-108); Creatinine Clr Calc Pharmacy 70.6; Estimated Glomerular Filt Rate > 60; Glucose Fasting 136 mg/dL (60-99); Potassium 3.4 mmol/L (3.3-5.1); Sodium 142 mmol/L (135-145)
--- NOTE | 2022-04-10 09:01 | P.PNIM_ITS ---
Subjective Subjective Date of Service: 04/10/22 Interval History: cc: hematochezia interval history:still with bleeding though less, no pain ENT Ears, Nose, Mouth, and Throat: Reports Normal hearing present Cardiovascular Cardiovascular: Reports no additional cardiovascular complaints Respiratory Respiratory: Reports no additional respiratory complaints Neurologic Neurologic: Reports Normal hearing present Physical Exam Vital Signs: Vital Signs: Last Vital Signs Temp 97.2 F 04/10/22 07:01 Pulse 98 04/10/22 07:01 Resp 16 04/10/22 07:01 BP 101/62 04/10/22 07:01 Pulse Ox 97 04/10/22 07:01 O2 Del Method 04/10/22 07:01 BMI result Body Mass Index 27.8 Const: General: cooperative, healthy appearing and comfortable Orientation/consciousness: oriented to person, oriented to place and oriented to time HEENT: Head: Yes normal to inspection Neck: Neck: Yes normal visual inspection Carotids: no bruits Chest: Chest palpation & inspection: normal inspection of the chest Resp: Effort & Inspection: normal respiratory effort and able to speak in complete sentences Auscultation: clear to auscultation bilaterally, no crackles, no rales, no rhonchi and no wheezes Cardio: Rate: regular rate Rhythm: regular rhythm Heart sounds: S1 normal heart sound present and S2 normal heart sound present Bruits: no carotid bruits Peripheral pulses: Peripheral pulses 2+ throughout GI: Inspection: Yes normal to inspection Skin: Wounds: no wounds Hair: normal Neuro: General: oriented to person, oriented to place and oriented to time Cranial nerves: Yes Normal hearing present Cognition (Neuro): normal cognition Motor exam (neuro): 5/5 motor strength present throughout Extrem: Other: venous exam: No significant superficial varicosities or spider te langiectasias, minimal edema General: No clubbing, No cyanosis and No edema Psych: Appearance: grossly normal Mental Status: mental status grossly normal Speech and movement: Normal speech and movement present Objective Data Active Medications Acetaminophen (Acetaminophen 325 Mg Tablet) 650 mg PO Q6H PRN PRN Reason: Pain, Mild, fever Docusate Sodium (Docusate Sodium 100 Mg Capsule) 100 mg PO DAILY PRN PRN Reason: Constipation Haloperidol (Haloperidol 0.5 Mg Tablet) 0.5 mg PO BEDTIME NESTOR Last Admin: 04/09/22 19:48 Dose: 0.5 mg Documented By: SCOTT Heparin Sodium (Porcine) (Heparin Sodium,Porcine 5,000 Unit/Ml Vial) 3,200 unit 40 unit/kg (3200 unit) IVPUSH PROTOCOL BOLUS PRN; Protocol PRN Reason: 40 unit/kg - Heparin Protocol Heparin Sodium (Porcine) (Heparin Sodium,Porcine 5,000 Unit/Ml Vial) 6,400 unit 80 unit/kg (6400 unit) IVPUSH PROTOCOL BOLUS PRN; Protocol PRN Reason: 80 unit/kg - Heparin Protocol Levofloxacin (Levaquin) 750 mg in 150 mls @ 100 mls/hr IV Q24H [facility] Last Infusion: 04/09/22 20:52 Dose: 0 mls/hr Documented By: SCOTT Metronidazole (Flagyl) 500 mg in 100 mls @ 100 mls/hr IV Q8H [facility] Last Infusion: 04/10/22 03:40 Dose: 0 mls/hr Documented By: SCOTT Heparin Sodium/Sodium Chloride (Heparin Sodium,Porcine/1/2ns) 25,000 unit in 250 mls @ 0 mls/hr IVCONT .Q0M [facility]; Protocol Last Titration: 04/06/22 20:08 Dose: 0 units/kg/hr, 0 mls/hr Documented By: TURNER Co-signed By: MALU Methylprednisolone Sodium Succinate (Methylprednisolone Sod Succ 40 Mg/Ml Vial) 40 mg IVPUSH Q24H [facility] Last Admin: 04/09/22 16:10 Dose: 40 mg Documented By: ROBERTO Metoprolol Tartrate (Metoprolol Tartrate 25 Mg Tablet) 25 mg PO BID [facility]; Protocol Last Admin: 04/09/22 19:49 Dose: 25 mg Documented By: SCOTT Ondansetron HCl (Ondansetron Hcl 4 Mg/2 Ml Vial) 4 mg IVPUSH Q8H PRN PRN Reason: Nausea and Vomiting Sodium Chloride (0.9 % Sodium Chloride Flush 3 Ml Syringe) 3 ml IVFLUSH QSHIFT [facility] Last Admin: 04/09/22 23:04 Dose: Not Given Documented By: CSOTT Non-Admin Reason: Previously Administered Labs CBC & Chem 7: 04/10/22 06:44 04/10/22 06:44 Labs: Laboratory Results - last 24 hr 04/10/22 04/10/22 06:44 06:44 MCV 86.5 MCH 29.2 MCHC 33.8 RDW 12.5 Plt Count 268 MPV 9.3 L Absolute Nucleated RBC 0.000 Nucleated RBC % (auto) 0.0 Anion Gap 13 Estim Creat Clear Calc 70.6 Estimated GFR > 60 Fasting Glucose 136 H Calcium 8.5 Total Bilirubin 0.3 Direct Bilirubin 0.3 AST 9 ALT 8 Alkaline Phosphatase 74 C-Reactive Protein 9.43 H Total Protein 5.0 L Albumin 2.9 L Microbiology Microbiology Results: Microbiology 04/08/22 00:00 Urine Culture - Final Urine Catheterized - Coy Catheter No growth. Assessment and Plan (1) Hematochezia: Status: Acute Plan 81-year-old female with a past medical history of dementia, paroxysmal atrial fibrillation, pulmonary embolism, ulcerative colitis presented with hematochezia Hematochezia ddx includes ischemic colitis vs infectious vs UC Hemoglobin stable, continue to monitor Colonoscopy was suspicious for ischemic colitis, biopsies taken -suspicous for UC, also showed internal hemorrhoids continue levaquin, flagyl, rechallenged with IV heparin on 04/06/22 - stopped for rebleed, continues to have mild bleeding without drop in h and h started IV solumedrol avoid hyoptension check stool pcr (no bm yet) Paroxysmal atrial fibrillation Metoprolol normally on Eliquis History of pulmonary embolism ac on hold Dementia 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
[2022-04-10] MEDS: 0.9 % Sodium Chloride Flush 3 ML SYRINGE IVFLUSH ×3 (10:23→19:41)
[2022-04-10] MEDS: Metoprolol Tartrate 25 MG TABLET PO ×2 (10:23→21:49)
[2022-04-10] MEDS: methylPREDNISolone Sod Succ 40 MG/ML VIAL IVPUSH (15:23)
[2022-04-10] MEDS: Lactated Ringers 1,000 ML 999 ML IV (16:42)
[2022-04-10] MEDS: levoFLOXacin/D5W 750 MG/150 ML PIGGYBACK 100 MG IV (19:41)
[2022-04-10] MEDS: HaloperidoL 0.5 MG TABLET PO (21:49)
[2022-04-11] VITALS (9 sets, daily range): BP systolic 98–128; BP diastolic 62–76; PULSE 73–117; RESP 16–20; TEMP 36.4–37.2; O2SAT 94–97
[2022-04-11] MEDS: metroNIDAZOLE/NS 500 MG/100 ML PIGGYBACK 100 MG IV ×3 (03:42→22:57)
[2022-04-11 07:03] LABS: Hematocrit 40.6 % (37.0-47.0); Hemoglobin 13.6 g/dl (12.0-16.0); Mean Corpuscular HGB Conc 33.5 g/dl (31.0-35.0); Mean Corpuscular Hemoglobin 29.2 pg (27.0-33.0); Mean Corpuscular Volume 87.3 fL (80.0-98.0); Mean Platelet Volume 9.4 fL (9.4-12.3); Platelet Count 278 X10*3/uL (160-400); Red Blood Count 4.65 X10*6/uL (4.20-5.50); Red Cell Distribution Width 12.7 % (11.0-16.0); White Blood Count 7.3 X10*3/uL (4.8-10.8)
[2022-04-11 07:04] LABS: Hematocrit 40.3 % (37.0-47.0); Hemoglobin 13.5 g/dl (12.0-16.0); Mean Corpuscular HGB Conc 33.5 g/dl (31.0-35.0); Mean Corpuscular Hemoglobin 29.7 pg (27.0-33.0); Mean Corpuscular Volume 88.6 fL (80.0-98.0); Mean Platelet Volume 9.6 fL (9.4-12.3); Platelet Count 278 X10*3/uL (160-400); Red Blood Count 4.55 X10*6/uL (4.20-5.50); Red Cell Distribution Width 12.6 % (11.0-16.0); White Blood Count 7.3 X10*3/uL (4.8-10.8)
[2022-04-11 07:12] LABS: Anion Gap 15 (12-20); Blood Urea Nitrogen 16 mg/dL (9-16); C Reactive Protein 4.69 mg/dL (< or = 0.50); Calcium 8.4 mg/dL (8.4-10.2); Carbon Dioxide 26 mmol/L (22-29); Chloride 105 mmol/L (96-108); Creatinine Clr Calc Pharmacy 69.6; Estimated Glomerular Filt Rate > 60; Glucose Fasting 134 mg/dL (60-99); Potassium 3.7 mmol/L (3.3-5.1); Sodium 142 mmol/L (135-145)
[2022-04-11 09:20] LABS: HBS Num1 42.02 mIU/mL (0-7.99); HBc Num1 0.11 S/CO (0.00-0.79); Hepatitis B Core Antibody Nonreactive (Nonreactive); ~HepC Num1 0.16 S/CO (0.00-0.79); ~Hepatitis B Surface Antibody REACTIVE (Nonreactive); ~Hepatitis C Antibody Nonreactive (Nonreactive)
[2022-04-11] MEDS: Metoprolol Tartrate 25 MG TABLET PO ×2 (10:20→21:05)
[2022-04-11] MEDS: 0.9 % Sodium Chloride Flush 3 ML SYRINGE IVFLUSH (10:22)
--- NOTE | 2022-04-11 10:24 | P.PNIM_ITS ---
Subjective Subjective Date of Service: 04/11/22 Interval History: cc: hematochezia interval history:still with bleeding though less, no pain ENT Ears, Nose, Mouth, and Throat: Reports Normal hearing present Cardiovascular Cardiovascular: Reports no additional cardiovascular complaints Respiratory Respiratory: Reports no additional respiratory complaints Neurologic Neurologic: Reports Normal hearing present Physical Exam Vital Signs: Vital Signs: Last Vital Signs Temp 98.2 F 04/11/22 07:41 Pulse 73 04/11/22 07:41 Resp 20 04/11/22 07:41 BP 124/74 04/11/22 07:41 Pulse Ox 96 04/11/22 07:41 O2 Del Method 04/11/22 07:41 BMI result Body Mass Index 27.8 Const: General: cooperative, healthy appearing and comfortable Orientation/consciousness: oriented to person, oriented to place and oriented to time HEENT: Head: Yes normal to inspection Neck: Neck: Yes normal visual inspection Carotids: no bruits Chest: Chest palpation & inspection: normal inspection of the chest Resp: Effort & Inspection: normal respiratory effort and able to speak in complete sentences Auscultation: clear to auscultation bilaterally, no crackles, no rales, no rhonchi and no wheezes Cardio: Rate: regular rate Rhythm: regular rhythm Heart sounds: S1 normal heart sound present and S2 normal heart sound present Bruits: no carotid bruits Peripheral pulses: Peripheral pulses 2+ throughout GI: Inspection: Yes normal to inspection Skin: Wounds: no wounds Hair: normal Neuro: General: oriented to person, oriented to place and oriented to time Cranial nerves: Yes Normal hearing present Cognition (Neuro): normal cognition Motor exam (neuro): 5/5 motor strength present throughout Extrem: Other: venous exam: No significant superficial varicosities or spider te langiectasias, minimal edema General: No clubbing, No cyanosis and No edema Psych: Appearance: grossly normal Mental Status: mental status grossly normal Speech and movement: Normal speech and movement present Objective Data Active Medications Acetaminophen (Acetaminophen 325 Mg Tablet) 650 mg PO Q6H PRN PRN Reason: Pain, Mild, fever Docusate Sodium (Docusate Sodium 100 Mg Capsule) 100 mg PO DAILY PRN PRN Reason: Constipation Haloperidol (Haloperidol 0.5 Mg Tablet) 0.5 mg PO BEDTIME NESTOR Last Admin: 04/10/22 21:49 Dose: 0.5 mg Documented By: SADE Heparin Sodium (Porcine) (Heparin Sodium,Porcine 5,000 Unit/Ml Vial) 3,200 unit 40 unit/kg (3200 unit) IVPUSH PROTOCOL BOLUS PRN; Protocol PRN Reason: 40 unit/kg - Heparin Protocol Heparin Sodium (Porcine) (Heparin Sodium,Porcine 5,000 Unit/Ml Vial) 6,400 unit 80 unit/kg (6400 unit) IVPUSH PROTOCOL BOLUS PRN; Protocol PRN Reason: 80 unit/kg - Heparin Protocol Levofloxacin (Levaquin) 750 mg in 150 mls @ 100 mls/hr IV Q24H [facility] Last Infusion: 04/10/22 21:57 Dose: 100 mls/hr Documented By: SADE Metronidazole (Flagyl) 500 mg in 100 mls @ 100 mls/hr IV Q8H [facility] Last Infusion: 04/11/22 05:19 Dose: 100 mls/hr Documented By: SADE Heparin Sodium/Sodium Chloride (Heparin Sodium,Porcine/1/2ns) 25,000 unit in 250 mls @ 0 mls/hr IVCONT .Q0M [facility]; Protocol Last Titration: 04/06/22 20:08 Dose: 0 units/kg/hr, 0 mls/hr Documented By: TURNER Co-signed By: MALU Methylprednisolone Sodium Succinate (Methylprednisolone Sod Succ 40 Mg/Ml Vial) 40 mg IVPUSH Q24H [facility] Last Admin: 04/10/22 15:23 Dose: 40 mg Documented By: ROBERTO Metoprolol Tartrate (Metoprolol Tartrate 25 Mg Tablet) 25 mg PO BID [facility]; Protocol Last Admin: 04/10/22 21:49 Dose: 25 mg Documented By: SADE Ondansetron HCl (Ondansetron Hcl 4 Mg/2 Ml Vial) 4 mg IVPUSH Q8H PRN PRN Reason: Nausea and Vomiting Sodium Chloride (0.9 % Sodium Chloride Flush 3 Ml Syringe) 3 ml IVFLUSH QSHIFT [facility] Last Admin: 04/10/22 19:41 Dose: 3 ml Documented By: SADE Labs CBC & Chem 7: 04/11/22 06:33 04/11/22 06:33 Labs: Laboratory Results - last 24 hr 04/09/22 04/11/22 04/11/22 06:50 06:33 06:33 MCV 87.3 88.6 MCH 29.2 29.7 MCHC 33.5 33.5 RDW 12.7 12.6 Plt Count 278 278 MPV 9.4 9.6 Absolute Nucleated RBC 0.000 0.000 Nucleated RBC % (auto) 0.0 0.0 Anion Gap Estim Creat Clear Calc Estimated GFR Fasting Glucose Calcium C-Reactive Protein Hep Bs Antigen Not Reportable 04/11/22 06:33 MCV MCH MCHC RDW Plt Count MPV Absolute Nucleated RBC Nucleated RBC % (auto) Anion Gap 15 Estim Creat Clear Calc 69.6 Estimated GFR > 60 Fasting Glucose 134 H Calcium 8.4 C-Reactive Protein 4.69 H Hep Bs Antigen Microbiology Microbiology Results: Microbiology 04/05/22 18:20 Blood Culture - Final Blood - Venous No growth after 5 days. 04/05/22 18:14 Blood Culture - Final Blood - Venous No growth after 5 days. Assessment and Plan (1) Hematochezia: Status: Acute Plan 81-year-old female with a past medical history of dementia, paroxysmal atrial fibrillation, pulmonary embolism, ulcerative colitis presented with hematochezia Hematochezia ddx includes ischemic colitis vs infectious vs UC Hemoglobin stable, continue to monitor Colonoscopy was suspicious for ischemic colitis, biopsies taken -suspicous for UC, also showed internal hemorrhoids continue levaquin, flagyl, rechallenged with IV heparin on 04/06/22 - stopped for rebleed, continues to have mild bleeding without drop in h and h started IV solumedrol avoid hyoptension check stool pcr (no bm yet) ? of component of vaginal bleed check TVUS, perinatal technician eval Paroxysmal atrial fibrillation Metoprolol normally on Eliquis History of pulmonary embolism ac on hold Dementia 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
--- NOTE | 2022-04-11 13:30 | PM.GYNCN ---
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 Colonoscopy was done and was suspicious for ischemic colitis, biopsies taken -suspicous for UC, also showed internal hemorrhoids. The patient is on levaquin, flagyl, and IV solumedrol, the plan was to start a rechallenge with IV heparin on that was stopped for rebleed, H&H has been stable. Yesterday the nursing staff noticed a small pool of blood of unknown origin, they were not sure if it is coming from the rectum or vagina. No history of abnormal vaginal bleeding. Ultrasound was done results are still pending cc:: CC: Ryland Davidson MD [employer] - Review of Systems Review of Systems ROS Unobtainable: All systems reviewed & are unremarkable except as noted in HPI and below Cardiovascular: Denies Palpatations, Loss of consciousness or Chest pain Respiratory: Denies Cough, Wheezing or Shortness of breath Musculoskeletal: Denies Low back pain Gastrointestinal: Denies Heartburn, Constipation, Diarrhea, Nausea or Vomiting Genitourinary: Denies Pain with urination, Burning with urination or Urinary frequency Neurological: Denies Migranes Psychological: Denies Depression OB PMFSH Past Medical History Medical History (Updated 04/11/22 @ 15:00 by Juanjo Concepcion MD) Atrial fibrillation Dementia Dementia Hypertension Mesenteric ischemia Post-menopausal Pulmonary embolism Rectal bleed Screening for breast cancer Subacute massive pulmonary embolism Ulcerative colitis Family History Family History Father Hypertension Mother No problems noted. Son No problems noted. Son No problems noted. Daughter No problems noted. Other Mental health disorder Surgical History Surgical History History of section History of colonoscopy History of left knee replacement Hx of sigmoidoscopy Social History Social History Household Members: Spouse Housing: House Do you presently have visiting nurse or other home services: No Alcohol intake: never Patient Tobacco Use Status: Never used Tobacco e-Cigarette/Vaping Use: Never Used Second Hand Smoke Exposure: No Advance Directives Date on File: 04/06/22 service: No Current occupational status: retired Cognitive needs: No Hearing needs: Yes (needs hearing aids) Vision needs: Yes Meds Allergies Allergy/AdvReac Type Severity Reaction Status Date / Time epinephrine Allergy Unknown Unknown Verified 03/02/22 13:46 Active Medications: Current Medications Acetaminophen (Acetaminophen 325 Mg Tablet) 650 mg PO Q6H PRN PRN Reason: Pain, Mild, fever Docusate Sodium (Docusate Sodium 100 Mg Capsule) 100 mg PO DAILY PRN PRN Reason: Constipation Haloperidol (Haloperidol 0.5 Mg Tablet) 0.5 mg PO BEDTIME [facility] Last Admin: 04/10/22 21:49 Dose: 0.5 mg Heparin Sodium (Porcine) (Heparin Sodium,Porcine 5,000 Unit/Ml Vial) 3,200 unit 40 unit/kg (3200 unit) IVPUSH PROTOCOL BOLUS PRN; Protocol PRN Reason: 40 unit/kg - Heparin Protocol Heparin Sodium (Porcine) (Heparin Sodium,Porcine 5,000 Unit/Ml Vial) 6,400 unit 80 unit/kg (6400 unit) IVPUSH PROTOCOL BOLUS PRN; Protocol PRN Reason: 80 unit/kg - Heparin Protocol Levofloxacin (Levaquin) 750 mg in 150 mls @ 100 mls/hr IV Q24H [facility] Last Infusion: 04/10/22 21:57 Dose: Infused Metronidazole (Flagyl) 500 mg in 100 mls @ 100 mls/hr IV Q8H [facility] Last Infusion: 04/11/22 11:48 Dose: Infused Heparin Sodium/Sodium Chloride (Heparin Sodium,Porcine/1/2ns) 25,000 unit in 250 mls @ 0 mls/hr IVCONT .Q0M [facility]; Protocol Last Titration: 04/06/22 20:08 Dose: Infused Methylprednisolone Sodium Succinate (Methylprednisolone Sod Succ 40 Mg/Ml Vial) 40 mg IVPUSH Q24H [facility] Last Admin: 04/10/22 15:23 Dose: 40 mg Metoprolol Tartrate (Metoprolol Tartrate 25 Mg Tablet) 25 mg PO BID [facility]; Protocol Last Admin: 04/11/22 10:20 Dose: 25 mg Ondansetron HCl (Ondansetron Hcl 4 Mg/2 Ml Vial) 4 mg IVPUSH Q8H PRN PRN Reason: Nausea and Vomiting Sodium Chloride (0.9 % Sodium Chloride Flush 3 Ml Syringe) 3 ml IVFLUSH QSHIFT [facility] Last Admin: 04/11/22 10: Dose: 3 ml [employer]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 Physical Exam Vitals Vital signs: Temp Pulse Resp BP Pulse Ox O2 Del Method 97.7 F 83 20 109/76 97 04/11/22 11:40 04/11/22 11:40 04/11/22 11:40 04/11/22 11:40 04/11/22 13:00 04/11/22 13:00 BMI result Body Mass Index 27.8 Constitutional General Appearance: Healthy appearing, Well-nourished and Well-developed Psychiatric Mood and Affect: active and alert, normal mood and normal affect Skin Appearance: No rashes and No lesions Lungs Respiratory Effort: No intercostal retractions Auscultation: Clear to auscultation Cardiovascular Auscultation: RRR Abdomen Auscultation/Inspection/Palpation: Normal bowel sounds, Soft, Non-distended and No tenderness Female Genitalia (Pelvic) Bladder/Urethra: Normal meatus Vulva: No lesions Vagina: Nontender and No erythema Cervix: Grossly normal and No cervical motion tenderness Uterus: Normal size and Retroverted Adnexa/Parametria: Adnexal Tenderness: None, Adnexal Mass: None, Parametrial Tenderness: None and Parametrial Mass: None Additional Comments: No blood per vagina, no evidence of vaginal bleeding 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 Labs CBC & Chem 7: 04/12/22 04:03 04/12/22 04:03 Labs: Short CBC 04/11/22 04/11/22 Range/Units 06:33 06:33 WBC 7.3 7.3 (4.8-10.8) X10*3/uL Hgb 13.6 13.5 (12.0-16.0) g/dl Hct 40.6 40.3 (37.0-47.0) % Plt Count 278 278 (160-400) X10*3/uL BMP 04/11/22 06:33 Sodium 142 Potassium 3.7 Chloride 105 Carbon Dioxide 26 BUN 16 Creatinine 0.68 Calcium 8.4 Urine 04/08/22 Range/Units 03:10 Urine Color Yellow Urine Appearance Hazy Urine pH 6.5 (5.0-9.0) Ur Specific [place] 1.010 (1.005-1.025) Urine Protein Trace (Neg-Trace) mg/dL Urine Glucose (UA) Negative (Negative) mg/dL Antibody Screen Antibody Screen NEGATIVE 04/05/22 08:42 Assessment and Plan (1) Postmenopausal bleeding: Status: Acute Plan Discussed with the patient her , the patient's healthcare proxy, that it is uncertain whether she has being having postmenopausal bleeding, and that on pelvic exam there is no evidence of postmenopausal bleeding. Discussed with the patient and her the differential diagnosis of post menopausal bleeding in case it is occurring, with normal pelvic exam including but not limited to, endometrial hyperplasia, cancer, polyps and other causes; co testing not indicated, pelvic ultrasound ordered, to measure the endometrial stripe; discussed with the patient and her that the unofficial reading, official report not available yet, showed that the endometrial thickness is 8 mm , therefore recommended to proceed with endometrial sampling to rule out endometrial pathology including endometrial hyperplasia and/or malignancy, the patient's , the patient's healthcare proxy, decided to proceed with endometrial biopsy which was done, see procedure note. Recommended to insert a vaginal tampon for 24 hours to help identify the source of the blood, if the blood is coming from the rectum, the tampon will be stained from the perineal area, otherwise if the bleeding is vaginal it will be stained from the vaginal area. Will check the tampon test, ultrasound results and pathology and determine the next step in the management. Discussed the case with Dr. Sammy Solo Endometrial Biopsy Details: The patient and her , her healthcare proxy were counseled regarding the indication and benefits of endometrial sampling to rule out endometrial pathology including not limited to endometrial hyperplasia or endometrial cancer and others; The alternatives (Either do nothing vs. hysteroscopy D&C) & the risks were discussed with the patient and her including but not limited: pain, uterine perforation, bleeding, infection, possible injury to bladder, bowel, ureter, possible need for blood transfusion with all its possible risks. The patient and her verbalized understanding all questions answered and her , her healthcare proxy signed the consent. The patient was placed into the dorsal lithotomy position; a speculum was inserted in the vagina. Using aseptic technique for the procedure, the cervix was cleansed with Betadine. The anterior lip of the cervix was grasped with a single tooth tenaculum. The uterus was sounded to 6 cm with a 4 mm Pipelle was used. Tissues samples were obtained and placed in formalin, in a patient labeled container and sent to the pathology department. At the end of the procedure, there was minimal bleeding noted The patient tolerated the procedure well and was discharged in good condition with the following instructions: Nothing in the vagina until the bleeding stops. To informed the nursing staff if any of the following occurs: flu-like symptoms, abdominal pain, heavy bleeding, four smelling vaginal discharge. This note was generated with a voice recognition program. Some errors may have been overlooked during the review of this note. Sometimes these errors may affect the content or meaning of a given sentence. [id number] Biopsy
--- NOTE | 2022-04-11 14:37 | MHC.CM.PN ---
Per ROUNDS discussion, Patient is not yet medically cleared for dc(IV Heparin, IV Levaquin, IV Solu Medrol); home is the goal pending pt eval and CM will continue to follow.
[2022-04-11] MEDS: Heparin Sodium,Porcine/1/2NS 25,000 UNIT/250 ML IV.SOLN 11.27 UNIT IVCONT (14:46)
[2022-04-11] MEDS: methylPREDNISolone Sod Succ 40 MG/ML VIAL IVPUSH (14:46)
[2022-04-11 14:51] LABS: PTT Heparin Drip 26.4 SEC (53-77.9)
--- NOTE | 2022-04-11 16:31 | PC.NURSE ---
per racquel kelley to initiate heparin drip per protocol. PTT drawn. rolled kerlex sponge placed into vaginal orifice.
[2022-04-11] MEDS: levoFLOXacin/D5W 750 MG/150 ML PIGGYBACK 100 MG IV (21:04)
[2022-04-11] MEDS: HaloperidoL 0.5 MG TABLET PO (21:05)
[2022-04-11] MEDS: Heparin Sodium,Porcine 5,000 UNIT/ML VIAL 6400 UNIT IVPUSH (22:07)
[2022-04-12 04:11] LABS: Hemoglobin 13.3 g/dl (12.0-16.0); Mean Corpuscular HGB Conc 33.3 g/dl (31.0-35.0); Mean Corpuscular Hemoglobin 28.9 pg (27.0-33.0); Mean Corpuscular Volume 86.8 fL (80.0-98.0); Mean Platelet Volume 9.5 fL (9.4-12.3); Platelet Count 280 X10*3/uL (160-400); Red Blood Count 4.61 X10*6/uL (4.20-5.50); Red Cell Distribution Width 12.7 % (11.0-16.0); White Blood Count 7.1 X10*3/uL (4.8-10.8)
--- NOTE | 2022-04-12 04:20 | PC.NURSE ---
Addendum entered by Marie Pena RN 04/12/22 04:27: 1900; patient was combative at change of shift. Dr. Mccollum notified, iv haldol ordered. EKG done to check if patient has normal QT prior to iv haldol administration. After EKG completed, patient calm and cooperative. Hospitalist notified patient is calm, no longer need iv haldol. Hospitalist made aware iv haldol not administered. continue to monitor patient. Original Note: 1899; Patient with only one iv access, currently on a heparin drip. Patient due for iv antibiotic, imc resource initiated another iv access. 2029; Pharmacy notified patient has another iv access, antibiotic times adjusted.
[2022-04-12 04:42] LABS: PTT Heparin Drip 173.6 SEC (53-77.9)
[2022-04-12 04:47] LABS: Anion Gap 18 (12-20); Blood Urea Nitrogen 17 mg/dL (9-16); Calcium 8.3 mg/dL (8.4-10.2); Carbon Dioxide 23 mmol/L (22-29); Chloride 105 mmol/L (96-108); Creatinine Clr Calc Pharmacy 67.6; Estimated Glomerular Filt Rate > 60; Glucose Fasting 165 mg/dL (60-99); Potassium 3.6 mmol/L (3.3-5.1); Sodium 142 mmol/L (135-145)
[2022-04-12 06:10] LABS: PTT Heparin Drip 70.6 SEC (53-77.9)
[2022-04-12] MEDS: Acetaminophen 325 MG TABLET 650 MG PO (06:36)
[2022-04-12] MEDS: metroNIDAZOLE/NS 500 MG/100 ML PIGGYBACK 100 MG IV ×3 (06:36→22:31)
[2022-04-12 07:14] VITALS: BP 134/87; PULSE 91; RESP 18; TEMP 37; O2SAT 95
[2022-04-12 08:20] LABS: PTT Heparin Drip 40.5 SEC (53-77.9)
[2022-04-12] MEDS: Metoprolol Tartrate 25 MG TABLET PO ×2 (09:25→19:59)
[2022-04-12] MEDS: predniSONE 20 MG TABLET 40 MG PO (09:25)
--- NOTE | 2022-04-12 10:07 | HO.PM.IMPN ---
Subjective Subjective Date of Service: 04/12/22 Interval History: cc: hematochezia interval history:maximino brown discharge with clots of unclear origin continues without drop in hgb ENT Ears, Nose, Mouth, and Throat: Reports Normal hearing present Cardiovascular Cardiovascular: Reports no additional cardiovascular complaints Respiratory Respiratory: Reports no additional respiratory complaints Neurologic Neurologic: Reports Normal hearing present Physical Exam Vital Signs: Vital Signs: Last Vital Signs Temp 98.6 F 04/12/22 07:14 Pulse 91 04/12/22 07:14 Resp 18 04/12/22 07:14 BP 134/87 04/12/22 07:14 Pulse Ox 95 04/12/22 07:14 O2 Del Method 04/12/22 07:14 BMI result Body Mass Index 27.8 Const: General: cooperative, healthy appearing and comfortable Orientation/consciousness: oriented to person, oriented to place and oriented to time HEENT: Head: Yes normal to inspection Neck: Neck: Yes normal visual inspection Carotids: no bruits Chest: Chest palpation & inspection: normal inspection of the chest Resp: Effort & Inspection: normal respiratory effort and able to speak in complete sentences Auscultation: clear to auscultation bilaterally, no crackles, no rales, no rhonchi and no wheezes Cardio: Rate: regular rate Rhythm: regular rhythm Heart sounds: S1 normal heart sound present and S2 normal heart sound present Bruits: no carotid bruits Peripheral pulses: Peripheral pulses 2+ throughout GI: Inspection: Yes normal to inspection Skin: Wounds: no wounds Hair: normal Neuro: General: oriented to person, oriented to place and oriented to time Cranial nerves: Yes Normal hearing present Cognition (Neuro): normal cognition Motor exam (neuro): 5/5 motor strength present throughout Extrem: Other: venous exam: No significant superficial varicosities or spider telangiectasias, minimal edema General: No clubbing, No cyanosis and No edema Psych: Appearance: grossly normal Mental Status: mental status grossly normal Speech and movement: Normal speech and movement present Objective Data Active Medications Acetaminophen (Acetaminophen 325 Mg Tablet) 650 mg PO Q6H PRN PRN Reason: Pain, Mild, fever Last Admin: 04/12/22 06:36 Dose: 650 mg Documented By: MICHAEL Docusate Sodium (Docusate Sodium 100 Mg Capsule) 100 mg PO DAILY PRN PRN Reason: Constipation Haloperidol (Haloperidol 0.5 Mg Tablet) 0.5 mg PO BEDTIME [facility] Last Admin: 04/11/22 21:05 Dose: 0.5 mg Documented By: TUMASY Heparin Sodium (Porcine) (Heparin Sodium,Porcine 5,000 Unit/Ml Vial) 3,200 unit 40 unit/kg (3200 unit) IVPUSH PROTOCOL BOLUS PRN; Protocol PRN Reason: 40 unit/kg - Heparin Protocol Heparin Sodium (Porcine) (Heparin Sodium,Porcine 5,000 Unit/Ml Vial) 6,400 unit 80 unit/kg (6400 unit) IVPUSH PROTOCOL BOLUS PRN; Protocol PRN Reason: 80 unit/kg - Heparin Protocol Last Admin: 04/11/22 22:07 Dose: 6,400 unit Documented By: MARIBELL Levofloxacin (Levaquin) 750 mg in 150 mls @ 100 mls/hr IV Q24H [facility] Last Infusion: 04/11/22 22:57 Dose: 0 mls/hr Documented By: MARIBELL Heparin Sodium/Sodium Chloride (Heparin Sodium,Porcine/1/2ns) 25,000 unit in 250 mls @ 0 mls/hr IVCONT .Q0M [facility]; Protocol Last Titration: 04/12/22 06:30 Dose: 14 units/kg/hr, 11.27 mls/hr Documented By: MICHAEL Co-signed By: CASTILM Metronidazole (Flagyl) 500 mg in 100 mls @ 100 mls/hr IV Q8H [facility] Last Infusion: 04/12/22 07:39 Dose: 0 mls/hr Documented By: MICHAEL Metoprolol Tartrate (Metoprolol Tartrate 25 Mg Tablet) 25 mg PO BID [facility]; Protocol Last Admin: 04/12/22 09:25 Dose: 25 mg Documented By: MICHAEL Ondansetron HCl (Ondansetron Hcl 4 Mg/2 Ml Vial) 4 mg IVPUSH Q8H PRN PRN Reason: Nausea and Vomiting Prednisone (Prednisone 20 Mg Tablet) 40 mg PO DAILY [facility] Last Admin: 04/12/22 09:25 Dose: 40 mg Documented By: MICHAEL Sodium Chloride (0.9 % Sodium Chloride Flush 3 Ml Syringe) 3 ml IVFLUSH QSHIFT [facility] Last Admin: 04/12/22 06:37 Dose: Not Given Documented By: MICHAEL Non-Admin Reason: IV Running Labs CBC & Chem 7: 04/12/22 04:03 04/12/22 04:03 Labs: Laboratory Results - last 24 hr 04/09/22 04/11/22 04/11/22 06:50 14:36 21:01 MCV MCH MCHC RDW Plt Count MPV Absolute Nucleated RBC Nucleated RBC % (auto) aPTT Heparin Protocol 26.4 L 27.0 L Anion Gap Estim Creat Clear Calc Estimated GFR Fasting Glucose Calcium Hep Bs Antibody REACTIVE Hep B Core Total Ab Nonreactive Hepatitis C Ab (EIA) Nonreactive 04/12/22 04/12/22 04/12/22 04:03 04:03 04:03 MCV 86.8 MCH 28.9 MCHC 33.3 RDW 12.7 Plt Count 280 MPV 9.5 Absolute Nucleated RBC 0.000 Nucleated RBC % (auto) 0.0 aPTT Heparin Protocol 173.6 H* D Anion Gap 18 Estim Creat Clear Calc 67.6 Estimated GFR > 60 Fasting Glucose 165 H Calcium 8.3 L Hep Bs Antibody Hep B Core Total Ab Hepatitis C Ab (EIA) 04/12/22 04/12/22 05:37 07:39 MCV MCH MCHC RDW Plt Count MPV Absolute Nucleated RBC Nucleated RBC % (auto) aPTT Heparin Protocol 70.6 D 40.5 L D Anion Gap Estim Creat Clear Calc Estimated GFR Fasting Glucose Calcium Hep Bs Antibody Hep B Core Total Ab Hepatitis C Ab (EIA) Assessment and Plan (1) Hematochezia: Status: Acute Plan 81-year-old female with a past medical history of dementia, paroxysmal atrial fibrillation, pulmonary embolism, ulcerative colitis presented with hematochezia Hematochezia ddx includes ischemic colitis vs infectious vs UC Hemoglobin stable, continue to monitor Colonoscopya and CT was suspicious for ischemic colitis, biopsies taken -more suspicous for UC, also showed internal hemorrhoids continue levaquin, flagyl day 5, rechallenged with IV heparin on 04/06/22 - stopped for rebleed, now restarted again 04/11/22 and monitor changed iv solumedrol to prednisone - slow taper check stool pcr not sent ? 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 - follow up pathology results from biopsy plan to rechallenge with iv heparin (restarted 04/11/22) with inserted gauze in vagina to help determine origin of discharge bleeding component likely minimal as hgb has not dropped Paroxysmal atrial fibrillation Metoprolol normally on Eliquis, now on heparin, if hgb remains stable can switch back History of pulmonary embolism iv heparin Dementia with behavioral disturbance Likely Alzheimer's At baseline Continue Haldol DVT prophylaxis - iv heparin Full Code reason for continued hospitalization:monitoring for tolerance of AC, active bleed/discharge Quality Stroke Does the patient have a stroke diagnosis?: No VTE Prior VTE?: No VTE Risk Level:: Medical - moderate - high VTE Device Contraindication: N/A - Device Ordered VTE Drug Contraindication: Treatment Not Indicated
--- NOTE | 2022-04-12 10:53 | PC.NURSE ---
Patient reports she has been missing her dentures since admission.
[2022-04-12 11:20] LABS: Hepatitis B Surface Antigen Rep Reactive (Negative)
[2022-04-12 11:22] VITALS: BP 117/71; PULSE 93; RESP 18; TEMP 36.7; O2SAT 97
[2022-04-12 11:27] LABS: R2 SCO 500 0.21 S/CO
[2022-04-12 11:28] LABS: Hepatitis B Surface Antigen NOT CONFIRMED (Negative); Neutral % 500 0
[2022-04-12 12:43] LABS: PTT Heparin Drip 53.4 SEC (53-77.9)
[2022-04-12 13:00] VITALS: O2SAT 97
[2022-04-12] MEDS: Heparin Sodium,Porcine/1/2NS 25,000 UNIT/250 ML IV.SOLN 11.27 UNIT IVCONT (13:19)
--- NOTE | 2022-04-12 14:17 | PM.GIPN ---
Subjective Subjective Date of Service: 04/12/22 Interval History: Pt seen at bedside in the presence of her . Does not report abd pain, N,V. Interval events including LITIGATION ASSISTANT consult and endometrial bx reviewed. Of note, the did not recall these events.. Critical Care Time (minutes): 0 Physical Exam Vital Signs: Vital Signs: Last Vital Signs Temp 98.1 F 04/12/22 11:22 Pulse 93 04/12/22 11:22 Resp 18 04/12/22 11:22 BP 117/71 04/12/22 11:22 Pulse Ox 97 04/12/22 11:22 O2 Del Method 04/12/22 11:22 BMI result Body Mass Index 27.8 Gen appear: NAD Abd: soft, nontender, nondistended Objective Data Labs CBC & Chem 7: 04/12/22 04:03 04/12/22 04:03 Labs: Laboratory Results - last 24 hr 04/09/22 04/11/22 04/11/22 06:50 14:36 21:01 WBC RBC Hgb Hct MCV MCH MCHC RDW Plt Count MPV Absolute Nucleated RBC Nucleated RBC % (auto) aPTT Heparin Protocol 26.4 L 27.0 L Sodium Potassium Chloride Carbon Dioxide Anion Gap BUN Creatinine Estim Creat Clear Calc Estimated GFR Fasting Glucose Calcium Hep Bs Antigen (2) Rep Reactive Hep Bs Antigen Interp NOT CONFIRMED Hep Bs Antibody REACTIVE Hep B Core Total Ab Nonreactive Hepatitis C Ab (EIA) Nonreactive 04/12/22 04/12/22 04/12/22 04:03 04:03 04:03 WBC 7.1 RBC 4.61 Hgb 13.3 Hct 40.0 MCV 86.8 MCH 28.9 MCHC 33.3 RDW 12.7 Plt Count 280 MPV 9.5 Absolute Nucleated RBC 0.000 Nucleated RBC % (auto) 0.0 aPTT Heparin Protocol 173.6 H* D Sodium 142 Potassium 3.6 Chloride 105 Carbon Dioxide 23 Anion Gap 18 BUN 17 H Creatinine 0.70 Estim Creat Clear Calc 67.6 Estimated GFR > 60 Fasting Glucose 165 H Calcium 8.3 L Hep Bs Antigen (2) Hep Bs Antigen Interp Hep Bs Antibody Hep B Core Total Ab Hepatitis C Ab (EIA) 04/12/22 04/12/22 04/12/22 05:37 07:39 11:44 WBC RBC Hgb Hct MCV MCH MCHC RDW Plt Count MPV Absolute Nucleated RBC Nucleated RBC % (auto) aPTT Heparin Protocol 70.6 D 40.5 L D 53.4 D Sodium Potassium Chloride Carbon Dioxide Anion Gap BUN Creatinine Estim Creat Clear Calc Estimated GFR Fasting Glucose Calcium Hep Bs Antigen (2) Hep Bs Antigen Interp Hep Bs Antibody Hep B Core Total Ab Hepatitis C Ab (EIA) Microbiology Microbiology Results: Microbiology 04/05/22 18:20 Blood - Venous Blood Culture - Final No growth after 5 days. 04/05/22 18:14 Blood - Venous Blood Culture - Final No growth after 5 days. 04/08/22 00:00 Urine Catheterized - Coy Catheter Urine Culture - Final No growth. Procedures Date of Service Date of Service: 04/12/22 Progress Note: A&P Assessment and plan (1) Proctocolitis: Status: Acute Assessment and Plan: Path consistent with left sided UC. CRP trend reassuring. MEthylpred switched to PO prednisone today. Recommendations: - Cont prednisone 40mg once daily x 7 days. Followed by a taper of 10mg every 3 days. - Patient will be started on Apriso 1.5g once daily in AM with pentasa 1g enema at night; once she starts the taper - Monitor blood sugars on steroid therapy Thank you for allowing me to participate in her care. Please call back for any questions or concerns. (2) Ulcerative colitis: Status: Acute Time Spent With Patient Time: Total time spent is greater than 50% in coordination of care (as documented) at patient's floor/unit and/or counseling patient: Quality Stroke Does the patient have a stroke diagnosis?: No VTE Prior VTE?: No VTE Risk Level:: Medical - moderate - high VTE Device Contraindication: N/A - Device Ordered VTE Drug Contraindication: Treatment Not Indicated
[2022-04-12] MEDS: 0.9 % Sodium Chloride Flush 3 ML SYRINGE IVFLUSH (15:57)
[2022-04-12 16:00] VITALS: BP 92/67; PULSE 114; RESP 18; TEMP 35.8; O2SAT 97
[2022-04-12] MEDS: Haloperidol Lactate 5 MG/ML VIAL 2 MG IM (18:13)
[2022-04-12] MEDS: levoFLOXacin/D5W 750 MG/150 ML PIGGYBACK 100 MG IV (18:16)
--- NOTE | 2022-04-12 18:44 | PC.NURSE ---
sudden outburst of aggression, uncooperative, moving very fast towards door with the iv heparin drip. pt swinging his arms around , pushing away staff to get assistance with ambulation. pt doesn't respond to any verbal reorientation, getting more agitated. DR Conte was notified , Haldol 2 mg IM administered. Pt assessed q 15 min, getting out of her room at times , has some drawing paper at the bedside, has some periods of calm behavior
[2022-04-12 19:52] VITALS: BP 100/70; PULSE 82; RESP 17; TEMP 36; O2SAT 93
[2022-04-12] MEDS: HaloperidoL 0.5 MG TABLET PO (19:57)
[2022-04-12] MEDS: Heparin Sodium,Porcine 5,000 UNIT/ML VIAL 3200 UNIT IVPUSH (20:19)
[2022-04-12 23:22] VITALS: BP 115/72; PULSE 74; RESP 18; TEMP 36.1; O2SAT 96
[2022-04-13] VITALS (9 sets, daily range): BP systolic 111–140; BP diastolic 56–73; PULSE 59–95; RESP 15–20; TEMP 36.2–37.2; O2SAT 91–99
[2022-04-13] MEDS: 0.9 % Sodium Chloride Flush 3 ML SYRINGE IVFLUSH ×4 (00:38→21:48)
[2022-04-13] MEDS: metroNIDAZOLE/NS 500 MG/100 ML PIGGYBACK 100 MG IV ×3 (06:00→21:48)
[2022-04-13 06:41] LABS: Anion Gap 14 (12-20); Blood Urea Nitrogen 13 mg/dL (9-16); Calcium 8.4 mg/dL (8.4-10.2); Carbon Dioxide 26 mmol/L (22-29); Chloride 108 mmol/L (96-108); Estimated Glomerular Filt Rate > 60; Glucose Fasting 106 mg/dL (60-99); Potassium 3.7 mmol/L (3.3-5.1); Sodium 144 mmol/L (135-145)
[2022-04-13 06:54] LABS: Hematocrit 38.7 % (37.0-47.0); Hemoglobin 12.9 g/dl (12.0-16.0); Mean Corpuscular HGB Conc 33.3 g/dl (31.0-35.0); Mean Corpuscular Hemoglobin 29.4 pg (27.0-33.0); Mean Corpuscular Volume 88.2 fL (80.0-98.0); PLT CLUMP 1; Red Blood Count 4.39 X10*6/uL (4.20-5.50); Red Cell Distribution Width 12.8 % (11.0-16.0)
[2022-04-13 06:56] LABS: White Blood Count 5.6 X10*3/uL (4.8-10.8)
[2022-04-13 08:12] LABS: Hepatitis A Antibody IgG Nonreactive (Nonreactive); ~Hepatitis A Antibody IgG 0.31 S/CO (0.00-0.99)
--- NOTE | 2022-04-13 08:26 | PC.NURSE ---
Addendum entered by Jinny Brown RN 04/13/22 08:29: Heparin drip d/c'd Original Note: 0800- 0620 PTT-HD not resulted. Chemistry called. Per chemistry sample hemolysized, will need redraw. Phlebotomy called for redraw. Heparin continue to be held, until new PTT-HD resulted.
[2022-04-13] MEDS: predniSONE 20 MG TABLET 40 MG PO (09:42)
[2022-04-13] MEDS: Metoprolol Tartrate 25 MG TABLET PO ×2 (09:42→21:48)
[2022-04-13] MEDS: Apixaban 5 MG TABLET PO ×2 (09:42→21:48)
[2022-04-13 09:54] LABS: PTT Heparin Drip 22.1 SEC (53-77.9)
--- NOTE | 2022-04-13 14:19 | HO.PM.IMPN ---
Subjective Subjective Date of Service: 04/13/22 Interval History: The patient was seen and evaluated this morning Laying in bed, feels comfortable, responsive to verbal stimuli Denies any fever, chills or blood per rectum Still having blood with urine reported agitation overnight No reported other overnight events. Systemic review: No fever, chills or weakness No chest pain, palpitation No shortness of breath or coughing No abdominal pain, nausea or vomiting Urine mixed with blood No any rash or wounds Physical Exam Vital Signs: Vital Signs: Last Vital Signs Temp 97.3 F 04/13/22 11:42 Pulse 74 04/13/22 11:42 Resp 18 04/13/22 11:42 BP 119/68 04/13/22 11:42 Pulse Ox 98 04/13/22 11:42 O2 Del Method 04/13/22 11:42 BMI result Body Mass Index 27.8 Const: Other: Constitutional : Alert with stimulation, not in distress Neck : Normal inspection, Supple Cardiovascular : RRR, no JVP, no lower extremity edema Respiratory : fair bilateral air entry, no crackles, wheezes or rhonchi Gastrointestinal: soft, lax, Normal bowel sounds, Non tender Skin : Warm, Dry Neurological : Alert with stimulation, disoriented, No focal deficit Objective Data Active Medications Acetaminophen (Acetaminophen 325 Mg Tablet) 650 mg PO Q6H PRN PRN Reason: Pain, Mild, fever Last Admin: 04/12/22 06:36 Dose: 650 mg Documented By: MICHAEL Apixaban (Apixaban 5 Mg Tablet) 5 mg PO BID [facility] Last Admin: 04/13/22 09:42 Dose: 5 mg Documented By: MI Docusate Sodium (Docusate Sodium 100 Mg Capsule) 100 mg PO DAILY PRN PRN Reason: Constipation Haloperidol (Haloperidol 0.5 Mg Tablet) 0.5 mg PO BEDTIME [facility] Last Admin: 04/12/22 19:57 Dose: 0.5 mg Documented By: MYNOR Levofloxacin (Levaquin) 750 mg in 150 mls @ 100 mls/hr IV Q24H [facility] Last Infusion: 04/12/22 20:01 Dose: 0 mls/hr Documented By: MYNOR Metronidazole (Flagyl) 500 mg in 100 mls @ 100 mls/hr IV Q8H [facility] Last Infusion: 04/13/22 07:09 Dose: 0 mls/hr Documented By: TANJA Metoprolol Tartrate (Metoprolol Tartrate 25 Mg Tablet) 25 mg PO BID [facility]; Protocol Last Admin: 04/13/22 09:42 Dose: 25 mg Documented By: MI Ondansetron HCl (Ondansetron Hcl 4 Mg/2 Ml Vial) 4 mg IVPUSH Q8H PRN PRN Reason: Nausea and Vomiting Prednisone (Prednisone 20 Mg Tablet) 40 mg PO DAILY [facility] Last Admin: 04/13/22 09:42 Dose: 40 mg Documented By: MI Sodium Chloride (0.9 % Sodium Chloride Flush 3 Ml Syringe) 3 ml IVFLUSH QSHIFT [facility] Last Admin: 04/13/22 09:43 Dose: 3 ml Documented By: MI Labs CBC & Chem 7: 04/13/22 06:20 04/13/22 06:20 Labs: Laboratory Results - last 24 hr 04/09/22 04/12/22 04/13/22 06:50 18:57 02:22 MCV MCH MCHC RDW Plt Count MPV Absolute Nucleated RBC Nucleated RBC % (auto) aPTT Heparin Protocol 41.0 L D 155.0 H* D Anion Gap Estim Creat Clear Calc Estimated GFR Fasting Glucose Calcium Hepatitis A IgG Ab Nonreactive 04/13/22 04/13/22 04/13/22 06:20 06:20 09:05 MCV 88.2 MCH 29.4 MCHC 33.3 RDW 12.8 Plt Count TNP MPV TNP Absolute Nucleated RBC 0.000 Nucleated RBC % (auto) 0.0 aPTT Heparin Protocol 22.1 L D Anion Gap 14 Estim Creat Clear Calc 74.0 Estimated GFR > 60 Fasting Glucose 106 H Calcium 8.4 Hepatitis A IgG Ab Assessment and Plan (1) Hematochezia: Status: Acute (2) Anticoagulated: Status: Acute (3) Colitis: Status: Acute (4) Dementia with behavioral disturbance: Status: Acute Plan 81-year-old female with a past medical history of dementia, paroxysmal atrial fibrillation, pulmonary embolism, ulcerative colitis presented with hematochezia bleeding per rectum ddx includes ischemic colitis vs infectious vs UC Hemoglobin stable, continue to monitor Colonoscopy and CT was suspicious for ischemic colitis, biopsies taken -more suspicous for UC, also showed internal hemorrhoids DC levaquin, flagyl day 5, rechallenged with IV heparin on 04/11/22 after failed 1st attempt, Hb stable with no reported bleeding continue prednisone - slow taper (1 wk then 3 days at a time) restart Eliquis and monitor any rebleeding vaginal bleed/discharge questionable TVUS - Slightly thickened heterogeneous endometrium measuring 0.8 cm, tube rebuilder appreciated - follow up pathology results from biopsy (might need repeat ) Tampon test rechallenged with heparin Paroxysmal atrial fibrillation Metoprolol on Eliquis History of pulmonary embolism Eliquis Dementia with behavioral disturbance Likely Alzheimer's more agitated overnight requiring haldol Continue Haldol Psych team pending eval DVT prophylaxis Eliquis Full Code reason for continued hospitalization:monitoring for tolerance of AC, active bleed/discharge pending psych eval for behavioural problem. Quality Stroke Does the patient have a stroke diagnosis?: No VTE Prior VTE?: No VTE Risk Level:: Medical - moderate - high VTE Device Contraindication: N/A - Device Ordered VTE Drug Contraindication: Treatment Not Indicated
--- NOTE | 2022-04-13 15:13 | PM.EVENT ---
Event Note Date of Service: 04/13/22 Event Note: The patient is doing well with no complaints. It is still unclear with it patient is having vaginal bleeding or not. Speculum exam repeated today: No evidence of blood per vagina EMB pathology showed the following: Endometrium, biopsy: - Superficial strips of poorly preserved endocervical and squamous epithelium; otherwise within normal limits. - Abundant poorly preserved mucoinflammatory material. - Definitive endometrial sampling not identified COMMENT: Recommend repeat, as clinically appropriate. Pelvic ultrasound showed: 8 mm endometrial stripe EMB repeated today. Procedure Note: The patient and her , her health care proxy were counseled regarding the possibility of vaginal bleeding and the results of the endometrial biopsy with no definite of endometrial tissues identified, since endometrial stripe is above 4 mm by ultrasound in case of postmenopausal bleeding, there is an indication for endometrial sampling , discussed with the patient and her the benefits of endometrial sampling to rule out endometrial pathology including not limited to endometrial hyperplasia or endometrial cancer and others; in addition discussed with them the alternatives (Either do nothing vs. hysteroscopy D&C) & the risks were discussed with the patient including but not limited: pain, uterine perforation, bleeding, infection, possible injury to bladder, bowel, ureter, possible need for blood transfusion with all its possible risks. The patient verbalized understanding all questions answered and signed consent. The patient was placed into the dorsal lithotomy position; a speculum was inserted in the vagina. Using aseptic technique for the procedure, the cervix was cleansed with Betadine. The anterior lip of the cervix was grasped with a single tooth tenaculum. The uterus was sounded to 6 cm with a 4 mm Pipelle was used. Tissues samples were obtained and placed in formalin, in a patient labeled container and sent to the pathology department. At the end of the procedure, there was minimal bleeding noted A/P: Possible postmenopausal bleeding with thickened endometrium by ultrasound EMB repeated, will check the results and treat accordingly This note was generated with a voice recognition program. Some errors may have been overlooked during the review of this note. Sometimes these errors may affect the content or meaning of a given sentence.
--- NOTE | 2022-04-13 15:59 | MHC.CM.PN ---
PT is recommending home with 24/7 supervision and CM will continue to follow.
--- NOTE | 2022-04-13 16:04 | P.CNPS_ITS ---
History of Present Illness Date of Service: 04/13/2022 Chief Complaint: BRBPR Reason for Consult: Dementia with behavioral disturbance. Requesting physician: Bria Conte Discussed with referring provider: No (discussed with attending provider) Sources of Information: patient interviewed and chart reviewed Additional Sources of Information: patient's RN HPI Narrative: Patient is an 81 year-old female, with history of dementia with behavioral disturbance, PMH of PE and permanent atrial fibrillation on Eliquis, ulcerative colitis. Patient has been medically admitted and is being treated for acute proctocolitis. Psychiatry has been asked to consult due to dementia, increased behavioral disturbance while inpatient. T/W attempted to meet with patient. She appeared to be sleeping comfortably. was at bedside, but had difficulty hearing. He said that things were more eventful yesterday , but that things are okay today . He was anxious / concerned regarding her physical condition, and was focused on her needs at moment, unable to converse further at this time. I then spoke with RN, who was also patient's nurse yesterday. She reports that patient appears to be more alert and coherent during day, but that owning occurs at approximately 18:00. Yesterday patient was up, requiring constant supervision, pacing in hallway with unsteady gait, increased agitation. Patient was given haldol as a one time now last evening, in addition to her bedtime scheduled dose, with positive effect. Past Psychiatric History: dementia Medical Evaluation Reviewed: Yes Personal & Social History: , lives with spouse. Daughter Judy is her healthcare proxy. Review of Systems Review of Systems Yes Unobtainable due to mental status [facility] Medical History Atrial fibrillation Dementia Dementia Hypertension Mesenteric ischemia Post-menopausal Pulmonary embolism Rectal bleed Screening for breast cancer Subacute massive pulmonary embolism Ulcerative colitis Surgical History History of section History of colonoscopy History of left knee replacement Hx of sigmoidoscopy Diagnostics Vital Signs (24Hr): Vital Signs - 24 hr 04/12/22 19:52 04/12/22 23:22 04/12/22 23:50 Temperature 96.8 F 96.9 F Pulse Rate 82 74 Respiratory Rate 17 18 Blood Pressure 100/70 115/72 Pulse Oximetry 93 96 Oxygen Delivery Method Room Air Room Air T-Piece 04/13/22 02:58 04/13/22 07:07 04/13/22 07:09 Temperature 97.1 F 97.2 F 97.2 F Pulse Rate 63 67 67 Respiratory Rate 20 20 Blood Pressure 116/73 116/73 Pulse Oximetry 99 99 Oxygen Delivery Method Room Air Room Air 04/13/22 11:42 04/13/22 13:00 04/13/22 15:21 Temperature 97.3 F 97.7 F Pulse Rate 74 59 Respiratory Rate 18 15 Blood Pressure 119/68 140/60 H Pulse Oximetry 98 92 91 L Oxygen Delivery Method Room Air Room Air Room Air 04/13/22 15:33 Temperature 97.8 F Pulse Rate 77 Respiratory Rate 16 Blood Pressure 111/66 Pulse Oximetry 95 Oxygen Delivery Method Room Air BMI result Body Mass Index 27.8 Labs Results: 04/13/22 06:20 04/13/22 06:20 Labs: Laboratory Results - last 48 hr 04/09/22 04/09/22 04/11/22 06:50 06:50 21:01 WBC RBC Hgb Hct MCV MCH MCHC RDW Plt Count MPV Absolute Nucleated RBC Nucleated RBC % (auto) aPTT Heparin Protocol 27.0 L Sodium Potassium Chloride Carbon Dioxide Anion Gap BUN Creatinine Estim Creat Clear Calc Estimated GFR Fasting Glucose Calcium Hepatitis A IgG Ab Nonreactive Hep Bs Antigen (2) Rep Reactive Hep Bs Antigen Interp NOT CONFIRMED Hep Bs Antibody REACTIVE Hep B Core Total Ab Nonreactive Hepatitis C Ab (EIA) Nonreactive 04/12/22 04/12/22 04/12/22 04:03 04:03 04:03 WBC 7.1 RBC 4.61 Hgb 13.3 Hct 40.0 MCV 86.8 MCH 28.9 MCHC 33.3 RDW 12.7 Plt Count 280 MPV 9.5 Absolute Nucleated RBC 0.000 Nucleated RBC % (auto) 0.0 aPTT Heparin Protocol 173.6 H* D Sodium 142 Potassium 3.6 Chloride 105 Carbon Dioxide 23 Anion Gap 18 BUN 17 H Creatinine 0.70 Estim Creat Clear Calc 67.6 Estimated GFR > 60 Fasting Glucose 165 H Calcium 8.3 L Hepatitis A IgG Ab Hep Bs Antigen (2) Hep Bs Antigen Interp Hep Bs Antibody Hep B Core Total Ab Hepatitis C Ab (EIA) 04/12/22 04/12/22 04/12/22 05:37 07:39 11:44 WBC RBC Hgb Hct MCV MCH MCHC RDW Plt Count MPV Absolute Nucleated RBC Nucleated RBC % (auto) aPTT Heparin Protocol 70.6 D 40.5 L D 53.4 D Sodium Potassium Chloride Carbon Dioxide Anion Gap BUN Creatinine Estim Creat Clear Calc Estimated GFR Fasting Glucose Calcium Hepatitis A IgG Ab Hep Bs Antigen (2) Hep Bs Antigen Interp Hep Bs Antibody Hep B Core Total Ab Hepatitis C Ab (EIA) 04/12/22 04/13/22 04/13/22 18:57 02:22 06:20 WBC 5.6 RBC 4.39 Hgb 12.9 Hct 38.7 MCV 88.2 MCH 29.4 MCHC 33.3 RDW 12.8 Plt Count TNP MPV TNP Absolute Nucleated RBC 0.000 Nucleated RBC % (auto) 0.0 aPTT Heparin Protocol 41.0 L D 155.0 H* D Sodium Potassium Chloride Carbon Dioxide Anion Gap BUN Creatinine Estim Creat Clear Calc Estimated GFR Fasting Glucose Calcium Hepatitis A IgG Ab Hep Bs Antigen (2) Hep Bs Antigen Interp Hep Bs Antibody Hep B Core Total Ab Hepatitis C Ab (EIA) 04/13/22 04/13/22 06:20 09:05 WBC RBC Hgb Hct MCV MCH MCHC RDW Plt Count MPV Absolute Nucleated RBC Nucleated RBC % (auto) aPTT Heparin Protocol 22.1 L D Sodium 144 Potassium 3.7 Chloride 108 Carbon Dioxide 26 Anion Gap 14 BUN 13 Creatinine 0.64 Estim Creat Clear Calc 74.0 Estimated GFR > 60 Fasting Glucose 106 H Calcium 8.4 Hepatitis A IgG Ab Hep Bs Antigen (2) Hep Bs Antigen Interp Hep Bs Antibody Hep B Core Total Ab Hepatitis C Ab (EIA) Imaging Radiology Impressions: ITS Impressions Abdomen/Pelvis CT 04/05/22 17:04 IMPRESSION: No evidence of active GI bleeding. Severe wall thickening and hyperenhancement of the left hemicolon and rectum suggesting colitis and proctocolitis. Etiology is uncertain, ischemic origin is not excluded given distribution. This examination was not performed as a CTA, limiting evaluation of arterial patency. Incidentally noted multiple new pulmonary nodules, that are possibly infectious or inflammatory in etiology. Recommend a short-term follow-up chest CT to reassess. This critical result was discussed with Sherley Coffman NP at 04/05/2022 5:43 PM and it was ascertained that the content and urgency of the report was understood at the time of direct communication. Mesenteric US 04/07/22 10:44 IMPRESSION: 1. There are elevated velocities in both the superior mesenteric artery and inferior mesenteric artery which are suspicious for hemodynamically significant stenoses. The stenoses could contribute to ischemic colitis. 2. The celiac artery appears patent. Abdomen/Pelvis CTA 04/07/22 18:49 IMPRESSION: * Redemonstration of colonic wall thickening extending from the splenic flexure to the rectum with prominence of the perienteric vessels. Findings are suggestive of proctocolitis, for which differential considerations could include infectious, inflammatory or ischemic etiology, given distribution. There is moderate stenosis of the origin of the inferior mesenteric artery however it appears patent distally. No kriss loss of bowel wall enhancement to favor ischemia over other etiologies of colitis and clinical correlation is recommended. * Small volume of simple attenuation free fluid in the pelvis which may be reactive in the setting of colitis. * Ectatic left common iliac artery measuring 1.5 cm. * Moderate atherosclerosis of the abdominal aorta with mild to moderate narrowing of origins of multiple major branch vessels as detailed above which remain otherwise patent distally. * Clustered sub-6 mm pulmonary nodules in the lingula are unchanged from recent prior. Assuming patient has no history of malignancy, recommend follow-up per Fleischner Society recommendations. According to the UPDATED 2017 Fleischner Society recommendations, the advised followup imaging for solid nodules < 6 mm is: LOW RISK PATIENT: No routine follow up. HIGH RISK PATIENT: Optional CT at 12 months. Pelvic/Transvag US 04/11/22 12:12 IMPRESSION: Slightly thickened heterogeneous endometrium measuring 0.8 cm. [employer] consultation recommended. Mental Status Exam Mental Status Exam Narrative: Elderly woman, in NAD. Resting comfortably in bed, appeared to be sleeping. RR normal. Unable to complete a full MSE. Patient Appearance: Appropriate Medications Medications Current Medications Acetaminophen (Acetaminophen 325 Mg Tablet) 650 mg PO Q6H PRN PRN Reason: Pain, Mild, fever Last Admin: 04/12/22 06:36 Dose: 650 mg Apixaban (Apixaban 5 Mg Tablet) 5 mg PO BID [facility] Last Admin: 04/13/22 09:42 Dose: 5 mg Docusate Sodium (Docusate Sodium 100 Mg Capsule) 100 mg PO DAILY PRN PRN Reason: Constipation Haloperidol (Haloperidol 0.5 Mg Tablet) 0.5 mg PO DAILY@1700 [facility] Haloperidol (Haloperidol 1 Mg Tablet) 1 mg PO Q24H PRN PRN Reason: anxiety/restlessness Levofloxacin (Levaquin) 750 mg in 150 mls @ 100 mls/hr IV Q24H [facility] Last Infusion: 04/12/22 20:01 Dose: Infused Metronidazole (Flagyl) 500 mg in 100 mls @ 100 mls/hr IV Q8H [facility] Last Infusion: 04/13/22 15:30 Dose: Infused Metoprolol Tartrate (Metoprolol Tartrate 25 Mg Tablet) 25 mg PO BID [facility]; Protocol Last Admin: 04/13/22 09:42 Dose: 25 mg Ondansetron HCl (Ondansetron Hcl 4 Mg/2 Ml Vial) 4 mg IVPUSH Q8H PRN PRN Reason: Nausea and Vomiting Prednisone (Prednisone 20 Mg Tablet) 40 mg PO DAILY [facility] Last Admin: 04/13/22 09:42 Dose: 40 mg Sodium Chloride (0.9 % Sodium Chloride Flush 3 Ml Syringe) 3 ml IVFLUSH QSHIFT [facility] Last Admin: 04/13/22 09:43 Dose: 3 ml Allergies Allergies Allergy/AdvReac Type Severity Reaction Status Date / Time epinephrine Allergy Unknown Unknown Verified 03/02/22 13:46 Assessment & Plan Assessment & Plan (1) Dementia with behavioral disturbance: Status: Acute Code(s): F03.918 - Unspecified dementia, unspecified severity, with other behavioral disturbance Plan Patient is elderly female, diagnosed with dementia with behavioral disturbance. Patient already receives bedtime haldol 0.5mg at bedtime. Staff reports effective sx management last evening with additional haldol dosing. RECOMMENDATIONS: Consider changing bedtime dose of scheduled haldol 0.5mg to 18:00. Consider adding haldol 1mg daily prn for sx of agitation. These recommendations have been shared with provider, Dr. Macie Dennis I spent minutes with the patient and/or on the patient floor today, gr eater than?50% of which was spent counseling/coordinating care.
[2022-04-13] MEDS: HaloperidoL 0.5 MG TABLET PO (16:37)
[2022-04-13] MEDS: levoFLOXacin/D5W 750 MG/150 ML PIGGYBACK 100 MG IV (18:51)
[2022-04-13 22:21] LABS: TS Negative Control Passed; TS Panel A 0; TS Panel B 0; TS Positive Control Passed; TSpotTB Negative (Negative)
[2022-04-14 03:30] VITALS: BP 121/66; PULSE 82; RESP 18; TEMP 36.6; O2SAT 96
[2022-04-14] MEDS: metroNIDAZOLE/NS 500 MG/100 ML PIGGYBACK 100 MG IV (06:18)
[2022-04-14 06:47] LABS: Hematocrit 39.7 % (37.0-47.0); Hemoglobin 12.9 g/dl (12.0-16.0); Mean Corpuscular HGB Conc 32.5 g/dl (31.0-35.0); Mean Corpuscular Hemoglobin 29.1 pg (27.0-33.0); Mean Corpuscular Volume 89.4 fL (80.0-98.0); Mean Platelet Volume 10.5 fL (9.4-12.3); Platelet Count 221 X10*3/uL (160-400); Red Blood Count 4.44 X10*6/uL (4.20-5.50); Red Cell Distribution Width 12.7 % (11.0-16.0); White Blood Count 6.1 X10*3/uL (4.8-10.8)
[2022-04-14 07:05] LABS: Anion Gap 18 (12-20); Blood Urea Nitrogen 15 mg/dL (9-16); Calcium 7.8 mg/dL (8.4-10.2); Carbon Dioxide 20 mmol/L (22-29); Chloride 107 mmol/L (96-108); Estimated Glomerular Filt Rate > 60; Glucose Random 104 mg/dL (60-115); Potassium 3.7 mmol/L (3.3-5.1); Sodium 141 mmol/L (135-145)
[2022-04-14 07:32] VITALS: BP 122/74; PULSE 76; RESP 18; TEMP 36.8; O2SAT 99
[2022-04-14] MEDS: predniSONE 20 MG TABLET 40 MG PO (10:11)
[2022-04-14] MEDS: 0.9 % Sodium Chloride Flush 3 ML SYRINGE IVFLUSH (10:11)
[2022-04-14] MEDS: Metoprolol Tartrate 25 MG TABLET PO (10:11)
[2022-04-14] MEDS: Apixaban 5 MG TABLET PO (10:11)
[2022-04-14] MEDS: Acetaminophen 325 MG TABLET 650 MG PO (10:20)
[2022-04-14 11:19] VITALS: BP 117/67; PULSE 65; RESP 18; TEMP 36.4; O2SAT 95
--- NOTE | 2022-04-14 13:59 | PM.DS ---
DS: Providers Provider Date of Service: 04/14/22 Date of admission: 04/05/22 19:15 Primary care physician: Salinas Irby MD Consults: 04/05/22 18:31 Consult to General Surgery Stat Consulting Provider: Marco Acevedo Reason for consultation: abnormal CT 04/05/22 19:19 Consult to Gastroenterology Routine Consulting Provider: Ligia Drake Reason for consultation: BRBPR, ?ischemic bowel Consult to General Surgery Routine Consulting Provider: Marco Acevedo Reason for consultation: BRBPR, ?ischemic bowel 04/06/22 14:37 Consult to Vascular Surgery Routine Consulting Provider: [facility] Reason for consultation: ? Ischemia rectosigmoid? h/o DVT, HI & on Xarelto Has provider been notified: Yes 04/06/22 14:39 Consult to Vascular Surgery Routine Consulting Provider: [facility] [place] Reason for consultation: ischemic colitis 04/10/22 14:18 Consult to Obstetrics / Gynecology Routine Consulting Provider: Juanjo Concepcion Reason for consultation: ? vaginal bleed 04/12/22 18:16 Consult to Psychiatry Routine Consulting Provider: Psych [facility] Reason for consultation: dementia with behavioural disturbance Has provider been notified: No DS: Diagnosis Discharge Diagnosis (1) Dementia with behavioral disturbance: Status: Acute (2) Postmenopausal bleeding: Status: Acute (3) BRBPR (bright red blood per rectum): Status: Acute (4) Proctocolitis: Status: Acute (5) Atrial fibrillation: Status: Acute (6) Ulcerative colitis: Status: Acute DS: Summary Hospital Course Hospital Course: Admission note HPI 81-year-old female with history of dementia with behavioral disturbance, atrial fibrillation anticoagulated with Eliquis, history of pulmonary embolism, ulcerative colitis presented to the ED earlier this morning for evaluation of bleeding that began 6 days ago.? Her daughter who is healthcare proxy showered the patient noting blood initially thought to be vaginal.? However then the patient states she felt she was having hematuria however, history is vague given her AMS secondary to dementia. Her states she has been unable to walk from the bed to the bathroom without dripping blood onto the floor.? She denies any fevers, chills, nausea, vomiting, abdominal pain, pain with defecation, diarrhea, constipation, shortness of breath, palpitations, lightheadedness, or chest pain.? Reports her last bowel movement was yesterday and was normal.? On arrival, VSS.? Hematology studies unremarkable, no anemia with H/H 13.8/40.7 % and 13.8/40.8 when rechecked several hours later.? Renal function and electrolyte levels are normal.? Lactic acid 0.9.? CRP elevated at 2.75.? UA pending.? CT abdomen/pelvis showing severe wall thickening and hyperenhancement of the left hemicolon and rectum suggesting colitis and proctocolitis with unclear etiology, ischemic colitis cannot be excluded based on distribution.? There is no evidence of active GI bleeding on scan.? There was noted to be bright red blood from the rectum following AZALIA.? ED discussed case with both General surgery and Gastroenterology who are recommending admission with IV antibiotics, no indication for emergent surgery. Hospital course The patient was admitted for evaluation of bleeding per rectum. Primary concern of possible colitis based on CT scan that was suspicious for ischemic colitis. Treated with IV fluid and antibiotics. Evaluated by Gastroenterology who did colonoscopy that was suspicious for ulcerative colitis along with internal hemorrhoids. Biopsies were done showing chronic inflammation suggestive of acute ulcerative colitis attack. Seen by vascular surgery who did CT angiogram that showed good blood flow through the celiac and mesentery arteries but could not rule out ischemic colitis. Finished 7 days of Levaquin and Flagyl. As diet was advanced. Rechallenge with IV heparin with good response as no recurrence of the bleeding was noted. Eliquis was restarted the day before discharge with good tolerance and no reported episodes of bleeding. Doctors EF from GI recommended prednisone tapering dose at discharge and starting mesalamine with plan to follow-up as outpatient. The patient was also evaluated for possible vaginal bleeding. Transvaginal Ultrasound was consistent with thickened endometrium. Biopsy were done by Dr. Carlene Lai from gynecology but 1st at him and the tissue was not enough so it was repeated and the results are still pending at the time of discharge. No recurrence of the bleeding reported after restarting Eliquis. The patient became more agitated and restless during the hospital stay likely from inpatient hospital delirium controlled with ATC and p.r.n. Haldol. Evaluated by physical therapy team who felt the patient cannot be skilled and will need 24 hour surveillance at home. I spoke with the over the phone and explained the findings who understood and reports that he can take care of her at home. Will do PT at home as tolerated as well. Continue prednisone tapering dose as prescribed Start mesalamine capsule daily as prescribed Start mesalamine enema at bedtime To follow up with Dr Drake from GI as outpatient To follow-up with PCP for uterine biopsy result and if needed to follow with Dr. Carlene Peacock from Gynecology Time Spent with Patient Time attestation: Total time spent providing and/or coordinating discharge services: Discharge coordination time: Greater than 30 minutes Quality: Safe Use of Opioids Does Pt have an Active Cancer Diagnosis on the Problem List?: No Quality: Stroke Does the patient have a stroke diagnosis?: No Physical Exam Vital Signs: Vital Signs: Last Vital Signs Temp 97.5 F 04/14/22 11:19 Pulse 65 04/14/22 11:19 Resp 18 04/14/22 11:19 BP 117/67 04/14/22 11:19 Pulse Ox 95 04/14/22 11:19 O2 Del Method 04/14/22 13:00 BMI result Body Mass Index 27.8 Const: Other: Constitutional : Alert with stimulation, not in distress Neck : Normal inspection, Supple Cardiovascular : RRR, no JVP, no lower extremity edema Respiratory : fair bilateral air entry, no crackles, wheezes or rhonchi Gastrointestinal: soft, lax, Normal bowel sounds, Non tender Skin : Warm, Dry Neurological : Alert with stimulation, disoriented, No focal deficit DS: Data Data Completed and Pending Completed studies during hospitalization [Text1]: Pending at discharge 04/06/22 13:35 Surgical [PTH] Routine 04/11/22 13:35 Surgical Path [Surgical] [PTH] Routine Procedures Excision of Rectum, Via Natural or Artificial Opening Endoscopic, Diagnostic (09/24/20) Excision of Sigmoid Colon, Via Natural or Artificial Opening Endoscopic, Diagnostic (09/24/20) Insertion of Infusion Device into Superior Vena Cava, Percutaneous Approach (09/24/20) Pending studies at discharge: Pending at discharge 04/13/22 13:35 Surgical Path [Surgical] [PTH] Routine Labs on day of discharge: Laboratory Results - last 24 hr 04/11/22 04/14/22 04/14/22 06:33 06:15 06:15 WBC 6.1 RBC 4.44 Hgb 12.9 Hct 39.7 MCV 89.4 MCH 29.1 MCHC 32.5 RDW 12.7 Plt Count 221 MPV 10.5 Absolute Nucleated RBC 0.000 Nucleated RBC % (auto) 0.0 Sodium 141 Potassium 3.7 Chloride 107 Carbon Dioxide 20 L Anion Gap 18 BUN 15 Creatinine 0.64 Estim Creat Clear Calc 74.0 Estimated GFR > 60 Random Glucose 104 Calcium 7.8 L D TB Test (T-Spot) Com Negative TB Test Nil Control Passed TB Test Panel A 0 TB Test Panel B 0 TB Test Positive Cntrl Passed Imaging CT scan - abdomen: Radiologist's impression: ITS Impressions Abdomen/Pelvis CT 04/05/22 17:04 IMPRESSION: No evidence of active GI bleeding. Severe wall thickening and hyperenhancement of the left hemicolon and rectum suggesting colitis and proctocolitis. Etiology is uncertain, ischemic origin is not excluded given distribution. This examination was not performed as a CTA, limiting evaluation of arterial patency. Incidentally noted multiple new pulmonary nodules, that are possibly infectious or inflammatory in etiology. Recommend a short-term follow-up chest CT to reassess. This critical result was discussed with Sherley Coffman NP at 04/05/2022 5:43 PM and it was ascertained that the content and urgency of the report was understood at the time of direct communication. Mesenteric US 04/07/22 10:44 IMPRESSION: 1. There are elevated velocities in both the superior mesenteric artery and inferior mesenteric artery which are suspicious for hemodynamically significant stenoses. The stenoses could contribute to ischemic colitis. 2. The celiac artery appears patent. Abdomen/Pelvis CTA 04/07/22 18:49 IMPRESSION: * Redemonstration of colonic wall thickening extending from the splenic flexure to the rectum with prominence of the perienteric vessels. Findings are suggestive of proctocolitis, for which differential considerations could include infectious, inflammatory or ischemic etiology, given distribution. There is moderate stenosis of the origin of the inferior mesenteric artery however it appears patent distally. No kriss loss of bowel wall enhancement to favor ischemia over other etiologies of colitis and clinical correlation is recommended. * Small volume of simple attenuation free fluid in the pelvis which may be reactive in the setting of colitis. * Ectatic left common iliac artery measuring 1.5 cm. * Moderate atherosclerosis of the abdominal aorta with mild to moderate narrowing of origins of multiple major branch vessels as detailed above which remain otherwise patent distally. * Clustered sub-6 mm pulmonary nodules in the lingula are unchanged from recent prior. Assuming patient has no history of malignancy, recommend follow-up per Fleischner Society recommendations. According to the UPDATED 2017 Fleischner Society recommendations, the advised followup imaging for solid nodules < 6 mm is: LOW RISK PATIENT: No routine follow up. HIGH RISK PATIENT: Optional CT at 12 months. Pelvic/Transvag US 04/11/22 12:12 IMPRESSION: Slightly thickened heterogeneous endometrium measuring 0.8 cm. ULTRASONIC HAND SOLDERER consultation recommended. Discharge Plan Discharge Anticipated Discharge Date/Time: 04/14/22 13:29 Patient Disposition: Home Health Service Discharge Diagnosis: Acute colitis Referrals: Misty NAVARRO [Outside] - 1 Week Salinas Irby MD [Primary Care Provider] - 1 Week Discharge Medications: New prednisone 10 mg tablet See Taper PO DAILY Qty: 40 0RF Taper: Prednisone 40 mg daily for 5 Days and 0 Hour 30 mg daily for 3 Days and 0 Hour 20 mg daily for 3 Days and 0 Hour 10 mg daily for 3 Days and 0 Hour mesalamine 0.375 gram capsule,extended release 24hr 1.5 g PO QAM 30 Days Qty: 120 0RF Rx Instructions: Start on 04/20/2022 mesalamine 4 gram/60 mL enema 1 g HI BEDTIME Qty: 420 1RF Continued apixaban 5 mg tablet 5 mg PO BID Qty: 180 0RF haloperidol 0.5 mg tablet 0.5 mg PO BEDTIME Qty: 90 1RF metoprolol tartrate 25 mg tablet 25 mg PO BID 90 Days Qty: 180 3RF Discharge Orders: Discharge Order (Routine); Ordered 04/14/22 Ordered By: Macie Dennis Diet: Advance to usual diet Activity on Discharge: As tolerated Stand Alone Forms: Patient Portal Discharge page Care Plan Goals: Read below Health Concerns: Read below Plan of Treatment: Read below Assessment: You were admitted to the hospital for evaluation of bleeding per rectum. Seen by commutator presser as images were concerning for colitis. Biopsies were done showing any evidence of inflammation suggestive of possible ulcerative colitis treated with IV steroids, IV antibiotics with advancing the diet as tolerated. A concern was raised over possible vaginal bleeding. Ultrasound showed thickened uterine wall. Evaluated by Dr. Carlene Peacock from gynecology who did biopsy. Still pending result. No recurrence of bleeding was noted. Blood level remained stable. Continue prednisone tapering dose as prescribed Start mesalamine capsule daily as prescribed Start mesalamine enema at bedtime To follow up with Dr Drake from GI as outpatient To follow-up with PCP for uterine biopsy result and if needed to follow with Dr. Carlene Peacock from Gynecology
--- NOTE | 2022-04-14 14:03 | MHC.CM.PN ---
Patient has been medically cleared for dc to home today, with services. A referral has been made to [facility], who has been made aware of today's dc. IMM addressed with Patient's over the phone at listed # and original has been left at bedside at his request and a copy has been placed on the chart.
--- NOTE | 2022-04-14 14:08 | P.F2F_ITS ---
Service Date Service Date: 04/14/22 Encounter Date of encounter: 04/14/22 Reasons for Services Signs and symptoms assessed: Ulcerative colitis exacerbation, needs enemas daily Physical deconditioning Reason for [facility]: medication treatment and teach disease management Reason for physical therapy: home safety and mobility and therapeutic exercises Homebound: Leaving the home is medically contraindicated at this time without the asist of a device and/or another person due th the listed conditions above and below. Reason homebound: unsteady gait / fall risk and fall risk related to blood pressure changes Certification: Based on the above findings, I certify that this patient is confined to the home and needs intermittent [facility] care, physical therapy and/or speech therapy, or continues to need occupational therapy. The patient is under my care, and I have initiated the establishment of the plan of care. The patient will be followed by a physician who will periodically review the plan of care.
== END 2022-04-14 15:00 | disposition home health service (06) | DRG 744 ==
LOC: HO.ED 15:02 → HO.EDOVER 19:26 → HO.IMC 04-06 14:48
PROVIDERS: Internal Medicine; Nurse Practitioner Family; Student in an Organized Health Care Education/Training Program; Admitting Provider Physician Assistant; Emergency Provider Emergency Medicine; PCP Internal Medicine; Visit Provider Student in an Organized Health Care Education/Training Program
PROC: 0DJD8ZZ Inspection of Lower Intestinal Tract, Via Natural or Artificial Opening Endoscopic (ICD-10-PCS; CPT 45330; principal; 2022-04-06 11:30)
DX: N95.0 Postmenopausal bleeding (principal); F02.818 Dementia in other diseases classified elsewhere, unspecified severity, with other behavioral disturbance; K51.511 Left sided colitis with rectal bleeding; F05 Delirium due to known physiological condition; K51.311 Ulcerative (chronic) rectosigmoiditis with rectal bleeding; I48.0 Paroxysmal atrial fibrillation; I95.9 Hypotension, unspecified; K64.8 Other hemorrhoids; G30.9 Alzheimer's disease, unspecified; Z20.822 Contact with and (suspected) exposure to COVID-19; Z86.711 Personal history of pulmonary embolism; Z88.8 Allergy status to other drugs, medicaments and biological substances; Z96.652 Presence of left artificial knee joint; Z79.01 Long term (current) use of anticoagulants; Z79.899 Other long term (current) drug therapy
CPT/HCPCS: 36415; 58100; 74174; 74178; 76830; 76856; 80048; 80076; 81001; 82272; 83605; 83690; 85014; 85018; 85025; 85027; 85610; 85652; 85730; 86140; 86481; 86704; 86706; 86708; 86803; 86850; 86900; 86901; 87040; 87086; 87340; 87635; 88305; 88341; 88342; 93976; 97162; 99285; C1758; J1956; J2920; Q9967

== ENCOUNTER 2022-04-15 11:55 | Emergency (ER) | payer MEDICARE, SELFPAY ==
[2022-04-15 12:00] VITALS: BP 145/99; PULSE 102; RESP 16; TEMP 36.3; O2SAT 95; BMI 27.4
[2022-04-15 12:40] LABS: MANUAL DIFF FLAG NO
[2022-04-15 12:43] LABS: Basophils Percent Auto 0.2 % (0-2); Eosinophils Absolute Auto 0.2 X10*3/uL (0.0-0.4); Eosinophils Percent Auto 1.7 % (0-4); Hematocrit 42.5 % (37.0-47.0); Hemoglobin 13.9 g/dl (12.0-16.0); Imm Gran Abs Auto 0.18 X10*3/uL (0.00-0.03); Imm Gran Pct Auto 2.1 % (0.0-0.4); Lymphocytes Absolute Auto 1.8 X10*3/uL (1.2-4.9); Lymphocytes Percent Auto 20.8 % (20-40); Mean Corpuscular HGB Conc 32.7 g/dl (31.0-35.0); Mean Corpuscular Volume 88.7 fL (80.0-98.0); Mean Platelet Volume 9.2 fL (9.4-12.3); Monocytes Absolute Auto 1.1 X10*3/uL (0.1-1.2); Monocytes Percent Auto 12.6 % (2-11); Neutrophils Absolute Auto 5.5 x10*3/uL (2.0-8.3); Neutrophils Percent Auto 62.6 % (45-73); Platelet Count 298 X10*3/uL (160-400); Red Blood Count 4.79 X10*6/uL (4.20-5.50); Red Cell Distribution Width 13.1 % (11.0-16.0); White Blood Count 8.7 X10*3/uL (4.8-10.8)
[2022-04-15 12:50] LABS: INTERNATIONAL NORM RATIO 1.1 (0.9-1.1); Prothrombin Time 12.8 SEC (10.0-13.1)
[2022-04-15 12:52] LABS: Partial Thromboplastin Time 24.7 SEC (26.0-36.4)
--- NOTE | 2022-04-15 12:59 | ED_ITS ---
HPI - GI Bleed General Chief complaint: GI Bleed <Sherley CoffmanDERECK - Last Filed: 04/15/22 16:16> Stated complaint: rectal bleeding <Sherley CoffmanDERECK - Last Filed: 04/15/22 16:16> Time Seen by Provider: 04/15/22 12:11 <Sherley Paul DERECK Coffman - Last Filed: 04/15/22 16:16> Source: family <Sherley CoffmanDERECK - Last Filed: 04/15/22 16:16> Mode of arrival: ambulatory <Sherley CoffmanDERECK - Last Filed: 04/15/22 16:16> Limitations: no limitations <Sherley CoffmanDERECK - Last Filed: 04/15/22 16:16> History of Present Illness HPI Narrative: Patient is an 81-year-old female who presents emergency department with he r for evaluation of rectal bleeding. He states that she was discharged from the hospital yesterday after being admitted for several days for evaluation of bleeding. He states that she ate dinner last night and tolerated this well. Upon awaking this morning he found her brief and the bed sheets to be saturated with dark red blood. She did eat breakfast this morning. Has not had any fev ers, chills, nausea, vomiting no reports of abdominal pain. No reported additional sources of bleeding have been noted. Patient is unable to provide any meaningful history or answer questioning for review of systems. <Sherley DerasDERECK jones - Last Filed: 04/15/22 16:16> Related Data Home medications: Previous Rx's Medication Instructions Recorded apixaban 5 mg tablet 5 mg PO BID #180 tabs 11/26/21 haloperidol 0.5 mg tablet 0.5 mg PO BEDTIME #90 tabs 11/26/21 metoprolol tartrate 25 mg tablet 25 mg PO BID 90 days #180 tabs 02/23/22 mesalamine 0.375 gram 1.5 g PO QAM 30 days #120 caps 04/14/22 capsule,extended release 24 hr mesalamine 4 gram/60 mL enema 1 g (15 mL) GA BEDTIME #420 mL 04/14/22 prednisone 10 mg tablet See Taper PO DAILY #40 tabs 04/14/22 hydrocortisone 1 % topical cream 1 appl topical BID PRN skin 04/15/22 irritation #28.35 grams <Sherley Coffman CNP - Last Filed: 04/15/22 16:16> Allergies/Adverse reactions: Allergies Allergy/AdvReac Type Severity Reaction Status Date / Time epinephrine Allergy Unknown Unknown Verified 03/02/22 13:46 <Sherley Coffman CNP - Last Filed: 04/15/22 16:16> Review of Systems Review of Systems: Gastrointestinal: Positive rectal bleeding as noted from <Sherley Coffman CNP - Last Filed: 04/15/22 16:16> Yes Unobtainable due to mental status (Dementia) <Sherley Coffman CNP - Last Filed: 04/15/22 16:16> [facility] Past Medical History Attestation statement: The following information was validated with the patient. <Sherley Coffman CNP - Last Filed: 04/15/22 16:16> Source: old records reviewed <Sherley Coffman CNP - Last Filed: 04/15/22 16:16> Medical History: Medical History Atrial fibrillation Dementia Dementia Hypertension Mesenteric ischemia Post-menopausal Pulmonary embolism Rectal bleed Screening for breast cancer Subacute massive pulmonary embolism Ulcerative colitis <Sherley Coffman CNP - Last Filed: 04/15/22 16:16> Surgical History: Surgical History History of section History of colonoscopy History of left knee replacement Hx of sigmoidoscopy <Sherley Coffman CNP - Last Filed: 04/15/22 16:16> Family History Family History: Family History Father Hypertension Mother No problems noted. Son No problems noted. Son No problems noted. Daughter No problems noted. Other Mental health disorder <Sherley Coffman CNP - Last Filed: 04/15/22 16:16> Social History Social History: Social History Household Members: Spouse Housing: House Do you presently have visiting nurse or other home services: No Alcohol intake: never Patient Tobacco Use Status: Never used Tobacco e-Cigarette/Vaping Use: Never Used Second Hand Smoke Exposure: No Advance Directives: Yes Advance Directives on File: Yes Advance Directives Date on File: 04/06/22 service: No Current occupational status: retired Cognitive needs: No Hearing needs: Yes (needs hearing aids) Vision needs: Yes <Sherley Coffman CNP - Last Filed: 04/15/22 16:16> Physical Exam Vital Signs: Vital Signs: Last Vital Signs Temp 97.4 F 04/15/22 15:37 Pulse 83 04/15/22 15:05 Resp 18 04/15/22 15:05 BP 114/75 04/15/22 15:05 Pulse Ox 95 04/15/22 15:05 O2 Del Method 04/15/22 15:05 BMI result Body Mass Index 27.4 <Sherley Coffman CNP - Last Filed: 04/15/22 16:16> Vital Signs: Last Vital Signs Temp 97.4 F 04/15/22 15:37 Pulse 83 04/15/22 15:05 Resp 18 04/15/22 15:05 BP 114/75 04/15/22 15:05 Pulse Ox 95 04/15/22 15:05 O2 Del Method 04/15/22 15:05 BMI result Body Mass Index 27.4 <CHARLIE Roy - Last Filed: 04/15/22 17:06> Appearance: Alert.?Oriented to person, disoriented to place, time, and event. N o acute distress.?Normal affect. Eyes: Pupils equal, round and reactive to light.? ENT: Pharynx normal.?? Neck: Normal inspection.? Neck supple.?? CVS: Heart sounds normal. Normal heart rate and rhythm.? Pulses normal.?? Respiratory: No respiratory distress.? Lung sounds clear to auscultation bilaterally?? Abdomen: Soft and non-tender. Normoactive bowel sounds. No pulsatile mass.?? Skin: Skin warm and dry.? Normal skin color.? Extremities: No lower extremity edema.? Neuro: Moves all extremities spontaneously. Sensation intact bilaterally. No focal neuro deficits. Ambulates with normal steady gait. <Sherley Coffman CNP - Last Filed: 04/15/22 16:16> Course Course Course Narrative: Patient is an 81-year-old female with a past medical history of dementia, atrial fibrillation, history of pulmonary embolism, on chronic anticoagulation with Eliquis, ulcerative colitis who underwent a flex sigmoidoscopy in December 2021 and had last colonoscopy in 2020 which was unremarkable. Patient was recently admitted to the hospital for GI bleeding on 04/05/2022 and discharged yesterday 04/14/2022. Initial CT imaging revealing colitis in suspicion for ischemic colitis, while in the hospital she was evaluated by gastroenterology who performed a colonoscopy which revealed ulcerative colitis and internal hemorrhoids, she was also seen by vascular surgery and had CT angiogram. She also was evaluated by gynecology to exclude possible vaginal bleeding, at this time biopsy results are still pending. She completed a 7 day course of Levaquin and Flagyl and was able to have her diet advanced. In the hospital Eliquis was held initially attempted IV heparin trial but she replied, IV heparin re- initiated 04/11/2022, and upon discharge yesterday 04/14/2022 she had not had any reoccurrence of bleeding. She was discharged home with prednisone taper, and mesalamine capsule daily in addition to meslamine enema at bedtime. Today she presents emergency department for evaluation of rectal bleeding as noted in HPI. No active bleeding at the time of exam. Upon examination she is overall well-appearing, mildly tachycardic, afebrile. Abdominal examination is benign. Will obtain labs, urinalysis, consult with GI. Disposition pending results <Sherley Coffman CNP - Last Filed: 04/15/22 16:16> Reevaluation(s) Reevaluation #1: CBC is stable, no anemia, no thrombocytopenia. Will obtain repeat CBC in 4 hours to assure stability. Spoke with GI internal control consultant, Dr. Contreras, advises patient should continue oral prednisone, oral mesalamine, discontinue mesalamine enemas this may be causing irritation, the patient to receive hydrocortisone rectal cream. Patient will need to hold her Eliquis for 48 hours given re-bleed. If repeat CBC is stable, patient can be discharged home with outpatient follow-up with Gastroenterology as well as primary care provider. <Sherley Coffman CNP - Last Filed: 04/15/22 16:16> Time: 14:02 <Sherley Paul DERECK Coffman - Last Filed: 04/15/22 16:16> Reevaluation #2: Patient signed out to [facility] Amezquita pending repeat CBC and re-evaluation <Sherley Paul DERECK Coffman - Last Filed: 04/15/22 16:16> Reevaluation #3: Patient's hgb had a small drop. Patient cleared for discharge. Given strict return precautions. <CHARLIE Roy - Last Filed: 04/15/22 17:06> Time: 17:05 <CHARLIE Roy - Last Filed: 04/15/22 17:06> MDM - GI Bleed Medical Records Attestation: I reviewed the patient's medical records. <Sherley Trianayissel Coffman CNP - Last Filed: 04/15/22 16:16> Lab Data Attestation: I reviewed the patient's lab results. <Sherley Beverlyyissel Coffman CNP - Last Filed: 04/15/22 16:16> Result diagrams: : 04/15/22 16:47 04/15/22 13:01 <Sherley Beverlyyissel Coffman CNP - Last Filed: 04/15/22 16:16> Labs: Lab Results 04/15/22 04/15/22 04/15/22 Range/Units 12:35 12:35 13:01 WBC 8.7 (4.8-10.8) X10*3/uL RBC 4.79 (4.20-5.50) X10*6/uL Hgb 13.9 (12.0-16.0) g/dl Hct 42.5 (37.0-47.0) % MCV 88.7 (80.0-98.0) fL MCH 29.0 (27.0-33.0) pg MCHC 32.7 (31.0-35.0) g/dl RDW 13.1 (11.0-16.0) % Plt Count 298 D (160-400) X10*3/uL MPV 9.2 L (9.4-12.3) fL Immature Gran % (Auto) 2.1 H (0.0-0.4) % Neut % (Auto) 62.6 (45-73) % Lymph % (Auto) 20.8 (20-40) % [place] % (Auto) 12.6 H (2-11) % Eos % (Auto) 1.7 (0-4) % Baso % (Auto) 0.2 (0-2) % Lymph # (Auto) 1.8 (1.2-4.9) X10*3/uL [place] # (Auto) 1.1 (0.1-1.2) X10*3/uL Eos # (Auto) 0.2 (0.0-0.4) X10*3/uL Baso # (Auto) 0.0 (0.0-0.2) X10*3/uL Abs Immat Gran (auto) 0.18 H (0.00-0.03) X10*3/uL Absolute Neuts (auto) 5.5 (2.0-8.3) x10*3/uL Absolute Nucleated RBC 0.000 (0.0-0.012) X10*3/uL Nucleated RBC % (auto) 0.0 (0.0-0.2) /100WBC PT 12.8 (10.0-13.1) SEC INR 1.1 (0.9-1.1) APTT 24.7 L (26.0-36.4) SEC Sodium 146 H (135-145) mmol/L Potassium 3.3 (3.3-5.1) mmol/L Chloride 107 (96-108) mmol/L Carbon Dioxide 26 (22-29) mmol/L Anion Gap 16 (12-20) BUN 15 (9-16) mg/dL Creatinine 0.72 (0.5-1.4) mg/dL Estim Creat Clear Calc 63.2 Estimated GFR > 60 Random Glucose 106 (60-115) mg/dL Calcium 8.4 D (8.4-10.2) mg/dL Total Bilirubin 0.4 (0.0-1.0) mg/dL AST 10 (5-31) U/L ALT 10 (0-31) U/L Alkaline Phosphatase 117 D (39-117) U/L Total Protein 5.2 L (6.5-8.0) g/dL Albumin 2.9 L (3.5-5.0) g/dL 04/15/22 Range/Units 16:47 WBC 6.1 (4.8-10.8) X10*3/uL RBC 4.27 (4.20-5.50) X10*6/uL Hgb 12.5 (12.0-16.0) g/dl Hct 37.8 (37.0-47.0) % MCV 88.5 (80.0-98.0) fL MCH 29.3 (27.0-33.0) pg MCHC 33.1 (31.0-35.0) g/dl RDW 13.1 (11.0-16.0) % Plt Count 278 (160-400) X10*3/uL MPV 8.7 L (9.4-12.3) fL Immature Gran % (Auto) 2.1 H (0.0-0.4) % Neut % (Auto) 50.4 (45-73) % Lymph % (Auto) 30.5 (20-40) % [place] % (Auto) 14.0 H (2-11) % Eos % (Auto) 2.8 (0-4) % Baso % (Auto) 0.2 (0-2) % Lymph # (Auto) 1.9 (1.2-4.9) X10*3/uL [place] # (Auto) 0.9 (0.1-1.2) X10*3/uL Eos # (Auto) 0.2 (0.0-0.4) X10*3/uL Baso # (Auto) 0.0 (0.0-0.2) X10*3/uL Abs Immat Gran (auto) 0.13 H (0.00-0.03) X10*3/uL Absolute Neuts (auto) 3.1 (2.0-8.3) x10*3/uL Absolute Nucleated RBC 0.000 (0.0-0.012) X10*3/uL Nucleated RBC % (auto) 0.0 (0.0-0.2) /100WBC PT (10.0-13.1) SEC INR (0.9-1.1) APTT (26.0-36.4) SEC Sodium (135-145) mmol/L Potassium (3.3-5.1) mmol/L Chloride (96-108) mmol/L Carbon Dioxide (22-29) mmol/L Anion Gap (12-20) BUN (9-16) mg/dL Creatinine (0.5-1.4) mg/dL Estim Creat Clear Calc Estimated GFR Random Glucose (60-115) mg/dL Calcium (8.4-10.2) mg/dL Total Bilirubin (0.0-1.0) mg/dL AST (5-31) U/L ALT (0-31) U/L Alkaline Phosphatase (39-117) U/L Total Protein (6.5-8.0) g/dL Albumin (3.5-5.0) g/dL <Sherley Coffman, DERECK - Last Filed: 04/15/22 16:16> Lab Results 04/15/22 04/15/22 04/15/22 Range/Units 12:35 12:35 13:01 WBC 8.7 (4.8-10.8) X10*3/uL RBC 4.79 (4.20-5.50) X10*6/uL Hgb 13.9 (12.0-16.0) g/dl Hct 42.5 (37.0-47.0) % MCV 88.7 (80.0-98.0) fL MCH 29.0 (27.0-33.0) pg MCHC 32.7 (31.0-35.0) g/dl RDW 13.1 (11.0-16.0) % Plt Count 298 D (160-400) X10*3/uL MPV 9.2 L (9.4-12.3) fL Immature Gran % (Auto) 2.1 H (0.0-0.4) % Neut % (Auto) 62.6 (45-73) % Lymph % (Auto) 20.8 (20-40) % [place] % (Auto) 12.6 H (2-11) % Eos % (Auto) 1.7 (0-4) % Baso % (Auto) 0.2 (0-2) % Lymph # (Auto) 1.8 (1.2-4.9) X10*3/uL [place] # (Auto) 1.1 (0.1-1.2) X10*3/uL Eos # (Auto) 0.2 (0.0-0.4) X10*3/uL Baso # (Auto) 0.0 (0.0-0.2) X10*3/uL Abs Immat Gran (auto) 0.18 H (0.00-0.03) X10*3/uL Absolute Neuts (auto) 5.5 (2.0-8.3) x10*3/uL Absolute Nucleated RBC 0.000 (0.0-0.012) X10*3/uL Nucleated RBC % (auto) 0.0 (0.0-0.2) /100WBC PT 12.8 (10.0-13.1) SEC INR 1.1 (0.9-1.1) APTT 24.7 L (26.0-36.4) SEC Sodium 146 H (135-145) mmol/L Potassium 3.3 (3.3-5.1) mmol/L Chloride 107 (96-108) mmol/L Carbon Dioxide 26 (22-29) mmol/L Anion Gap 16 (12-20) BUN 15 (9-16) mg/dL Creatinine 0.72 (0.5-1.4) mg/dL Estim Creat Clear Calc 63.2 Estimated GFR > 60 Random Glucose 106 (60-115) mg/dL Calcium 8.4 D (8.4-10.2) mg/dL Total Bilirubin 0.4 (0.0-1.0) mg/dL AST 10 (5-31) U/L ALT 10 (0-31) U/L Alkaline Phosphatase 117 D (39-117) U/L Total Protein 5.2 L (6.5-8.0) g/dL Albumin 2.9 L (3.5-5.0) g/dL 04/15/22 Range/Units 16:47 WBC 6.1 (4.8-10.8) X10*3/uL RBC 4.27 (4.20-5.50) X10*6/uL Hgb 12.5 (12.0-16.0) g/dl Hct 37.8 (37.0-47.0) % MCV 88.5 (80.0-98.0) fL MCH 29.3 (27.0-33.0) pg MCHC 33.1 (31.0-35.0) g/dl RDW 13.1 (11.0-16.0) % Plt Count 278 (160-400) X10*3/uL MPV 8.7 L (9.4-12.3) fL Immature Gran % (Auto) 2.1 H (0.0-0.4) % Neut % (Auto) 50.4 (45-73) % Lymph % (Auto) 30.5 (20-40) % [place] % (Auto) 14.0 H (2-11) % Eos % (Auto) 2.8 (0-4) % Baso % (Auto) 0.2 (0-2) % Lymph # (Auto) 1.9 (1.2-4.9) X10*3/uL [place] # (Auto) 0.9 (0.1-1.2) X10*3/uL Eos # (Auto) 0.2 (0.0-0.4) X10*3/uL Baso # (Auto) 0.0 (0.0-0.2) X10*3/uL Abs Immat Gran (auto) 0.13 H (0.00-0.03) X10*3/uL Absolute Neuts (auto) 3.1 (2.0-8.3) x10*3/uL Absolute Nucleated RBC 0.000 (0.0-0.012) X10*3/uL Nucleated RBC % (auto) 0.0 (0.0-0.2) /100WBC PT (10.0-13.1) SEC INR (0.9-1.1) APTT (26.0-36.4) SEC Sodium (135-145) mmol/L Potassium (3.3-5.1) mmol/L Chloride (96-108) mmol/L Carbon Dioxide (22-29) mmol/L Anion Gap (12-20) BUN (9-16) mg/dL Creatinine (0.5-1.4) mg/dL Estim Creat Clear Calc Estimated GFR Random Glucose (60-115) mg/dL Calcium (8.4-10.2) mg/dL Total Bilirubin (0.0-1.0) mg/dL AST (5-31) U/L ALT (0-31) U/L Alkaline Phosphatase (39-117) U/L Total Protein (6.5-8.0) g/dL Albumin (3.5-5.0) g/dL <CHARLIE Roy - Last Filed: 04/15/22 17:06> Discharge Plan Discharge Clinical Impression: Rectal bleeding <Sherley Coffman CNP - Last Filed: 04/15/22 16:16> Patient Disposition: Still a Patient <Sherley Coffman CNP - Last Filed: 04/15/22 16:16> Additional Instructions: Continue taking oral prednisone and Meslamine as prescribed upon discharge from hospital Stop taking Mesalamine enema. You have been given a new prescription for Hydrocortisone cream to apply rectally. Hold the Eliquis for 2 days, and then re-start. Follow-up with GI and primary care provider. Return to the ED with any new or worsening symptoms or concerns, which includes but is not limited to, persistent bleeding, abdominal pain, nausea, vomiting, dzziness, lightheadedness, unsteady walking, chest pain, shortness of breath. <Sherley Coffman CNP - Last Filed: 04/15/22 16:16> Prescriptions: New hydrocortisone 1 % cream 1 appl topical BID PRN (Reason: skin irritation) Qty: 28.35 0RF No Action apixaban 5 mg tablet 5 mg PO BID Qty: 180 0RF haloperidol 0.5 mg tablet 0.5 mg PO BEDTIME Qty: 90 1RF prednisone 10 mg tablet See Taper PO DAILY Qty: 40 0RF Taper: Prednisone 40 mg daily for 5 Days and 0 Hour 30 mg daily for 3 Days and 0 Hour 20 mg daily for 3 Days and 0 Hour 10 mg daily for 3 Days and 0 Hour mesalamine 0.375 gram capsule,extended release 24hr 1.5 g PO QAM 30 Days Qty: 120 0RF Rx Instructions: Start on 04/20/2022 mesalamine 4 gram/60 mL enema 1 g GA BEDTIME Qty: 420 1RF metoprolol tartrate 25 mg tablet 25 mg PO BID 90 Days Qty: 180 3RF <Sherley Coffman CNP - Last Filed: 04/15/22 16:16>
[2022-04-15 13:27] LABS: Aspartate Amino Transferase 10 U/L (5-31); Bilirubin Total 0.4 mg/dL (0.0-1.0); Blood Urea Nitrogen 15 mg/dL (9-16); Chloride 107 mmol/L (96-108); Estimated Glomerular Filt Rate > 60; Glucose Random 106 mg/dL (60-115); Potassium 3.3 mmol/L (3.3-5.1)
[2022-04-15] MEDS: Pantoprazole Sodium 40 MG/10 ML VIAL IVPUSH (14:02)
[2022-04-15 15:05] VITALS: BP 114/75; PULSE 83; RESP 18; O2SAT 95
[2022-04-15 15:37] VITALS: TEMP 36.3
[2022-04-15 15:59] LABS: Alanine Aminotransferase 10 U/L (0-31); Albumin Level 2.9 g/dL (3.5-5.0); Alkaline Phosphatase 117 U/L (39-117); Anion Gap 16 (12-20); Calcium 8.4 mg/dL (8.4-10.2); Carbon Dioxide 26 mmol/L (22-29); Creatinine Clr Calc Pharmacy 63.2; Sodium 146 mmol/L (135-145); Total Protein 5.2 g/dL (6.5-8.0)
--- NOTE | 2022-04-15 16:24 | MHC.CM.ED ---
Received telephone call from Izzy at [facility]. Patient was d/c'd from [facility] on 04/14 with their services. Patient is currently in the ER. Referral put in [facility] so [facility] can follow for d/c needs.
[2022-04-15 16:51] LABS: MANUAL DIFF FLAG NO
[2022-04-15 16:53] LABS: Basophils Percent Auto 0.2 % (0-2); Eosinophils Absolute Auto 0.2 X10*3/uL (0.0-0.4); Eosinophils Percent Auto 2.8 % (0-4); Hematocrit 37.8 % (37.0-47.0); Hemoglobin 12.5 g/dl (12.0-16.0); Imm Gran Abs Auto 0.13 X10*3/uL (0.00-0.03); Imm Gran Pct Auto 2.1 % (0.0-0.4); Lymphocytes Absolute Auto 1.9 X10*3/uL (1.2-4.9); Lymphocytes Percent Auto 30.5 % (20-40); Mean Corpuscular HGB Conc 33.1 g/dl (31.0-35.0); Mean Corpuscular Hemoglobin 29.3 pg (27.0-33.0); Mean Corpuscular Volume 88.5 fL (80.0-98.0); Mean Platelet Volume 8.7 fL (9.4-12.3); Monocytes Absolute Auto 0.9 X10*3/uL (0.1-1.2); Neutrophils Absolute Auto 3.1 x10*3/uL (2.0-8.3); Neutrophils Percent Auto 50.4 % (45-73); Platelet Count 278 X10*3/uL (160-400); Red Blood Count 4.27 X10*6/uL (4.20-5.50); Red Cell Distribution Width 13.1 % (11.0-16.0); White Blood Count 6.1 X10*3/uL (4.8-10.8)
== END 2022-04-15 17:54 | disposition still patient (30) ==
PROVIDERS: Nurse Practitioner Family; Emergency Provider Emergency Medicine
DX: K92.2 Gastrointestinal hemorrhage, unspecified (principal); Z79.899 Other long term (current) drug therapy
CPT/HCPCS: 36415; 80053; 85025; 85610; 85730; 96374; 99283; 99284

== ENCOUNTER 2022-08-08 07:39 | Outpatient (REF) | payer MEDICARE, SELFPAY ==
[2022-08-08 09:40] LABS: Hematocrit 49.7 % (37.0-47.0); Hemoglobin 15.9 g/dl (12.0-16.0); Mean Corpuscular Volume 87.5 fL (80.0-98.0); Mean Platelet Volume 11.1 fL (9.4-12.3); Platelet Count 131 X10*3/uL (160-400); Red Blood Count 5.68 X10*6/uL (4.20-5.50); Red Cell Distribution Width 13.3 % (11.0-16.0); White Blood Count 6.1 X10*3/uL (4.8-10.8)
[2022-08-08 10:06] LABS: Alanine Aminotransferase 9 U/L (0-31); Albumin Level 3.6 g/dL (3.5-5.0); Alkaline Phosphatase 79 U/L (39-117); Aspartate Amino Transferase 15 U/L (5-31); Bilirubin Direct 0.2 mg/dL (0.0-0.5); Bilirubin Total 0.8 mg/dL (0.0-1.0); Blood Urea Nitrogen 10 mg/dL (9-16); C Reactive Protein 0.13 mg/dL (< or = 0.50); Estimated Glomerular Filt Rate > 60; Total Protein 6.1 g/dL (6.5-8.0)
[2022-08-08 10:36] LABS: Folate 9.9 ng/mL (> or = 4.0); Vitamin B12 525 pg/mL (200-900); Vitamin D 25-OH Total 25.2 ng/mL (>30)
== END 2022-08-08 07:40 | disposition home or self-care (01) ==
LOC: HO.LAB 07:39
PROVIDERS: PCP Internal Medicine; Visit Provider Internal Medicine Gastroenterology
DX: K51.90 Ulcerative colitis, unspecified, without complications (principal)
CPT/HCPCS: 36415; 80076; 82306; 82565; 82607; 82746; 84520; 85027; 86140; 99212

== ENCOUNTER → 2022-08-30 12:26 | Outpatient (BNVA) | payer MEDICARE, SELFPAY | PROVIDERS: PCP Internal Medicine; Referring Provider Internal Medicine; Visit Provider Internal Medicine Cardiovascular Disease | DX: I48.91 Unspecified atrial fibrillation (principal) | CPT/HCPCS: 93005; 99212 ==

== ENCOUNTER → 2022-12-08 07:12 | Outpatient (BNVA) | payer MEDICARE, SELFPAY | PROVIDERS: PCP Internal Medicine; Visit Provider Internal Medicine Gastroenterology | DX: K51.90 Ulcerative colitis, unspecified, without complications (principal) | CPT/HCPCS: 99212 ==

== ENCOUNTER 2023-01-18 14:35 | Outpatient (REF) | payer MEDICARE, SELFPAY ==
[2023-01-18 14:59] LABS: MANUAL DIFF FLAG NO
[2023-01-18 15:44] LABS: Basophils Absolute Auto 0.1 X10*3/uL (0.0-0.2); Basophils Percent Auto 1.8 % (0-2); Eosinophils Absolute Auto 0.2 X10*3/uL (0.0-0.4); Eosinophils Percent Auto 5.4 % (0-4); Hematocrit 48.8 % (37.0-47.0); Hemoglobin 16.1 g/dl (12.0-16.0); Imm Gran Abs Auto 0.01 X10*3/uL (0.00-0.03); Imm Gran Pct Auto 0.3 % (0.0-0.4); Lymphocytes Absolute Auto 1.5 X10*3/uL (1.2-4.9); Lymphocytes Percent Auto 39.5 % (20-40); Mean Corpuscular Hemoglobin 28.9 pg (27.0-33.0); Mean Corpuscular Volume 87.5 fL (80.0-98.0); Mean Platelet Volume 11.4 fL (9.4-12.3); Monocytes Absolute Auto 0.4 X10*3/uL (0.1-1.2); Monocytes Percent Auto 9.8 % (2-11); Neutrophils Absolute Auto 1.7 x10*3/uL (2.0-8.3); Neutrophils Percent Auto 43.2 % (45-73); Platelet Count 144 X10*3/uL (160-400); Red Blood Count 5.58 X10*6/uL (4.20-5.50); Red Cell Distribution Width 13.2 % (11.0-16.0); White Blood Count 3.9 X10*3/uL (4.8-10.8)
[2023-01-18 17:17] LABS: Blood Urea Nitrogen 13 mg/dL (9-16); C Reactive Protein < 0.10 mg/dL (< or = 0.50); Estimated Glomerular Filt Rate > 60
== END 2023-01-18 14:36 | disposition home or self-care (01) ==
LOC: HO.LAB 14:35
PROVIDERS: PCP Internal Medicine; Visit Provider Internal Medicine Gastroenterology
DX: K51.90 Ulcerative colitis, unspecified, without complications (principal)
CPT/HCPCS: 36415; 82565; 84520; 85025; 86140

== ENCOUNTER 2023-02-17 13:14 | Outpatient (AMB) | payer MEDICARE, SELFPAY ==
[2023-02-17 13:17] VITALS: BP 124/75; PULSE 88; BMI 23.6
--- NOTE | 2023-02-17 13:17 | A.OFFVIS_ITS ---
Intake Vital Signs 02/17/23 13:17 Height 5 ft 6 in Weight 145 lb 15.136 oz BMI 23.6 BP 124/75 Blood Pressure Location Lt brachial Position Sitting Pulse 88 Intake Visit Reasons: 1 year follow up Intake Note: Patient presents to in office visit today in follow up of colitis. CC: Pt's states patient is not having too much appetite. Denies having any GI symptoms today. 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 04/06/22 FLEX SIGMOIDOSCOPY SHOWED: Mucosa: Petechial hemorrhage, erosions with interspersed pale areas of mucosa were noted start in the rectum all the way up to splenic flexure. The mucosa was friable and spontaneously oozing, worst in sigmoid colon and rectum. Proximal to splenic flexure at 70 cm the mucosa appeared completely normal. Cold forceps biopsies were taken for histology.? Protruding lesions: Medium internal hemorrhoids stigmata of recent bleeding. BIOPSIES SHOWED :Chronic, moderately? to severely active, colitis. * ?12/10/2021 FLEX SIGMOIDOSCOPY SHOWED:No polyps were detected. Normal colon mucosa without friability or ulcerations Moderate diverticulosis seen in the sigmoid colon Moderate hemorrhoids on retroflexed exam. Plan:? Colon cancer screening can be discontinued given advanced age, dementia and negative colonoscopy a year ago. BIOPSIES SHOWED: Colon, sigmoid, biopsy:? Colonic mucosa with minor crypt distortion and increased lamina propria eosinophils, focally extending into the muscularis mucosae (see comment). Comment:? Histologic sections show colonic mucosa with minor crypt distortion a nd increased lamina propria eosinophils, and no active inflammation, or basal lymphoplasmacytic infiltrate.? No organisms, vasculitis, or granulomas are identified.? Appearances do not suggest chronic inflammatory bowel disease at this time, and there is no evidence of lymphocytic or collagenous colitis.? The findings may be due to a drug-induced colitis, a systemic process (? hypereosinophilia etc.), or idiopathic (rare), and clinical correlation is necessary. 09/30/20 [address] SANCHEZ: The mid and distal transverse colon, and extending all the way to the rectum, were notable for an active colitis with very significant changes noted more distally.? There was a great deal of friability, granularity, edema, and ulceration.? There were no skip lesions.? There were no polyps nor masses.? I did obtain biopsies between 30 and 40 cm and in the rectum. In the rectum, scope was retroflexed, visualizing some internal hemorrhoids. The inflammatory changes extended all the way down to the very distal rectum. IMPRESSION:? 1. Apparent ulcerative colitis, status p ost biopsy. 2. Internal hemorrhoids. ? PLAN:? The results of the biopsies will be checked.? Given these findings and her previously negative stool specimens, I shall start her on mesalamine 1600 mg t.i.d. to treat presumed underlying ulcerative colitis.? At this point, she has had a benign abdomen, and the extent of her diarrhea does not appear to be clear at this time.? Therefore, I will hold off on steroids given her age and dementia.? I will try her on a low residue diet and follow up laboratories in the morning including a CBC, sedimentation rate, and C-reactive protein.? If things are stable and she is tolerating her diet without significant diarrhea, we can simply continue the mesalamine.? However, if things deteriorate, I would then recommend a trial of steroids, either oral prednisone or IV hydrocortisone.? We will need to determine the safety of anticoagulation in regard to the atrial fibrillation depending upon her clinical course in the near future.? This has all been discussed with her today in detail. TODAY'S VISIT: CC: Pt's states patient is not having too much appetite. Denies having any GI symptoms today. Patient is accompanied by her who provided the history since patient has dementia Lab results reviewed Oral intake is intermittently low Eats better when she has company - daughter comes and has supper with them Denies recent diarrhea or rectal bleeding. PAST VISIT: Pt has not been taking the mesalamine since the end of October (medication is expensive and costs $500 per month) Pt has a BM every 2-3 days. denies seeing any blood in the stool Patient is accompanied by her and daughter, Willa. Pt is feeling better. Has a BM three times a week and not daily. There is mucous and no blood in the stools No complaints of abd pain. Has a BM 1-2 times a day Stool are formed and denies any rectal bleeding recently. Stool Calprotectin was ordered after her last visit and pt is unable to collect the specimen due to dementia (does not allow her to help her) She complains of intermittent diarrhea every few weeks lasting for 2-3 days. Stools are loose in associated with urgency.? Patient denies noticing any blood in the stool. Started on Eliquis after hospitalization in 09/2020. Had a filter placed at ?[facility] [place] and discharged to SNF in [place]. Unable to take mesalamine due to difficulty swallowing large pills Notes diarrhea if she eats too much candy. Has a formed BM daily to every other day. Had some bright red blood in the stool last week - there was some blood in the diaper. Eating less and has lost weight over the past year. Patient has htn and AF? and denies loud snoring or sleep apnea Denies problems with anesthesia in the past. Pt is on Eliquis for AF. Patient denies known family history of IBD colon polyps, colon?cancer [facility] Medical History Anticoagulated Atrial fibrillation Dementia Dementia Dementia with behavioral disturbance Hypertension Mesenteric ischemia Post-menopausal Postmenopausal bleeding Pulmonary embolism Rectal bleed Screening for breast cancer Subacute massive pulmonary embolism Ulcerative colitis Surgical History History of section History of colonoscopy History of left knee replacement Hx of sigmoidoscopy Family History Father Hypertension Mother No problems noted. Son No problems noted. Son No problems noted. Daughter No problems noted. Other Mental health disorder Social History Household Members: Spouse Housing: House Do you presently have visiting nurse or other home services: No Alcohol intake: never Patient Tobacco Use Status: Never used Tobacco e-Cigarette/Vaping Use: Never Used Second Hand Smoke Exposure: No Advance Directives Date on File: 04/06/22 service: No Current occupational status: retired Cognitive needs: No Hearing needs: Yes (needs hearing aids) Vision needs: Yes Review of Systems Const All systems reviewed & are unremarkable except as noted in HPI and below Physical Exam Vital Signs: Last Vital Signs Pulse 88 02/17/23 13:17 BP 124/75 02/17/23 13:17 BMI result Body Mass Index 23.6 Const General: healthy appearing and no acute distress Nutritional Appearance: average body habitus Orientation/consciousness: patient oriented x3 Limitations: no limitations HEENT Head: Yes normal to inspection Ears: hearing grossly normal bilaterally Eyes Sclerae: sclerae normal Pupils: Equal, round and reactive pupils present Neck Neck: Yes normal visual inspection Chest Chest palpation & inspection: normal inspection of the chest Resp Effort & Inspection: normal respiratory effort Auscultation: clear to auscultation bilaterally Cardio Palpation: normal PMI Rate: regular rate Rhythm: regular rhythm Heart sounds: S1 normal heart sound present, S2 normal heart sound present and no murmurs GI Palpation (GI): Soft to palpation, nontender and No hepatosplenomegaly present Auscultation: normal bowel sounds Rectal Exam - Female: deferred Skin General skin exam: no rashes or lesions noted Neuro General: patient oriented x3, gait normal and moves all extremities Cranial nerves: Yes Equal, round and reactive pupils present Psych Appearance: grossly normal Mental Status: mental status grossly normal Assessment & Plan Assessment & Plan (1) Ulcerative colitis: Code(s): K51.90 - Ulcerative colitis, unspecified, without complications Plan 82 YF with AF (On eliquis), dementia admitted to [facility] in 09/2020 with loose stools and rectal bleeding. Colonoscopy showed left sided colitis and pt was prescribed mesalamine. Unable to take the medication since patient has difficulty swallowing large pills. She denies recurrent diarrhea had an episode of rectal bleeding a week ago. Evaluation with labs showed normal ESR and CRP. Fecal calprotectin was not done. Patient complains of intermittent episodes of non-bloody diarrhea with urgency 12/2021 Flexible sigmoidoscopy was normal? 04/05 to 04/14/22 Pt was hospitalized at [facility] with rectal bleeding 04/06/22 FLEX SIGMOIDOSCOPY SHOWED: Mucosa: Petechial hemorrhage, erosions with interspersed pale areas of mucosa were noted start in the rectum all the way up to splenic flexure. The mucosa was friable and spontaneously oozing, worst in sigmoid colon and rectum. Proximal to splenic flexure at 70 cm the mucosa appeared completely normal. Cold forceps biopsies were taken for histology.? Protruding lesions: Medium internal hemorrhoids stigmata of recent bleeding. BIOPSIES SHOWED :Chronic, moderately? to severely active, colitis. Pt was treated with IV steroids and antibiotics and discharged home on Prednisone taper and PO mesalamine ER 1.5 gram daily Patient discontinued taking mesalamine for the past month due to expense and medication not being covered by her insurance. Patient was advised to switch to sulfasalazine 1 gram twice a day (since pt has a hx of developing recurrent colitis after stopping her medications in the past) Repeat labs in 3 months Follow-up in 6 months Orders: Orders Complete Blood Count Auto Diff Today K51.90 - Ulcerative colitis, unspecified, without complications C Reactive Protein Today K51.90 - Ulcerative colitis, unspecified, without complications Comprehensive Met. Panel Today K51.90 - Ulcerative colitis, unspecified, without complications Patient Instructions: Please have lab tests week may Coding Level of Care Code Est Pt Level 3 (43091) Diagnoses Ulcerative colitis K51.90
== END 2023-02-17 13:56 | disposition home or self-care (01) ==
PROVIDERS: PCP Internal Medicine; Visit Provider Internal Medicine Gastroenterology
DX: K51.90 Ulcerative colitis, unspecified, without complications (principal)
CPT/HCPCS: 99213

== ENCOUNTER → 2023-02-17 13:14 | Outpatient (BNVA) | payer MEDICARE, SELFPAY | PROVIDERS: PCP Internal Medicine; Visit Provider Internal Medicine Gastroenterology | DX: K51.90 Ulcerative colitis, unspecified, without complications (principal) | CPT/HCPCS: 99212 ==

== ENCOUNTER 2023-02-20 12:46 | Outpatient (AMB) | payer MEDICARE, SELFPAY ==
--- NOTE | 2023-02-20 12:50 | MHC.OFFVIS ---
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 Accompanied by: Spouse Allergies epinephrine Allergy (Unknown, Verified 02/20/23 12:56) Unknown Medication List - Last Reconciled 02/20/23 by Asim Ray MD apixaban 5 mg PO BID haloperidol 0.5 mg PO BEDTIME hydrocortisone 1% 1 appl topical BID PRN mesalamine 4 grams (60 mL) RI BEDTIME 28 days mesalamine ER 1.5 grams (4 x 0.375 gram) PO DAILY 30 days metoprolol tartrate 25 mg PO BID 90 days sulfasalazine 1 g (2 x 500 mg) PO BID 30 days HPI HPI Comments History of Present Illness Details 82-year-old female who was admitted with bloody stools and AFib with RVR and was diagnosed with massive pulmonary embolism with RV dysfunction. After GI evaluation she was started on Eliquis inside the hospital. She has been on metoprolol 25 mg twice a day for AFib. She had RV dysfunction which improved on repeat echocardiography. She is returning for follow-up. She has no bleeding issues. She has been taking apixaban and metoprolol. No chest discomfort or shortness of breath. She is not very active at baseline. 02/20/23: Here for follow-up. She has dementia. She is asking about her brother that she is here to visit him. accompanied her. No bleeding concerns. Denying any chest discomfort or significant shortness of breath. [facility] Medical History Anticoagulated Atrial fibrillation Dementia Dementia Dementia with behavioral disturbance Hypertension Mesenteric ischemia Post-menopausal Postmenopausal bleeding Pulmonary embolism Rectal bleed Screening for breast cancer Subacute massive pulmonary embolism Ulcerative colitis Surgical History Hx of sigmoidoscopy History of colonoscopy History of left knee replacement History of section Family History Father Hypertension Mother No problems noted. Son No problems noted. Son No problems noted. Daughter No problems noted. Other Mental health disorder Social History Household Members: Spouse Housing: House Do you presently have visiting nurse or other home services: No Alcohol intake: never Patient Tobacco Use Status: Never used Tobacco e-Cigarette/Vaping Use: Never Used Second Hand Smoke Exposure: No Advance Directives Date on File: 04/06/22 service: No Current occupational status: retired Cognitive needs: No Hearing needs: Yes (needs hearing aids) Vision needs: Yes Review of Systems Const Denies weakness ENT Denies dizziness Card Denies chest pain, Denies chest pain with activity, Denies syncope, Denies rapid heart rate, Denies pedal edema, Denies edema, Denies leg edema, Denies lightheadedness, Denies palpitations, Denies dyspnea, Denies dyspnea on exertion and Denies orthopnea Resp Denies cough, Denies dyspnea and Denies dyspnea on exertion GI Denies hematochezia and Denies change in stool character Musc Denies abnormal gait, Denies muscle cramps, Denies muscle weakness, Denies numbness, Denies radiating pain into limb and Denies tingling Neuro Denies abnormal gait, Denies dizziness, Denies syncope, Denies numbness, Denies tingling and Denies weakness Endo Denies palpitations Physical Exam Vital Signs: Last Vital Signs Pulse 93 02/20/23 12:54 BP 124/72 02/20/23 12:54 BMI result Body Mass Index 24.1 GENERAL APPEARANCE: in no acute distress, pleasant. NECK: no carotid bruit, no jugular venous distention. SKIN: no suspicious lesions, warm and dry. HEART: no murmurs, irregular rate and rhythm. LUNGS: clear to auscultation bilaterally. ABDOMEN: soft, nontender. EXTREMITIES: no edema. PERIPHERAL PULSES: equal. NEUROLOGIC: No gross deficits, AAO X 3 Office Procedures EKG Details: Atrial fibrillation 93 beats per minute, normal axis, poor R-wave progression, QTC 452 milliseconds. [id number], Complete Assessment & Plan Assessment & Plan (1) Atrial fibrillation: Code(s): I48.91 - Unspecified atrial fibrillation Plan Pleasant 82-year-old female who is here for follow-up. She has permanent atrial fibrillation. She is on metoprolol tartrate 25 mg twice a day and apixaban 5 mg twice a day. She also had massive pulmonary embolism when she was diagnosed with atrial fibrillation. Subsequent echocardiography has shown improvement in the right ventricular function. She has advanced dementia. She is denying any significant symptoms. She can see us in 1 year. Thank you for allowing me to participate in the care of your patient. Please feel free to contact me if you have any questions. Coding Level of Care Code Est Pt Level 3 (49221) Diagnoses Atrial fibrillation I48.91 CPT Codes EKG - CPT: 97833-[id number], Complete ([id number])
[2023-02-20 12:54] VITALS: BP 124/72; PULSE 93; BMI 24.1
== END 2023-02-20 13:14 | disposition home or self-care (01) ==
PROVIDERS: PCP Internal Medicine; Referring Provider Internal Medicine; Visit Provider Internal Medicine Cardiovascular Disease
DX: I48.91 Unspecified atrial fibrillation (principal)
CPT/HCPCS: 93010; 99213

== ENCOUNTER → 2023-02-20 12:46 | Outpatient (BNVA) | payer MEDICARE, SELFPAY | PROVIDERS: PCP Internal Medicine; Referring Provider Internal Medicine; Visit Provider Internal Medicine Cardiovascular Disease | DX: I48.21 Permanent atrial fibrillation (principal); Z79.01 Long term (current) use of anticoagulants; Z79.899 Other long term (current) drug therapy | CPT/HCPCS: 93005; 99212 ==

== ENCOUNTER 2023-08-17 13:16 | Outpatient (REF) | payer MEDICARE, SELFPAY ==
[2023-08-17 14:35] LABS: MANUAL DIFF FLAG NO
[2023-08-17 15:07] LABS: Basophils Absolute Auto 0.1 X10*3/uL (0.0-0.2); Eosinophils Absolute Auto 0.1 X10*3/uL (0.0-0.4); Eosinophils Percent Auto 2.5 % (0-4); Hemoglobin 15.8 g/dl (12.0-16.0); Imm Gran Abs Auto 0.01 X10*3/uL (0.00-0.03); Imm Gran Pct Auto 0.2 % (0.0-0.4); Lymphocytes Absolute Auto 1.6 X10*3/uL (1.2-4.9); Mean Corpuscular HGB Conc 33.6 g/dl (31.0-35.0); Mean Corpuscular Hemoglobin 30.1 pg (27.0-33.0); Mean Corpuscular Volume 89.5 fL (80.0-98.0); Mean Platelet Volume 10.2 fL (9.4-12.3); Monocytes Absolute Auto 0.4 X10*3/uL (0.1-1.2); Monocytes Percent Auto 8.6 % (2-11); Neutrophils Absolute Auto 2.9 x10*3/uL (2.0-8.3); Neutrophils Percent Auto 55.7 % (45-73); Platelet Count 108 X10*3/uL (160-400); Red Blood Count 5.25 X10*6/uL (4.20-5.50); White Blood Count 5.1 X10*3/uL (4.8-10.8)
[2023-08-17 15:30] LABS: Alanine Aminotransferase 9 U/L (0-31); Albumin Level 4.2 g/dL (3.5-5.0); Alkaline Phosphatase 104 U/L (39-117); Anion Gap 9 (12-20); Aspartate Amino Transferase 13 U/L (5-31); Bilirubin Direct 0.3 mg/dL (0.0-0.5); Bilirubin Total 0.8 mg/dL (0.0-1.0); Blood Urea Nitrogen 15 mg/dL (9-16); C Reactive Protein < 0.10 mg/dL (< or = 0.50); Calcium 9.5 mg/dL (8.4-10.2); Carbon Dioxide 31 mmol/L (22-29); Chloride 106 mmol/L (96-108); Estimated Glomerular Filt Rate > 60; Glucose Random 101 mg/dL (60-115); Potassium 4.2 mmol/L (3.3-5.1); Sodium 142 mmol/L (135-145); Total Protein 6.5 g/dL (6.5-8.0)
== END 2023-08-17 13:17 | disposition home or self-care (01) ==
LOC: HO.LAB 13:16
PROVIDERS: PCP Internal Medicine; Visit Provider Internal Medicine Gastroenterology
DX: K51.90 Ulcerative colitis, unspecified, without complications (principal)
CPT/HCPCS: 36415; 80053; 82248; 85025; 86140; 99212

== ENCOUNTER 2023-08-17 13:16 | Outpatient (AMB) | payer MEDICARE, SELFPAY ==
--- NOTE | 2023-08-17 13:25 | A.OFFVIS_ITS ---
Intake Vital Signs 08/17/23 13:27 08/17/23 13:54 Height 5 ft 6 in Weight 152 lb 1.903 oz BMI 24.5 BP 136/95 H 132/78 Blood Pressure Location Lt brachial Lt brachial Position Sitting Sitting Pulse 93 Intake Visit Reasons: 6 month follow up Intake Note: Enma presents in the office as a 6 month follow up. CC: speaks for her and states she needs refills on all her new medications. 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 04/06/22 FLEX SIGMOIDOSCOPY SHOWED: Mucosa: Petechial hemorrhage, erosions with interspersed pale areas of mucosa were noted start in the rectum all the way up to splenic flexure. The mucosa was friable and spontaneously oozing, worst in sigmoid colon and rectum. Proximal to splenic flexure at 70 cm the mucosa appeared completely normal. Cold forceps biopsies were taken for histology.? Protruding lesions: Medium internal hemorrhoids stigmata of recent bleeding. BIOPSIES SHOWED :Chronic, moderately? to severely active, colitis. * ?12/10/2021 FLEX SIGMOIDOSCOPY SHOWED:No polyps were detected.Normal colon mucosa without friability or ulcerations Moderate diverticulosis seen in the sigmoid colon Moderate hemorrhoids on retroflexed exam. Plan:? Colon cancer screening can be discontinued given advanced age, dementia and negative colonoscopy a year ago. BIOPSIES SHOWED: Colon, sigmoid, biopsy:? Colonic mucosa with minor crypt distortion and increased lamina propria eosinophils, focally extending into the muscularis mucosae (see comment). Comment:? Histologic sections show colonic mucosa with minor crypt distortion and increased lamina propria eosinophils, and no active inflammation, or basal lymphoplasmacytic infiltrate.? No organisms, vasculitis, or granulomas are identified.? Appearances do not suggest chronic inflammatory bowel disease at this time, and there is no evidence of lymphocytic or collagenous colitis.? The findings may be due to a drug-induced colitis, a systemic process (? hypereosinophilia etc.), or idiopathic (rare), and clinical correlation is necessary. 09/30/20 [address] SANCHEZ:The mid and distal transverse colon, and extending all the way to the rectum, were notable for an active colitis with very significant changes noted more distally.? There was a great deal of friability, granularity, edema, and ulceration.? There were no skip lesions.? There were no polyps nor masses.? I did obtain biopsies between 30 and 40 cm and in the rectum. In the rectum, scope was retroflexed, visualizing some internal hemorrhoids. The inflammatory changes extended all the way down to the very distal rectum. IMPRESSION:? 1. Apparent ulcerative colitis, status p ost biopsy. 2. Internal hemorrhoids.? PLAN:? The results of the biopsies will be checked.? Given these findings and her previously negative stool specimens, I shall start her on mesalamine 1600 mg t.i.d. to treat presumed underlying ulcerative colitis.? At this point, she has had a benign abdomen, and the extent of her diarrhea does not appear to be clear at this time.? Therefore, I will hold off on steroids given her age and dementia.? I will try her on a low residue diet and follow up laboratories in the morning including a CBC, sedimentation rate, and C-reactive protein.? If things are stable and she is tolerating her diet without significant diarrhea, we can simply continue the mesalamine.? However, if things deteriorate, I would then recommend a trial of steroids, either oral prednisone or IV hydrocortisone.? We will need to determine the safety of anticoagulation in regard to the atrial fibrillation depending upon her clinical course in the near future.? This has all been discussed with her today in detail. TODAY'S VISIT: Enma presents in the office as a 6 month follow up. CC: speaks for her and states she needs refills on all her new medic ations. Medications were switched to a local pharmacy instead of home delivery Patient is accompanied by her who provided the history since patient has dementia Lab results reviewed Pt is doing good. denies diarrhea or rectal bleeding Oral intake is intermittently low Eats better when she has company - daughter comes and has supper with them Pt switched to sulfasalazine due to cost and appear to be working well for her. PAST VISIT: Pt has not been taking the mesalamine since the end of October (medication is expensive and costs $500 per month) Pt has a BM every 2-3 days. denies seeing any blood in the stool Patient is accompanied by her and daughter, Willa. Pt is feeling better. Has a BM three times a week and not daily. There is mucous and no blood in the stools No complaints of abd pain. Has a BM 1-2 times a day Stool are formed and denies any rectal bleeding recently. Stool Calprotectin was ordered after her last visit and pt is unable to collect the specimen due to dementia (does not allow her to help her) She complains of intermittent diarrhea every few weeks lasting for 2-3 days. Stools are loose in associated with urgency.? Patient denies noticing any blood in the stool. Started on Eliquis after hospitalization in 09/2020. Had a filter placed at [facility] and discharged to SNF in [place]. Unable to take mesalamine due to difficulty swallowing large pills Notes diarrhea if she eats too much candy. Has a formed BM daily to every other day. Had some bright red blood in the stool last week - there was some blood in the diaper. Eating less and has lost weight over the past year. Patient has htn and AF? and denies loud snoring or sleep apnea Denies problems with anesthesia in the past. Pt is on Eliquis for AF. Patient denies known family history of IBD colon polyps, colon?cancer [facility] Medical History Dementia with behavioral disturbance Postmenopausal bleeding Mesenteric ischemia Anticoagulated Dementia Post-menopausal Screening for breast cancer Ulcerative colitis Subacute massive pulmonary embolism Pulmonary embolism Atrial fibrillation Rectal bleed Hypertension Dementia Surgical History Hx of sigmoidoscopy History of colonoscopy History of left knee replacement History of section Family History Father Hypertension Mother No problems noted. Son No problems noted. Son No problems noted. Daughter No problems noted. 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 Patient Tobacco Use Status: Never used Tobacco e-Cigarette/Vaping Use: Never Used Second Hand Smoke Exposure: No Advance Directives Date on File: 04/06/22 service: No Current occupational status: retired Cognitive needs: No Hearing needs: Yes (needs hearing aids) Vision needs: Yes Review of Systems Const All systems reviewed & are unremarkable except as noted in HPI and below Physical Exam Vital Signs: Last Vital Signs Pulse 93 08/17/23 13:27 BP 132/78 08/17/23 13:54 BMI result Body Mass Index 24.5 Const General: no acute distress Nutritional Appearance: average body habitus Orientation/consciousness: patient oriented x3 Limitations: other limitations (dementia) HEENT Head: Yes normal to inspection Ears: hearing grossly normal bilaterally Eyes Sclerae: sclerae normal Pupils: Equal, round and reactive pupils present Neck Neck: Yes normal visual inspection Chest Chest palpation & inspection: normal inspection of the chest Resp Effort & Inspection: normal respiratory effort Auscultation: clear to auscultation bilaterally Cardio Palpation: normal PMI Rate: regular rate Rhythm: regular rhythm Heart sounds: S1 normal heart sound present, S2 normal heart sound present and no murmurs GI Palpation (GI): Soft to palpation, nontender and No hepatosplenomegaly present Auscultation: normal bowel sounds Rectal Exam - Female: deferred Skin General skin exam: no rashes or lesions noted Neuro General: patient oriented x3, gait normal and moves all extremities Cranial nerves: Yes Equal, round and reactive pupils present Psych Appearance: grossly normal Mental Status: mental status grossly normal Assessment & Plan Assessment & Plan (1) Ulcerative colitis: Code(s): K51.90 - Ulcerative colitis, unspecified, without complications Plan 83 YF with AF (On eliquis), dementia admitted to [facility] in 09/2020 with loose stools and rectal bleeding. Colonoscopy showed left sided colitis and pt was prescribed mesalamine. Unable to take the medication since patient has difficulty swallowing large pills. She denies recurrent diarrhea had an episode of rectal bleeding a week ago. Evaluation with labs showed normal ESR and CRP. Fecal calprotectin was not done. Patient complains of intermittent episodes of non-bloody diarrhea with urgency 12/2021 Flexible sigmoidoscopy was normal? 10/25 to 04/14/22 Pt was hospitalized at [facility] with rectal bleeding 04/06/22 FLEX SIGMOIDOSCOPY SHOWED: Mucosa: Petechial hemorrhage, erosions with interspersed pale areas of mucosa were noted start in the rectum all the way up to splenic flexure. The mucosa was friable and spontaneously oozing, worst in sigmoid colon and rectum. Proximal to splenic flexure at 70 cm the mucosa appeared completely normal. Cold forceps biopsies were taken for histology.? Protruding lesions: Medium internal hemorrhoids stigmata of recent bleeding. BIOPSIES SHOWED :Chronic, moderately? to severely active, colitis. Pt was treated with IV steroids and antibiotics and discharged home on Prednisone taper and PO mesalamine ER 1.5 gram daily Patient discontinued taking mesalamine for the past month due to expense and medication not being covered by her insurance. Patient was advised to switch to sulfasalazine 1 gram twice a day (since pt has a hx of developing recurrent colitis after stopping her medications in the past) 08/17/23 labs showed thrombocytopenia (can be a side effect of sulfasalazine) Message and letter sent to pt's to decrease sulfasalazine to 1 tablet twice a day and repeat labs in 4-6 weeks. Repeat labs in 3 months Follow-up in 6 months Orders: Orders Complete Blood Count Auto Diff Today K51.90 - Ulcerative colitis, unspecified, without complications Creatinine Today K51.90 - Ulcerative colitis, unspecified, without complications Liver Panel Today K51.90 - Ulcerative colitis, unspecified, without complications C Reactive Protein Today K51.90 - Ulcerative colitis, unspecified, without complications Blood Urea Nitrogen Today K51.90 - Ulcerative colitis, unspecified, without complications Medications: Changed From sulfasalazine give with food (meal/snack) 1 g (2 x 500 mg) PO BID 30 days 120 tabs 1RF K51.90 - Ulcerative colitis, unspecified, without complications To sulfasalazine give with food (meal/snack) 1 g (2 x 500 mg) PO BID 360 tabs 1RF 90 days K51.90 - Ulcerative colitis, unspecified, without complications Refilled metoprolol tartrate 25 mg PO BID 180 tabs 3RF 90 days hydrocortisone 1% 1 appl topical BID PRN 28.35 grams 0RF skin irritation haloperidol 0.5 mg PO BEDTIME 90 tabs 1RF apixaban 5 mg PO BID 180 tabs 0RF Coding Level of Care Code Est Pt Level 4 (63966) Diagnoses Ulcerative colitis K51.90 Time Spent (min) 21
[2023-08-17 13:27] VITALS: BP 136/95; PULSE 93; BMI 24.5
[2023-08-17 13:54] VITALS: BP 132/78
== END 2023-08-17 13:55 | disposition home or self-care (01) ==
PROVIDERS: PCP Internal Medicine; Visit Provider Internal Medicine Gastroenterology
DX: K51.90 Ulcerative colitis, unspecified, without complications (principal)
CPT/HCPCS: 99214

== ENCOUNTER 2023-09-15 14:55 | Outpatient (REF) | payer MEDICARE, SELFPAY ==
[2023-09-15 15:15] LABS: MANUAL DIFF FLAG NO
[2023-09-15 15:44] LABS: Basophils Percent Auto 0.9 % (0-2); Eosinophils Absolute Auto 0.2 X10*3/uL (0.0-0.4); Eosinophils Percent Auto 3.9 % (0-4); Hematocrit 46.5 % (37.0-47.0); Hemoglobin 15.6 g/dl (12.0-16.0); Imm Gran Abs Auto 0.01 X10*3/uL (0.00-0.03); Imm Gran Pct Auto 0.2 % (0.0-0.4); Lymphocytes Absolute Auto 1.6 X10*3/uL (1.2-4.9); Lymphocytes Percent Auto 37.6 % (20-40); Mean Corpuscular HGB Conc 33.5 g/dl (31.0-35.0); Mean Corpuscular Hemoglobin 30.1 pg (27.0-33.0); Mean Corpuscular Volume 89.6 fL (80.0-98.0); Mean Platelet Volume 10.3 fL (9.4-12.3); Monocytes Absolute Auto 0.4 X10*3/uL (0.1-1.2); Monocytes Percent Auto 9.9 % (2-11); Neutrophils Absolute Auto 2.1 x10*3/uL (2.0-8.3); Neutrophils Percent Auto 47.5 % (45-73); Platelet Count 120 X10*3/uL (160-400); Red Blood Count 5.19 X10*6/uL (4.20-5.50); White Blood Count 4.3 X10*3/uL (4.8-10.8)
[2023-09-15 16:33] LABS: Blood Urea Nitrogen 16 mg/dL (9-16); Estimated Glomerular Filt Rate > 60
== END 2023-09-15 14:56 | disposition home or self-care (01) ==
LOC: HO.LAB 14:55
PROVIDERS: PCP Internal Medicine; Visit Provider Internal Medicine Gastroenterology
DX: K51.90 Ulcerative colitis, unspecified, without complications (principal); D69.6 Thrombocytopenia, unspecified
CPT/HCPCS: 36415; 82565; 84520; 85025; 85027; 86140

== ENCOUNTER 2024-08-16 13:56 | Outpatient (REF) | payer MEDICARE, SELFPAY ==
--- NOTE | ~2024-08-16 | XR_ITS ---
EXAMINATION: XR CHEST 2 VIEWS HISTORY: R05.9 - Cough, unspecified COMPARISON: Comparison is made with the prior examination dated 09/30/2020. FINDINGS: PA and lateral views of the chest are submitted. The lungs are expanded and clear. There is no pleural effusion, pneumothorax, or pulmonary vascular congestion. The heart is normal in size. There is degenerative disc disease of the spine. XR/XR chest 2V IMPRESSION: No acute cardiopulmonary abnormality. Electronically signed by: Stoney Macedo MD 08/16/2024 03:47 PM EST
[2024-08-16 15:18] LABS: MANUAL DIFF FLAG NO
[2024-08-16 15:42] LABS: Estimated Average Glucose 88 mg/dL; Hemoglobin A1c % 4.7 % (<6.0); Total Hemoglobin (HGBA1C) 3547.0654 umol/L
[2024-08-16 15:47] LABS: Basophils Absolute Auto 0.1 X10*3/uL (0.0-0.2); Eosinophils Absolute Auto 0.2 X10*3/uL (0.0-0.4); Eosinophils Percent Auto 3.1 % (0-4); Hematocrit 43.1 % (37.0-47.0); Hemoglobin 13.6 g/dl (12.0-16.0); Imm Gran Abs Auto 0.03 X10*3/uL (0.00-0.03); Imm Gran Pct Auto 0.6 % (0.0-0.4); Lymphocytes Absolute Auto 1.4 X10*3/uL (1.2-4.9); Lymphocytes Percent Auto 28.1 % (20-40); Mean Corpuscular HGB Conc 31.6 g/dl (31.0-35.0); Mean Corpuscular Hemoglobin 28.5 pg (27.0-33.0); Mean Corpuscular Volume 90.4 fL (80.0-98.0); Mean Platelet Volume 9.8 fL (9.4-12.3); Monocytes Absolute Auto 0.7 X10*3/uL (0.1-1.2); Neutrophils Absolute Auto 2.5 x10*3/uL (2.0-8.3); Neutrophils Percent Auto 52.2 % (45-73); Platelet Count 189 X10*3/uL (160-400); Red Blood Count 4.77 X10*6/uL (4.20-5.50); Red Cell Distribution Width 13.1 % (11.0-16.0); White Blood Count 4.9 X10*3/uL (4.8-10.8)
[2024-08-16 16:05] LABS: B Type Natriuretic Peptide 191 pg/mL (<100)
[2024-08-16 16:27] LABS: Alanine Aminotransferase 15 U/L (0-31); Albumin Level 4.1 g/dL (3.5-5.0); Alkaline Phosphatase 95 U/L (39-117); Anion Gap 12 (12-20); Aspartate Amino Transferase 20 U/L (5-31); Bilirubin Direct 0.3 mg/dL (0.0-0.5); Bilirubin Total 0.6 mg/dL (0.0-1.0); Blood Urea Nitrogen 14 mg/dL (9-16); C Reactive Protein 0.54 mg/dL (< or = 0.50); Calcium 9.3 mg/dL (8.4-10.2); Carbon Dioxide 27 mmol/L (22-29); Chloride 106 mmol/L (96-108); Estimated Glomerular Filt Rate > 60; Glucose Random 100 mg/dL (60-115); Potassium 3.8 mmol/L (3.3-5.1); Sodium 141 mmol/L (135-145); Total Protein 7.1 g/dL (6.5-8.0)
[2024-08-16 16:36] LABS: Folate 9.4 ng/mL (> or = 4.0); Vitamin B12 500 pg/mL (200-900)
[2024-08-16 16:44] LABS: Vitamin D 25-OH Total 28.1 ng/mL (>30)
[2024-08-25 15:08] LABS: Vitamin B1 26 nmol/L (8-30)
== END 2024-08-16 13:57 | disposition home or self-care (01) ==
LOC: HO.LAB 13:56
PROVIDERS: PCP Internal Medicine; Visit Provider Physician Assistant Medical
DX: R05.9 Cough, unspecified (principal); I48.91 Unspecified atrial fibrillation; F03.90 Unspecified dementia, unspecified severity, without behavioral disturbance, psychotic disturbance, mood disturbance, and anxiety; J02.8 Acute pharyngitis due to other specified organisms; B96.89 Other specified bacterial agents as the cause of diseases classified elsewhere; H91.90 Unspecified hearing loss, unspecified ear; K51.90 Ulcerative colitis, unspecified, without complications; Z13.1 Encounter for screening for diabetes mellitus; Z00.00 Encounter for general adult medical examination without abnormal findings
CPT/HCPCS: 36415; 71046; 80053; 82248; 82306; 82607; 82746; 83036; 83735; 83880; 84425; 85025; 86140; 96127; 99212

== ENCOUNTER 2024-08-16 13:56 | Outpatient (AMB) | payer MEDICARE, SELFPAY ==
--- NOTE | 2024-08-16 14:18 | A.OFFPC_ITS ---
Vital Signs 08/16/24 14:19 Height 5 ft 6 in Weight 142 lb 6 oz BMI 23.0 BP 110/72 Blood Pressure Location Lt brachial Position Sitting Temp 96.6 F L Temp Source Temporal Artery Scan Intake Visit Reasons: Congestion Intake Note: Patient is here to follow up on Congestion with ear pain. Supervisor Drapery Hanging Required: No Plow Holder: Present Accompanied by: Daughter Post menopausal: No Allergies epinephrine Allergy (Unknown, Verified 08/16/24 14:46) Unknown Medication List - Last Reconciled 08/16/24 by Mariam Platt PA-C apixaban (Eliquis) 5 mg PO BID azithromycin For 250 mg dose pack: take 500 mg today (day 1), then 250 mg for 4 days (days 2-5) PO benzonatate 100 mg PO TID PRN haloperidol 0.5 mg PO BEDTIME hydrocortisone 1% 1 appl topical BID PRN metoprolol tartrate 25 mg PO BID sulfasalazine 1 g (2 x 500 mg) PO BID 90 days Tobacco use date assessed: 08/16/24 Fall risk assessment: 1 Fall in past year Last assessed Fall Risk: 08/16/24 Dental Screening Dental Screen Date: 08/16/24 Did you have a dental visit in the last 12 months?: No Did you have a dental problem in the last 6 months where you did not have access to dental care?: No Was dental information given to patient?: Patient has dentist [facility] Medical History Acute bacterial bronchitis Cough Dementia with behavioral disturbance Postmenopausal bleeding Mesenteric ischemia Anticoagulated Dementia Post-menopausal Screening for breast cancer Ulcerative colitis Subacute massive pulmonary embolism Pulmonary embolism Atrial fibrillation Rectal bleed Hypertension Dementia Surgical History Hx of sigmoidoscopy History of colonoscopy History of left knee replacement History of section Family History Father Hypertension Mother No problems noted. Son No problems noted. Son No problems noted. Daughter No problems noted. 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 1. Little interest or pleasure in doing things: not at all 2. Feeling down, depressed, or hopeless: not at all 3. Trouble falling or staying asleep, or sleeping too much: not at all 4. Feeling tired or having little energy: not at all 5. Poor appetite or overeating: not at all 6. Feeling bad about yourself - or that you are a failure or have let yourself or your family down: not at all 7. Trouble concentrating on things, such as reading the newspaper or watching television: not at all 8. Moving or speaking so slowly that other people could have noticed. Or the opposite - being so fidgety or restless that you have been moving around a lot more than usual: not at all 9. Thoughts that you would be better off or of hurting yourself in some way: not at all Total score: 0 Depression Screening Interpretation: Negative Depression Screening Done: Yes 96199 - PHQ-9 Billing: Yes Source: Developed by Drs. Stoney Schrader, Tata Randle, Teddy Cool and colleagues, with an educational penelope from [employer]. Thrive Questionnaire Date Thrive assessed: 08/16/24 I am a: Patient What is your living situation today?: I have a steady place to live Within the past 12 months, did the food you bought not last and you didn't have the money to get more?: Never true Within the past 12 months, did you worry whether your food would run out before you got money to buy more?: Never true Do you have trouble paying for medicines?: No Do you have trouble getting transportation to medical appointments?: No Do you have trouble paying your heating and electricity bill?: No Do you have trouble taking care of your child, family member or friend?: No Do you have trouble with day-to-day activities such as bathing, preparing meals, shopping, managing finances, etc.?: No Are you currently unemployed and looking for a job?: No Are you interested in more education?: No Please select the resources that you would like help with: None Currently or been in a relationship where the following occur: No concerns reported THRIVE Score: 0 AUDIT C Alcohol Use Questionnaire (AUDIT-C) 1. How often do you have a drink containing alcohol?: Never 3. How often do you have six or more drinks on one occasion?: Never Total Score: 0 Score Reviewed/Action Taken: Yes (score reviewed) JOSETTE-7 AMB Questionnaire JOSETTE-7 Date JOSETTE - 7 assessed: 08/16/24 Feeling nervous, anxious, or on edge: 0 = Not at all Not being able to stop or control worryin = Not at all Worrying too much about different things: 0 = Not at all Trouble relaxin = Not at all Being so restless that it is hard to sit still: 0 = Not at all Becoming easily annoyed or irritable: 0 = Not at all Feeling afraid as if something awful might happen: 0 = Not at all Total JOSETTE-7 score (0-4 normal; 5-9 mild; 10-14 moderate; 15-21 severe): 0 Source: Developed by Drs. Stoney Schrader, Tata Randle, Teddy Cool and colleagues, with an educational penelope from [employer]. JOSETTE-7 Assessment Billing JOSETTE-7 Assessment Tool: JOSETTE-7 Assessment 17442 Physical exam (Primary Care) Vital Signs: Last Vital Signs Temp 96.6 F L 08/16/24 14:19 BP 110/72 08/16/24 14:19 BMI result Body Mass Index 23.0 Tobacco/Smoking Status: Tobacco use Status Tobacco use date assessed 08/16/24 08/16/24 14:30 Patient Tobacco Use Status Never used Tobacco 08/16/24 14:30 e-Cigarette/Vaping Use Never Used 08/16/24 14:30 PHQ-9: PHQ-9 Score PHQ-9: Total score 0 08/16/24 14:30 Depression Screening Interpretation: Negative Thrive Assessment: Date of Thrive Assessment Date Thrive assessed 08/16/24 08/16/24 14:30 Currently or been in a relationship where the following occur: No concerns reported Coding Level of Care Code Est Pt Level 4 (52910) Complex EM visit Add On G2211 Diagnoses Cough R05.9 Acute bacterial bronchitis J20.8; B96.89 Atrial fibrillation I48.91 Dementia without behavioral disturbance, unspecified dementia type F03.90 Dementia type: unspecified type Dementia behavioral disturbance: without behavioral disturbance Hard of hearing H91.90 Ulcerative colitis K51.90 Additional Codes PHQ-9 - 61681 - PHQ-9 Billing: Yes ([id number]) JOSETTE-7 Assessment Billing - JOSETTE-7 Assessment Tool: JOSETTE-7 Assessment 64128 ([id number]) Assessment & Plan Assessment & Plan (1) Cough: Code(s): R05.9 - Cough, unspecified Category: Medical Plan: Likely bacterial bronchitis. Will send home with Xyleme Alexys Z-Anand with instructions to have outpatient blood work and chest x-ray. Condition is chronic and stable continue to monitor (2) Acute bacterial bronchitis: Code(s): J20.8 - Acute bronchitis due to other specified organisms; B96.89 - Other specified bacterial agents as the cause of diseases classified elsewhere Category: Medical Plan: Likely bacterial bronchitis. Will send home with Xyleme Alexys Z-Anand with instructions to have outpatient blood work and chest x-ray. Condition is chronic and stable continue to monitor (3) Atrial fibrillation: Code(s): I48.91 - Unspecified atrial fibrillation Category: Medical Plan: Patient currently on Eliquis. Condition is chronic and stable continue to monitor. (4) Dementia: Code(s): F03.90 - Unspecified dementia, unspecified severity, without behavioral disturbance, psychotic disturbance, mood disturbance, and anxiety Category: Medical Qualifiers: Dementia type: unspecified type Dementia behavioral disturbance: without behavioral disturbance Qualified Code(s): F03.90 - Unspecified dementia without behavioral disturbance Plan: Condition is chronic and stable continue to monitor. (5) Hard of hearing: Comment: pt states due to meningitis in childhood Code(s): H91.90 - Unspecified hearing loss, unspecified ear Category: Medical Plan: Condition is chronic and stable continue to monitor. (6) Ulcerative colitis: Code(s): K51.90 - Ulcerative colitis, unspecified, without complications Category: Medical Plan: Condition is chronic and stable continue to monitor. Plan Plan Patient was informed and verbally consented to the use of an ambient scribe for clinic note documentation during this visit. 1. Bacterial Bronchitis Antibiotic treatment is initiated with Azithromycin to combat bacterial infection causing cough. Chest x-ray examination arranged to rule out pneumonia. 2. Atrial Fibrillation Regular monitoring of atrial fibrillation, ensuring adherence to anticoagulation protocols and symptoms tracking that could indicate escalations require attention. 5. Other specified personal risk factors, not elsewhere classified Heart failure investigation begun with recommendations for diagnostic blood work and imaging. Urged to be alert to worsening symptoms while intervention procedures are considered. Orders: Orders Comprehensive Met. Panel Today Z00.00 - Encounter for general adult medical examination without abnormal findings Vitamin B1 Today Z00.00 - Encounter for general adult medical examination without abnormal findings Vitamin B12 and Folate Today Z00.00 - Encounter for general adult medical examination without abnormal findings C Reactive Protein Today Z00.00 - Encounter for general adult medical examination without abnormal findings B Type Natriuretic Peptide Today R05.9 - Cough, unspecified XR chest 2V Today R05.9 - Cough, unspecified Complete Blood Count Auto Diff Today Z00.00 - Encounter for general adult medical examination without abnormal findings Magnesium Today Z00.00 - Encounter for general adult medical examination without abnormal findings Vitamin D 25-OH Total Today Z00.00 - Encounter for general adult medical examination without abnormal findings Liver Panel Today Z00.00 - Encounter for general adult medical examination without abnormal findings Hemoglobin A1c Today Z00.00 - Encounter for general adult medical examination without abnormal findings Medications: New azithromycin For 250 mg dose pack: take 500 mg today (day 1), then 250 mg for 4 days (days 2-5) PO 6 tabs 0RF benzonatate 100 mg PO TID PRN 90 caps 1RF cough Patient Instructions: Patient Instructions - Begin taking Azithromycin as prescribed and complete the full course. - Monitor symptoms; report respiratory difficulty or change in condition. - Stay alert to any swelling or respiratory changes, particularly at night. - Get the blood tests and chest x-ray done today as ordered. - Follow up in May or sooner if symptoms worsen. - Engage with the patient portal for test results and reminders. Scribe Plan - Not visible on output: History of Present Illness The patient is an 84-year-old female presenting with a cough, considered may stem from bronchitis that has developed over the past week. The cough follows two cold incidents from earlier this year. There's no concurrent fever, chest pain, or breathing difficulties, with normal dietary intake and bowel function reported. Symptoms began without previous significant respiratory distress or drastic systemic changes such as vomiting. The patient has a known history of atrial fibrillation, arousing suspicion of possible exacerbation to heart failure given minor leg swelling. There hasn't been observed shortness of breath in stressful physical activity, nor worsening when reclined. The historical presentation does not suggest worse respiratory compromise towards pneumonia. Overall, conditions require monitoring alongside initial antibiotic intervention and potential examination extensions to ascertain specific heart considerations. Social History - Family status: Patient accompanied by daughter and sister. - Family planning: Not applicable. - Functional status: Reports having aides; maintained on one residential level. Review of Systems - HEENT: Reports decreased hearing; Denies sore throat, reports a chronic cough. - Respiratory: Denies shortness of breath. - Cardiovascular: Denies chest pain. - Gastrointestinal: Denies nausea, vomiting, diarrhea, bloody or tarry stools. - Musculoskeletal: Denies swelling except for mild leg swelling examined. - Infectious Disease: No recent travel, exposure to infectious individuals, or Covid/Flu symptoms reported. Physical Exam Appearance: Alert. Oriented X3. No acute distress. Head: Normal external exam. Normocephalic. Atraumatic. Eyes: Pupils are equal, round, and reactive to light. Extraocular movements intact. Conjunctiva and sclera normal. Eyelids normal. Ears: External auditory canal normal. Tympanic membranes normal. Some wax noted in one ear. Throat: Pharynx normal. Uvula midline. Moist mucous membranes. Little growth on the roof of the palate noted. Neck: Normal inspection. Neck supple. Full range of motion. No adenopathy. Thyroid Normal. No meningeal signs. No neck mass noted. Cardiovascular: Normal heart rate and rhythm. Heart sound normal. No murmurs noted. Pulses normal throughout. Respiratory: No respiratory distress. Painless inspiration. Breath sounds normal. No wheezes/rales/rhonchi noted. Chest nontender. No accessory muscle usage noted or decreased air movement noted. Abdomen: Soft and nontender. Bowel sounds normal in all 4 quadrants. No distention noted. No organomegaly noted. No visible injury noted. Back: No costovertebral angle tenderness. Full range of motion noted. Skin: Skin warm and dry. Normal skin color. Normal skin turgor. No rashes/lesions/lacerations noted. Extremities: No lower extremity edema. Extremities exhibit normal range of motion. Extremities nontender. Slight swelling noted in one leg. Neuro: Oriented X 3. No motor deficit. No sensory deficit. Reflexes normal. Plan Patient was informed and verbally consented to the use of an ambient scribe for clinic note documentation during this visit. 1. Bacterial Bronchitis Antibiotic treatment is initiated with Azithromycin to combat bacterial infec tion causing cough. Chest x-ray examination arranged to rule out pneumonia. 2. Atrial Fibrillation Regular monitoring of atrial fibrillation, ensuring adherence to anticoagulation protocols and symptoms tracking that could indicate escalations require attention. 3. Other specified personal risk factors, not elsewhere classified Heart failure investigation begun with recommendations for diagnostic blood work and imaging. Urged to be alert to worsening symptoms while intervention procedures are considered. Discussion Notes During the visit, I explained the likelihood of bacterial bronchitis, considering the symptom duration and presentation without fever, making pneumonia less likely, yet requiring precautionary chest x-ray validation. Initiation of Azithromycin was discussed to address bronchial infection, with the condition not appearing severe. We talked about the hearing issue caused by earwax, setting a plan for removal and future prevention. Given the patient's atrial fibrillation, potential congestive heart failure was a concern, prompting advice to continue with routine care and watch for fatigue or breathing changes. Potential heart issues were addressed via the possibility of additional heart function assessments. I clarified all management plans, benefits, and conducted a patient-centered option discussion, ensuring comprehension through engagement of patient's family present. Patient Instructions - Begin taking Azithromycin as prescribed and complete the full course. - Monitor symptoms; report respiratory difficulty or change in condition. - Adhere to ear hygiene recommendations for recurring impaction avoidance. - Stay alert to any swelling or respiratory changes, particularly at night. - Get the blood tests and chest x-ray done today as ordered. - Follow up in May or sooner if symptoms worsen. - Engage with the patient portal for test results and reminders.
[2024-08-16 14:19] VITALS: BP 110/72; TEMP 35.9; BMI 23.0
--- OUTSIDE RECORDS SUMMARY | 2024-08-16 15:37 | XMS_ITS | Patient Health Record ---
Author Organization [facility] Address [address] [place] [address] Care Team Providers Care Metallurgical Tester Name Role Phone FRANCES JOY Primary Care Provider Stoney Pacheco Unavailable [phone] EDMUNDO NOE Unavailable Unavailable Reason For Referral No Information Plan Of Treatment No Information Insurance Providers Payer Name Payer Address Payer Phone Subscriber Number Group Number Insured Name Patient Relationship to Insured Coverage Start Date Coverage End Date MEDICARE [place] [address] [place] [address] [id number] TATUM UNDERWOOD Self - patient is the insured [employer] ATT[employer] CLAIMS [address] [place] [address] [id number] TATUM UNDERWOOD Self - patient is the insured
--- OUTSIDE RECORDS SUMMARY | 2024-08-16 15:37 | XMS_ITS | Patient Health Record ---
Author Organization [facility] Address [address] [place] [address] Support Name Relationship Address Phone TATUM SONI Guarantor Unknown Reason For Referral No Information Medications Medication SIG (Take, Route, Fr equency, Duration) Notes Start Date End Date Status Vitamin B Complex ORAL daily for -3 [facility] 11/15/2011 Active Ziac 1 ORAL daily for -3 [facility] 03/04/2013 Active Calcium 500MG 1 ORAL daily for -3 [facility] 11/15/2011 Active Aspirin EC 81MG 1 ORAL daily for -3 [facility] 03/04/2013 Active Problems Problem Type SNOMED Code ICD Code Onset Dates Problem Status W/U Status Risk Notes Problem Benign essential hypertension (9449790) Essential hypertension, benign (401.1) Active confirmed Major Problem Menopausal symptom (24862098) Symptomatic menopausal or female climacteric states (627.2) Active confirmed Major Problem Postmenopausal atrophic vaginitis (50425101) 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) Active confirmed Diag Problem Osteoarthritis (695284090) Osteoarthrosis, unspecified whether generalized or localized, unspecified site (715.90) Active confirmed Major Problem Gynecological examination normal (140234802867245) Routine gynecological examination (V72.31) Active confirmed Major Problem Screening for malignant neoplasm of colon (825103771) Special screening for malignant neoplasms, colon (V76.51) Active confirmed Major Plan Of Treatment No Information Insurance Providers Payer Name Payer Address Payer Phone Subscriber Number Group Number Insured Name Patient Relationship to Insured Coverage Start Date Coverage End Date MEDICARE [address] [place], [place] [id number] TATUM UNDERWOOD Self - patient is the insured AARP Medicare [facility] [address] [place] [address] [id number] TATUM UNDERWOOD Self - patient is the insured
== END 2024-08-16 14:44 | disposition home or self-care (01) ==
PROVIDERS: PCP Internal Medicine; Visit Provider Physician Assistant Medical
DX: R05.9 Cough, unspecified (principal); I48.91 Unspecified atrial fibrillation; F03.90 Unspecified dementia, unspecified severity, without behavioral disturbance, psychotic disturbance, mood disturbance, and anxiety; K51.90 Ulcerative colitis, unspecified, without complications; J20.8 Acute bronchitis due to other specified organisms; B96.89 Other specified bacterial agents as the cause of diseases classified elsewhere

== ENCOUNTER → 2024-08-16 15:20 | Outpatient (BNV) | payer MEDICARE, SELFPAY | PROVIDERS: PCP Internal Medicine; Visit Provider Radiology Diagnostic Radiology | DX: R05.9 Cough, unspecified (principal) | CPT/HCPCS: 71046 ==

== ENCOUNTER 2024-09-09 12:55 | Outpatient (AMB) | payer MEDICARE, SELFPAY ==
[2024-09-09 12:59] VITALS: BP 100/62; PULSE 91; BMI 24.4
--- NOTE | 2024-09-09 12:59 | A.OFFVIS_ITS ---
Vital Signs 09/09/24 12:59 Height 5 ft 6 in Weight 151 lb 3.794 oz BMI 24.4 BP 100/62 Blood Pressure Location Lt brachial Position Sitting Pulse 91 Pulse Source Monitor Intake Visit Reasons: Atrial fibrillation/?CHF Senior Resident Care Director: Senior Resident Care Director Present Allergies epinephrine Allergy (Unknown, Verified 09/09/24 13:06) Unknown Medication List - Last Reconciled 09/09/24 by Sridevi Brown, RAILROAD MAINTENANCE CLERK-C apixaban (Eliquis) 5 mg PO BID cholecalciferol (vitamin D3) 1,250 mcg PO QWEEK 3 months hydrocortisone 1% 1 appl topical BID PRN metoprolol tartrate 25 mg PO BID sulfasalazine 1 g (2 x 500 mg) PO BID 90 days HPI HPI Atrial fibrillation/?CHF: Details: Enma is an 84-year-old female with past medical history of dementia, Pulmonary embolism, atrial fibrillation who presents for follow-up. Today she comes with her daughter. patient is pleasantly confused and does not answer questions appropriately. Daughter states that mother was experiencing some coughing and underwent testing. A chest x-ray showed no active disease. Her lab work showed her BNP was mildly elevated. At this time her cough has lessened overall. No shortness of breath is noted with evie gayle. She never complains of chest discomfort. She currently sleeps with 1 pillow which is her norm. Takes her meds as directed. No known bleeding issues. [facility] Medical History (Updated 09/09/24 @ 18:02 by Sridevi Brown, RAILROAD MAINTENANCE CLERK-C) Pulmonary embolism Elevated brain natriuretic peptide (BNP) level Vitamin D deficiency Acute bacterial bronchitis Cough Dementia with behavioral disturbance Postmenopausal bleeding Mesenteric ischemia Anticoagulated Dementia Post-menopausal Screening for breast cancer Ulcerative colitis Subacute massive pulmonary embolism Atrial fibrillation Rectal bleed Hypertension Dementia Surgical History Hx of sigmoidoscopy History of colonoscopy History of left knee replacement History of section Family History Father Hypertension Mother No problems noted. Son No problems noted. Son No problems noted. Daughter No problems noted. 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 Patient Tobacco Use Status: Never used Tobacco e-Cigarette/Vaping Use: Never Used Second Hand Smoke Exposure: No Advance Directives Date on File: 04/06/22 service: No Current occupational status: retired Cognitive needs: No Hearing needs: Yes (needs hearing aids) Vision needs: Yes Review of Systems Const Details: daugther assisting Unobtainable due to mental condition Card Denies chest pain with activity, Reports leg edema, Reports lightheadedness, Denies dyspnea and Denies dyspnea on exertion Resp Denies cough, Denies dyspnea and Denies dyspnea on exertion Musc Reports abnormal gait (Walks short distances in house. In wheelchair today) Neuro Reports abnormal gait (Walks short distances in house. In wheelchair today) Physical Exam Vital Signs: Last Vital Signs Pulse 91 09/09/24 12:59 BP 100/62 09/09/24 12:59 BMI result Body Mass Index 24.4 Const Other: dementia. Pleasant and talking but not answering questions appropriately General: cooperative, comfortable and no acute distress Neck Neck: Yes normal visual inspection Resp Effort & Inspection: normal respiratory effort Auscultation: clear to auscultation bilaterally, no rales, no rhonchi and no wheezes Cardio Rate: regular rate Rhythm: abnormal rhythm Heart sounds: S1 normal heart sound present, S2 normal heart sound present, no murmurs and no rubs Extrem Other: soft mildly pitting leg edema Psych Appearance: grossly normal Speech and movement: Normal speech and movement present Office Procedures EKG Details: Today, read by me, Afib, cant exclude prior anterior infarct, rate 91, Qtc 469ms [id number], Complete Assessment & Plan Assessment & Plan (1) Elevated brain natriuretic peptide (BNP) level: Code(s): R79.89 - Other specified abnormal findings of blood chemistry Category: Medical Plan: Recent reports of cough. BNP done earlier this month elevated at 191. She has had higher BNP in the past. On exam She does have some soft pitting edema in her lower extremities. Last echo 2020 Which showed normal EF. Will update echocardiogram and will give her Lasix 20 mg p.r.n. to use for leg edema or any shortness of breath. Instructed daughter on its use. signs and symptoms of heart failure reviewed with her. Plan to call her with echo results. Cardiology follow-up 6 months, sooner if needed. (2) Cough: Code(s): R05.9 - Cough, unspecified Category: Medical Plan: Cough earlier this month, some improvement overall. (3) Atrial fibrillation: Code(s): I48.91 - Unspecified atrial fibrillation Category: Medical Plan: History of chronic atrial fibrillation. She was treated with heart rate control using metoprolol. She is on Eliquis for anticoagulation. EKG done today shows AFib, can not rule out prior anterior infarct, rate 91. Continue current treatment. Updating echo. (4) Pulmonary embolism: Code(s): I26.99 - Other pulmonary embolism without acute cor pulmonale Category: Medical Plan: History of pulmonary embolism September 2020. Initially she had RV dysfunction which did normalize on repeat echocardiogram 01/2021. She continues on Eliquis. Plan Time spent on chart review, documentation, interview and assessment Orders: Orders CA echo transthoracic complete Today I48.91 - Unspecified atrial fibrillation, R79.89 - Other specified abnormal findings of blood chemistry Medications: New furosemide (Lasix) 20 mg PO DAILY PRN 30 tabs 1RF leg swelling, shortness of breath 30 days Coding Level of Care Code Est Pt Level 4 (49506) Complex EM visit Add On G2211 Diagnoses Elevated brain natriuretic peptide (BNP) level R79.89 Cough R05.9 Atrial fibrillation I48.91 Pulmonary embolism I26.99 CPT Codes EKG - CPT: 14870-Pagpdiwvkiisynhia, Complete ([id number])
--- OUTSIDE RECORDS SUMMARY | 2024-09-09 14:31 | XMS_ITS | Patient Health Record ---
Author Organization [facility] Address [address] [place] [address] Care Team Providers Care Agile Java Developer Name Role Phone FRANCES JOY Primary Care Provider Stoney Pacheco Unavailable [phone] EDMUNDO NOE Unavailable Unavailable Reason For Referral No Information Plan Of Treatment No Information Insurance Providers Payer Name Payer Address Payer Phone Subscriber Number Group Number Insured Name Patient Relationship to Insured Coverage Start Date Coverage End Date MEDICARE [place] [address] [place] [address] [id number] TATUM UNDERWOOD Self - patient is the insured MEDEX ATTN CLAIMS [address] [place] [address] [phone] [id number] TATUM UNDERWOOD Self - patient is the insured
--- OUTSIDE RECORDS SUMMARY | 2024-09-09 14:31 | XMS_ITS | Patient Health Record ---
Author Organization [facility] Address [address] [place] [address] Support Name Relationship Address Phone TATUM SONI Guarantor Unknown [phone] Reason For Referral No Information Medications Medication SIG (Take, Route, Fr equency, Duration) Notes Start Date End Date Status Vitamin B Complex ORAL daily for -3 [facility] 11/15/2011 Active Ziac 1 ORAL daily for -3 [facility] 03/04/2013 Active Calcium 500MG 1 ORAL daily for -3 [facility] 11/15/2011 Active Aspirin EC 81MG 1 ORAL daily for -3 [facility] 03/04/2013 Active Problems Problem Type SNOMED Code ICD Code Onset Dates Problem Status W/U Status Risk Notes Problem Benign essential hypertension (9769945) Essential hypertension, benign (401.1) Active confirmed Major Problem Menopausal symptom (61042860) Symptomatic menopausal or female climacteric states (627.2) Active confirmed Major Problem Postmenopausal atrophic vaginitis (11512758) 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) Active confirmed Diag Problem Osteoarthritis (415851481) Osteoarthrosis, unspecified whether generalized or localized, unspecified site (715.90) Active confirmed Major Problem Gynecological examination normal (019659304512081) Routine gynecological examination (V72.31) Active confirmed Major Problem Screening for malignant neoplasm of colon (164656297) Special screening for malignant neoplasms, colon (V76.51) Active confirmed Major Plan Of Treatment No Information Insurance Providers Payer Name Payer Address Payer Phone Subscriber Number Group Number Insured Name Patient Relationship to Insured Coverage Start Date Coverage End Date MEDICARE [address] [place], [place] [id number] TATUM UNDERWOOD Self - patient is the insured AARP Medicare [facility] [address] [place] [address] [id number] TATUM UNDERWOOD Self - patient is the insured
== END 2024-09-09 13:37 | disposition home or self-care (01) ==
LOC: HO.HCS 12:55
PROVIDERS: PCP Internal Medicine; Visit Provider Nurse Practitioner Family
DX: R79.89 Other specified abnormal findings of blood chemistry (principal); R05.9 Cough, unspecified; I48.91 Unspecified atrial fibrillation; I26.99 Other pulmonary embolism without acute cor pulmonale
CPT/HCPCS: 93010; 99214; G2211

== ENCOUNTER → 2024-09-09 12:55 | Outpatient (BNVA) | payer MEDICARE, SELFPAY | PROVIDERS: PCP Internal Medicine; Visit Provider Nurse Practitioner Family | DX: I48.91 Unspecified atrial fibrillation (principal); I26.99 Other pulmonary embolism without acute cor pulmonale; R79.89 Other specified abnormal findings of blood chemistry; R05.9 Cough, unspecified; Z86.711 Personal history of pulmonary embolism | CPT/HCPCS: 93005; 99212 ==

== ENCOUNTER 2024-09-19 10:15 | Outpatient (AMB) | payer MEDICARE, SELFPAY ==
--- NOTE | 2024-09-19 10:17 | MHC.OFFVIS ---
Vital Signs 09/19/24 10:23 Height 5 ft 6 in Weight 151 lb BMI 24.4 BP 112/70 Blood Pressure Location Lt brachial Position Sitting Pulse 69 Pulse Oximetry (%) 95 Oxygen Delivery Method Room Air Intake Visit Reasons: 6 mo f/u r/s 02/27/24 Intake Note: Patient yearly follow up for Ulcerative colitis and lab result. Patient denies any GI issues. Produce Laborer Required: No Accompanied by: Self / Same As Patient Allergies epinephrine Allergy (Unknown, Verified 09/19/24 10:17) Unknown Medication List - Last Reconciled 09/19/24 by Desiree Carty MD apixaban (Eliquis) 5 mg PO BID cholecalciferol (vitamin D3) 1,250 mcg PO QWEEK 3 months furosemide (Lasix) 20 mg PO DAILY PRN 30 days hydrocortisone 1% 1 appl topical BID PRN metoprolol tartrate 25 mg PO BID sulfasalazine 1 g (2 x 500 mg) PO BID 90 days HPI HPI 6 mo f/u r/s 02/27/24: Details: GI clinic visit for this 84 YF for FU of UC diagnosed in 09/2020 TODAY'S VISIT: Pt is accompanied by her daughter who speaks for her and states she needs refills on all her new medications. Medications were switched to a local pharmacy instead of home delivery Per daughter - pt has a BM twice a week without constipation or diarrhea - no blood recently Lab results reviewed had a hip fracture and is at home Lives in her own home with her and has home health aides. PAST VISIT: Pt is doing good. denies diarrhea or rectal bleeding Oral intake is intermittently low Eats better when she has company - daughter comes and has supper with them Pt switched to sulfasalazine due to cost and appear to be working well for her. Pt has not been taking the mesalamine since the end of October (medication is expensive and costs $500 per month) Pt has a BM every 2-3 days. denies seeing any blood in the stool Patient is accompanied by her and daughter, Willa. Pt is feeling better. Has a BM three times a week and not daily. There is mucous and no blood in the stools No complaints of abd pain. Has a BM 1-2 times a day Stool are formed and denies any rectal bleeding recently. Stool Calprotectin was ordered after her last visit and pt is unable to collect the specimen due to dementia (does not allow her to help her) She complains of intermittent diarrhea every few weeks lasting for 2-3 days. Stools are loose in associated with urgency.? Patient denies noticing any blood in the stool. Started on Eliquis after hospitalization in 09/2020. Had a filter placed at [facility] and discharged to SNF in [place]. Unable to take mesalamine due to difficulty swallowing large pills Notes diarrhea if she eats too much candy. Has a formed BM daily to every other day. Had some bright red blood in the stool last week - there was some blood in the diaper. Eating less and has lost weight over the past year. Patient has htn and AF? and denies loud snoring or sleep apnea Denies problems with anesthesia in the past. Pt is on Eliquis for AF. Patient denies known family history of IBD colon polyps, colon?cancer ENDOSCOPIC STUDIES:? 04/06/22 FLEX SIGMOIDOSCOPY SHOWED: Mucosa: Petechial hemorrhage, erosions with interspersed pale areas of mucosa were noted start in the rectum all the way up to splenic flexure. The mucosa was friable and spontaneously oozing, worst in sigmoid colon and rectum. Proximal to splenic flexure at 70 cm the mucosa appeared completely normal. Cold forceps biopsies were taken for histology.? Protruding lesions: Medium internal hemorrhoids stigmata of recent bleeding. BIOPSIES SHOWED :Chronic, moderately? to severely active, colitis. 12/10/2021 FLEX SIGMOIDOSCOPY SHOWED:No polyps were detected.Normal colon mucosa without friability or ulcerationsModerate diverticulosis seen in the sigmoid colon Moderate hemorrhoids on retroflexed exam. Plan:? Colon cancer screening can be discontinued given advanced age, dementia and negative colonoscopy a year ago. BIOPSIES SHOWED: Colon, sigmoid, biopsy:? Colonic mucosa with minor crypt distortion and increased lamina propria eosinophils, focally extending into the muscularis mucosae (see comment). Comment:? Histologic sections show colonic mucosa with minor crypt distortion and increased lamina propria eosinophils, and no active inflammation, or basal lymphoplasmacytic infiltrate.? No organisms, vasculitis, or granulomas are identified.? Appearances do not suggest chronic inflammatory bowel disease at this time, and there is no evidence of lymphocytic or collagenous colitis.? The findings may be due to a drug-induced colitis, a systemic process (? hypereosinophilia etc.), or idiopathic (rare), and clinical correlation is necessary. 09/30/20 [address] SANCHEZ: The mid and distal transverse colon, and extending all the way to the rectum,were notable for an active colitis with very significant changes noted more distally.? There was a great deal of friability, granularity, edema, and ulceration.? There were no skip lesions.? There were no polyps nor masses.? I did obtain biopsies between 30 and 40 cm and in the rectum. In the rectum, scope was retroflexed, visualizing some internal hemorrhoids. The inflammatory changes extended all the way down to the very distal rectum. IMPRESSION:? 1. Apparent ulcerative colitis, status post biopsy. 2. Internal hemorrhoids.? PLAN:? The results of the biopsies will be checked.? Given these findings and her previously negative stool specimens, I shall start her on mesalamine 1600 mg t.i.d. to treat presumed underlying ulcerative colitis.? At this point, she has had a benign abdomen, and the extent of her diarrhea does not appear to be clear at this time.? Therefore, I will hold off on steroids given her age and dementia.? I will try her on a low residue diet and follow up laboratories in the morning including a CBC, sedimentation rate, and C-reactive protein.? If things are stable and she is tolerating her diet without significant diarrhea, we can simply continue the mesalamine.? However, if things deteriorate, I would then recommend a trial of steroids, either oral prednisone or IV hydrocortisone.? We will need to determine the safety of anticoagulation in regard to the atrial fibrillation depending upon her clinical course in the near future.? This has all been discussed with her today in detail. [facility] Medical History (Updated 09/09/24 @ 18:02 by Sridevi Brown NP-C) Pulmonary embolism Elevated brain natriuretic peptide (BNP) level Vitamin D deficiency Acute bacterial bronchitis Cough Dementia with behavioral disturbance Postmenopausal bleeding Mesenteric ischemia Anticoagulated Dementia Post-menopausal Screening for breast cancer Ulcerative colitis Subacute massive pulmonary embolism Atrial fibrillation Rectal bleed Hypertension Dementia Surgical History Hx of sigmoidoscopy History of colonoscopy History of left knee replacement History of section Family History Father Hypertension Mother No problems noted. Son No problems noted. Son No problems noted. Daughter No problems noted. Other Mental health disorder Social History Household Members: Spouse Housing: House Do you presently have visiting nurse or other home services: No Alcohol intake: never Comment: rounddeidra Patient Tobacco Use Status: Never used Tobacco e-Cigarette/Vaping Use: Never Used Second Hand Smoke Exposure: No Advance Directives Date on File: 04/06/22 service: No Current occupational status: retired Cognitive needs: No Hearing needs: Yes (needs hearing aids) Vision needs: Yes Review of Systems Const Denies fever(s), Denies headache(s) and Denies weight loss Eyes Denies eye discharge and Denies irritation ENT Reports Normal hearing present, Denies dysphagia, Denies dizziness and Denies headache(s) Card Denies chest pain, Reports irregular heart rhythm, Denies leg edema and Denies dyspnea on exertion Resp Denies cough, Denies dyspnea on exertion and Denies wheezing GI Denies abdominal pain, Denies change in bowel habits, Denies dysphagia and Denies heartburn Denies difficulty voiding and Denies dysuria Musc Denies back pain, Denies arthralgias and Reports other (Arthritis) Skin/Breast Denies pruritus, Denies rash and Denies jaundice Neuro Reports Normal hearing present, Denies Abnormal speech present, Denies dizziness, Denies headache(s), Reports memory loss (dementia) and Denies seizure-like activity Psych Reports anxiety, Denies depression, Reports memory loss (dementia) and Denies panic attacks Endo Denies cold intolerance, Denies flushing and Denies heat intolerance Abdirahman/Lymph Denies easy bleeding and Denies easy bruising Aller/Immun Denies wheezing Physical Exam Vital Signs: Last Vital Signs Pulse 69 09/19/24 10:23 BP 112/70 09/19/24 10:23 Pulse Ox 95 09/19/24 10:23 Oxygen Delivery Method Room Air 09/19/24 10:23 BMI result Body Mass Index 24.4 Const General: healthy appearing and no acute distress Nutritional Appearance: average body habitus Orientation/consciousness: Other orientation findings (dementia) Limitations: wheelchair HEENT Head: Yes normal to inspection Ears: hearing grossly normal bilaterally Eyes Sclerae: sclerae normal Pupils: Equal, round and reactive pupils present Neck Neck: Yes normal visual inspection Chest Chest palpation & inspection: normal inspection of the chest Resp Effort & Inspection: normal respiratory effort Auscultation: clear to auscultation bilaterally Cardio Palpation: normal PMI Rate: regular rate Rhythm: regular rhythm Heart sounds: S1 normal heart sound present, S2 normal heart sound present and no murmurs GI Palpation (GI): Soft to palpation, nontender and No hepatosplenomegaly present Auscultation: normal bowel sounds Rectal Exam - Female: deferred Skin General skin exam: no rashes or lesions noted Neuro General: moves all extremities and Unable to assess gait (pt in a wheel chair) Cranial nerves: Yes Equal, round and reactive pupils present and Yes Normal hearing present Cognition (Neuro): abnormal cognition (dementia) Speech: No Abnormal speech present Gait exam (Neuro): Unable to assess gait (pt in a wheel chair) Psych Appearance: grossly normal Mental Status: mental status grossly normal Assessment & Plan Assessment & Plan (1) Ulcerative colitis: Code(s): K51.90 - Ulcerative colitis, unspecified, without complications Category: Medical Plan 84 YF with AF (On eliquis), dementia admitted to [facility] in 09/2020 with loose stools and rectal bleeding. Colonoscopy showed left sided colitis and pt was prescribed mesalamine. Unable to take the medication since patient has difficulty swallowing large pills. She denies recurrent diarrhea had an episode of rectal bleeding a week ago. Evaluation with labs showed normal ESR and CRP. Fecal calprotectin was not done. Patient complains of intermittent episodes of non-bloody diarrhea with urgency 12/2021 Flexible sigmoidoscopy was normal? 04/05 to 04/14/22 Pt was hospitalized at [facility] with rectal bleeding 04/06/22 FLEX SIGMOIDOSCOPY SHOWED: Mucosa: Petechial hemorrhage, erosions with interspersed pale areas of mucosa were noted start in the rectum all the way up to splenic flexure. The mucosa was friable and spontaneously oozing, worst in sigmoid colon and rectum. Proximal to splenic flexure at 70 cm the mucosa appeared completely normal. Cold forceps biopsies were taken for histology.? Protruding lesions: Medium internal hemorrhoids stigmata of recent bleeding. BIOPSIES SHOWED :Chronic, moderately? to severely active, colitis. Pt was treated with IV steroids and antibiotics and discharged home on Prednisone taper and PO mesalamine ER 1.5 gram daily Patient discontinued taking mesalamine for the past month due to expense and medication not being covered by her insurance. Patient was advised to switch to sulfasalazine 1 gram twice a day (since pt has a hx of developing recurrent colitis after stopping her medications in the past) 08/17/23 labs showed thrombocytopenia (can be a side effect of sulfasalazine) Message and letter sent to pt's to decrease sulfasalazine to 1 tablet twice a day and repeat labs in 4-6 weeks. 09/19/24 Per daughter - pt has a BM twice a week without constipation or diarrhea - no blood recently Advised to continue sulfasalazine twice daily Thrombocytopenia has resolved. Follow-up in 12 months Coding Level of Care Code Est Pt Level 4 (47302) Diagnoses Ulcerative colitis K51.90 Time Spent (min) 20
[2024-09-19 10:23] VITALS: BP 112/70; PULSE 69; O2SAT 95; BMI 24.4
--- OUTSIDE RECORDS SUMMARY | 2024-09-19 12:01 | XMS_ITS | Patient Health Record ---
Author Organization [facility] Address [address] [place] [address] Care Team Providers Care Signs Sales Representative Name Role Phone FRANCES JOY Primary Care Provider Stoney Pacheco Unavailable [phone] EDMUNDO NOE Unavailable Unavailable Reason For Referral No Information Plan Of Treatment No Information Insurance Providers Payer Name Payer Address Payer Phone Subscriber Number Group Number Insured Name Patient Relationship to Insured Coverage Start Date Coverage End Date MEDICARE [place] [address] [place] [address] [phone] [id number] TATUM UNDERWOOD Self - patient is the insured MED[employer] ATTN CLAIMS [address] [place] [address] [id number] TATUM UNDERWOOD Self - patient is the insured
--- OUTSIDE RECORDS SUMMARY | 2024-09-19 12:01 | XMS_ITS | Patient Health Record ---
Author Organization [employer] [facility] Address [address] [place] [address] Support Name Relationship Address Phone TATUM SONI Guarantor Unknown [phone] Reason For Referral No Information Medications Medication SIG (Take, Route, Fr equency, Duration) Notes Start Date End Date Status Vitamin B Complex ORAL daily for -3 [facility] 11/15/2011 Active Ziac 1 ORAL daily for -3 [facility] 03/04/2013 Active Calcium 500MG 1 ORAL daily for -3 [facility] 11/15/2011 Active Aspirin EC 81MG 1 ORAL daily for -3 [facility] 03/04/2013 Active Problems Problem Type SNOMED Code ICD Code Onset Dates Problem Status W/U Status Risk Notes Problem Benign essential hypertension (0556943) Essential hypertension, benign (401.1) Active confirmed Major Problem Menopausal symptom (42271748) Symptomatic menopausal or female climacteric states (627.2) Active confirmed Major Problem Postmenopausal atrophic vaginitis (70321155) 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) Active confirmed Diag Problem Osteoarthritis (290800398) Osteoarthrosis, unspecified whether generalized or localized, unspecified site (715.90) Active confirmed Major Problem Gynecological examination normal (630407503167193) Routine gynecological examination (V72.31) Active confirmed Major Problem Screening for malignant neoplasm of colon (367892160) Special screening for malignant neoplasms, colon (V76.51) Active confirmed Major Plan Of Treatment No Information Insurance Providers Payer Name Payer Address Payer Phone Subscriber Number Group Number Insured Name Patient Relationship to Insured Coverage Start Date Coverage End Date MEDICARE [address] [place], [place] [id number] TATUM UNDERWOOD Self - patient is the insured AARP Medicare [facility] [address] [place] [address] [id number] TATUM UNDERWOOD Self - patient is the insured
== END 2024-09-19 11:15 | disposition home or self-care (01) ==
LOC: HO.HGI 10:16
PROVIDERS: PCP Internal Medicine; Visit Provider Internal Medicine Gastroenterology
DX: K51.90 Ulcerative colitis, unspecified, without complications (principal)
CPT/HCPCS: 99214

== ENCOUNTER → 2024-09-19 10:15 | Outpatient (BNVA) | payer MEDICARE, SELFPAY | PROVIDERS: PCP Internal Medicine; Visit Provider Internal Medicine Gastroenterology | DX: K51.90 Ulcerative colitis, unspecified, without complications (principal) | CPT/HCPCS: 99212 ==

== ENCOUNTER → 2024-10-21 13:47 | Outpatient (REF) | payer MEDICARE, SELFPAY ==
--- NOTE | 2024-10-21 13:51 | CA_ITS ---
Transthoracic Echocardiogram Patient (Last, First, Middle): Enma Holden A Gender: Female Date of : 1940 Age: 84 Procedure Date: 10/21/2024 Procedure Type: Transthoracic Echocardiogram Location: OP Height: 170.18 cm Weight: 68.04 kg BSA: 1.79 m2 Heart Rate: bpm BP: 115 / 56 mmHg Ux Architect: AUSTYN Referring MD: Sridevi Brown DECK HAND-C Database Programmer Analyst: Eric Tang MD Symptoms: I48.91 - Unspecified atrial fibrillation Study Quality: Good ECG Rhythm: Atrial Fibrillation Conclusions: - 1. Low normal LV ejection fraction 50-55% 2. Moderately dilated right ventricle with preserved contractility 3. Severe biatrial enlargement 4. Moderate tricuspid regurgitation 5. Normal RV systolic pressure 6. No gross pericardial effusion Findings Left Ventricle Normal left ventricular cavity size. There is normal left ventricular wall thickness. The left ventricular systolic function is low normal. The visually estimated ejection fraction is between 50-55%. Diastolic function is indeterminate on the basis of available data. Right Ventricle Moderately increased right ventricular cavity size. There is normal right ventricular systolic function. Atria Severe biatrial enlargement. There is no evidence of interatrial shunt. Aortic Valve Normal aortic valve structure and function. There is no aortic valve stenosis. There is no aortic valve regurgitation. Mitral Valve There is mild anterior and posterior mitral leaflet thickening. There is no mitral valve regurgitation. There is no mitral valve stenosis. Pulmonic Valve The pulmonic valve is likely normal. Tricuspid Valve Normal tricuspid valve structure. There is moderate tricuspid valve regurgitation. The right ventricular systolic pressure is normal. The right ventricular systolic pressure is 23 mmHg. Normal right atrial pressure. There is no evidence of pulmonary hypertension. Great Vessels The aorta was not well visualized. The pulmonary artery was not well visualized. Venous The inferior vena cava is normal in size and collapses greater than 50% with inspiration. Pericardium/Pleural There is no evidence of pericardial effusion. Prior Study Comparison Changes noted compared to prior study dated: 02/05/2021. severe biatrial enlargement noted. Right ventricular is also enlarged with preserved contractility. LV function has marginally reduced Measurements 2D Linear Measurements IVSd: 0.87 0.6-0.9/0.6-1.0 cm LVIDd: 4.56 3.9-5.3/4.2-5.9 cm LVIDd Index: 2.55 2.4-3.2/2.2-3.1 cm/m2 LVIDs: 3.63 2.0-3.6 cm LVPWd: 0.90 0.7-1.1 cm Ao Root: 2.90 2.1-3.5 cm LA Diam: 4.40 2.7-3.8/3.0-4.0 cm LAIDs Index: 2.46 1.5-2.3 cm/m2 LV Mass: 164.30 67-162/88-224 g LV Mass Index: 91.79 43-95/49-115 g/m2 LVOT Diam: 2.00 3.0+(-)1.3 cm 2D Systolic Function EF 4C: 39.20 >55% EF 2C: 60.50 >55% EF BiP: 51.60 >55% Mitral Valve MV Pk E: 0.82 MV Decel Time: 121.00 E'Lateral: 15.60 E'Medial: 9.36 E/E' Med: 8.70 E/E' Lat: 5.20 PHT: 35.00 MVA PHT: 6.29 Decel Glascock: 6.76 Aortic Valve AoV Pk Esteban: 1.00 AoV Mn Esteban: 0.66 AoV VTI: 0.18 AoV Pk Grad: 4.00 Aov Mn Grad: 2.00 SARAY Cont.VTI: 2.63 LVOT LVOT Pk Esteban: 0.71 LVOT Mn Esteban: 0.49 LVOT VTI: 0.15 LVOT Pk Grad: 2.00 LVOT Mn Grad: 1.00 LVOT Diam: 2.00 LVOT Area: 3.14 Diastolic Function MV Pk E: 0.82 E'Medial: 9.36 E/E' Med: 8.70 E' Laterial: 15.60 E/E' Lat: 5.20 Right Ventricle TAPSE (mm): 22.00 TVS' Esteban: 11.00 Tricuspid Valve TR Pk Esteban: 2.25 TR Pk Grad: 20.00 RA Press: 3.00 RVSP: 23.00 Great Vessels Aorta Ao Root-2D: 2.90 2.0-3.7 cm Pulmonary Valve PV Pk Esteban: 0.78 Peak PV Grad: 2.00 Updated in Other Vendor System with Status of Final Eric Tang MD electronically signed on 10/22/2024 1:23:48 PM with status of Final
--- OUTSIDE RECORDS SUMMARY | 2024-10-21 14:03 | XMS_ITS | Patient Health Record ---
Author Organization [employer] [facility] [facility] Address [address] [place] [address] Support Name Relationship Address Phone TATUM SONI Guarantor Unknown Reason For Referral No Information Medications Medication SIG (Take, Route, Fr equency, Duration) Notes Start Date End Date Status Vitamin B Complex ORAL daily for -3 [facility] 11/15/2011 Active Ziac 1 ORAL daily for -3 [facility] 03/04/2013 Active Calcium 500MG 1 ORAL daily for -3 [facility] 11/15/2011 Active Aspirin EC 81MG 1 ORAL daily for -3 [facility] 03/04/2013 Active Problems Problem Type SNOMED Code ICD Code Onset Dates Problem Status W/U Status Risk Notes Problem Benign essential hypertension (3775192) Essential hypertension, benign (401.1) Active confirmed Major Problem Menopausal symptom (97727320) Symptomatic menopausal or female climacteric states (627.2) Active confirmed Major Problem Postmenopausal atrophic vaginitis (94505171) 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) Active confirmed Diag Problem Osteoarthritis (090659266) Osteoarthrosis, unspecified whether generalized or localized, unspecified site (715.90) Active confirmed Major Problem Gynecological examination normal (849018735644994) Routine gynecological examination (V72.31) Active confirmed Major Problem Screening for malignant neoplasm of colon (804049018) Special screening for malignant neoplasms, colon (V76.51) Active confirmed Major Plan Of Treatment No Information Insurance Providers Payer Name Payer Address Payer Phone Subscriber Number Group Number Insured Name Patient Relationship to Insured Coverage Start Date Coverage End Date MEDICARE [address] [place], [place] [id number] TATUM UNDERWOOD Self - patient is the insured AARP Medicare [facility] [address] [place] [address] [id number] TATUM UNDERWOOD Self - patient is the insured
--- OUTSIDE RECORDS SUMMARY | 2024-10-21 14:03 | XMS_ITS | Patient Health Record ---
Author Organization [facility] Address [address] [place] [address] Care Team Providers Care Assembler Insulator Name Role Phone FRANCES JOY Primary Care Provider Stoney Pacheco Unavailable [phone] EDMUNDO NOE Unavailable Unavailable Reason For Referral No Information Plan Of Treatment No Information Insurance Providers Payer Name Payer Address Payer Phone Subscriber Number Group Number Insured Name Patient Relationship to Insured Coverage Start Date Coverage End Date MEDICARE [place] [address] [place] [address] [id number] TATUM UNDERWOOD Self - patient is the insured [employer] CLAIMS [address] [place] [address] [id number] TATUM UNDERWOOD Self - patient is the insured
== END ==
LOC: HO.CARD 13:47
PROVIDERS: PCP Internal Medicine; Visit Provider Nurse Practitioner Family
DX: I48.91 Unspecified atrial fibrillation (principal); R79.89 Other specified abnormal findings of blood chemistry
CPT/HCPCS: 93306

== ENCOUNTER → 2024-10-21 13:51 | Outpatient (BNV) | payer MEDICARE, SELFPAY | PROVIDERS: PCP Internal Medicine; Visit Provider Internal Medicine Cardiovascular Disease | DX: I51.7 Cardiomegaly (principal) | CPT/HCPCS: 93306 ==

== ENCOUNTER 2024-11-07 14:38 | Outpatient (AMB) | payer MEDICARE, SELFPAY ==
--- OUTSIDE RECORDS SUMMARY | 2024-11-07 14:45 | XMS_ITS | Patient Health Record ---
Author Organization [employer] [facility] Address [address] [address] Support Name Relationship Address Phone TATUM SONI Guarantor Unknown Reason For Referral No Information Medications Medication SIG (Take, Route, Fr equency, Duration) Notes Start Date End Date Status Vitamin B Complex ORAL daily for -3 [facility] 11/15/2011 Active Ziac 1 ORAL daily for -3 [facility] 03/04/2013 Active Calcium 500MG 1 ORAL daily for -3 [facility] 11/15/2011 Active Aspirin EC 81MG 1 ORAL daily for -3 [facility] 03/04/2013 Active Problems Problem Type SNOMED Code ICD Code Onset Dates Problem Status W/U Status Risk Notes Problem Benign essential hypertension (5774141) Essential hypertension, benign (401.1) Active confirmed Major Problem Menopausal symptom (74466111) Symptomatic menopausal or female climacteric states (627.2) Active confirmed Major Problem Postmenopausal atrophic vaginitis (63603706) 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) Active confirmed Diag Problem Osteoarthritis (549999706) Osteoarthrosis, unspecified whether generalized or localized, unspecified site (715.90) Active confirmed Major Problem Gynecological examination normal (146459153566168) Routine gynecological examination (V72.31) Active confirmed Major Problem Screening for malignant neoplasm of colon (276980936) Special screening for malignant neoplasms, colon (V76.51) Active confirmed Major Plan Of Treatment No Information Insurance Providers Payer Name Payer Address Payer Phone Subscriber Number Group Number Insured Name Patient Relationship to Insured Coverage Start Date Coverage End Date MEDICARE [address] [place], [place] [id number] TATUM UNDERWOOD Self - patient is the insured AARP Medicare [facility] [address] [place] [address] [id number] TATUM UNDERWOOD Self - patient is the insured
--- NOTE | 2024-11-07 15:03 | MHC.PC.OV ---
Vital Signs 11/07/24 15:05 Height 5 ft 6 in Weight 152 lb BMI 24.5 BP 100/60 Blood Pressure Location Rt brachial Position Sitting Pulse 88 Pulse Source Pulse Oximeter Temp 97.1 F Temp Source Temporal Artery Scan Pulse Oximetry (%) 98 Oxygen Delivery Method Room Air Intake Visit Reasons: 3mth f/u Intake Note: Patient is here to follow up on Afib. Road Supervisor Required: No Window Air Conditioner Installer: Present (Spouse and daughter) Accompanied by: Spouse Allergies epinephrine Allergy (Unknown, Verified 11/07/24 15:05) Unknown Tobacco use date assessed: 11/07/24 Fall risk assessment: 1 Fall in past year Last assessed Fall Risk: 11/07/24 Dental Screening Dental Screen Date: 08/16/24 [facility] Medical History (Updated 09/09/24 @ 18:02 by LEROY CoxC) Pulmonary embolism Elevated brain natriuretic peptide (BNP) level Vitamin D deficiency Acute bacterial bronchitis Cough Dementia with behavioral disturbance Postmenopausal bleeding Mesenteric ischemia Anticoagulated Dementia Post-menopausal Screening for breast cancer Ulcerative colitis Subacute massive pulmonary embolism Atrial fibrillation Rectal bleed Hypertension Dementia Surgical History Hx of sigmoidoscopy History of colonoscopy (~09/30/20) History of left knee replacement History of section Family History Father Hypertension Mother No problems noted. Son No problems noted. Son No problems noted. Daughter No problems noted. 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 1. Little interest or pleasure in doing things: not at all 2. Feeling down, depressed, or hopeless: not at all 3. Trouble falling or staying asleep, or sleeping too much: several days 4. Feeling tired or having little energy: not at all 5. Poor appetite or overeating: not at all 6. Feeling bad about yourself - or that you are a failure or have let yourself or your family down: not at all 7. Trouble concentrating on things, such as reading the newspaper or watching television: not at all 8. Moving or speaking so slowly that other people could have noticed. Or the opposite - being so fidgety or restless that you have been moving around a lot more than usual: not at all 9. Thoughts that you would be better off or of hurting yourself in some way: not at all Total score: 1 Depression Screening Interpretation: Positive Depression Screening Done: Yes Source: Developed by Drs. Stoney Schrader, Tata Randle, Teddy Cool and colleagues, with an educational penelope from [employer]. Thrive Questionnaire Date Thrive assessed: 11/06/24 I am a: Patient What is your living situation today?: I have a steady place to live Within the past 12 months, did the food you bought not last and you didn't have the money to get more?: Never true Within the past 12 months, did you worry whether your food would run out before you got money to buy more?: Never true Do you have trouble paying for medicines?: No Do you have trouble getting transportation to medical appointments?: No Do you have trouble paying your heating and electricity bill?: No Do you have trouble taking care of your child, family member or friend?: I choose not to answer this question Do you have trouble with day-to-day activities such as bathing, preparing meals, shopping, managing finances, etc.?: Yes Are you currently unemployed and looking for a job?: No Are you interested in more education?: No Please select the resources that you would like help with: None Currently or been in a relationship where the following occur: No concerns reported THRIVE Score: 0 AUDIT C Alcohol Use Questionnaire (AUDIT-C) 1. How often do you have a drink containing alcohol?: Never Total Score: 0 JOSETTE-7 AMB Questionnaire JOSETTE-7 Date JOSETTE - 7 assessed: 11/07/24 Feeling nervous, anxious, or on edge: 3 = Nearly every day Not being able to stop or control worryin = Nearly every day Worrying too much about different things: 3 = Nearly every day Trouble relaxin = Nearly every day Being so restless that it is hard to sit still: 0 = Not at all Becoming easily annoyed or irritable: 1 = Several days Feeling afraid as if something awful might happen: 3 = Nearly every day Total JOSETTE-7 score (0-4 normal; 5-9 mild; 10-14 moderate; 15-21 severe): 16 Source: Developed by Drs. Stoney Schrader, Tata Randle, Teddy Cool and colleagues, with an educational penelope from [employer]. Physical exam (Primary Care) Vital Signs: Last Vital Signs Temp 97.1 F 11/07/24 15:05 Pulse 88 11/07/24 15:05 BP 100/60 11/07/24 15:05 Pulse Ox 98 11/07/24 15:05 Oxygen Delivery Method Room Air 11/07/24 15:05 BMI result Body Mass Index 24.5 Tobacco/Smoking Status: Tobacco use Status Tobacco use date assessed 11/07/24 11/07/24 15:07 Patient Tobacco Use Status Never used Tobacco 11/07/24 15:03 e-Cigarette/Vaping Use Never Used 11/07/24 15:03 PHQ-9: PHQ-9 Score PHQ-9: Total score 1 11/07/24 15:07 Depression Screening Interpretation: Positive Thrive Assessment: Date of Thrive Assessment Date Thrive assessed 11/06/24 11/07/24 15:03 Currently or been in a relationship where the following occur: No concerns reported Coding Level of Care Code Est Pt Level 4 (36308) Complex EM visit Add On G2211 Diagnoses Dementia without behavioral disturbance, unspecified dementia type F03.90 Dementia type: unspecified type Dementia behavioral disturbance: without behavioral disturbance Assessment & Plan Assessment & Plan (1) Dementia: Code(s): F03.90 - Unspecified dementia, unspecified severity, without behavioral disturbance, psychotic disturbance, mood disturbance, and anxiety Category: Medical Qualifiers: Dementia type: unspecified type Dementia behavioral disturbance: without behavioral disturbance Qualified Code(s): F03.90 - Unspecified dementia without behavioral disturbance Plan: History of Present Illness - The patient is an 84-year-old female presenting with behavioral issues characterized by anxiety and agitation, particularly in the evening. - These issues have resulted in the patient sometimes refusing assistance from aides. - The patient's agitation escalates in the evenings, manifesting as shouting and physical aggression. - Sleep patterns are irregular, with the patient sometimes sleeping on a couch. - Confusion is present, with variable recognition of familiar individuals. Social History - The patient appears to have a supportive family who visits, though recognition is inconsistent. - The patient's current living situation includes assistance from aides. Review of Systems - Psychiatric: Reports anxiety and agitation, especially in the evening. - Neurological: Reports confusion and variable recognition of family members. Physical Exam General: Cooperative and healthy appearing Nutritional Appearance: Well nourished Orientation/consciousness: Patient oriented x3 Limitations: No limitations Head: Normal to inspection General: Appearance normal, both eyes and all related structures Neck: Normal visual inspection Chest: Normal palpation of entire chest wall Respiratory: N ormal respiratory effort Neurology: Patient oriented x1, exhibits confusion and agitation, sometimes does not recognize familiar people. Results Plan 1. Anxiety - Start Haloperidol 0.25 mg at 4:30 PM. - Monitor for drowsiness and fall risk. - Adjust dosage based on response. 2. Agitation - Treat with Haloperidol as planned. - Monitor effectiveness and side effects. - Adjust treatment based on response. 3. Sundowning - Manage with behavioral and medication strategies. - Monitor confusion. - Adjust care as needed. Discussion Notes During the visit, I discussed the patient's behavioral issues, particularly the anxiety and agitation experienced in the evenings. We reviewed the potential benefits and risks of starting Haloperidol, including its calming effects and the possibility of inducing drowsiness and increasing fall risk. I advised administering the medication around 4:30 PM to address the evening symptoms. We also discussed monitoring the patient?s response to the medication and adjusting the dosage if necessary. The patient and caregivers should observe for any adverse effects and report back on the effectiveness of the treatment. Follow-up was suggested for ongoing monitoring and management of these symptoms. Patient has advanced dementia. Lives with her who has Parkinson's disease with disabling tremors d Patient Instructions - Administer Haloperidol 0.25 mg at 4:30 PM. - Monitor for drowsiness and increased fall risk. - Report any changes in behavior or medication side effects. - Contact me if the medication is not helping or if further adjustments are needed. - Ensure the patient is supervised, especially when agitated. Medications: New haloperidol 0.5 mg PO BEDTIME 30 tabs 0RF
[2024-11-07 15:05] VITALS: BP 100/60; PULSE 88; TEMP 36.2; O2SAT 98; BMI 24.5
== END 2024-11-07 16:00 | disposition home or self-care (01) ==
LOC: HO.HMCH 14:39
PROVIDERS: PCP Internal Medicine; Visit Provider Internal Medicine
DX: F03.90 Unspecified dementia, unspecified severity, without behavioral disturbance, psychotic disturbance, mood disturbance, and anxiety (principal)

== ENCOUNTER → 2024-11-07 14:38 | Outpatient (BNVA) | payer MEDICARE, SELFPAY | PROVIDERS: PCP Internal Medicine; Visit Provider Internal Medicine | DX: I48.91 Unspecified atrial fibrillation (principal); F03.911 Unspecified dementia, unspecified severity, with agitation | CPT/HCPCS: 99212 ==

== ENCOUNTER 2025-01-29 14:12 | Outpatient (AMB) | payer MEDICARE, SELFPAY ==
[2025-01-29 14:40] VITALS: BP 108/64; PULSE 88; RESP 16; TEMP 36.2; O2SAT 94; BMI 22.7
--- NOTE | 2025-01-29 14:40 | A.OFFPC_ITS ---
Vital Signs 01/29/25 14:40 Height 5 ft 6 in Weight 140 lb 10.479 oz BMI 22.7 BP 108/64 Blood Pressure Location Lt brachial Position Sitting Respiration 16 Pulse 88 Pulse Source Pulse Oximeter Temp 97.1 F Temp Source Temporal Artery Scan Pulse Oximetry (%) 94 Oxygen Delivery Method Room Air Intake Visit Reasons: follow up Allergies epinephrine Allergy (Unknown, Verified 01/29/25 15:25) Unknown Medication List - Last Reconciled 01/29/25 by Salinas Irby MD apixaban (Eliquis) 5 mg PO BID cholecalciferol (vitamin D3) 1,250 mcg PO QWEEK 3 months furosemide (Lasix) 20 mg PO DAILY PRN 30 days haloperidol 0.5 mg PO BEDTIME hydrocortisone 1% 1 appl topical BID PRN metoprolol tartrate 25 mg PO BID sulfasalazine 1 g (2 x 500 mg) PO BID 90 days Tobacco use date assessed: 01/29/25 Fall risk assessment: 2 + Falls in past year Last assessed Fall Risk: 01/29/25 Dental Screening Dental Screen Date: 01/29/25 Did you have a dental visit in the last 12 months?: No Did you have a dental problem in the last 6 months where you did not have access to dental care?: No Was dental information given to patient?: Patient declined HPI follow up HPI Details 84-year-old female presents to the [facility] for a routine checkup. She is accompanied by her daughter. Patient has advanced dementia. She is able to walk on her own. She needs assistance for dressing, bathing and eating. Compliant with medications. Medications started after her last office visit has remove the agitation. She is sleeping well at night. [facility] Medical History Pulmonary embolism Elevated brain natriuretic peptide (BNP) level Vitamin D deficiency Acute bacterial bronchitis Cough Dementia with behavioral disturbance Postmenopausal bleeding Mesenteric ischemia Anticoagulated Dementia Post-menopausal Screening for breast cancer Ulcerative colitis Subacute massive pulmonary embolism Atrial fibrillation Rectal bleed Hypertension Dementia Surgical History Hx of sigmoidoscopy History of colonoscopy (~09/30/20) History of left knee replacement History of section Family History Father Hypertension Mother No problems noted. Son No problems noted. Son No problems noted. Daughter No problems noted. 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 1. Little interest or pleasure in doing things: not at all 2. Feeling down, depressed, or hopeless: not at all 3. Trouble falling or staying asleep, or sleeping too much: several days 4. Feeling tired or having little energy: not at all 5. Poor appetite or overeating: not at all 6. Feeling bad about yourself - or that you are a failure or have let yourself or your family down: not at all 7. Trouble concentrating on things, such as reading the newspaper or watching television: not at all 8. Moving or speaking so slowly that other people could have noticed. Or the opposite - being so fidgety or restless that you have been moving around a lot more than usual: not at all 9. Thoughts that you would be better off or of hurting yourself in some way: not at all Total score: 1 Depression Screening Interpretation: Positive Depression Screening Done: Yes Source: Developed by Drs. Stoney Schrader, Tata Randle, Teddy Cool and colleagues, with an educational penelope from [employer]. Thrive Questionnaire Date Thrive assessed: 11/06/24 I am a: Patient What is your living situation today?: I have a steady place to live Within the past 12 months, did the food you bought not last and you didn't have the money to get more?: Never true Within the past 12 months, did you worry whether your food would run out before you got money to buy more?: Never true Do you have trouble paying for medicines?: No Do you have trouble getting transportation to medical appointments?: No Do you have trouble paying your heating and electricity bill?: No Do you have trouble taking care of your child, family member or friend?: I choose not to answer this question Do you have trouble with day-to-day activities such as bathing, preparing meals, shopping, managing finances, etc.?: Yes Are you currently unemployed and looking for a job?: No Are you interested in more education?: No Please select the resources that you would like help with: None Currently or been in a relationship where the following occur: No concerns reported THRIVE Score: 0 AUDIT C Alcohol Use Questionnaire (AUDIT-C) 1. How often do you have a drink containing alcohol?: Never 3. How often do you have six or more drinks on one occasion?: Never Total Score: 0 JOSETTE-7 AMB Questionnaire JOSETTE-7 Date JOSETTE - 7 assessed: 11/07/24 Feeling nervous, anxious, or on edge: 3 = Nearly every day Not being able to stop or control worryin = Nearly every day Worrying too much about different things: 3 = Nearly every day Trouble relaxin = Nearly every day Being so restless that it is hard to sit still: 0 = Not at all Becoming easily annoyed or irritable: 1 = Several days Feeling afraid as if something awful might happen: 3 = Nearly every day Total JOSETTE-7 score (0-4 normal; 5-9 mild; 10-14 moderate; 15-21 severe): 16 Source: Developed by Drs. Stoney Schrader, Tata Randle, Teddy Cool and colleagues, with an educational penelope from [employer]. Physical exam (Primary Care) Vital Signs: Last Vital Signs Temp 97.1 F 01/29/25 14:40 Pulse 88 01/29/25 14:40 Resp 16 01/29/25 14:40 BP 108/64 01/29/25 14:40 Pulse Ox 94 01/29/25 14:40 Oxygen Delivery Method Room Air 01/29/25 14:40 BMI result Body Mass Index 22.7 Tobacco/Smoking Status: Tobacco use Status Tobacco use date assessed 01/29/25 01/29/25 14:49 Patient Tobacco Use Status Never used Tobacco 01/29/25 14:42 e-Cigarette/Vaping Use Never Used 01/29/25 14:42 PHQ-9: PHQ-9 Score PHQ-9: Total score 1 01/29/25 14:49 Depression Screening Interpretation: Positive Thrive Assessment: Date of Thrive Assessment Date Thrive assessed 11/06/24 01/29/25 14:42 Currently or been in a relationship where the following occur: No concerns reported Const General: cooperative and healthy appearing Nutritional Appearance: well nourished Orientation/consciousness: patient oriented x3 Limitations: no limitations HENMT Head: Yes normal to inspection Eyes General: appearance normal, both eyes and all related structures Neck Neck: Yes normal visual inspection Chest Chest palpation & inspection: normal palpation of entire chest wall Resp Effort & Inspection: normal respiratory effort Neuro General: patient oriented x3 Coding Level of Care Code Est Pt Level 3 (32799) Complex EM visit Add On G2211 Diagnoses Dementia without behavioral disturbance, unspecified dementia type F03.90 Dementia type: unspecified type Dementia behavioral disturbance: without behavioral disturbance Assessment & Plan Assessment & Plan (1) Dementia: Code(s): F03.90 - Unspecified dementia, unspecified severity, without behavioral disturba nce, psychotic disturbance, mood disturbance, and anxiety Category: Medical Qualifiers: Dementia type: unspecified type Dementia behavioral disturbance: without behavioral disturbance Qualified Code(s): F03.90 - Unspecified dementia without behavioral disturbance Plan: Continue current medications.
--- OUTSIDE RECORDS SUMMARY | 2025-01-29 15:11 | XMS_ITS | Patient Health Record ---
Author Organization [facility] Address [address] [place] [address] Care Team Providers Care Campus Director Name Role Phone FRANCES JOY Primary Care Provider Stoney Pacheco Unavailable [phone] EDMUNDO NOE Unavailable Unavailable Reason For Referral No Information Plan Of Treatment No Information Insurance Providers Payer Name Payer Address Payer Phone Subscriber Number Group Number Insured Name Patient Relationship to Insured Coverage Start Date Coverage End Date MEDICARE [place] [address] [place] [address] [id number] TATUM UNDERWOOD Self - patient is the insured MEDEX ATTN CLAIMS [address] [place] [address] [phone] [id number] TATUM UNDERWOOD Self - patient is the insured
--- OUTSIDE RECORDS SUMMARY | 2025-01-29 15:11 | XMS_ITS | Patient Health Record ---
Author Organization [employer] [facility] Address [address] [place] [address] Support Name Relationship Address Phone TATUM SONI Guarantor Unknown Reason For Referral No Information Medications Medication SIG (Take, Route, Fr equency, Duration) Notes Start Date End Date Status Vitamin B Complex ORAL daily; Duration: -3 Harpreet-MJ 012 Active Ziac 1 ORAL daily; Duration: -3 Harpreet-MJ 03/04/2013 Active Calcium 500MG 1 ORAL daily; Duration: -3 Harpreet-MJ 2 Active Aspirin EC 81MG 1 ORAL daily; Duration: -3 Harpreet-MJ 013 Active Problems Problem Type SNOMED Code ICD Code Onset Dates Problem Status W/U Status Risk Notes Problem Benign essential hypertension (8145360) Essential hypertension, benign (401.1) Active confirmed Major Problem Menopausal symptom (68807023) Symptomatic menopausal or female climacteric states (627.2) Active confirmed Major Problem Postmenopausal atrophic vaginitis (38845313) 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) Active confirmed Diag Problem Osteoarthritis (464441153) Osteoarthrosis, unspecified whether generalized or localized, unspecified site (715.90) Active confirmed Major Problem Gynecological examination normal (045881906075715) Routine gynecological examination (V72.31) Active confirmed Major Problem Screening for malignant neoplasm of colon (296062310) Special screening for malignant neoplasms, colon (V76.51) Active confirmed Major Plan Of Treatment No Information Insurance Providers Payer Name Payer Address Payer Phone Subscriber Number Group Number Insured Name Patient Relationship to Insured Coverage Start Date Coverage End Date MEDICARE [address] [place], [place] [id number] TATUM UNDERWOOD Self - patient is the insured AARP Medicare Complete by [employer] ons [address] [place] [id number] TATUM UNDERWOOD Self - patient is the insured
== END 2025-01-29 15:24 | disposition home or self-care (01) ==
LOC: HO.HMCH 14:13
PROVIDERS: PCP Internal Medicine; Visit Provider Internal Medicine
DX: F03.90 Unspecified dementia, unspecified severity, without behavioral disturbance, psychotic disturbance, mood disturbance, and anxiety (principal)

== ENCOUNTER → 2025-01-29 14:12 | Outpatient (BNVA) | payer MEDICARE, SELFPAY | PROVIDERS: PCP Internal Medicine; Visit Provider Internal Medicine | DX: F03.90 Unspecified dementia, unspecified severity, without behavioral disturbance, psychotic disturbance, mood disturbance, and anxiety (principal) | CPT/HCPCS: 99212 ==

== ENCOUNTER 2025-03-11 13:33 | Outpatient (AMB) | payer MEDICARE, SELFPAY ==
--- NOTE | 2025-03-11 13:45 | A.OFFVIS_ITS ---
Vital Signs 03/11/25 13:46 Height 5 ft 6 in BP 90/64 Blood Pressure Location Lt brachial Position Sitting Pulse 104 H Pulse Source Monitor Intake Visit Reasons: 6 mth f/up echo [employer] Boss Required: No Window Shade Cutter: Window Shade Cutter Present Allergies epinephrine Allergy (Unknown, Verified 03/11/25 13:49) Unknown Medication List - Last Reconciled 03/11/25 by Sridevi Brown, HEALTH MANAGEMENT CONSULTANT-C apixaban (Eliquis) 5 mg PO BID furosemide (Lasix) 20 mg PO DAILY PRN 30 days haloperidol 0.5 mg PO BEDTIME hydrocortisone 1% 1 appl topical BID PRN metoprolol tartrate 25 mg PO BID sulfasalazine 1,000 mg (2 x 500 mg) PO BID HPI HPI 6 mth f/up echo: Details: Enma is an 84-year-old female with past medical history of dementia, Pulmonary embolism, atrial fibrillation who presents for follow-up. Today she comes with her daughter. Patient remains pleasantly confused and does not answer questions appropriately. Daughter states that mother has been doing well with no concerning symptoms. Over the summer she was getting some mild ankle edema and they were giving her Lasix daily. At this time she is now giving it 3 times weekly. No witnessed shortness of breath or coughing. She ne sunita complains of chest discomfort or rapid heart palpitations. She currently sleeps with 1 pillow which is her norm. Takes her meds when directed to do so. Daughter is unsure exactly how much fluid she is drinking. No known bleeding issues. [facility] Medical History (Updated 03/11/25 @ 16:36 by Sridevi Brown, HEALTH MANAGEMENT CONSULTANT-C) Pulmonary embolism Elevated brain natriuretic peptide (BNP) level Vitamin D deficiency Acute bacterial bronchitis Cough Dementia with behavioral disturbance Postmenopausal bleeding Mesenteric ischemia Anticoagulated Dementia Post-menopausal Screening for breast cancer Ulcerative colitis Subacute massive pulmonary embolism Atrial fibrillation Rectal bleed Hypertension Dementia Surgical History Hx of sigmoidoscopy History of colonoscopy (~09/30/20) History of left knee replacement History of section Family History Father Hypertension Mother No problems noted. Son No problems noted. Son No problems noted. Daughter No problems noted. 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 Patient Tobacco Use Status: Never used Tobacco e-Cigarette/Vaping Use: Never Used Second Hand Smoke Exposure: No Advance Directives Date on File: 04/06/22 service: No Current occupational status: retired Cognitive needs: No Hearing needs: Yes (needs hearing aids) Vision needs: Yes Review of Systems Const Details: Daughter states no patient complaints Unobtainable due to mental condition Musc Reports abnormal gait (in wheelchair today) Neuro Reports abnormal gait (in wheelchair today) Physical Exam Vital Signs: Last Vital Signs Pulse 104 H 03/11/25 13:46 BP 90/64 03/11/25 13:46 Const Other: dementia. Pleasant and talking but not answering questions appropriately General: cooperative, comfortable and no acute distress Neck Neck: Yes normal visual inspection Resp Effort & Inspection: normal respiratory effort Auscultation: clear to auscultation bilaterally, no rales, no rhonchi and no wheezes Cardio Rate: regular rate Rhythm: abnormal rhythm Heart sounds: S1 normal heart sound present, S2 normal heart sound present, no murmurs and no rubs Psych Appearance: grossly normal Speech and movement: Normal speech and movement present Office Procedures EKG Details: Today, read by me, atrial fibrillation with rapid ventricular response, low- voltage QRS, nonspecific ST and T-wave abnormality, rate 104, QTC 439 milliseconds [id number], Complete Assessment & Plan Assessment & Plan (1) Atrial fibrillation: Code(s): I48.91 - Unspecified atrial fibrillation Category: Medical Plan: History of chronic atrial fibrillation treated with heart rate control. Last echocardiogram 10/21/2024 showed EF 50-55%, moderately dilated right ventricle, severe biatrial enlargement, moderate TR. EKG done today showing atrial fibrillation, rate 104. Unable to further titrate metoprolol due to low blood pressure. She is not noticing heart palpitations. She may be intravascularly dry adding to elevated pulse and low blood pressure. Reviewed need for good hydration with daughter. Use Lasix only PRN. Continue Eliquis. (2) Pulmonary embolism: Code(s): I26.99 - Other pulmonary embolism without acute cor pulmonale Category: Medical Plan: History of pulmonary embolism September 2020. Initially she had RV dysfunction which did normalize on repeat echocardiogram 01/2021. She continues on Eliquis. (3) Dementia: Code(s): F03.90 - Unspecified dementia, unspecified severity, without behavioral disturbance, psychotic disturbance, mood disturbance, and anxiety Category: Medical Qualifiers: Dementia type: unspecified type Dementia behavioral disturbance: without behavioral disturbance Qualified Code(s): F03.90 - Unspecified dementia without behavioral disturbance Plan Time spent on chart review, documentation, interview and assessment Coding Level of Care Code Est Pt Level 3 (65409) Complex EM visit Add On G2211 Diagnoses Atrial fibrillation I48.91 Pulmonary embolism I26.99 Dementia without behavioral disturbance, unspecified dementia type F03.90 Dementia type: unspecified type Dementia behavioral disturbance: without behavioral disturbance CPT Codes EKG - CPT: 12061-Jlgpmocuzctichpuo, Complete ([id number]) Time Spent (min) 24
[2025-03-11 13:46] VITALS: BP 90/64; PULSE 104
--- OUTSIDE RECORDS SUMMARY | 2025-03-11 14:51 | XMS_ITS | Patient Health Record ---
Author Organization [employer] [facility] Address [address] [place] [address] Support Name Relationship Address Phone TATUM SONI [...] Status Risk Notes Problem Benign essential hypertension (9813640) Essential hypertension, benign (401.1) Active confirmed Major Problem Menopausal symptom (86905526) Symptomatic menopausal or female climacteric states (627.2) Active confirmed Major Problem Postmenopausal atrophic vaginitis (23933905) 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) Active confirmed Diag Problem Osteoarthritis (949549280) Osteoarthrosis, unspecified whether generalized or localized, unspecified site (715.90) Active confirmed Major Problem Gynecological examination normal (840637870737040) Routine gynecological examination (V72.31) Active confirmed Major Problem Screening for malignant neoplasm of colon (142260162) Special screening for malignant neoplasms, colon (V76.51) Active confirmed Major Plan Of Treatment No Information Insurance Providers Payer Name Payer Address Payer Phone Subscriber Number Group Number Insured Name Patient Relationship to Insured Coverage Start Date Coverage End Date MEDICARE [address] [place], [place] [id number] TATUM UNDERWOOD Self - patient is the insured AARP Medicare Complete by [employer] [address] [place] [id number] TATUM UNDERWOOD Self - patient is the insured
--- OUTSIDE RECORDS SUMMARY | 2025-03-11 14:51 | XMS_ITS | Patient Health Record ---
Author Organization [facility] Address [address] [place] [address] Care Team Providers Care Bods Developer Name Role Phone FRANCES JOY Primary Care Provider Stoney Pacheco Unavailable [phone] EDMUNDO NOE Unavailable Unavailable Reason For Referral No Information Plan Of Treatment No Information Insurance Providers Payer Name Payer Address Payer Phone Subscriber Number Group Number Insured Name Patient Relationship to Insured Coverage Start Date Coverage End Date MEDICARE OF [place] [address] [place] [address] [id number] TATUM UNDERWOOD Self - patient is the insured [employer] ATTN CLAIMS [address] [place] [address] [id number] TATUM UNDERWOOD Self - patient is the insured
== END 2025-03-11 14:32 | disposition home or self-care (01) ==
LOC: HO.HCS 13:34
PROVIDERS: PCP Internal Medicine; Visit Provider Nurse Practitioner Family
DX: I48.91 Unspecified atrial fibrillation (principal); I26.99 Other pulmonary embolism without acute cor pulmonale; F03.90 Unspecified dementia, unspecified severity, without behavioral disturbance, psychotic disturbance, mood disturbance, and anxiety
CPT/HCPCS: 93010; 99213; G2211

== ENCOUNTER → 2025-03-11 13:33 | Outpatient (BNVA) | payer MEDICARE, SELFPAY | PROVIDERS: PCP Internal Medicine; Visit Provider Nurse Practitioner Family | DX: I48.91 Unspecified atrial fibrillation (principal); Z86.79 Personal history of other diseases of the circulatory system; I26.99 Other pulmonary embolism without acute cor pulmonale; F03.90 Unspecified dementia, unspecified severity, without behavioral disturbance, psychotic disturbance, mood disturbance, and anxiety | CPT/HCPCS: 93005; 99212 ==

== ENCOUNTER 2025-04-30 13:50 | Outpatient (AMB) | payer MEDICARE, SELFPAY ==
[2025-04-30 14:01] VITALS: BP 120/70; TEMP 36.1; BMI 24.1
--- NOTE | 2025-04-30 14:01 | MHC.PC.OV ---
Vital Signs 04/30/25 14:01 Height 5 ft 6 in Weight 149 lb 7.574 oz BMI 24.1 BP 120/70 Blood Pressure Location Lt brachial Position Sitting Temp 96.9 F Temp Source Temporal Artery Scan Intake Visit Reasons: 3mth f/u Intake Note: Patient is here to follow up on HTN, Afib, Dementia. Senior Advocate Required: No Matzo Forming Machine Operator: Present (Daughter an dspouse) Accompanied by: Daughter Allergies epinephrine Allergy (Unknown, Verified 04/30/25 14:02) Unknown Tobacco use date assessed: 04/30/25 Fall risk assessment: No Falls in past year Last assessed Fall Risk: 04/30/25 Dental Screening Dental Screen Date: 01/29/25 HPI HPI Comments History of Present Illness Details History of Present Illness - The patient is an 84-year-old female presenting for a follow-up visit to manage her dementia and associated agitation. - Her caregiver reports a recent decline in her general condition, and her dementia is described as complete. - She experiences some agitation. - In terms of functional status, she requires assistance with bathing, personal hygiene, and using the bathroom. - Assistance with feeding is variable. - She occasionally wanders to the bathroom on her own in the afternoons, but this varies daily. - Current medications include Eliquis, Lasix, metoprolol, and sulfasalazine, which are crushed for administration. - She is taking haloperidol 0.5 mg at bedtime for agitation. - The patient has received her flu shot. Social History - Functional Status: The patient needs help with feeding, bathing, personal hygiene, and toileting. - She occasionally wanders to the bathroom independently in the afternoon, though this varies. - Family and Support System: A caregiver visits the house almost every day, administers her medications, and is available by phone. Results [facility] Medical History (Updated 03/11/25 @ 16:36 by Sridevi Brown, NET MVC DEVELOPER-C) Pulmonary embolism Elevated brain natriuretic peptide (BNP) level Vitamin D deficiency Acute bacterial bronchitis Cough Dementia with behavioral disturbance Postmenopausal bleeding Mesenteric ischemia Anticoagulated Dementia Post-menopausal Screening for breast cancer Ulcerative colitis Subacute massive pulmonary embolism Atrial fibrillation Rectal bleed Hypertension Dementia Surgical History Hx of sigmoidoscopy History of colonoscopy (~09/30/20) History of left knee replacement History of section Family History Father Hypertension Mother No problems noted. Son No problems noted. Son No problems noted. Daughter No problems noted. 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 Patient Tobacco Use Status: Never used Tobacco e-Cigarette/Vaping Use: Never Used Second Hand Smoke Exposure: No Advance Directives Date on File: 04/06/22 service: No Current occupational status: retired Cognitive needs: No Hearing needs: Yes (needs hearing aids) Vision needs: Yes Questionnaire Thrive Questionnaire Date Thrive assessed: 11/06/24 I am a: Patient What is your living situation today?: I have a steady place to live Within the past 12 months, did the food you bought not last and you didn't have the money to get more?: Never true Within the past 12 months, did you worry whether your food would run out before you got money to buy more?: Never true Do you have trouble paying for medicines?: No Do you have trouble getting transportation to medical appointments?: No Do you have trouble paying your heating and electricity bill?: No Do you have trouble taking care of your child, family member or friend?: I choose not to answer this question Do you have trouble with day-to-day activities such as bathing, preparing meals, shopping, managing finances, etc.?: Yes Are you currently unemployed and looking for a job?: No Are you interested in more education?: No Please select the resources that you would like help with: None Currently or been in a relationship where the following occur: No concerns reported THRIVE Score: 0 AUDIT C Alcohol Use Questionnaire (AUDIT-C) 2. How many drinks containing alcohol do you have on a typical day when you are drinking?: 1 or 2 Total Score: 0 JOSETTE-7 AMB Questionnaire JOSETTE-7 Date JOSETTE - 7 assessed: 11/07/24 Source: Developed by Drs. Stoney Schrader, Tata Randle, Teddy Cool and colleagues, with an educational penelope from [employer]. Review of Systems Narrative Review of Systems - General: Reports a decline in her general condition. - Psychiatric: Reports some agitation. - Neurological: Reports wandering. Physical exam (Primary Care) Vital Signs: Last Vital Signs Temp 96.9 F 04/30/25 14:01 BP 120/70 04/30/25 14:01 BMI result Body Mass Index 24.1 Tobacco/Smoking Status: Tobacco use Status Tobacco use date assessed 04/30/25 04/30/25 14:03 Patient Tobacco Use Status Never used Tobacco 04/30/25 14:03 e-Cigarette/Vaping Use Never Used 04/30/25 14:03 Thrive Assessment: Date of Thrive Assessment Date Thrive assessed 11/06/24 04/30/25 14:03 Currently or been in a relationship where the following occur: No concerns reported Narrative Physical Exam General: Appearance normal, both eyes and all related structures Nutritional Appearance: Well nourished Orientation/consciousness: Patient oriented x3, but dementia is now complete Limitations: Needs help with feeding, bathing, personal hygiene, and going to the bathroom Head: Normal to inspection Neck: Normal visual inspection Chest: Normal palpation of entire chest wall Respiratory: Normal respiratory effort Neurology: Patient oriented x3, but dementia is now complete Coding Level of Care Code Est Pt Level 4 (39130) Complex EM visit Add On G2211 Diagnoses Dementia without behavioral disturbance, unspecified dementia type F03.90 Dementia type: unspecified type Dementia behavioral disturbance: without behavioral disturbance Assessment & Plan Assessment & Plan (1) Dementia: Code(s): F03.90 - Unspecified dementia, unspecified severity, without behavioral disturbance, psychotic disturbance, mood disturbance, and anxiety Category: Medical Qualifiers: Dementia type: unspecified type Dementia behavioral disturbance: without behavioral disturbance Qualified Code(s): F03.90 - Unspecified dementia without behavioral disturbance Plan Plan - Dementia/Agitation: The main goal is to keep the patient safe and comfortable. - The caregiver may give an extra dose of haloperidol (Haldol) 0.5 mg as needed for agitation. - Medications: Continue current medications, including Eliquis, Lasix, metoprolol, and sulfasalazine. - No refills are needed at this time. - Communication: The caregiver was advised to contact the front end web developer to regain access to the patient's portal, as it is the best way to communicate. - Caregiver is advised to make contact if a higher dose is needed. Discussion Notes I discussed with the patient's caregiver that the patient's dementia is now complete and that her general condition has declined. The primary goals of care are to keep the patient safe, comfortable, and to prevent her from hurting herself. For episodes of agitation, I advised that an extra dose of haloperidol can be given on an as-needed basis. I instructed the caregiver to contact me if more medication is required. I also recommended they contact the office to resolve their patient portal access issues to facilitate better communication. Patient Instructions - For agitation, you may give an extra dose of the haloperidol (Haldol) medication as needed. - Please let me know if you feel more medication is needed for agitation. - Continue giving all her current medications as prescribed. - The main goal is to keep her safe and comfortable. - Please speak with the front end web developer staff to help you get signed back into the patient portal, as this is the best way to reach me.
--- OUTSIDE RECORDS SUMMARY | 2025-05-01 01:55 | XMS_ITS | Patient Health Record ---
Author Organization [facility] Address [address] [place] [address] Care Team Providers Care Asbestos Removal Worker Name Role Phone FRANCES JOY Primary Care Provider Stoney Pacheco Unavailable [phone] EDMUNDO NOE Unavailable Unavailable Reason For Referral No Information Plan Of Treatment No Information Insurance Providers Payer Name Payer Address Payer Phone Subscriber Number Group Number Insured Name Patient Relationship to Insured Coverage Start Date Coverage End Date MEDICARE [place] [address] [place] [address] [id number] TATUM UNDERWOOD Self - patient is the insured [employer] ATT[employer] CLAIMS [address] [place] [address] [id number] TATUM UNDERWOOD Self - patient is the insured
--- OUTSIDE RECORDS SUMMARY | 2025-05-01 01:56 | XMS_ITS | Patient Health Record ---
Author Organization [employer] [facility] Address [address] [place] [address] Support Name Relationship Address Phone TATUM SONI Guarantor Unknown [phone] Reason For Referral No Information Medications Medication [...] Status Risk Notes Problem Benign essential hypertension (9838510) Essential hypertension, benign (401.1) Active confirmed Major Problem Menopausal symptom (11646772) Symptomatic menopausal or female climacteric states (627.2) Active confirmed Major Problem Postmenopausal atrophic vaginitis (18928270) 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) Active confirmed Diag Problem Osteoarthritis (874301516) Osteoarthrosis, unspecified whether generalized or localized, unspecified site (715.90) Active confirmed Major Problem Gynecological examination normal (639055877549984) Routine gynecological examination (V72.31) Active confirmed Major Problem Screening for malignant neoplasm of colon (293957379) Special screening for malignant neoplasms, colon (V76.51) Active confirmed Major Plan Of Treatment No Information Insurance Providers Payer Name Payer Address Payer Phone Subscriber Number Group Number Insured Name Patient Relationship to Insured Coverage Start Date Coverage End Date MEDICARE [address] [place], [place] [id number] TATUM UNDERWOOD Self - patient is the insured AARP Medicare Complete by [employer] [address] [place] [id number] TATUM UNDERWOOD Self - patient is the insured
== END 2025-04-30 14:46 | disposition home or self-care (01) ==
LOC: HO.HMCH 13:51
PROVIDERS: PCP Internal Medicine; Visit Provider Internal Medicine
DX: F03.90 Unspecified dementia, unspecified severity, without behavioral disturbance, psychotic disturbance, mood disturbance, and anxiety (principal)

== ENCOUNTER → 2025-04-30 13:50 | Outpatient (BNVA) | payer MEDICARE, SELFPAY | PROVIDERS: PCP Internal Medicine; Visit Provider Internal Medicine | DX: F03.90 Unspecified dementia, unspecified severity, without behavioral disturbance, psychotic disturbance, mood disturbance, and anxiety (principal) | CPT/HCPCS: 99212 ==